=== PATIENT | female | born 1960 | race African-American/Black ===

== ENCOUNTER 2018-05-24 15:05 | Outpatient (CLI) | payer MEDICAID | END 2018-05-24 15:06 | disposition critical access hospital (66) | LOC: EMS 15:05 | PROVIDERS: ATTEND Surgery | DX: R10.30 Lower abdominal pain, unspecified (principal); R11.2 Nausea with vomiting, unspecified; R53.1 Weakness; R53.83 Other fatigue | CPT/HCPCS: A0425; A0427 ==

== ENCOUNTER 2018-05-24 15:28 | Inpatient (IN) | payer MEDICAID ==
[2018-05-24] MEDS ORDERED: SODIUM CHLORIDE 0.9% 1,000 ML IV ONE ×2 (15:48→18:21)
[2018-05-24] MEDS ORDERED: ACETAMINOPHEN 1,000 MG/100 ML 100 ML IV STA (15:49)
[2018-05-24 16:07] LABS: BASOPHILS % (AUTO) 0.5 %; EOSINOPHILS # (AUTO) 0.1 10^3/uL (0.0-0.7); HGB - HEMOGLOBIN 15.3 g/dL (12.0-16.0); LYMPHOCYTES % (AUTO) 32.4 %; MEAN CORPUSCULAR HEMOGLOBIN 26.2 pg (27.0-31.0); MEAN CORPUSCULAR HGB CONC 32.7 g/dL (32.0-36.0); MEAN CORPUSCULAR VOLUME 80.1 fL (81.0-99.0); MEAN PLATELET VOLUME 8.8 fL (7.9-10.8); MONOCYTES # (AUTO) 0.4 10^3/uL (0.0-1.0); MONOCYTES % (AUTO) 6.2 %; NEUTROPHILS # (AUTO) 3.7 10^3/uL (1.5-6.6); NEUTROPHILS % (AUTO) 58.9 %; PLT - PLATELET COUNT 230 10^3/uL (130-450); RED BLOOD COUNT 5.85 10^6/uL (4.20-5.40); RED CELL DISTRIBUTION WIDTH 14.5 % (12.0-15.0); WHITE BLOOD COUNT 6.2 x10^3/uL (4.8-10.8)
[2018-05-24 16:12] LABS: INR 1.1 (0.8-1.2); PT - PROTHROMBIN TIME 12.1 secs (9.9-12.6)
[2018-05-24] MEDS ORDERED: IOPAMIDOL-300 100 ML VIAL ONE (16:12)
[2018-05-24 16:20] LABS: ALBUMIN 4.2 g/dL (3.2-5.5); ALBUMIN/GLOBULIN RATIO 0.8 (1.0-2.2); ALKALINE PHOSPHATASE 123 IU/L (42-121); ALT ALANINE AMINOTRANSFERASE 19 IU/L (10-60); AST ASPARTATE AMINOTRANSFERASE 24 IU/L (10-42); BILIRUBIN,TOTAL 0.7 mg/dL (0.2-1.0); BUN - BLOOD UREA NITROGEN 14 mg/dL (6-20); CALCIUM 10.1 mg/dL (8.5-10.3); CARBON DIOXIDE - CO2 30 mmol/L (21-32); CHLORIDE 100 mmol/L (101-111); CREATININE 0.8 mg/dL (0.4-1.0); GFR - MDRD 90 (>89); GLUCOSE 106 mg/dL (70-100); LIPASE 20 U/L (22-51); MAGNESIUM 2.2 mg/dL (1.7-2.8); SODIUM 138 mmol/L (135-145); TOTAL PROTEIN 9.2 g/dL (6.7-8.2)
[2018-05-24] MEDS ORDERED: POTASSIUM BICARB 25 MEQ TABLET PO STA (16:31)
[2018-05-24] MEDS ORDERED: IOPAMIDOL-300 100 ML VIAL IVP ONE (17:32)
[2018-05-24] MEDS ORDERED: MORPHINE 10 MG/ML VIAL IVP STA (17:32)
[2018-05-24] MEDS ORDERED: POTASSIUM CHLOR 10 MEQ/100 ML 10 MEQ/100 ML BAG IV ONE (17:32)
[2018-05-24 17:43] LABS: MUDS CUTOFF CONCENTRATIONS CUTOFF CONC BELOW:
[2018-05-24 17:47] LABS: BILIRUBIN,URINE NEGATIVE (NEGATIVE); GLUCOSE, URINE (UA) NEGATIVE (NEGATIVE); KETONES,URINE (UA) NEGATIVE (NEGATIVE); LEUKOCYTE ESTERASE, URINE NEGATIVE (NEGATIVE); NITRITE,URINE NEGATIVE (NEGATIVE); OCCULT BLOOD,URINE NEGATIVE (NEGATIVE); PH,URINE 6.5 PH (5.0-7.5); PROTEIN,URINE TRACE mg/dL (NEGATIVE); UROBILINOGEN,URINE 0.2 (NORMAL) E.U./dL (NORMAL)
[2018-05-24 18:01] LABS: AMPHETAMINE SCREEN,URINE POSITIVE (NEGATIVE); BENZODIAZEPINES SCREEN, URINE NEGATIVE (NEGATIVE); CLARITY,URINE CLOUDY (CLEAR); COCAINE SCREEN URINE NEGATIVE (NEGATIVE); METHADONE SCREEN, URINE NEGATIVE (NEGATIVE); METHAMPHETAMINES SCREEN, URINE POSITIVE (NEGATIVE); OPIATE SCREEN, URINE NEGATIVE (NEGATIVE); OXYCODONE SCREEN, URINE NEGATIVE (NEGATIVE); PROPOXYPHENE SCREEN, URINE NEGATIVE (NEGATIVE); TRICYCLIC ANTIDEPRESSANT,URINE NEGATIVE (NEGATIVE)
--- NOTE | 2018-05-24 18:05 | ED Physician Documentation ---
PD HPI ABD PAIN - Stated complaint Stated Complaint: ABD PX - Chief complaint Chief Complaint: Abd Pain - History obtained from History obtained from: Patient - History of Present Illness Timing - onset: Today Timing - details: Abrupt onset (She had onset of general abdominal pain bloating and nausea with vomiting this afternoon over the past couple of hours. She has had mild lesser symptoms intermittently related to an umbilical hernia. She states she will lay down and massage the area and will feel the hernia reduce. She has not had the pain to this degree or vomiting associated with it. She did have an umbilical hernia repair a couple of years ago and states that her near we concurred within a couple of months. It has been intermittently out over the last several months but not the symptoms of this degree. She has felt general abdominal cramping and bloating to some degree over the last 4-6 months. She denies any constipation or diarrhea.) Quality: Cramping, Aching, Fullness/distended (this afternoon) Location: All over / everywhere, Periumbilical Radiation: No: Chest, Lower back Improved by: Position (worse lying flat). No: Vomiting Worsened by: Eating, Palpation Associated symptoms: Nausea, Vomiting. No: Fever, Hematemesis, Diarrhea, Constipation Similar symptoms before: Has not had sx before (has had hernia pain at times if gets feeling stuck, but not had the degree of pain and vomiting as she did today.) Recently seen: Not recently seen Review of Systems Unable to obtain: Other (she is somewhat sleepy on exam, before pain meds. So some limited history.) Constitutional: denies: Fever, Chills, Myalgias Nose: denies: Rhinorrhea / runny nose, Congestion Throat: denies: Sore throat Cardiac: denies: Chest pain / pressure Respiratory: denies: Cough GI: reports: Abdominal Pain, Abdominal Swelling, Nausea, Vomiting. denies: Constipation, Diarrhea : denies: Dysuria, Frequency Skin: denies: Rash, Lesions Musculoskeletal: denies: Neck pain, Back pain Neurologic: reports: Generalized weakness. 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 - Present Medications Home Medications: Ambulatory Orders Medication Instructions Recorded Confirmed Ciprofloxacin [Cipro] 500 mg PO BID #20 tablet 01/26/14 HYDROcod/ACETAM 5/325 [Vicodin 1 - 2 ea PO Q6H PRN #15 tablet 01/26/14 5/325] - Allergies Allergies/Adverse Reactions: Allergies Allergy/AdvReac Type Severity Reaction Status Date / Time No Known Drug Allergies Allergy Verified 01/26/14 14:02 - Social History Does the pt smoke?: No Smoking Status: Never smoker Does the pt drink ETOH?: Yes Does the pt have substance abuse?: No - Family History Family history: reports: Non contributory - Immunizations Immunizations are current?: Yes - POLST Patient has POLST: No POLST Status: Full Code PD ED PE NORMAL - Vitals Vital signs reviewed: Yes - General General: No acute distress, Well developed/nourished. No: Alert and oriented X 3 (she is sleepy/rouses to verbal and light tactile. ) - HEENT HEENT: Atraumatic, PERRL (nonicteric), Moist mucous membranes, Pharynx benign - Neck Neck: Supple, no meningeal sign, No adenopathy, No JVD - Cardiac Cardiac: RRR, No murmur - Respiratory Respiratory: Clear bilaterally - Abdomen Abdomen: Other (abd markedly distended and generally tender. Umbilical hernia very tender and firm, felt in supraumbilical soft tissue. She is moderately obese truncally, so hard to feel margins of it or the hernia defect. Firm pressure does not reduce the hernia and is painful. ). No: Normal bowel sounds (hyperactive diffusely) Results - Vitals Vitals: Vital Signs - 24 hr 05/24/18 05/24/18 05/24/18 15:33 16:21 17:30 Temperature 35.8 C L Heart Rate 96 84 83 Respiratory 15 17 Rate Blood Pressure 152/112 H 163/120 H O2 Saturation 95 96 99 Oxygen O2 Source Room air - Labs Labs: Laboratory Tests 05/24/18 05/24/18 05/24/18 16:00 16:00 16:00 WBC 6.2 RBC 5.85 H Hgb 15.3 Hct 46.9 MCV 80.1 L MCH 26.2 L MCHC 32.7 RDW 14.5 Plt Count 230 MPV 8.8 Neut # (Auto) 3.7 Lymph # (Auto) 2.0 [place] # (Auto) 0.4 Eos # (Auto) 0.1 Baso # (Auto) 0.0 Absolute Nucleated RBC 0.00 Nucleated RBC % 0.1 PT 12.1 INR 1.1 APTT 31.0 Sodium 138 Potassium 2.9 L Chloride 100 L Carbon Dioxide 30 Anion Gap 8.0 BUN 14 Creatinine 0.8 Estimated GFR (MDRD) 90 Glucose 106 H Lactic Acid Calcium 10.1 Magnesium 2.2 Total Bilirubin 0.7 AST 24 ALT 19 Alkaline Phosphatase 123 H Ammonia Total Protein 9.2 H Albumin 4.2 Globulin 5.0 H Albumin/Globulin Ratio 0.8 L Lipase 20 L CA 125 Antigen Urine Color Urine Clarity Urine pH Ur Specific [place] Urine Protein Urine Glucose (UA) Urine Ketones Urine Occult Blood Urine Nitrite Urine Bilirubin Urine Urobilinogen Ur Leukocyte Esterase Urine RBC Urine WBC Ur Squamous Epith Cells Urine Bacteria Ur Microscopic Review Urine Culture Comments Urine Opiates Screen Ur Oxycodone Screen Urine Methadone Screen Ur Propoxyphene Screen Ur Barbiturates Screen Ur Tricyclics Screen Ur Phencyclidine Scrn Ur Amphetamine Screen U Methamphetamines Scrn U Benzodiazepines Scrn Urine Cocaine Screen U Cannabinoids Screen Ethyl Alcohol < 5.0 05/24/18 05/24/18 05/24/18 16:00 16:00 16:00 WBC RBC Hgb Hct MCV MCH MCHC RDW Plt Count MPV Neut # (Auto) Lymph # (Auto) [place] # (Auto) Eos # (Auto) Baso # (Auto) Absolute Nucleated RBC Nucleated RBC % PT INR APTT Sodium Potassium Chloride Carbon Dioxide Anion Gap BUN Creatinine Estimated GFR (MDRD) Glucose Lactic Acid 1.2 Calcium Magnesium Total Bilirubin AST ALT Alkaline Phosphatase Ammonia 9.0 Total Protein Albumin Globulin Albumin/Globulin Ratio Lipase CA 125 Antigen 7.0 Urine Color Urine Clarity Urine pH Ur Specific [place] Urine Protein Urine Glucose (UA) Urine Ketones Urine Occult Blood Urine Nitrite Urine Bilirubin Urine Urobilinogen Ur Leukocyte Esterase Urine RBC Urine WBC Ur Squamous Epith Cells Urine Bacteria Ur Microscopic Review Urine Culture Comments Urine Opiates Screen Ur Oxycodone Screen Urine Methadone Screen Ur Propoxyphene Screen Ur Barbiturates Screen Ur Tricyclics Screen Ur Phencyclidine Scrn Ur Amphetamine Screen U Methamphetamines Scrn U Benzodiazepines Scrn Urine Cocaine Screen U Cannabinoids Screen Ethyl Alcohol 05/24/18 17:35 WBC RBC Hgb Hct MCV MCH MCHC RDW Plt Count MPV Neut # (Auto) Lymph # (Auto) [place] # (Auto) Eos # (Auto) Baso # (Auto) Absolute Nucleated RBC Nucleated RBC % PT INR APTT Sodium Potassium Chloride Carbon Dioxide Anion Gap BUN Creatinine Estimated GFR (MDRD) Glucose Lactic Acid Calcium Magnesium Total Bilirubin AST ALT Alkaline Phosphatase Ammonia Total Protein Albumin Globulin Albumin/Globulin Ratio Lipase CA 125 Antigen Urine Color YELLOW Urine Clarity CLOUDY Urine pH 6.5 Ur Specific [place] 1.020 Urine Protein TRACE Urine Glucose (UA) NEGATIVE Urine Ketones NEGATIVE Urine Occult Blood NEGATIVE Urine Nitrite NEGATIVE Urine Bilirubin NEGATIVE Urine Urobilinogen 0.2 (NORMAL) Ur Leukocyte Esterase NEGATIVE Urine RBC None Seen Urine WBC 0-3 Ur Squamous Epith Cells MANY Squamous H Urine Bacteria Many H Ur Microscopic Review INDICATED Urine Culture Comments NOT INDICATED Urine Opiates Screen NEGATIVE Ur Oxycodone Screen NEGATIVE Urine Methadone Screen NEGATIVE Ur Propoxyphene Screen NEGATIVE Ur Barbiturates Screen NEGATIVE Ur Tricyclics Screen NEGATIVE Ur Phencyclidine Scrn NEGATIVE Ur Amphetamine Screen POSITIVE H U Methamphetamines Scrn POSITIVE H U Benzodiazepines Scrn NEGATIVE Urine Cocaine Screen NEGATIVE U Cannabinoids Screen NEGATIVE Ethyl Alcohol PD MEDICAL DECISION MAKING - ED course Complexity details: reviewed results (CT showing incarcerated hernia umbilical with edema, and marked bowel obstruction. 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 ), re-evaluated patient (I still feel the umbilical hernia and it is tender and I don't feel it reduce with steady firm pressure. Her abd generally is somewhat less tense that on arrival, but still distended and hyeractive bowel sounds. ), considered differential (seems concerning for bowel obstruction and likely caused by incarcerated hernia. CT and labs, IV fluids and meds. ), d/w patient, d/w urban design consultant (Dr. Criss Mathews - discussed that I could not reduce the hernia and still seems obstruction. There is the pelvic mass which will be subsequent issue, but the acute is the hernia with obstruction. He will see her in the ER. ) - Sepsis Event Vital Signs: Vital Signs - 24 hr 05/24/18 05/24/18 05/24/18 15:33 16:21 17:30 Temperature 35.8 C L Heart Rate 96 84 83 Respiratory 15 17 Rate Blood Pressure 152/112 H 163/120 H O2 Saturation 95 96 99 Oxygen O2 Source Room air Departure - Departure Disposition: ED Transfer to [facility] Clinical Impression: Incarcerated umbilical hernia, Pelvic mass in female Abdominal pain Qualifiers: Abdominal location: generalized Qualified Code(s): R10.84 - Generalized abdominal pain Bowel obstruction Qualifiers: Intestinal obstruction type: other intestinal obstruction Intestinal obstruction extent: complete Qualified Code(s): K56.691 - Other complete intestinal obstruction Condition: Stable Record reviewed to determine appropriate education?: Yes
[2018-05-24 18:06] LABS: BACTERIA,URINE Many /HPF (None Seen); RBC,URINE None Seen /HPF (0-5); SQUAMOUS EPITHELIAL CELL,UR MANY Squamous (<= Few)
--- NOTE | 2018-05-24 18:10 | CT Report ---
Procedure Date: 05/24/2018 Accession Number: [id number] / [id number] Procedure: CT - Abdomen/Pelvis W/ CPT Code: FULL RESULT: EXAM: CT ABDOMEN AND PELVIS EXAM DATE: 05/24/2018 05:29 PM. CLINICAL HISTORY: Mid abdominal pain and distension. COMPARISONS: None. TECHNIQUE: Routine helical CT imaging was performed through the abdomen and pelvis. IV contrast: 100 ML Isovue 300. Enteric contrast: No. Reconstructions: Coronal and sagittal. In accordance with CT protocol optimization, one or more of the following dose reduction techniques were utilized for this exam: automated exposure control, adjustment of mA and/or KV based on patient size, or use of iterative reconstructive technique. FINDINGS: Lung Bases: Unremarkable. Liver: Normal. No masses. Gallbladder/Bile Ducts: Unremarkable. Spleen: Normal. Pancreas: Normal. Adrenal Glands: Normal. Kidneys: Normal. No masses or hydronephrosis. Peritoneal Cavity/Bowel: There is a short segment of incarcerated loop junction of the mid and distal ileum in a 4 x 5 cm hernia sac, 3 cm neck, axial image 52, coronal image 13. There is marked wall thickening and exuberant enhancement of the wall of the small bowel at and proximal to the hernia neck raising the possibility of serosal implants. Marked enhancement is also seen in the adjacent abdominal rectus muscle. Small bowel proximal to this hernia measures 5 cm in diameter. The distal small bowel is decompressed. The colon is very small in caliber. Appendix not visualized. No free air. Pelvic Organs: 18 x 23 x 10 cm complex inhomogeneous aggressive appearing lesion occupying the left side of the pelvis and the inferior half of the abdomen. 13.5 x 9 x 10 cm aggressive, complex mass right side of the lower abdomen occupying the rest of the pelvis. These 2 lesions abut each other over a short segment mid way. Urinary bladder is compressed to the right. No uterus evident as a discrete structure. Vasculature: No aneurysms or other significant abnormality. Bones: No significant abnormality. Other: None. IMPRESSION: 1. Incarcerated loop of small bowel in a right periumbilical hernia causing marked obstruction. 2. Marked irregular enhancement of the bowel proximal to the hernia neck and also involving the adjacent abdominal wall raising the possibility of a serosal implant. 3. Two massive complex aggressive lesions probably arising out of the pelvis causing marked mechanical compromise of the rest of the abdominal and pelvic contents. Differential includes ovarian neoplasms, other gynecologic neoplasms, sarcoma, atypical for uterine leiomyomas. RADIA The above findings were discussed with Jordan Pablo by Dr. Rosalind Ward at 18:08 hrs on 05/24/18.
--- NOTE | 2018-05-24 19:36 | XRAY Report ---
Procedure Date: 05/24/2018 Accession Number: [id number] / [id number] Procedure: XR - Chest 1 View X-Ray CPT Code: 28529 FULL RESULT: EXAM: CHEST RADIOGRAPHY EXAM DATE: 05/24/2018 06:26 PM. CLINICAL HISTORY: Abd pain; possible pre-op. COMPARISON: None. TECHNIQUE: 1 view. FINDINGS: Lungs/Pleura: Lung volumes are extremely low. Lower lung predominant linear opacities could reflect atelectasis. No other focal consolidation. No evidence for pneumothorax. Mediastinum: Heart size is normal. Tortuous thoracic aorta with atheromatous calcification of the arch. Other: None. IMPRESSION: 1. No radiographic evidence for acute cardio coming process. 2. Lung volumes are low. RADIA
--- NOTE | 2018-05-24 19:39 | CONSULTATION NOTE ---
Referring Provider Name of Referring Provider:: Dr. Jordan Pablo Consult Date: 05/24/18 Chief Complaint - Chief Complaint Chief Complaint: abdominal pain History of Present Illness - Admitted From Admitted From:: ER - History Obtained From Records Reviewed: yes History obtained from: pt Exam Limitations: pt is somnolent during the evaluation, somewhat difficult to arouse - History of Present Illness HPI Comment/Other: 57 yo female with sudden onset of periumbilical abdominal pain this morning, associated with N/V x 1. She has a hx of repair of an umbilical hernia in [place] in 11/2015. She reports that within a month of the surgery her hernia recurred, and she has repeated episodes of pain that previously had been relieved with recumbency and massaging the area. However those techniques were not successful today, prompting an ER evaluation today. She reports no change in bowel habits, melena, BRBPR, hematemesis, no chronic UGI sx such as heartburn , dysphagia, no recent wt changes. She denies respiratory or urinary sx, no abnormal vaginal discharge or bleeding. She reports her LMP was 05/2017, she is para 3, and no recent blood bank laboratory professional evaluations. Neg FH GI tumors. Attempts by the ER MD to reduce the hernia have been also unsuccessful. 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 - Substance History Use: Uses substance without health or social issues: Alcohol (1 drink/day) - POLST Patient has POLST: No POLST Status: Full Code Meds/Allgy - Allergies Allergies/Adverse Reactions: Allergies Allergy/AdvReac Type Severity Reaction Status Date / Time No Known Drug Allergies Allergy Verified 01/26/14 14:02 Review of Systems - Constitutional Constitutional: denies: Fever, Chills, Weight gain, Weight loss - Cardiovascular Cariovascular: denies: Chest pain, Exertional dyspnea - Respiratory Respiratory: denies: Cough - Gastrointestinal Gastrointestinal: reports: Abdominal pain, Abdominal distention, Nausea, Vomiting, Bloating. denies: Constipation, Diarrhea, Change in bowel habits, Rectal bleeding, Black stools, Bloody stools, Gautam blood emesis, Coffee grounds emesis, Reflux/heartburn - Genitourinary Genitourinary: denies: Dysuria, Frequency, Flank pain - Musculoskeletal Musculoskeletal: denies: Muscle pain, Back pain - Hematologic/Lymphatic Hematologic/Lymphatic: denies: Bruising, Blood clots, Bleeding tendencies - All Other Systems All Other Systems: reports: Reviewed and negative Exam - Vital Signs Reviewed Vital Signs: Yes Vital Signs: Vital Signs x48h Temp Pulse Resp BP Pulse Ox 05/24/18 17:30 83 99 05/24/18 16:21 84 17 163/120 H 96 05/24/18 15:33 35.8 C L 96 15 152/112 H 95 - Physical Exam General Appearance: positive: No acute distress, Lethargic Eyes Bilateral: positive: Normal inspection, Conjunctivae nml, No scleral icterus ENT: positive: ENT inspection nml, Dry mucous membranes Neck: positive: Nml inspection, No JVD, Trachea midline. negative: Lymphadenopathy (R), Lymphadenopathy (L) Respiratory: positive: Chest non-tender, No respiratory distress, Breath sounds nml. negative: Wheezes, Rales, Rhonchi Cardiovascular: positive: Regular rate & rhythm, No murmur, No gallop Abdomen: positive: Tenderness (periumbilical; no definite hernia palpable but obesity limits examination), Guarding, Mass (large mass arising from pelvis, fixed, nontender, palpable midway between umbilicus and pubis.), Abnml bowel sounds (hypoactive). negative: Rebound, Hepatomegaly, Splenomegaly Skin: positive: Color nml, Warm, Dry Extremities: positive: Non-tender, Pedal edema (1-2+ bilat pretibial edema). negative: Calf tenderness Neurologic/Psychiatric: positive: Oriented x3, Other (lethargic, denies recreational drug use, but urine tox screen + amphetamines) Conclusion/Plan - Diagnosis Diagnosis: 1. Incarcerated recurrent ventral/umbilical hernia with SBO. 2. Volume depletion secondary to same. 3. Hypokalemia, possibly secondary to above. 4. Large pelvic mass, very concerning for blood bank laboratory professional malignancy. 5. Hypertension, uncontrolled. 6. Somnolence, concerning for drug toxicity, withdrawal from amphetamines, metabolic, etc. - Plan Plan: Resuscitation with IVF, replace potassium, to OR for repair of hernia and relief of SBO, hospitalist and blood bank laboratory professional consultations. PAR conference with pt, and consent obtained. - Lab Results Fish Bones: 05/24/18 16:00 05/24/18 16:00 Other Lab Results: urine tox screen + amphetamines, neg for everything else tested. UA negative; SG 1.020 CA-125: 7 (nl) - Diagnostic Imaging Results Diagnostic Imaging Results: positive: Final report reviewed, Critical result, Read independently Diagnostic Imaging Results Comments: CXR: NAD CT abd/pelvis: 1. incarcerated umbilical/incisional hernia with loop of mid small bowel incarcerated and proximal dilation c/w SBO; distal small and large bowel are decompressed. 2. large pelvic mass involving uterus, tubes, and ovaries, displacing the urinary bladder; no ascites, lymphadenopathy or liver mets noted. - EKG Results EKG Interpreted Independently: No EKG Findings: pending
[2018-05-24] MEDS ORDERED: BUPIVACAINE 0.5%-EPI 1:200000 PF 30 ML VIAL ONE (19:56)
[2018-05-24] MEDS ORDERED: ceFAZolin 2 GM/50 ML 2 GM/50 ML BAG IV SCH (20:30)
[2018-05-24] MEDS ORDERED: ceFAZolin 1 GM VIAL ONE (20:57)
[2018-05-24] MEDS ORDERED: BUPIVACAINE 0.25% PF 30 ML VIAL ONE (21:05)
[2018-05-24] MEDS ORDERED: LIDOCAINE MPF 1%-EPI 1:200000 30 ML VIAL ONE (21:05)
[2018-05-24] MEDS ORDERED: LACTATED RINGERS 1,000 ML IV ONE ×2 (21:16→22:03)
[2018-05-24] MEDS ORDERED: ONDANSETRON 4 MG/2 ML VIAL IVP ONE (22:00)
[2018-05-24] MEDS ORDERED: SUCCINYLCHOLINE 200 MG/10 ML VIAL IVP ONE (22:00)
[2018-05-24] MEDS ORDERED: ROCURONIUM 50 MG/5 ML VIAL IVP ONE (22:00)
[2018-05-24] MEDS ORDERED: KETOROLAC 30 MG/ML VIAL IVP ONE (22:00)
[2018-05-24] MEDS ORDERED: fentaNYL 250 MCG/5 ML VIAL IVP ONE (22:00)
[2018-05-24] MEDS ORDERED: MIDAZOLAM 2 MG/2 ML VIAL IVP ONE (22:00)
[2018-05-24] MEDS ORDERED: PROPOFOL 200 MG/20 ML VIAL IVP ONE (22:00)
[2018-05-24] MEDS ORDERED: BUPIVACAINE 0.5%-EPI 1:200000 PF 30 ML VIAL SUBQ ONE ×2 (22:01→22:50)
[2018-05-24] MEDS ORDERED: MORPHINE 2 MG/ML SYRINGE IVP PRN (23:17)
--- NOTE | 2018-05-24 23:21 | OPERATIVE REPORT ---
Operative Report - General Admit Date: 05/24/18 Procedure Date: 05/24/18 Planned Procedure: open repair of incarcerated recurrent ventral hernia Pre-Op Diagnosis: incarcerated recurrent ventral hernia with SBO Procedure Performed: open repair of incarcerated recurrent ventral hernia with Ventralex soft tissue patch, peritoneal biopsy, peritoneal fluid for cytology. Post Op Diagnosis: same - Procedure Note Primary Surgeon: Brock Mathews MD Anesthesia Provider: Any DODSON Anesthesia Technique: General ET tube Pathology: hernia sac, peritoneal fluid for cytology, peritoneal biopsy IV Fluids (mL): 1,800 Estimated Blood Loss (mL): 10 Urine Output (mL): 200
[2018-05-24] MEDS ORDERED: FAMOTIDINE 20 MG/2 ML VIAL IVP SCH (23:45)
[2018-05-25] MEDS ORDERED: LACTATED RINGERS 1,000 ML IV ONE (00:06)
[2018-05-25] MEDS: LACTATED RINGERS 1,000 ML IV SCH ×3 (00:54→17:18)
[2018-05-25] MEDS: SODIUM CHLORIDE FLUSH 0.9% 10 ML SYRINGE IVP SCH ×4 (00:56→23:44)
[2018-05-25] MEDS: ACETAMINOPHEN 1,000 MG/100 ML 100 ML IV SCH ×4 (01:02→17:54)
--- NOTE | 2018-05-25 03:41 | OPERATIVE REPORT ---
DATE OF SERVICE: 05/24/2018 Physician: Brock Mathews MD PREOPERATIVE DIAGNOSES: 1. Incarcerated, recurrent ventral hernia with small bowel obstruction. 2. Pelvic mass. POSTOPERATIVE DIAGNOSES: 1. Incarcerated, recurrent ventral hernia with small bowel obstruction. 2. Pelvic mass. PROCEDURE PERFORMED: 1. Open repair of incarcerated, recurrent ventral hernia with Ventralex soft tissue hernia patch. 2. Peritoneal biopsy. 3. Peritoneal fluid aspiration for cytology. ANESTHESIA: General endotracheal. SURGEON: Brock Mathews MD ESTIMATED BLOOD LOSS: 10 mL, replaced 1800 mL of crystalloid solution. COMPLICATIONS: None. FINDINGS: Hernia contents had reduced into the peritoneal cavity. After induction of general anesthesia, the hernia sac was markedly thickened, but had a smooth peritoneal surface. The sac was sent for pathologic evaluation. There appeared to be mesh incorporated along the left lateral edge of the fascial defect with marked thickening of the peritoneum at this location. The visualized small bowel appeared normal. Palpation through the fascial defect revealed an irregular mass arising from the pelvis. Approximately 30 mL of serosanguineous peritoneal fluid was aspirated and sent for cytologic evaluation. A 4-cm diameter Ventralex soft tissue hernia patch was used for the reconstruction. INDICATIONS: Tiffanie Wilson is a 57-year-old woman who presented with signs and symptoms of a small-bowel obstruction due to an incarcerated ventral hernia. She has a history of prior repair of this hernia and clinically appeared to have a recurrence with incarcerated small bowel. Evaluation with CT also revealed a large pelvic mass. After consultation with Dr. Ignacio at the site, it was elected to repair the hernia, relieve the obstruction and obtain fluid for cytology and otherwise leave the pelvic mass for future evaluation and treatment by [facility] oncology service. TECHNIQUE: After informed consent and preoperative preparation which included fluid resuscitation and administration of 2 grams cefazolin intravenously within an hour of the incision as well as application of sequential calf compression boots, the patient was taken to the operating room and placed under general endotracheal anesthesia. Her abdomen was prepared with ChloraPrep solution and draped in the usual sterile fashion. The patient's previous supraumbilical scar was reopened vertically and extended below the umbilicus for several centimeters. Hemostasis achieved with electrocautery. The incision was carried down through the subcutaneous tissues until the hernia sac was identified. It was dissected free from surrounding soft tissues until the anterior fascia was exposed circumferentially around the neck of the hernia sac. The hernia sac was seen to have collapsed. It was opened. Adhesions between the hernia sac and a knuckle of small bowel were lysed, allowing the small bowel to completely reduce into the peritoneal cavity. The hernia sac was excised flush with the anterior fascia and sent for pathologic evaluation. The thickened area of peritoneum lateral to the fascial defect was excised and sent separately as a peritoneal biopsy. Hemostasis was achieved with electrocautery. The fascial edges were mobilized circumferentially and the peritoneal surface surrounding the fascial defect was mobilized for a distance of 2-3 cm circumferentially. The fascial defect was approximately 2 cm in diameter. A Ventralex 4-cm diameter patch, which had been soaked in the antibiotic solution containing 1 gram of Ancef per liter, was then brought onto the field and placed in a preperitoneal location and held anteriorly by the attached strap while the fascial edges were reapproximated transversely over the patch with interrupted 0 Ethibond sutures. Sutures included the strap to further anchor the patch in place. Excess strap was excised. After hemostasis was assured, the wound was irrigated with antibiotic solution, following which wound closure was accomplished in layers using continuous 2-0 Vicryl to reapproximate the deep subcutaneous tissues, followed by 3-0 Vicryl for the superficial subcutaneous tissues, followed by 4-0 Monocryl subcuticular skin closure, followed by Dermabond. Anesthesia was terminated and the patient was transferred to the recovery room in satisfactory condition. Sponge and needle counts were correct x2 and no drains were used. TD: 05/24/2018 23:41
--- NOTE | 2018-05-25 05:14 | CONSULTATION NOTE ---
Referring Provider Name of Referring Provider:: Brock Mathews MD - General Surgery Consult Date: 05/25/18 Chief Complaint - Chief Complaint Chief Complaint: Abdominal Pain History of Present Illness - Admitted From Admitted From:: Emergency Department - History Obtained From Records Reviewed: Yes History obtained from: Patient Exam Limitations: None - History of Present Illness HPI Comment/Other: Patient is a 57-year-old -Cym[place] female with a past medical history of repair of an umbilical hernia at [facility] in 2016 and no other significant past medical history per the patient who presented to the emergency department with a chief complaint of abdominal pain. The patient states that 2 years ago after her hernia repair surgery her mesh failed and she had recurrence of the hernia. She states that she has been dealing with the hernia ever since. She states that the hernia has been causing her pain off and on for the last 2 years. She states usually she is able to massage the area and the pain is usually relieved. She states that this morning she began having sudden onset of periumbilical abdominal pain. She states that she had associated nausea and vomiting 1. She states that the pain was extreme and unbearable therefore she came into the emergency department. The patient denies any fevers or chills. She denies any black or bloody stools. She denies any coffee-ground emesis. She denies any constipation or diarrhea. Patient denies any headaches, blurred vision, runny nose, sore throat, nasal congestion, difficulty swallowing, chest pain, shortness of air, orthopnea, PND , increased lower extremity swelling, urinary urgency, urinary frequency, dysuria, joint pain, joint swelling, muscle aches, back pain, neck stiffness, hair loss, rash, recent unintentional weight loss, changes in her appetite, night sweats or any focal neurologic deficits. On presentation to the emergency department the patient was afebrile, tachycardic, hypertensive but not in any respiratory distress. The patient was in excruciating pain and appeared to be in significant distress. The patient was given IV fluids and IV morphine in the emergency department. The patient underwent a CT of her abdomen and pelvis which revealed an incarcerated loop of small bowel in the right periumbilical hernia causing marked obstruction. Patient also had marked irregular enhancement of the bowel proximal to the hernia neck and also involving the adjacent abdominal wall raising possibility of a serosal implant. She also was found to have 2 massive complex aggressive lesions probably arising out of the pelvis causing marked mechanical compromise of the rest of the abdominal and pelvic contents. Differential includes ovarian neoplasm, other gynecologic neoplasms, sarcoma, atypical for uterine leiomyomas. The emergency room physician contacted the surgeon contracts law professor Dr. Mathews and he prepared to take the patient to the OR. Dr. Mathews also spoke with the conductor symphonic orchestra physician contracts law professor who stated that the hernia needed to be repaired before any intervention could be performed for the massive complex lesions in the pelvis. The patient was taken to the OR urgently and underwent open repair of incarcerated, recurrent ventral hernia with ventralex soft tissue hernia patch and peritoneal biopsy was also performed along with peritoneal fluid aspiration for cytology. Given the patient's hypertension on presentation and suspicion for possible methamphetamine use given her positive U tox screen the hospitalist team was consulted by Dr. Mathews for management of possible chronic medical conditions. He may also need our help to organize follow-up for this patient who will need urgent conductor symphonic orchestra and likely oncology follow-up. She also needs to establish a primary care physician. History - Past Medical History Cardiovascular: reports: Hypertension Respiratory: reports: None Neuro: reports: None Endocrine/Autoimmune: reports: None GI: reports: None CLUB STEWARD: reports: None : reports: None, Other Psych: reports: None Musculoskeletal: reports: None MRSA Hx?: No - Past Surgical History General: reports: Other /CLUB STEWARD: reports: section - Family & Social History Family History Comment/Other: neg for GI tumors, The patient denies any family history of cancer, coronary artery disease, hypertension or diabetes. 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 The patient has 3 children including one son who is a police liaison officer. The patient is originally from [place], [place] and moved to [facility] in 1996. She states that she does drink a beer a day but denies any tobacco use or any illicit drug use. The patient's urine tox screen was positive for methamphetamine and she was questioned specifically about methamphetamine use but denied. - Substance History Use: Uses substance without health or social issues: Alcohol (1 drink/day) - POLST Patient has POLST: No POLST Status: Full Code Meds/Allgy - Allergies Allergies/Adverse Reactions: Allergies Allergy/AdvReac Type Severity Reaction Status Date / Time No Known Drug Allergies Allergy Verified 01/26/14 14:02 Review of Systems - Other Findings Other Findings: A comprehensive review of systems was performed the pertinent positives and negatives are stated above in the HPI and the remainder of the review of systems is negative. Exam - Vital Signs Reviewed Vital Signs: Yes Vital Signs: Vital Signs x48h Temp Pulse Pulse Resp BP Pulse Ox 05/25/18 03:12 70 18 140/79 H 99 05/25/18 02:05 71 18 134/84 H 99 05/25/18 01:00 75 18 124/78 100 05/25/18 00:30 36.3 C L 62 18 137/83 H 100 05/25/18 00:20 98 05/25/18 00:15 98 05/25/18 00:09 99 05/25/18 00:04 96 05/25/18 00:00 93 05/24/18 23:55 93 05/24/18 23:50 95 05/24/18 23:45 100 05/24/18 23:40 94 05/24/18 23:35 96 05/24/18 23:30 100 05/24/18 23:25 100 05/24/18 23:21 100 05/24/18 23:15 100 - Physical Exam General Appearance: positive: Alert, Lethargic (Postop), Other (Was upset and did not want to answer questions, seemed irritated) Eyes Bilateral: positive: Normal inspection, PERRL, EOMI, No lid inflammation, Conjunctivae nml, No scleral icterus ENT: positive: ENT inspection nml, Pharynx nml, Dry mucous membranes. negative : Purulent nasal drainage, Pharyngeal erythema, Oral lesions Neck: positive: Nml inspection, Thyroid nml, No JVD, Trachea midline. negative : Lymphadenopathy (R), Lymphadenopathy (L), Stiff neck, Carotid bruit, Tracheal deviation Respiratory: positive: Chest non-tender, No respiratory distress, Breath sounds nml. negative: Wheezes, Rales, Rhonchi Cardiovascular: positive: Regular rate & rhythm, No murmur, No gallop Peripheral Pulses: positive: 2+ Abdomen: positive: No distention, Tenderness (Near the area of surgery), Other ( Surgical site appears clean and does not appear infected). negative: Guarding, Rebound Back: positive: Nml inspection. negative: CVA tenderness (R), CVA tenderness (L ) Skin: positive: Color nml, No rash, Warm. negative: Diaphoresis, Pallor, Skin rash Extremities: positive: Non-tender, Full ROM, Nml appearance, No pedal edema Neurologic/Psychiatric: positive: Oriented x3, CN's nml (2-12), Motor nml, Sensation nml, Mood/affect nml Conclusion/Plan - Diagnosis Diagnosis: 1. Hypertension. 2. Methamphetamine Abuse. 3. Incarcerated Ventral Hernia. 4. Small Bowel Obstruction. 5. Pelvic Mass. 6. Hypokalemia - Plan Plan: 1. Patient will be placed on clonidine 0.1 mg p.o. twice daily as needed for systolic blood pressure greater than 150. Patient appear to be hypertensive when she first arrived in the emergency department likely secondary to her pain. Patient will be continued on pain control per surgery orders. Patient denies any history of hypertension. We will monitor the patient's blood pressure while she is hospitalized and can start a scheduled medication if her blood pressure does remain elevated despite adequate pain control. 2. Although patient denies methamphetamine use her U tox was positive for methamphetamines. There is some concern for possible withdrawal from methamphetamines therefore patient will be placed on Ativan as needed if she does begin to have anxiety or withdrawal symptoms. 3. Patient will be managed by surgery for her incarcerated hernia she is status post open repair of incarcerated recurrent ventral hernia. Patient will continue to get pain control and antiemetics. Patient will be kept n.p.o. and diet will be advanced per surgery recommendations. 4. Patient likely had small bowel obstruction on presentation due to the incarcerated ventral hernia. Since she has had surgery that should improve. Again this will be managed by surgery. Currently patient is n.p.o. and diet will be advanced per surgery recommendations. Patient will be continued on pain control and antiemetics. Patient will be continued on IV fluids. 5. Patient was found to have 2 massive complex aggressive lesions probably arising out of the pelvis causing marked mechanical compromise of the rest of the abdomen and pelvic contents. The differential for these lesions is ovarian neoplasms, other gynecologic neoplasms, sarcoma, atypical for uterine leiomyomas. For this pelvic mass patient will need further follow-up with obstetrics and gynecology and possibly oncology. Biopsies of the peritoneum were taken by general surgery during the procedure. Also cytology was taken from the fluid in the abdomen. Those results will need to be followed up. Patient also needs to be established with a primary care physician. We will consult social work and case management to help patient find a primary care physician. 6. Patient's potassium will be replaced and we will continue to monitor potassium. Likely it was decreased due to nausea and vomiting. Patient will be given antiemetics. - Lab Results Lab results reviewed: Yes Fish Bones: 05/24/18 16:00 05/24/18 16:00 Other Lab Results: Laboratory Results WBC 6.2 x10^3/uL (4.8-10.8) 05/24/18 16:00 RBC 5.85 10^6/uL (4.20-5.40) H 05/24/18 16:00 Hgb 15.3 g/dL (12.0-16.0) 05/24/18 16:00 Hct 46.9 % (37.0-47.0) 05/24/18 16:00 MCV 80.1 fL (81.0-99.0) L 05/24/18 16:00 MCH 26.2 pg (27.0-31.0) L 05/24/18 16:00 MCHC 32.7 g/dL (32.0-36.0) 05/24/18 16:00 RDW 14.5 % (12.0-15.0) 05/24/18 16:00 Plt Count 230 10^3/uL (130-450) 05/24/18 16:00 MPV 8.8 fL (7.9-10.8) 05/24/18 16:00 Neut # (Auto) 3.7 10^3/uL (1.5-6.6) 05/24/18 16:00 Lymph # (Auto) 2.0 10^3/uL (1.5-3.5) 05/24/18 16:00 [place] # (Auto) 0.4 10^3/uL (0.0-1.0) 05/24/18 16:00 Eos # (Auto) 0.1 10^3/uL (0.0-0.7) 05/24/18 16:00 Baso # (Auto) 0.0 10^3/uL (0.0-0.1) 05/24/18 16:00 Absolute Nucleated RBC 0.00 x10^3/uL 05/24/18 16:00 Nucleated RBC % 0.1 /100WBC 05/24/18 16:00 PT 12.1 secs (9.9-12.6) 05/24/18 16:00 INR 1.1 (0.8-1.2) 05/24/18 16:00 APTT 31.0 secs (24.9-33.3) 05/24/18 16:00 Sodium 138 mmol/L (135-145) 05/24/18 16:00 Potassium 2.9 mmol/L (3.5-5.0) L 05/24/18 16:00 Chloride 100 mmol/L (101-111) L 05/24/18 16:00 Carbon Dioxide 30 mmol/L (21-32) 05/24/18 16:00 Anion Gap 8.0 (6-13) 05/24/18 16:00 BUN 14 mg/dL (6-20) 05/24/18 16:00 Creatinine 0.8 mg/dL (0.4-1.0) 05/24/18 16:00 Estimated GFR (MDRD) 90 (>89) 05/24/18 16:00 Glucose 106 mg/dL (70-100) H 05/24/18 16:00 Lactic Acid 1.2 mmol/L (0.5-2.2) 05/24/18 16:00 Calcium 10.1 mg/dL (8.5-10.3) 05/24/18 16:00 Magnesium 2.2 mg/dL (1.7-2.8) 05/24/18 16:00 Total Bilirubin 0.7 mg/dL (0.2-1.0) 05/24/18 16:00 AST 24 IU/L (10-42) 05/24/18 16:00 ALT 19 IU/L (10-60) 05/24/18 16:00 Alkaline Phosphatase 123 IU/L (42-121) H 05/24/18 16:00 Ammonia 9.0 umol/L (7-35) 05/24/18 16:00 Total Protein 9.2 g/dL (6.7-8.2) H 05/24/18 16:00 Albumin 4.2 g/dL (3.2-5.5) 05/24/18 16:00 Globulin 5.0 g/dL (2.1-4.2) H 05/24/18 16:00 Albumin/Globulin Ratio 0.8 (1.0-2.2) L 05/24/18 16:00 Lipase 20 U/L (22-51) L 05/24/18 16:00 CA 125 Antigen 7.0 U/mL (0.0-35.0) 05/24/18 16:00 Urine Color YELLOW 05/24/18 17:35 Urine Clarity CLOUDY (CLEAR) 05/24/18 17:35 Urine pH 6.5 PH (5.0-7.5) 05/24/18 17:35 Ur Specific [place] 1.020 (1.002-1.030) 05/24/18 17:35 Urine Protein TRACE mg/dL (NEGATIVE) 05/24/18 17:35 Urine Glucose (UA) NEGATIVE mg/dL (NEGATIVE) 05/24/18 17:35 Urine Ketones NEGATIVE mg/dL (NEGATIVE) 05/24/18 17:35 Urine Occult Blood NEGATIVE (NEGATIVE) 05/24/18 17:35 Urine Nitrite NEGATIVE (NEGATIVE) 05/24/18 17:35 Urine Bilirubin NEGATIVE (NEGATIVE) 05/24/18 17:35 Urine Urobilinogen 0.2 (NORMAL) E.U./dL (NORMAL) 05/24/18 17:35 Ur Leukocyte Esterase NEGATIVE (NEGATIVE) 05/24/18 17:35 Urine RBC None Seen /HPF (0-5) 05/24/18 17:35 Urine WBC 0-3 /HPF (0-5) 05/24/18 17:35 Ur Squamous Epith Cells MANY Squamous (<= Few) H 05/24/18 17:35 Urine Bacteria Many /HPF (None Seen) H 05/24/18 17:35 Ur Microscopic Review INDICATED 05/24/18 17:35 Urine Culture Comments NOT INDICATED 05/24/18 17:35 Urine Opiates Screen NEGATIVE (NEGATIVE) 05/24/18 17:35 Ur Oxycodone Screen NEGATIVE (NEGATIVE) 05/24/18 17:35 Urine Methadone Screen NEGATIVE (NEGATIVE) 05/24/18 17:35 Ur Propoxyphene Screen NEGATIVE (NEGATIVE) 05/24/18 17:35 Ur Barbiturates Screen NEGATIVE (NEGATIVE) 05/24/18 17:35 Ur Tricyclics Screen NEGATIVE (NEGATIVE) 05/24/18 17:35 Ur Phencyclidine Scrn NEGATIVE (NEGATIVE) 05/24/18 17:35 Ur Amphetamine Screen POSITIVE (NEGATIVE) H 05/24/18 17:35 U Methamphetamines Scrn POSITIVE (NEGATIVE) H 05/24/18 17:35 U Benzodiazepines Scrn NEGATIVE (NEGATIVE) 05/24/18 17:35 Urine Cocaine Screen NEGATIVE (NEGATIVE) 05/24/18 17:35 U Cannabinoids Screen NEGATIVE (NEGATIVE) 05/24/18 17:35 Ethyl Alcohol < 5.0 mg/dL 05/24/18 16:00 - Diagnostic Imaging Results Diagnostic Imaging Results: positive: Final report reviewed Diagnostic Imaging Results Comments: EXAM: [id number] CT/ABPEW ([id number]) Procedure Date: 05/24/2018 Accession Number: [id number] / [id number] Procedure: CT - Abdomen/Pelvis W/ CPT Code: FULL RESULT: EXAM: CT ABDOMEN AND PELVIS EXAM DATE: 05/24/2018 05:29 PM. CLINICAL HISTORY: Mid abdominal pain and distension. COMPARISONS: None. TECHNIQUE: Routine helical CT imaging was performed through the abdomen and pelvis. IV contrast: 100 ML Isovue 300. Enteric contrast: No. Reconstructions: Coronal and sagittal. In accordance with CT protocol optimization, one or more of the following dose reduction techniques were utilized for this exam: automated exposure control, adjustment of mA and/or KV based on patient size, or use of iterative reconstructive technique. FINDINGS: Lung Bases: Unremarkable. Liver: Normal. No masses. Gallbladder/Bile Ducts: Unremarkable. Spleen: Normal. Pancreas: Normal. Adrenal Glands: Normal. Kidneys: Normal. No masses or hydronephrosis. Peritoneal Cavity/Bowel: There is a short segment of incarcerated loop junction of the mid and distal ileum in a 4 x 5 cm hernia sac, 3 cm neck, axial image 52, coronal image 13. There is marked wall thickening and exuberant enhancement of the wall of the small bowel at and proximal to the hernia neck raising the possibility of serosal implants. Marked enhancement is also seen in the adjacent abdominal rectus muscle. Small bowel proximal to this hernia measures 5 cm in diameter. The distal small bowel is decompressed. The colon is very small in caliber. Appendix not visualized. No free air. Pelvic Organs: 18 x 23 x 10 cm complex inhomogeneous aggressive appearing lesion occupying the left side of the pelvis and the inferior half of the abdomen. 13.5 x 9 x 10 cm aggressive, complex mass right side of the lower abdomen occupying the rest of the pelvis. These 2 lesions abut each other over a short segment mid way. Urinary bladder is compressed to the right. No uterus evident as a discrete structure. Vasculature: No aneurysms or other significant abnormality. Bones: No significant abnormality. Other: None. IMPRESSION: 1. Incarcerated loop of small bowel in a right periumbilical hernia causing marked obstruction. 2. Marked irregular enhancement of the bowel proximal to the hernia neck and also involving the adjacent abdominal wall raising the possibility of a serosal implant. 3. Two massive complex aggressive lesions probably arising out of the pelvis causing marked mechanical compromise of the rest of the abdominal and pelvic contents. Differential includes ovarian neoplasms, other gynecologic neoplasms, sarcoma, atypical for uterine leiomyomas. EXAM: CHEST RADIOGRAPHY EXAM DATE: 05/24/2018 06:26 PM. CLINICAL HISTORY: Abd pain; possible pre-op. COMPARISON: None. TECHNIQUE: 1 view. FINDINGS: Lungs/Pleura: Lung volumes are extremely low. Lower lung predominant linear opacities could reflect atelectasis. No other focal consolidation. No evidence for pneumothorax. Mediastinum: Heart size is normal. Tortuous thoracic aorta with atheromatous calcification of the arch. Other: None. IMPRESSION: 1. No radiographic evidence for acute cardio coming process. 2. Lung volumes are low. - EKG Results EKG Interpreted Independently: Yes EKG Findings: No ST elevations. Patient has nonspecific changes in the anterior leads.
[2018-05-25] MEDS ORDERED: LORazepam 0.5 MG TABLET PO PRN (05:19)
[2018-05-25] MEDS ORDERED: cloNIDine 0.1 MG TABLET PO PRN (05:19)
[2018-05-25] MEDS ORDERED: POTASSIUM CHLORIDE 20 MEQ TABLET PO SCH (06:00)
[2018-05-25 06:22] LABS: ALBUMIN 2.8 g/dL (3.2-5.5); ALBUMIN/GLOBULIN RATIO 0.9 (1.0-2.2); BILIRUBIN,TOTAL 0.8 mg/dL (0.2-1.0); CALCIUM 8.4 mg/dL (8.5-10.3); CREATININE 0.7 mg/dL (0.4-1.0)
[2018-05-25 06:28] LABS: BASOPHILS % (AUTO) 0.5 %; EOSINOPHILS # (AUTO) 0.1 10^3/uL (0.0-0.7); EOSINOPHILS % (AUTO) 2.3 %; HGB - HEMOGLOBIN 13.1 g/dL (12.0-16.0); LYMPHOCYTES # (AUTO) 1.5 10^3/uL (1.5-3.5); LYMPHOCYTES % (AUTO) 42.1 %; MEAN CORPUSCULAR HEMOGLOBIN 26.8 pg (27.0-31.0); MEAN CORPUSCULAR VOLUME 81.2 fL (81.0-99.0); MEAN PLATELET VOLUME 9.2 fL (7.9-10.8); MONOCYTES # (AUTO) 0.2 10^3/uL (0.0-1.0); MONOCYTES % (AUTO) 6.6 %; NEUTROPHILS # (AUTO) 1.8 10^3/uL (1.5-6.6); NEUTROPHILS % (AUTO) 48.5 %; PLT - PLATELET COUNT 174 10^3/uL (130-450); RED CELL DISTRIBUTION WIDTH 14.2 % (12.0-15.0); WHITE BLOOD COUNT 3.6 x10^3/uL (4.8-10.8)
[2018-05-25] MEDS ORDERED: POTASSIUM CHLOR 10 MEQ/100 ML 10 MEQ/100 ML BAG IV SCH (07:00)
[2018-05-25] MEDS: FAMOTIDINE IV 20 MG/50 ML IV SCH ×2 (10:02→20:30)
[2018-05-25] MEDS: ENOXAPARIN 40 MG/0.4 ML SYRINGE SUBQ SCH (10:03)
[2018-05-25] MEDS ORDERED: LACTATED RINGERS 500 ML IV ONE (10:06)
--- NOTE | 2018-05-25 10:42 | PROVIDER PROGRESS NOTE ---
Subjective - General Admit Date: 05/24/18 Procedure Date: 05/24/18 Post Op Days: 1 Procedure Performed: open repair of incarcerated recurrent ventral hernia with mesh - Review of Systems Wound/Incisions: positive: Healing well, No drainage General: positive: No symptoms HEENT: positive: No symptoms Pulmonary: positive: No symptoms Cardiovascular: positive: No symptoms Gastrointestinal: positive: No symptoms Psychiatric: positive: Other (continues very lethargic, but arousable) - Other Other Information/Narrative: Slept through the night; very sleepy but when aroused, is alert and cooperative , denies abd pain; is hungry; no N/V with NG tube in place; no flatus or stool yet; requiring no prn analgesics Objective - Patient Data Reviewed Vital Signs: Yes Vital Signs: Vital Signs x48h Temp Pulse Resp BP Pulse Ox 05/25/18 10:12 36.5 C 68 18 130/85 H 99 05/25/18 03:12 70 18 140/79 H 99 Weight: Weight 05/23/18 05/24/18 05/25/18 23:59 23:59 23:59 Weight (kg) 79.379 kg 89 kg Intake & Output: Intake and Output Totals x24h 05/23/18 05/24/18 05/25/18 23:59 23:59 23:59 Intake Total 1100 1166.666 Output Total 125 Balance 1100 1041.666 urine output 300/10 hrs, 150/4 hrs. NG output minimal since MN - Lab Results Lab Results: 05/25/18 05:30 05/25/18 05:30 Other Lab Results: Lab Results x24hrs 05/25/18 05/25/18 Range/Units 05:30 05:30 WBC 3.6 L (4.8-10.8) x10^3/uL RBC 4.90 (4.20-5.40) 10^6/uL Hgb 13.1 (12.0-16.0) g/dL Hct 39.8 (37.0-47.0) % MCV 81.2 (81.0-99.0) fL MCH 26.8 L (27.0-31.0) pg MCHC 33.0 (32.0-36.0) g/dL RDW 14.2 (12.0-15.0) % Plt Count 174 (130-450) 10^3/uL MPV 9.2 (7.9-10.8) fL Neut # (Auto) 1.8 (1.5-6.6) 10^3/uL Lymph # (Auto) 1.5 (1.5-3.5) 10^3/uL [place] # (Auto) 0.2 (0.0-1.0) 10^3/uL Eos # (Auto) 0.1 (0.0-0.7) 10^3/uL Baso # (Auto) 0.0 (0.0-0.1) 10^3/uL Absolute Nucleated RBC 0.00 x10^3/uL Nucleated RBC % 0.0 /100WBC Sodium 137 (135-145) mmol/L Potassium 3.6 (3.5-5.0) mmol/L Chloride 105 (101-111) mmol/L Carbon Dioxide 26 (21-32) mmol/L Anion Gap 6.0 (6-13) BUN 12 (6-20) mg/dL Creatinine 0.7 (0.4-1.0) mg/dL Estimated GFR (MDRD) 105 (>89) Glucose 91 (70-100) mg/dL Calcium 8.4 L (8.5-10.3) mg/dL Total Bilirubin 0.8 (0.2-1.0) mg/dL AST 179 H (10-42) IU/L ALT 98 H (10-60) IU/L Alkaline Phosphatase 108 (42-121) IU/L Total Protein 6.0 L (6.7-8.2) g/dL Albumin 2.8 L (3.2-5.5) g/dL Globulin 3.2 (2.1-4.2) g/dL Albumin/Globulin Ratio 0.9 L (1.0-2.2) - Current Medications Current Medications: Current Medications Generic Name Dose Route Start Last Admin Trade Name Freq PRN Reason Stop Dose Admin Enoxaparin Sodium 40 mg 05/25/18 09:00 05/25/18 10:03 Lovenox SUBQ 40 mg DAILY TOI Administration Lactated Ringer's 1,000 mls @ 125 mls/hr 05/24/18 20:30 05/25/18 08:53 Lr IV 125 mls/hr .Q8H TOI Administration Acetaminophen 100 mls @ 400 mls/hr 05/25/18 00:00 05/25/18 06:37 Ofirmev IV Infused Q6H TOI Infusion Famotidine 50 mls @ 100 mls/hr 05/25/18 09:00 05/25/18 10:02 Pepcid 20 Mg/50 Ml IV 100 mls/hr BID TOI Administration Sodium Chloride 10 ml 05/25/18 01:00 05/25/18 00:56 Normal Saline Flush 0.9% IVP Not Given 0100,0900,1700 TOI - Physical Exam Wound/Incisions: positive: Healing well, No drainage General Appearance: positive: No acute distress, Lethargic Eyes Bilateral: positive: Conjunctivae nml, No scleral icterus ENT: positive: ENT inspection nml, Dry mucous membranes Neck: positive: No JVD Respiratory: positive: Chest non-tender, No respiratory distress, Breath sounds nml. negative: Wheezes, Rales, Rhonchi Cardiovascular: positive: Regular rate & rhythm, No murmur, No gallop Abdomen: positive: Non-tender, No distention, Abnml bowel sounds (tympanitic, hyperactive) Skin: positive: Color nml, Warm, Dry Extremities: positive: Nml appearance, No pedal edema. negative: Calf tenderness Neurologic/Psychiatric: positive: Other (lethargic but arousable and appropriate when awake.) ABX Reporting Has patient been on IV antibiotics over the past 48 hours?: No Impression/Plan - Problem List Problem List: 1. Doing well POD #1; SBO appears to be resolving. Will D/C Ng tube but keep NPO today. 2. Mild volume depletion; will give fluid bolus. 3. hypokalemia, resolved. 4. Pelvic mass; path pending on fluid cytology and peritoneal biopsy. will need outpt f/u with php lamp developer oncology. 5. Hypertension, better today with good pain control; further management as per hospitalists.
--- NOTE | 2018-05-25 17:15 | CONSULTATION NOTE ---
Referring Provider Name of Referring Provider:: Brock Mathews MD Consult Date: 05/24/18 History of Present Illness - Admitted From Admitted From:: ER - History Obtained From Records Reviewed: Yes History obtained from: Mainly from medical records, some from patient interview - History of Present Illness HPI Comment/Other: Ms. Wilson is currently in room 2206. S/p exploratory laparotomy with repair of recurrent ventral hernia with Ventralex hernia patch, peritoneal biopsy and pelvic washings 05/24/2018. Ms. Wilson's nurse reports she has been somnulent throughout the shift, has not required pain meds and has not received any narcotics recently. Only events were Ms. Wilson's BP's which were running in 150' s. The nurse has had to wake up Ms. Wilson several times throughout the day. On interviewing Ms. Wilson she states she is a 57 yo and had her last menses 05/2017. Denies any vaginal bleeding since. She also denies any urinary issues, pelvic pain, or pelvic pressure. Ms. Wilson has had 3 prior deliveries. She denies any abnormal pap smears but states that she cannot recall her last pap smear. Most of this history has been gleaned prior records. History - Past Medical History Cardiovascular: reports: Hypertension Respiratory: reports: None Neuro: reports: None Endocrine/Autoimmune: reports: None GI: reports: None CORPORATE PARALEGAL: reports: None : reports: Other (Right pyelonephritis 01/26/2014) Psych: reports: None Musculoskeletal: reports: None MRSA Hx?: No - Past Surgical History General: reports: Other /CORPORATE PARALEGAL: reports: section (x 3) - Family & Social History Family History Comment/Other: neg for GI tumors, The patient denies any family history of cancer, coronary artery disease, hypertension or diabetes. 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 The patient has 3 children including one son who is a mounted police officer. The patient is originally from [place], [place] and moved to [facility] in 1996. She states that she does drink a beer a day but denies any tobacco use or any illicit drug use. The patient's urine tox screen was positive for methamphetamine and she was questioned specifically about methamphetamine use but denied. - Substance History Use: Uses substance without health or social issues: Alcohol (1 drink/day) - POLST Patient has POLST: No POLST Status: Full Code Meds/Allgy - Home Medications Home Medications: Ambulatory Orders Medication Instructions Recorded Confirmed No Known Home Medications [No 05/25/18 05/25/18 Known Home Medications] - Allergies Allergies/Adverse Reactions: Allergies Allergy/AdvReac Type Severity Reaction Status Date / Time No Known Drug Allergies Allergy Verified 01/26/14 14:02 Exam - Vital Signs Reviewed Vital Signs: Yes Vital Signs: Vital Signs x48h Temp Pulse Resp BP Pulse Ox 05/25/18 16:15 98.2 F 62 16 152/80 H 100 05/25/18 13:00 97.7 F 66 18 135/84 H 100 05/25/18 10:12 97.7 F 68 18 130/85 H 99 - Physical Exam General Appearance: positive: No acute distress (Eyes closed, will not engage in eye-to-eye contact. Will respond to questions. Has very abbreviated answers in three to four word phrases.) Abdomen: positive: Other (Appropriate tenderness. Distended abdomen with a midline vertical skin incision, about 4 cm superior to the umbilicus and 2.5 cm inferior to the umbilicus. A subcuticular stitch is seen with Dermabond on top. No erythema or exudate seen. Clean, dry and intact.) Skin: positive: Color nml Conclusion/Plan - Diagnosis Diagnosis: Pelvic mass - Plan Plan: 1. Await results of pelvic washings and peritoneal biopsies 2. CA-125 done and noted to be WNL at 7.0 U/mL 3. Will see Ms. Wilson in the [facility] clinic for follow up. 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 The patient denies any vaginal bleeding so will consider performing in the office a pap smear with HR HPV screening as well as an endometrial biopsy. This further screening will be in anticipation of referral to CORPORATE PARALEGAL Oncology for definitive diagnosis and treatment. Reassuring that Ms. Wilson denies urinary complaints at this time. 4. Will defer current treatment to the general surgery and internal medicine teams. 5. Thank you for this consultation. - Lab Results Lab results reviewed: Yes Fish Bones: 05/25/18 05:30 05/25/18 05:30
[2018-05-25] MEDS: KETOROLAC 30 MG/ML VIAL IVP PRN (17:18)
[2018-05-26] MEDS: ACETAMINOPHEN 1,000 MG/100 ML 100 ML IV SCH ×4 (01:47→22:45)
[2018-05-26] MEDS: LACTATED RINGERS 1,000 ML IV SCH ×2 (01:54→10:07)
[2018-05-26] MEDS: FAMOTIDINE IV 20 MG/50 ML IV SCH ×2 (10:11→21:10)
[2018-05-26] MEDS: SODIUM CHLORIDE FLUSH 0.9% 10 ML SYRINGE IVP SCH ×3 (10:13→23:58)
[2018-05-26] MEDS: ENOXAPARIN 40 MG/0.4 ML SYRINGE SUBQ SCH (10:16)
[2018-05-26] MEDS ORDERED: LACTATED RINGERS 1,000 ML IV SCH (11:40)
--- NOTE | 2018-05-26 11:44 | PROVIDER PROGRESS NOTE ---
Subjective - General Admit Date: 05/24/18 Procedure Date: 05/24/18 Post Op Days: 2 Procedure Performed: open repair of incarcerated recurrent ventral hernia with mesh - Review of Systems Wound/Incisions: positive: Healing well, No drainage General: positive: No symptoms HEENT: positive: No symptoms Pulmonary: positive: No symptoms Cardiovascular: positive: No symptoms Gastrointestinal: positive: No symptoms Psychiatric: positive: Other (less lethargic today, up in chair and more alert and responsive.) All Other Systems: positive: Reviewed and negative Objective - Patient Data Reviewed Vital Signs: Yes Vital Signs: Vital Signs x48h Temp Pulse Resp BP Pulse Ox 05/26/18 10:30 36.5 C 79 16 125/79 97 05/26/18 05:05 36.5 C 71 16 129/76 94 Weight: Weight 05/24/18 05/25/18 05/26/18 23:59 23:59 23:59 Weight (kg) 79.379 kg 89 kg 91.5 kg Intake & Output: Intake and Output Totals x24h 05/24/18 05/25/18 05/26/18 23:59 23:59 23:59 Intake Total 1100 3610.416 1606.25 Output Total 1100 1300 Balance 1100 2510.416 306.25 - Lab Results Lab Results: 05/25/18 05:30 05/25/18 05:30 - Current Medications Current Medications: Current Medications Generic Name Dose Route Start Last Admin Trade Name Freq PRN Reason Stop Dose Admin Clonidine HCl 0.1 mg 05/25/18 05:19 05/25/18 17:24 Catapres PO 0.1 mg BID PRN Administration Hypertension SBP > 150 Enoxaparin Sodium 40 mg 05/25/18 09:00 05/26/18 10:16 Lovenox SUBQ 40 mg DAILY TOI Administration Acetaminophen 100 mls @ 400 mls/hr 05/25/18 00:00 05/26/18 11:16 Ofirmev IV Infused Q6H TOI Infusion Famotidine 50 mls @ 100 mls/hr 05/25/18 09:00 05/26/18 10:56 Pepcid 20 Mg/50 Ml IV Infused BID TOI Infusion Ketorolac Tromethamine 30 mg 05/24/18 19:19 05/25/18 17:18 Toradol Inj (30mg) IVP 05/29/18 19:18 30 mg Q6HR PRN Administration PAIN Sodium Chloride 10 ml 05/25/18 01:00 05/26/18 10:13 Normal Saline Flush 0.9% IVP 10 ml 0100,0900,1700 TOI Administration - Physical Exam Wound/Incisions: positive: Healing well, No drainage General Appearance: positive: No acute distress, Lethargic (less than yesterday) Eyes Bilateral: positive: Conjunctivae nml, No scleral icterus ENT: positive: ENT inspection nml, No signs of dehydration Neck: positive: Nml inspection, No JVD Respiratory: positive: Chest non-tender, No respiratory distress, Breath sounds nml Cardiovascular: positive: Regular rate & rhythm, No murmur, No gallop Abdomen: positive: Non-tender, Nml bowel sounds, Other (incision healing well, obese, unable to ascertain distention) Skin: positive: Color nml, Warm, Dry Extremities: positive: Non-tender, No pedal edema. negative: Calf tenderness Neurologic/Psychiatric: positive: Oriented x3 ABX Reporting Has patient been on IV antibiotics over the past 48 hours?: No Impression/Plan - Problem List Problem List: POD #2 s/p repair of incarcerated recurrent ventral hernia with SBO. SBO clinically resolving, urine output markedly improved. Plan: start clear liquid diet, decrease IVF, d/c montes, OOB, pulmonary toilet. Pelvic Mass: consult by Dr. Valerio appreciated; pt will f/u with her as outpt.
[2018-05-26 12:16] LABS: BASOPHILS % (AUTO) 0.5 %; EOSINOPHILS # (AUTO) 0.1 10^3/uL (0.0-0.7); EOSINOPHILS % (AUTO) 1.6 %; HGB - HEMOGLOBIN 13.8 g/dL (12.0-16.0); LYMPHOCYTES % (AUTO) 18.5 %; MEAN CORPUSCULAR HEMOGLOBIN 26.2 pg (27.0-31.0); MEAN CORPUSCULAR HGB CONC 32.8 g/dL (32.0-36.0); MEAN PLATELET VOLUME 9.1 fL (7.9-10.8); MONOCYTES # (AUTO) 0.3 10^3/uL (0.0-1.0); MONOCYTES % (AUTO) 5.1 %; NEUTROPHILS # (AUTO) 4.2 10^3/uL (1.5-6.6); NEUTROPHILS % (AUTO) 74.3 %; PLT - PLATELET COUNT 171 10^3/uL (130-450); RED BLOOD COUNT 5.27 10^6/uL (4.20-5.40); RED CELL DISTRIBUTION WIDTH 14.1 % (12.0-15.0); WHITE BLOOD COUNT 5.7 x10^3/uL (4.8-10.8)
[2018-05-26 12:31] LABS: ALBUMIN 2.9 g/dL (3.2-5.5); ALBUMIN/GLOBULIN RATIO 0.7 (1.0-2.2); BILIRUBIN,TOTAL 1.7 mg/dL (0.2-1.0); CALCIUM 8.5 mg/dL (8.5-10.3); CREATININE 0.5 mg/dL (0.4-1.0); TOTAL PROTEIN 6.8 g/dL (6.7-8.2)
--- NOTE | 2018-05-26 12:43 | PROVIDER PROGRESS NOTE ---
Subjective - Prog Note Date Prog Note Date: 05/26/18 Prog Note Time: 12:39 - Subjective Subjective: Ms. Wilson is still sleeping. TV on, soccer game playing. Objective - Vital Signs/Intake & Output Vital Signs: Vital Signs x48h Temp Pulse Resp BP Pulse Ox 05/26/18 10:30 97.7 F 79 16 125/79 97 05/26/18 05:05 97.7 F 71 16 129/76 94 Intake & Output: Intake & Output 05/23/18 05/24/18 05/25/18 05/26/18 23:59 23:59 23:59 23:59 Intake Total 1100 3610.416 1606.25 Output Total 1100 1300 Balance 1100 2510.416 306.25 - Lab Results Fish Bones: 05/26/18 12:08 05/26/18 12:08 Other Labs: Lab Results x24hrs 05/26/18 05/26/18 Range/Units 12:08 12:08 WBC 5.7 (4.8-10.8) x10^3/uL RBC 5.27 (4.20-5.40) 10^6/uL Hgb 13.8 (12.0-16.0) g/dL Hct 42.2 (37.0-47.0) % MCV 80.0 L (81.0-99.0) fL MCH 26.2 L (27.0-31.0) pg MCHC 32.8 (32.0-36.0) g/dL RDW 14.1 (12.0-15.0) % Plt Count 171 (130-450) 10^3/uL MPV 9.1 (7.9-10.8) fL Neut # (Auto) 4.2 (1.5-6.6) 10^3/uL Lymph # (Auto) 1.0 L (1.5-3.5) 10^3/uL [place] # (Auto) 0.3 (0.0-1.0) 10^3/uL Eos # (Auto) 0.1 (0.0-0.7) 10^3/uL Baso # (Auto) 0.0 (0.0-0.1) 10^3/uL Absolute Nucleated RBC 0.00 x10^3/uL Nucleated RBC % 0.0 /100WBC Sodium 135 (135-145) mmol/L Potassium 3.5 (3.5-5.0) mmol/L Chloride 100 L (101-111) mmol/L Carbon Dioxide 23 (21-32) mmol/L Anion Gap 12.0 (6-13) BUN 10 (6-20) mg/dL Creatinine 0.5 (0.4-1.0) mg/dL Estimated GFR (MDRD) 155 (>89) Glucose 52 L* (70-100) mg/dL Calcium 8.5 (8.5-10.3) mg/dL Total Bilirubin 1.7 H (0.2-1.0) mg/dL AST 47 H (10-42) IU/L ALT 60 (10-60) IU/L Alkaline Phosphatase 126 H (42-121) IU/L Total Protein 6.8 (6.7-8.2) g/dL Albumin 2.9 L (3.2-5.5) g/dL Globulin 3.9 (2.1-4.2) g/dL Albumin/Globulin Ratio 0.7 L (1.0-2.2) Assessment/Plan - Problem List (1) Pelvic mass in female Impression: 57 yo S/p 05/24/2018 exploratory laparotomy, repair of recurrent ventral hernia with patch placement, POD #2. Still awaiting results of peritoneal biopsy and pelvic washings. Nothing to add at this time. Again anticipate seeing Ms. Wilson at [facility] 2-3 weeks after surgery. Will coordinate consultation to [facility] for large pelvic masses. Will need to do pap smear with HR HPV, and hopefully EMB. Will try to see Ms. Wilson again when she is more alert. Thank you for the opportunity to participate in Ms. Wilson's care.
--- NOTE | 2018-05-26 14:48 | PROVIDER PROGRESS NOTE ---
Subjective - Prog Note Date Prog Note Date: 05/26/18 Prog Note Time: 11:45 - Subjective Pt reports feeling: Improved (The patient's pain is improved, she denies any shortness of breath, fever, chills, or chest pain. She is hungry and wants to eat.) Current Medications - Current Medications Current Medications: Active Medications Generic Name Dose Route Start Last Admin Trade Name Freq PRN Reason Stop Dose Admin Clonidine HCl 0.1 mg 05/25/18 05:19 05/25/18 17:24 Catapres PO 0.1 mg BID PRN Administration Hypertension SBP > 150 Enoxaparin Sodium 40 mg 05/25/18 09:00 05/26/18 10:16 Lovenox SUBQ 40 mg DAILY TOI Administration Famotidine 50 mls @ 100 mls/hr 05/25/18 09:00 05/26/18 10:56 Pepcid 20 Mg/50 Ml IV Infused BID TOI Infusion Lactated Ringer's 1,000 mls @ 83 mls/hr 05/26/18 11:40 05/26/18 11:55 Lr IV Not Given .Q12H3M TOI Acetaminophen 100 mls @ 400 mls/hr 05/26/18 17:00 Ofirmev IV Q6H TOI Ketorolac Tromethamine 30 mg 05/24/18 19:19 05/25/18 17:18 Toradol Inj (30mg) IVP 05/29/18 19:18 30 mg Q6HR PRN Administration PAIN Lorazepam 1 mg 05/25/18 05:19 Ativan PO Q6H PRN Anxiety Morphine Sulfate 2 mg 05/24/18 23:17 Morphine IVP Q2H PRN PAIN Sodium Chloride 10 ml 05/25/18 01:00 05/26/18 10:13 Normal Saline Flush 0.9% IVP 10 ml 0100,0900,1700 TOI Administration Sodium Chloride 10 ml 05/24/18 19:19 Normal Saline Flush 0.9% IVP PRN PRN NEEDED PER PROVIDER ORDERS No Known Home Medications [No Known Home Medications] 05/25/18 Objective - Vital Signs/Intake & Output Reviewed Vital Signs: Yes Vital Signs: Vital Signs x48h Temp Pulse Resp BP Pulse Ox 05/26/18 13:46 36.7 C 73 16 143/84 H 93 05/26/18 10:30 36.5 C 79 16 125/79 97 Intake & Output: Intake & Output 05/23/18 05/24/18 05/25/18 05/26/18 23:59 23:59 23:59 23:59 Intake Total 1100 3610.416 1606.25 Output Total 1100 2150 Balance 1100 2510.416 -543.75 - Objective General Appearance: positive: No acute distress, Lethargic Eyes Bilateral: positive: Normal inspection, PERRL, EOMI, No lid inflammation, Conjunctivae nml, No scleral icterus ENT: positive: ENT inspection nml, Pharynx nml, No signs of dehydration Neck: positive: Nml inspection, Thyroid nml, No JVD, Trachea midline. negative : Thyromegaly Respiratory: positive: Chest non-tender, No respiratory distress, Breath sounds nml. negative: Wheezes, Rales, Rhonchi Cardiovascular: positive: Regular rate & rhythm, No murmur, No gallop Abdomen: positive: No organomegaly, Nml bowel sounds, No distention. negative: Guarding, Rebound, Hepatomegaly, Splenomegaly, Mass Back: positive: Nml inspection. negative: CVA tenderness (R), CVA tenderness (L ) Skin: positive: Color nml, No rash, Warm, Dry. negative: Cyanosis Extremities: positive: Non-tender, Full ROM, Nml appearance, No pedal edema Neurologic/Psychiatric: positive: Oriented x3, CN's nml (2-12), Motor nml, Sensation nml, Depressed mood/affect, Other (Hypersomnolent) - Lab Results Fish Bones: 05/26/18 12:08 05/26/18 12:08 Other Labs: Lab Results x24hrs 05/26/18 05/26/18 Range/Units 12:08 12:08 WBC 5.7 (4.8-10.8) x10^3/uL RBC 5.27 (4.20-5.40) 10^6/uL Hgb 13.8 (12.0-16.0) g/dL Hct 42.2 (37.0-47.0) % MCV 80.0 L (81.0-99.0) fL MCH 26.2 L (27.0-31.0) pg MCHC 32.8 (32.0-36.0) g/dL RDW 14.1 (12.0-15.0) % Plt Count 171 (130-450) 10^3/uL MPV 9.1 (7.9-10.8) fL Neut # (Auto) 4.2 (1.5-6.6) 10^3/uL Lymph # (Auto) 1.0 L (1.5-3.5) 10^3/uL [place] # (Auto) 0.3 (0.0-1.0) 10^3/uL Eos # (Auto) 0.1 (0.0-0.7) 10^3/uL Baso # (Auto) 0.0 (0.0-0.1) 10^3/uL Absolute Nucleated RBC 0.00 x10^3/uL Nucleated RBC % 0.0 /100WBC Sodium 135 (135-145) mmol/L Potassium 3.5 (3.5-5.0) mmol/L Chloride 100 L (101-111) mmol/L Carbon Dioxide 23 (21-32) mmol/L Anion Gap 12.0 (6-13) BUN 10 (6-20) mg/dL Creatinine 0.5 (0.4-1.0) mg/dL Estimated GFR (MDRD) 155 (>89) Glucose 52 L* (70-100) mg/dL Calcium 8.5 (8.5-10.3) mg/dL Total Bilirubin 1.7 H (0.2-1.0) mg/dL AST 47 H (10-42) IU/L ALT 60 (10-60) IU/L Alkaline Phosphatase 126 H (42-121) IU/L Total Protein 6.8 (6.7-8.2) g/dL Albumin 2.9 L (3.2-5.5) g/dL Globulin 3.9 (2.1-4.2) g/dL Albumin/Globulin Ratio 0.7 L (1.0-2.2) - Diagnostic Imaging Diagnostic Imaging Comments: EXAM: CT ABDOMEN AND PELVIS EXAM DATE: 05/24/2018 05:29 PM. CLINICAL HISTORY: Mid abdominal pain and distension. COMPARISONS: None. TECHNIQUE: Routine helical CT imaging was performed through the abdomen and pelvis. IV contrast: 100 ML Isovue 300. Enteric contrast: No. Reconstructions: Coronal and sagittal. In accordance with CT protocol optimization, one or more of the following dose reduction techniques were utilized for this exam: automated exposure control, adjustment of mA and/or KV based on patient size, or use of iterative reconstructive technique. FINDINGS: Lung Bases: Unremarkable. Liver: Normal. No masses. Gallbladder/Bile Ducts: Unremarkable. Spleen: Normal. Pancreas: Normal. Adrenal Glands: Normal. Kidneys: Normal. No masses or hydronephrosis. Peritoneal Cavity/Bowel: There is a short segment of incarcerated loop junction of the mid and distal ileum in a 4 x 5 cm hernia sac, 3 cm neck, axial image 52, coronal image 13. There is marked wall thickening and exuberant enhancement of the wall of the small bowel at and proximal to the hernia neck raising the possibility of serosal implants. Marked enhancement is also seen in the adjacent abdominal rectus muscle. Small bowel proximal to this hernia measures 5 cm in diameter. The distal small bowel is decompressed. The colon is very small in caliber. Appendix not visualized. No free air. Pelvic Organs: 18 x 23 x 10 cm complex inhomogeneous aggressive appearing lesion occupying the left side of the pelvis and the inferior half of the abdomen. 13.5 x 9 x 10 cm aggressive, complex mass right side of the lower abdomen occupying the rest of the pelvis. These 2 lesions abut each other over a short segment mid way. Urinary bladder is compressed to the right. No uterus evident as a discrete structure. Vasculature: No aneurysms or other significant abnormality. Bones: No significant abnormality. Other: None. IMPRESSION: 1. Incarcerated loop of small bowel in a right periumbilical hernia causing marked obstruction. 2. Marked irregular enhancement of the bowel proximal to the hernia neck and also involving the adjacent abdominal wall raising the possibility of a serosal implant. 3. Two massive complex aggressive lesions probably arising out of the pelvis causing marked mechanical compromise of the rest of the abdominal and pelvic contents. Differential includes ovarian neoplasms, other gynecologic neoplasms, sarcoma, atypical for uterine leiomyomas. EXAM: CHEST RADIOGRAPHY EXAM DATE: 05/24/2018 06:26 PM. CLINICAL HISTORY: Abd pain; possible pre-op. COMPARISON: None. TECHNIQUE: 1 view. FINDINGS: Lungs/Pleura: Lung volumes are extremely low. Lower lung predominant linear opacities could reflect atelectasis. No other focal consolidation. No evidence for pneumothorax. Mediastinum: Heart size is normal. Tortuous thoracic aorta with atheromatous calcification of the arch. Other: None. IMPRESSION: 1. No radiographic evidence for acute cardio coming process. 2. Lung volumes are low. ABX Reporting Has patient been on IV antibiotics over the past 48 hours?: No Assessment/Plan - Problem List (1) Hypertension Impression: The patient has a history of hypertension on admission, with clonidine ordered on an as needed basis. I will start the patient on lisinopril 20 mg daily. (2) Hypokalemia Impression: Patient's potassium level on admission was 2.9. It has been corrected and is 3.5 at this time. Continue present care. (3) Methamphetamine abuse Impression: A drug toxicology screen on admission was positive for amphetamines and methamphetamines. The patient has been sleeping greater than 90% of the time since her admission and this is consistent with someone who is coming off of methamphetamine. There is no need for any further intervention at this time. (4) Incarcerated ventral hernia Impression: The patient underwent open repair of recurrent incarcerated ventral hernia with Dr. Brock Mathews on 05/24/2018. It was during the surgery that 2 large pelvic masses were found. We have restarted her on a clear liquid diet this morning and she is passing gas. (5) Pelvic mass in female Impression: Patient is being seen by [facility] and samples have been sent out for pathologic testing. Await test results and TRANSPORT PILOT plan.
[2018-05-26] MEDS: LISINOPRIL 20 MG TABLET PO SCH (16:52)
[2018-05-26] MEDS: KETOROLAC 30 MG/ML VIAL IVP PRN (22:14)
[2018-05-26] MEDS ORDERED: DEXTROSE 5%-0.45% NACL 1,000 ML IV SCH (23:45)
[2018-05-27] MEDS: ACETAMINOPHEN 1,000 MG/100 ML 100 ML IV SCH ×4 (05:18→22:50)
[2018-05-27] MEDS: LISINOPRIL 20 MG TABLET PO SCH (09:24)
[2018-05-27] MEDS: ENOXAPARIN 40 MG/0.4 ML SYRINGE SUBQ SCH (09:24)
[2018-05-27] MEDS: FAMOTIDINE IV 20 MG/50 ML IV SCH (09:27)
[2018-05-27] MEDS: SODIUM CHLORIDE FLUSH 0.9% 10 ML SYRINGE IVP SCH ×2 (09:41→16:55)
[2018-05-27 10:44] LABS: ALBUMIN 2.8 g/dL (3.2-5.5); ALBUMIN/GLOBULIN RATIO 0.7 (1.0-2.2); BILIRUBIN,TOTAL 0.6 mg/dL (0.2-1.0); CALCIUM 8.5 mg/dL (8.5-10.3); CREATININE 0.6 mg/dL (0.4-1.0); TOTAL PROTEIN 6.9 g/dL (6.7-8.2)
--- NOTE | 2018-05-27 11:01 | PROVIDER PROGRESS NOTE ---
Subjective - General Admit Date: 05/24/18 Procedure Date: 05/24/18 Post Op Days: 3 Procedure Performed: open repair of incarcerated recurrent ventral hernia with mesh - Review of Systems Wound/Incisions: positive: Healing well, No drainage General: positive: No symptoms HEENT: positive: No symptoms Pulmonary: positive: No symptoms Cardiovascular: positive: No symptoms Gastrointestinal: positive: No symptoms Psychiatric: positive: Other (less lethargic today, up in chair and more alert and responsive.) All Other Systems: positive: Reviewed and negative - Other Other Information/Narrative: No pain, tolerating clear liq diet well, voiding well. Objective - Patient Data Reviewed Vital Signs: Yes Vital Signs: Vital Signs x48h Temp Pulse Resp BP Pulse Ox 05/27/18 07:54 36.9 C 70 16 150/93 H 94 05/27/18 04:40 36.6 C 71 16 143/81 H 94 Weight: Weight 05/25/18 05/26/18 05/27/18 23:59 23:59 23:59 Weight (kg) 89 kg 91.5 kg 91.5 kg Intake & Output: Intake and Output Totals x24h 05/25/18 05/26/18 05/27/18 23:59 23:59 23:59 Intake Total 3610.416 3856.25 540 Output Total 1100 2150 Balance 2510.416 1706.25 540 - Lab Results Lab Results: 05/26/18 12:08 05/27/18 10:12 Other Lab Results: Lab Results x24hrs 05/27/18 05/26/18 05/26/18 Range/Units 10:12 12:08 12:08 WBC 5.7 (4.8-10.8) x10^3/uL RBC 5.27 (4.20-5.40) 10^6/uL Hgb 13.8 (12.0-16.0) g/dL Hct 42.2 (37.0-47.0) % MCV 80.0 L (81.0-99.0) fL MCH 26.2 L (27.0-31.0) pg MCHC 32.8 (32.0-36.0) g/dL RDW 14.1 (12.0-15.0) % Plt Count 171 (130-450) 10^3/uL MPV 9.1 (7.9-10.8) fL Neut # (Auto) 4.2 (1.5-6.6) 10^3/uL Lymph # (Auto) 1.0 L (1.5-3.5) 10^3/uL [place] # (Auto) 0.3 (0.0-1.0) 10^3/uL Eos # (Auto) 0.1 (0.0-0.7) 10^3/uL Baso # (Auto) 0.0 (0.0-0.1) 10^3/uL Absolute Nucleated RBC 0.00 x10^3/uL Nucleated RBC % 0.0 /100WBC Sodium 133 L 135 (135-145) mmol/L Potassium 3.2 L 3.5 (3.5-5.0) mmol/L Chloride 99 L 100 L (101-111) mmol/L Carbon Dioxide 26 23 (21-32) mmol/L Anion Gap 8.0 12.0 (6-13) BUN 5 L 10 (6-20) mg/dL Creatinine 0.6 0.5 (0.4-1.0) mg/dL Estimated GFR (MDRD) 126 155 (>89) Glucose 103 H 52 L* (70-100) mg/dL Calcium 8.5 8.5 (8.5-10.3) mg/dL Total Bilirubin 0.6 1.7 H (0.2-1.0) mg/dL AST 35 47 H (10-42) IU/L ALT 45 60 (10-60) IU/L Alkaline Phosphatase 116 126 H (42-121) IU/L Total Protein 6.9 6.8 (6.7-8.2) g/dL Albumin 2.8 L 2.9 L (3.2-5.5) g/dL Globulin 4.1 3.9 (2.1-4.2) g/dL Albumin/Globulin Ratio 0.7 L 0.7 L (1.0-2.2) - Current Medications Current Medications: Current Medications Generic Name Dose Route Start Last Admin Trade Name Freq PRN Reason Stop Dose Admin Clonidine HCl 0.1 mg 05/25/18 05:19 05/25/18 17:24 Catapres PO 0.1 mg BID PRN Administration Hypertension SBP > 150 Enoxaparin Sodium 40 mg 05/25/18 09:00 05/27/18 09:24 Lovenox SUBQ 40 mg DAILY TOI Administration Acetaminophen 100 mls @ 400 mls/hr 05/26/18 17:00 05/27/18 06:22 Ofirmev IV Infused Q6H TOI Infusion Ketorolac Tromethamine 30 mg 05/24/18 19:19 05/26/18 22:14 Toradol Inj (30mg) IVP 05/29/18 19:18 30 mg Q6HR PRN Administration PAIN Lisinopril 20 mg 05/26/18 16:00 05/27/18 09:24 Zestril PO 20 mg DAILY TOI Administration Sodium Chloride 10 ml 05/25/18 01:00 05/26/18 23:58 Normal Saline Flush 0.9% IVP 10 ml 0100,0900,1700 TOI Administration - Physical Exam Wound/Incisions: positive: Healing well, No drainage General Appearance: positive: No acute distress, Alert Eyes Bilateral: positive: Conjunctivae nml, No scleral icterus ENT: positive: ENT inspection nml, Pharynx nml, No signs of dehydration Neck: positive: No JVD Respiratory: positive: Chest non-tender, No respiratory distress, Breath sounds nml Cardiovascular: positive: Regular rate & rhythm, No murmur, No gallop Abdomen: positive: Non-tender, Nml bowel sounds Skin: positive: Color nml, No rash, Warm, Dry Extremities: positive: Nml appearance, No pedal edema. negative: Calf tenderness Neurologic/Psychiatric: positive: Oriented x3 ABX Reporting Has patient been on IV antibiotics over the past 48 hours?: No Impression/Plan - Problem List Problem List: Doing well. Plan: advance to full liq diet, d/c ivf, oob more, and home tomorrow if continues to improve.
--- NOTE | 2018-05-27 15:57 | PROVIDER PROGRESS NOTE ---
Subjective - Prog Note Date Prog Note Date: 05/27/18 Prog Note Time: 15:54 Objective - Vital Signs/Intake & Output Vital Signs: Vital Signs x48h Temp Pulse Resp BP Pulse Ox 05/27/18 15:43 97.7 F 78 20 133/77 H 98 05/27/18 12:51 98.2 F 87 18 154/89 H 98 Intake & Output: Intake & Output 05/24/18 05/25/18 05/26/18 05/27/18 23:59 23:59 23:59 23:59 Intake Total 1100 3610.416 3856.25 1880 Output Total 1100 2150 Balance 1100 2510.416 1706.25 1880 - Lab Results Fish Bones: 05/26/18 12:08 05/27/18 10:12 Other Labs: Lab Results x24hrs 05/27/18 Range/Units 10:12 Sodium 133 L (135-145) mmol/L Potassium 3.2 L (3.5-5.0) mmol/L Chloride 99 L (101-111) mmol/L Carbon Dioxide 26 (21-32) mmol/L Anion Gap 8.0 (6-13) BUN 5 L (6-20) mg/dL Creatinine 0.6 (0.4-1.0) mg/dL Estimated GFR (MDRD) 126 (>89) Glucose 103 H (70-100) mg/dL Calcium 8.5 (8.5-10.3) mg/dL Total Bilirubin 0.6 (0.2-1.0) mg/dL AST 35 (10-42) IU/L ALT 45 (10-60) IU/L Alkaline Phosphatase 116 (42-121) IU/L Total Protein 6.9 (6.7-8.2) g/dL Albumin 2.8 L (3.2-5.5) g/dL Globulin 4.1 (2.1-4.2) g/dL Albumin/Globulin Ratio 0.7 L (1.0-2.2) Assessment/Plan - Problem List (1) Pelvic mass in female Impression: 57 yo with unknown pelvic masses, very suspicious for malignancy. S/p Ex lap with repair of recurrent hernia. Patient finally lucid and was walking the hallway. Discussed with the patient the concern for carcinoma given the large masses and CT findings. Plan to see Ms. Steve and ultimately refer her to [facility] for definitive diagnosis and treatment. Reassuring that CA-125 is WNL so ovarian carcinoma less likely. Patient verbalizes her understanding. Ms. Wilson willing to have a hysterectomy. Ms. Wilson to be discharged home tomorrow per Dr. Mathews if her recovery continues to improve.
[2018-05-27] MEDS: SODIUM CHLORIDE FLUSH 0.9% 10 ML SYRINGE IVP PRN (23:57)
[2018-05-28] MEDS: SODIUM CHLORIDE FLUSH 0.9% 10 ML SYRINGE IVP SCH (00:12)
[2018-05-28] MEDS: ACETAMINOPHEN 1,000 MG/100 ML 100 ML IV SCH (05:36)
[2018-05-28] MEDS: SODIUM CHLORIDE FLUSH 0.9% 10 ML SYRINGE IVP PRN (05:37)
[2018-05-28 07:38] VITALS: BP 136/80
--- NOTE | 2018-05-28 07:39 | PROVIDER PROGRESS NOTE ---
Subjective - General Admit Date: 05/24/18 Procedure Date: 05/24/18 Post Op Days: 4 Procedure Performed: open repair of incarcerated recurrent ventral hernia with mesh - Review of Systems Wound/Incisions: positive: Healing well, No drainage General: positive: No symptoms HEENT: positive: No symptoms Pulmonary: positive: No symptoms Cardiovascular: positive: No symptoms Gastrointestinal: positive: Abdominal pain (minimal incisional) Psychiatric: positive: Other (less lethargic today, up in chair and more alert and responsive.) - Other Other Information/Narrative: feels well today, wants to go home. pain controlled with acetaminophen, tolerating regular diet, moving bowels, ambulating well, voiding well. Objective - Patient Data Reviewed Vital Signs: Yes Vital Signs: Vital Signs x48h Temp Pulse Resp BP Pulse Ox 05/28/18 05:00 36.8 C 70 16 161/89 H 97 05/27/18 23:58 37.0 C 77 16 149/80 H 96 Weight: Weight 05/26/18 05/27/18 05/28/18 23:59 23:59 23:59 Weight (kg) 91.5 kg 91.5 kg 91 kg Intake & Output: Intake and Output Totals x24h 05/26/18 05/27/18 05/28/18 23:59 23:59 23:59 Intake Total 3856.25 2880 Output Total 2150 Balance 1706.25 2880 - Lab Results Lab Results: 05/26/18 12:08 05/27/18 10:12 Other Lab Results: Lab Results x24hrs 05/27/18 Range/Units 10:12 Sodium 133 L (135-145) mmol/L Potassium 3.2 L (3.5-5.0) mmol/L Chloride 99 L (101-111) mmol/L Carbon Dioxide 26 (21-32) mmol/L Anion Gap 8.0 (6-13) BUN 5 L (6-20) mg/dL Creatinine 0.6 (0.4-1.0) mg/dL Estimated GFR (MDRD) 126 (>89) Glucose 103 H (70-100) mg/dL Calcium 8.5 (8.5-10.3) mg/dL Total Bilirubin 0.6 (0.2-1.0) mg/dL AST 35 (10-42) IU/L ALT 45 (10-60) IU/L Alkaline Phosphatase 116 (42-121) IU/L Total Protein 6.9 (6.7-8.2) g/dL Albumin 2.8 L (3.2-5.5) g/dL Globulin 4.1 (2.1-4.2) g/dL Albumin/Globulin Ratio 0.7 L (1.0-2.2) - Current Medications Current Medications: Current Medications Generic Name Dose Route Start Last Admin Trade Name Freq PRN Reason Stop Dose Admin Clonidine HCl 0.1 mg 05/25/18 05:19 05/25/18 17:24 Catapres PO 0.1 mg BID PRN Administration Hypertension SBP > 150 Enoxaparin Sodium 40 mg 05/25/18 09:00 05/27/18 09:24 Lovenox SUBQ 40 mg DAILY TOI Administration Acetaminophen 100 mls @ 400 mls/hr 05/26/18 17:00 05/28/18 05:36 Ofirmev IV 400 mls/hr Q6H TOI Administration Ketorolac Tromethamine 30 mg 05/24/18 19:19 05/26/18 22:14 Toradol Inj (30mg) IVP 05/29/18 19:18 30 mg Q6HR PRN Administration PAIN Lisinopril 20 mg 05/26/18 16:00 05/27/18 09:24 Zestril PO 20 mg DAILY TOI Administration Sodium Chloride 10 ml 05/25/18 01:00 05/28/18 00:12 Normal Saline Flush 0.9% IVP 10 ml 0100,0900,1700 TOI Administration Sodium Chloride 10 ml 05/24/18 19:19 05/28/18 05:37 Normal Saline Flush 0.9% IVP 10 ml PRN PRN Administration NEEDED PER PROVIDER ORDERS - Physical Exam Wound/Incisions: positive: Healing well, No drainage General Appearance: positive: No acute distress, Alert Eyes Bilateral: positive: Normal inspection, Conjunctivae nml, No scleral icterus ENT: positive: ENT inspection nml Respiratory: positive: Chest non-tender, No respiratory distress, Breath sounds nml Cardiovascular: positive: Regular rate & rhythm, No murmur, No gallop Abdomen: positive: Non-tender, Nml bowel sounds, No distention Skin: positive: Color nml, No rash, Warm, Dry Extremities: positive: Non-tender, No pedal edema. negative: Calf tenderness Neurologic/Psychiatric: positive: Oriented x3, Mood/affect nml ABX Reporting Has patient been on IV antibiotics over the past 48 hours?: No Impression/Plan - Problem List Problem List: 1. Incarcerated VIH with SBO, resolved; home today. 2. hypertension, improved with medical management; home with meds as per Dr. Santacruz. 3. Altered mental status/somnolence, resolved; ? amphetamine withdrawal. 4. pelvic mass, suspicious for malig neoplasm, w/u pending; f/u with Dr. Valerio.
--- NOTE | 2018-05-28 07:45 | Discharge Plan ---
Discharge Plan Disposition: 01 Home, Self Care Condition: Stable Diet: Regular (no raw vegetables or nuts) Activity Restrictions: no lifting more than 10 lbs for 2 weeks Shower Restrictions: No Driving Restrictions: No Weight Bearing: Full Weight Instruction Topics: Hernia Repair Open Dc Additional Instructions or Follow Up instructions: follow up with Dr. Brock Mathews in 1 week, and Dr. Marilu Valerio in 1 week. No Smoking: If you smoke, Please STOP! Call for help. Follow-up with: Marilu Valerio DO [Provider Admit Priv/Credential] - Brock Mathews MD [Provider Admit Priv/Credential] -
[2018-05-28] MEDS ORDERED: POTASSIUM CHLOR 10 MEQ/100 ML 10 MEQ/100 ML BAG IV SCH (10:00)
[2018-05-29 11:11] LABS: HEPATITIS A IGM NON-REACTIVE (NON-REACTIVE); HEPATITIS B CORE ANTIBODY IGM NON-REACTIVE (NON-REACTIVE); HEPATITIS B SURFACE ANTIGEN NON-REACTIVE (NON-REACTIVE); HEPATITIS C ANTIBODY NON-REACTIVE (NON-REACTIVE)
--- NOTE | 2018-05-30 12:58 | DISCHARGE SUMMARY ---
"Discharge Summary Admit Date: 05/24/18 Discharge Date: 05/28/18 Discharging Provider: Dr. Brock Mathews Primary Care Provider: none Code Status: Attempt Resuscitation Condition at Discharge: Stable Discharge Disposition: 01 Home, Self Care Discharge Facility Name: [facility] - DIAGNOSES Admission Diagnoses: 1. Incarcerated recurrent umbilical hernia with SBO 2. Pelvic masses x 2. 3. Hypertension 4. Somnolance Discharge Diagnoses with Status of Each Condition: 1. Incarcerated recurrent umbilical/ventral incisional hernia with SBO resolved with open repair of same. 2. Pelvic masses, stable, likely malignant and gynecologic in etiology, seen in consultation by Dr. Valerio and outpt f/u planned. 3. Hypertension, treated medically by hospitalist service. 4. Somnolence, resolved, thought due to methamphetamine withdrawal. - HPI History of Present Illness: See H & P by Dr. Mathews - CONSULTS | PROCEDURES Consultations: Dr. Valerio, Dr. Mejia Procedures: Open repair of incarcerated recurrent umbilical hernia with mesh. - HOSPITAL COURSE Hospital Course: Pt had an uneventful postop course, with gradual resumption of nl gi tract function and diet was able to be resumed. 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 Valerio who will follow patient as an outpt. Pt's hypertension was managed by the hospitalist service and pt was discharged home with b/p medication. Her somnolence resolved over several days and was thought due to methamphetamine withdrawal. At discharge pt was afebrile, tolerating a regular diet well, ambulating and voiding and moving her bowels, and requiring no analgesics. Her incision was healing well and her mental status had returned to nl. - ALLERGIES Allergies/Adverse Reactions: Allergies Allergy/AdvReac Type Severity Reaction Status Date / Time No Known Drug Allergies Allergy Verified 01/26/14 14:02 - MEDICATIONS Home Medications: Ambulatory Orders Medication Instructions Recorded Confirmed Lisinopril [Zestril] 20 mg PO DAILY #30 tablet 05/28/18 - PHYSICAL EXAM AT DISCHARGE General Appearance: positive: No acute distress, Alert Eyes Bilateral: positive: Conjunctivae nml, No scleral icterus ENT: positive: Pharynx nml, No signs of dehydration Neck: positive: Nml inspection, No JVD Respiratory: positive: Chest non-tender, No respiratory distress, Breath sounds nml Cardiovascular: positive: Regular rate & rhythm, No murmur, No gallop Peripheral Pulses: positive: 2+ Abdomen: positive: Non-tender (her incision was healing well.), Nml bowel sounds , No distention Skin: positive: Color nml, No rash, Warm, Dry Extremities: positive: Non-tender, Nml appearance, No pedal edema. negative: Calf tenderness Neurologic/Psychiatric: positive: Oriented x3 - LABS Result Diagrams: 05/26/18 12:08 05/27/18 10:12 - FOLLOW UP Follow Up: With Dr. Mathews and Dr. Valerio in 1 week. - TIME SPENT Time Spent in Discharge (Minutes): 30"
== END 2018-05-28 10:42 | disposition home or self-care (01) | DRG 355 ==
LOC: EDBD → EDUNIT# → ED 15:28 → MS2 19:19
PROVIDERS: ADMIT Internal Medicine Gastroenterology; ATTEND Internal Medicine Gastroenterology
PROC: 0DBW0ZX Excision of Peritoneum, Open Approach, Diagnostic (ICD-10-PCS; 2018-05-24)
PROC: 0WUF0JZ Supplement Abdominal Wall with Synthetic Substitute, Open Approach (ICD-10-PCS; principal; 2018-05-24 20:00)
DX: K43.0 Incisional hernia with obstruction, without gangrene (principal); F15.10 Other stimulant abuse, uncomplicated; I10 Essential (primary) hypertension; E66.9 Obesity, unspecified; E86.9 Volume depletion, unspecified; E87.6 Hypokalemia; C76.3 Malignant neoplasm of pelvis; K66.0 Peritoneal adhesions (postprocedural) (postinfection); Z98.891 History of uterine scar from previous surgery; Z68.35 Body mass index [BMI] 35.0-35.9, adult
CPT/HCPCS: 36415; 71045; 74177; 80053; 80074; 80306; 80320; 81001; 81003; 82140; 83605; 83690; 83735; 85025; 85610; 85730; 86304; 87086; 88108; 88302; 88305; 93005; 96365; 96367; 96375; 99283; 99284

== ENCOUNTER 2022-06-13 03:37 | Outpatient (CLI) | payer SELFPAY | END 2022-06-13 03:38 | disposition critical access hospital (66) | LOC: EMS 03:37 | DX: R10.9 Unspecified abdominal pain (principal); R35.0 Frequency of micturition; R53.1 Weakness | CPT/HCPCS: A0425; A0429 ==

== ENCOUNTER 2022-06-13 04:03 | Emergency (ER) | payer SELFPAY ==
[2022-06-13] MEDS ORDERED: SODIUM CHLORIDE 0.9% 1,000 ML IV STA (04:22)
[2022-06-13] MEDS ORDERED: ONDANSETRON 4 MG/2 ML VIAL IVP STA (04:22)
[2022-06-13 04:35] LABS: BASOPHILS % (AUTO) 0.3 %; HCT - HEMATOCRIT 49.1 % (37.0-47.0); HGB - HEMOGLOBIN 16.4 g/dL (12.0-16.0); LYMPHOCYTES # (AUTO) 1.6 10^3/uL (1.5-3.5); LYMPHOCYTES % (AUTO) 21.7 %; MEAN CORPUSCULAR HEMOGLOBIN 27.2 pg (27.0-31.0); MEAN CORPUSCULAR HGB CONC 33.4 g/dL (32.0-36.0); MEAN CORPUSCULAR VOLUME 81.4 fL (81.0-99.0); MEAN PLATELET VOLUME 11.8 fL (7.9-10.8); MONOCYTES # (AUTO) 0.5 10^3/uL (0.0-1.0); MONOCYTES % (AUTO) 6.7 %; NEUTROPHILS # (AUTO) 5.1 10^3/uL (1.5-6.6); PLT - PLATELET COUNT 154 10^3/uL (130-450); RED BLOOD COUNT 6.03 10^6/uL (4.20-5.40); RED CELL DISTRIBUTION WIDTH 13.6 % (12.0-15.0); WHITE BLOOD COUNT 7.2 x10^3/uL (4.8-10.8)
[2022-06-13 04:49] LABS: ALBUMIN 3.6 g/dL (3.2-5.5); ALBUMIN/GLOBULIN RATIO 0.9 (1.0-2.2); BILIRUBIN,TOTAL 0.6 mg/dL (0.2-1.0); CALCIUM 9.3 mg/dL (8.5-10.3); POTASSIUM 3.7 mmol/L (3.5-5.0); TOTAL PROTEIN 7.5 g/dL (6.7-8.2)
--- NOTE | 2022-06-13 04:57 | ED Physician Documentation ---
PD HPI ABD PAIN - Stated complaint Stated Complaint: ABD PX - Chief complaint Chief Complaint: Abd Pain - History obtained from History obtained from: Patient, EMS - Additional information Additional information: Patient comes to the emergency department chief complaint of apparently abdominal pain. Initially when asked why the patient came to the emergency department, she just states "I needed a drink of water". She then states that actually, her employer told her to come in, but then complains of some lower abdominal pain. The patient denies nausea, vomiting, or diarrhea. She states that she knows she had a fever but never measured, so she is not really sure What her temperature was. The patient denies any rhinorrhea, cough, or shortness of breath. She states that she was exposed to COVID a week ago, and "she knows" that is what she has. The patient denies any chronic medical problems. No diabetes, hypertension, or cardiac issues. Medics state that there was a report that the patient has been doing meth. Review of Systems Ten Systems: 10 systems reviewed and negative Constitutional: reports: Fever (Subjective) Eyes: reports: Reviewed and negative Ears: reports: Reviewed and negative Nose: reports: Reviewed and negative. denies: Rhinorrhea / runny nose Throat: reports: Reviewed and negative Cardiac: reports: Reviewed and negative. denies: Chest pain / pressure Respiratory: reports: Reviewed and negative. 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 : Other HEENT: None Psych: None Musculoskeletal: None Derm: None - Past Surgical History Past Surgical History: Yes General: Other /ELECTRIC WELL LOGGING OPERATOR: section - Present Medications Home Medications: Ambulatory Orders Medication Instructions Recorded Confirmed Lisinopril [Zestril] 20 mg PO DAILY #30 tablet 05/28/18 - Allergies Allergies/Adverse Reactions: Allergies Allergy/AdvReac Type Severity Reaction Status Date / Time No Known Drug Allergies Allergy Verified 01/26/14 14:02 - Social History Does the pt smoke?: No Smoking Status: Never smoker Does the pt drink ETOH?: Yes Does the pt have substance abuse?: Yes Substance Use and Type: Meth - Immunizations Immunizations are current?: No Immunizations: Other immun not current - POLST Patient has POLST: No POLST Status: Full Code PD ED PE NORMAL - Vitals Vital signs reviewed: Yes - General General: No acute distress, Well developed/nourished, Other (The patient is alert and answers questions, though is somewhat disjointed and difficult to follow at times.) - HEENT HEENT: Atraumatic, PERRL, EOMI, Moist mucous membranes - Neck Neck: Supple, no meningeal sign - Cardiac Cardiac: RRR, No murmur, Strong equal pulses - Respiratory Respiratory: No respiratory distress, Clear bilaterally - Abdomen Abdomen: Soft, Non distended, Other (Diffuse mild tenderness, no rebound or guarding.) - Derm Derm: Normal color, Warm and dry, No rash - Extremities Extremities: No deformity, No edema, No calf tenderness / cord - Neuro Neuro: Other (Alert, answers questions appropriately.) - Psych Psych: Normal mood, Normal affect Results - Vitals Vitals: Vital Signs - 24 hr 06/13/22 06/13/22 06/13/22 04:23 05:43 06:04 Temperature 36.4 C L 36.6 C Heart Rate 89 108 H 97 Respiratory 18 18 18 Rate Blood Pressure 126/93 H 154/86 H 137/89 H O2 Saturation 95 99 97 Oxygen O2 Source Room air - EKG (time done) 0455 Rate: Rate (enter#) (99) Rhythm: NSR [place]: Normal Intervals: Normal UT (Borderline short) QRS: LVH Ischemia: Normal ST segments Other comments: Other comments (PACs) Compare to prior EKG: Old EKG unavailable Computer interpretation: Agree with computer - Labs Labs: Laboratory Tests 06/13/22 06/13/22 06/13/22 04:10 04:30 04:30 WBC 7.2 RBC 6.03 H Hgb 16.4 H Hct 49.1 H MCV 81.4 MCH 27.2 MCHC 33.4 RDW 13.6 Plt Count 154 MPV 11.8 H Neut # (Auto) 5.1 Lymph # (Auto) 1.6 Bennett # (Auto) 0.5 Eos # (Auto) 0.0 Baso # (Auto) 0.0 Absolute Nucleated RBC 0.00 Nucleated RBC % 0.0 Sodium 135 Potassium 3.7 Chloride 95 L Carbon Dioxide 27 Anion Gap 13.0 BUN 16 Creatinine 1.0 Estimated GFR (MDRD) 69 L Glucose 99 Calcium 9.3 Total Bilirubin 0.6 AST 44 H ALT 28 Alkaline Phosphatase 95 Total Protein 7.5 Albumin 3.6 Globulin 3.9 Albumin/Globulin Ratio 0.9 L Lipase 31 Urine Color Cancelled Urine Clarity Cancelled Urine pH Cancelled Ur Specific [place] Cancelled Urine Protein Cancelled Urine Glucose (UA) Cancelled Urine Ketones Cancelled Urine Occult Blood Cancelled Urine Nitrite Cancelled Urine Bilirubin Cancelled Urine Urobilinogen Cancelled Ur Leukocyte Esterase Cancelled Ur Microscopic Review Cancelled Urine Culture Comments Cancelled Urine Opiates Screen Cancelled Ur Oxycodone Screen Cancelled Urine Methadone Screen Cancelled Ur Propoxyphene Screen Cancelled Ur Barbiturates Screen Cancelled Ur Tricyclics Screen Cancelled Ur Phencyclidine Scrn Cancelled Ur Amphetamine Screen Cancelled U Methamphetamines Scrn Cancelled U Benzodiazepines Scrn Cancelled Urine Cocaine Screen Cancelled U Cannabinoids Screen Cancelled SARS-CoV-2 (PCR) 06/13/22 04:35 WBC RBC Hgb Hct MCV MCH MCHC RDW Plt Count MPV Neut # (Auto) Lymph # (Auto) Bennett # (Auto) Eos # (Auto) Baso # (Auto) Absolute Nucleated RBC Nucleated RBC % Sodium Potassium Chloride Carbon Dioxide Anion Gap BUN Creatinine Estimated GFR (MDRD) Glucose Calcium Total Bilirubin AST ALT Alkaline Phosphatase Total Protein Albumin Globulin Albumin/Globulin Ratio Lipase Urine Color Urine Clarity Urine pH Ur Specific [place] Urine Protein Urine Glucose (UA) Urine Ketones Urine Occult Blood Urine Nitrite Urine Bilirubin Urine Urobilinogen Ur Leukocyte Esterase Ur Microscopic Review Urine Culture Comments Urine Opiates Screen Ur Oxycodone Screen Urine Methadone Screen Ur Propoxyphene Screen Ur Barbiturates Screen Ur Tricyclics Screen Ur Phencyclidine Scrn Ur Amphetamine Screen U Methamphetamines Scrn U Benzodiazepines Scrn Urine Cocaine Screen U Cannabinoids Screen SARS-CoV-2 (PCR) DETECTED A - Rads (name of study) Chest x-ray Radiology: Final report received, EMP read indepedently, See rad report (Unremarkable) PD MEDICAL DECISION MAKING - ED course Complexity details: reviewed results, re-evaluated patient, considered differential, d/w patient ED course: The patient was given a liter of 0.9 normal saline and worked up with laboratory studies. The patient was treated symptomatically in the emergency department. She was noted to have occasional runs of a narrow complex rhythm with rates anywhere from the 150's-180's. These would be very short-lived, and EKG noted PACs. The patient was asymptomatic during these episodes. She was given a dose of metoprolol orally in the ED. Her laboratory studies were unremarkable. She was found to be positive for COVID. Her chest x-ray was clear. The patient reported feeling better after some IV fluids. We have discussed symptomatic management at home and the need for follow-up with her doctor for event monitoring as she continues to have these episodes of fast heart rate. Departure - Departure Disposition: 01 Home, Self Care Clinical Impression: COVID-19 Condition: Stable Instructions: ED Viral Syndrome Comments: Your COVID test was positive. Please get plenty of rest and drink plenty of fluids. A virus is not treatable with antibiotics and your body will have to fight this off on its own. You may take ibuprofen and Tylenol if needed for any fevers you may run. Your symptoms can last for up to a couple of weeks typically, though it is much shorter for some people and longer for others. Please follow-up with your primary care physician if needed. Discharge Date/Time: 06/13/22 06:05
[2022-06-13] MEDS ORDERED: METOPROLOL SUCCINATE 50 MG TABLET PO STA (05:05)
[2022-06-13 06:05] VITALS: BP 137/89
--- NOTE | 2022-06-13 07:55 | XRAY Report ---
PROCEDURE: Chest 1 View X-Ray INDICATIONS: cough TECHNIQUE: One view of the chest was acquired. COMPARISON: Chest radiographs 05/24/2018 FINDINGS: Surgical changes and devices: None. Lungs and pleura: Mildly low-lying bones are seen bilaterally. There is mild prominence of the centra l pulmonary vasculature. No acute consolidation is seen. No pleural effusion or pneumothorax. Mediastinum: Mediastinal contours appear normal. Heart size is mildly enlarged and stable. Bones and chest wall: No suspicious bony lesions. Overlying soft tissues appear unremarkable. IMPRESSION: Mildly low lung volumes bilaterally. Mild prominence of the central pulmonary vasculature with stable mild cardiomegaly. There is no significant discrepancy when compared with the preliminary overnight report. Reviewed by: Sukhjinder De La Vega MD on 06/13/2022 7:54 AM PDT Approved by: Sukhjinder De La Vega MD on 06/13/2022 7:54 AM PDT Station ID: [id number]
[2022-06-13] MEDS ORDERED: METOPROLOL SUCCINATE 25 MG TABLET PO SCH (09:00)
== END 2022-06-13 06:05 | disposition home or self-care (01) ==
LOC: EDUNIT# → ED 04:03
DX: U07.1 COVID-19 (principal); I10 Essential (primary) hypertension
CPT/HCPCS: 36415; 71045; 80053; 83690; 85025; 87635; 93005; 96361; 96374; 99283; 99284; A9270; 80306; 81001; 81003; 87086

== ENCOUNTER 2024-01-28 10:29 | Inpatient (IN) | payer MEDICAID ==
--- NOTE | 2024-01-28 11:21 | ED Physician Documentation ---
PD HPI URI - Stated complaint Stated Complaint: SOB, COVID + - Chief complaint Chief Complaint: Resp - History obtained from History obtained from: Patient - History of Present Illness Timing - onset: How many weeks ago (1) Timing duration: Weeks (1) Timing details: Gradual onset, Still present Associated symptoms: Nasal congestion, Rhinorrhea, Dry cough, Dyspnea Contributing factors: Sick contact Improves by: Rest, Medication Worsened by: Activity Similar symptoms before: Diagnosis (COVID) Recently seen: Not recently seen - Additional information Additional information: Tiffanie Wilson is a 63-year-old female who is averse to coming to the physician she is coming to the emergency department now after testing positive for COVID earlier in the week and being increasingly short of breath. She increased she indicates that she has been taking her 's medications for almost 2 years and she has run out 2 months ago. She has developed increasing exertional dyspnea. She has not developed lower extremity swelling. She has a non-productive cough and her other symptoms of COVID are mild. She has had COVID previously in 2021 and she has not been vaccinated. She did well with COVID previously but required a dose of metoprolol for a rapid heart rate during evaluation. Review of Systems Constitutional: reports: Myalgias, Sweats. denies: Fever Eyes: denies: Decreased vision Ears: denies: Ear pain Nose: reports: Rhinorrhea / runny nose, Congestion Throat: denies: Sore throat Cardiac: denies: Chest pain / pressure, Palpitations Respiratory: reports: Dyspnea, Cough GI: denies: Abdominal Pain, Nausea, Vomiting, Constipation, Diarrhea : denies: Dysuria, Frequency PD PAST MEDICAL HISTORY - Past Medical History Past Medical History: Yes Cardiovascular: Hypertension Respiratory: None Neuro: None Endocrine/Autoimmune: None GI: None CERAMIC DESIGNER: None : Other HEENT: None Psych: None Musculoskeletal: None Derm: None - Past Surgical History Past Surgical History: Yes General: Other /CERAMIC DESIGNER: section - Present Medications Home Medications: Ambulatory Orders Medication Instructions Recorded Confirmed Lisinopril [Zestril] 20 mg PO DAILY #30 tablet 05/28/18 - Allergies Allergies/Adverse Reactions: Allergies Allergy/AdvReac Type Severity Reaction Status Date / Time No Known Drug Allergies Allergy Verified 01/28/24 10:39 - Social History Does the pt smoke?: No Smoking Status: Never smoker Does the pt drink ETOH?: Yes Does the pt have substance abuse?: Yes - Immunizations Immunizations are current?: No Immunizations: Other immun not current - POLST Patient has POLST: No POLST Status: Full Code PD ED PE NORMAL - Vitals Vital signs reviewed: Yes (hypertensive ) - General General: Alert and oriented X 3, Well developed/nourished, Other (tachypneic at rest without audible wheeze. ) - HEENT HEENT: Atraumatic, PERRL, EOMI - Neck Neck: Supple, no meningeal sign, No bony TTP - Cardiac Cardiac: No murmur, Other (tachycardia to 160 irregularly irregular) - Respiratory Respiratory: Other (tachypneic at rest clear. ) - Abdomen Abdomen: Soft, Non tender - Back Back: No CVA TTP, No spinal TTP - Derm Derm: Normal color, Warm and dry, No rash - Extremities Extremities: No deformity, No edema, Other (evidence of prior LE swelling bilat.) - Neuro Neuro: Alert and oriented X 3, veterans' counselor 2-12 intact, No motor deficit, No sensory deficit, Normal speech Eye Opening: Spontaneous Motor: Obeys Commands Verbal: Oriented GCS Score: 15 - Psych Psych: Normal mood, Normal affect Results - Vitals Vitals: Vital Signs - 24 hr 01/28/24 01/28/24 01/28/24 10:33 11:00 11:23 Temperature 36 C L 37.3 C Heart Rate 88 167 H 167 H Respiratory 22 29 H 29 H Rate Blood Pressure 138/113 H 151/133 H 151/133 H O2 Saturation 98 96 96 If not protocol : Oxygen Flow, liters/minute 01/28/24 01/28/24 01/28/24 11:30 11:53 12:00 Temperature Heart Rate 158 H 158 H 150 H Respiratory 30 H 30 H 29 H Rate Blood Pressure 138/106 H 138/106 H 158/136 H O2 Saturation 89 L 91 L 99 If not protocol : Oxygen Flow, liters/minute 01/28/24 01/28/24 01/28/24 12:23 12:30 12:53 Temperature Heart Rate 150 H 93 91 Respiratory 29 H 24 22 Rate Blood Pressure 158/136 H 183/145 H 153/138 H O2 Saturation 99 96 98 If not protocol 2 : Oxygen Flow, liters/minute 03/02/1701/28/24 01/28/24 13:00 13:30 13:35 Temperature Heart Rate 92 86 Respiratory 23 27 H 30 H Rate Blood Pressure 162/123 H 165/141 H O2 Saturation 95 85 L 84 L If not protocol : Oxygen Flow, liters/minute 01/28/24 01/28/24 01/28/24 13:40 14:30 15:00 Temperature Heart Rate 80 149 H 149 H Respiratory 20 22 26 H Rate Blood Pressure 135/107 H 151/122 H O2 Saturation 98 100 If not protocol 2 2 : Oxygen Flow, liters/minute 01/28/24 01/28/24 01/28/24 15:35 15:45 16:00 Temperature Heart Rate 148 H 138 H 113 H Respiratory 18 Rate Blood Pressure 120/99 H 106/84 H 99/80 O2 Saturation 95 If not protocol : Oxygen Flow, liters/minute 01/28/24 01/28/24 01/28/24 16:30 16:51 16:54 Temperature Heart Rate 99 107 H 79 Respiratory 19 20 16 Rate Blood Pressure 147/109 H 127/108 H O2 Saturation 100 98 If not protocol 3 : Oxygen Flow, liters/minute 01/28/24 17:00 Temperature Heart Rate 122 H Respiratory 23 Rate Blood Pressure 125/101 H O2 Saturation 98 If not protocol 3 : Oxygen Flow, liters/minute Oxygen O2 Source Nasal cannula - EKG (time done) 1059 EKG releavant findings:: EKG personally interpreted by author of this note. Relevant findings are: Rate: Rate (enter#) (177) Rhythm: Atrial fibrillation Ischemia: Normal ST segments, Non specific changes Other comments: Other comments (RVH) Compare to prior EKG: Changed from prior EKG ([facility] 06/13/22 rate has increased rhythm has changed to afib and voltage has decreased) Computer interpretation: Agree with computer - Labs Labs: Laboratory Tests 01/28/24 01/28/24 01/28/24 11:00 11:00 11:00 WBC 7.3 RBC 6.04 H Hgb 16.0 Hct 49.3 H MCV 81.6 MCH 26.5 L MCHC 32.5 RDW 15.1 H Plt Count 232 MPV 11.1 H Neut # (Auto) 3.5 Lymph # (Auto) 3.2 [place] # (Auto) 0.5 Eos # (Auto) 0.1 Baso # (Auto) 0.1 Absolute Nucleated RBC 0.02 Nucleated RBC % 0.3 Sodium 137 Potassium 3.7 Chloride 102 Carbon Dioxide 25 Anion Gap 10.0 BUN 18 Creatinine 0.9 Estimated GFR (MDRD) 77 L Glucose 136 H Lactic Acid Calcium 9.5 Total Bilirubin 1.3 H AST 64 H ALT 55 Alkaline Phosphatase 129 H Troponin I High Sens 307.3 H* B-Natriuretic Peptide Total Protein 7.0 Albumin 3.2 Globulin 3.8 Albumin/Globulin Ratio 0.8 L Lipase 20 01/28/24 01/28/24 01/28/24 11:00 11:48 14:33 WBC RBC Hgb Hct MCV MCH MCHC RDW Plt Count MPV Neut # (Auto) Lymph # (Auto) [place] # (Auto) Eos # (Auto) Baso # (Auto) Absolute Nucleated RBC Nucleated RBC % Sodium Potassium Chloride Carbon Dioxide Anion Gap BUN Creatinine Estimated GFR (MDRD) Glucose Lactic Acid 2.5 H Calcium Total Bilirubin AST ALT Alkaline Phosphatase Troponin I High Sens 279.5 H* B-Natriuretic Peptide 887 H Total Protein Albumin Globulin Albumin/Globulin Ratio Lipase - Rads (name of study) chest Relevant Findings:: Prelim report reviewed (Impression: Cardiomegaly and moderate vascular congestion.), EMP independent interpretation of test Procedures - IVC sono (time) 1115 Bedside IVC sono: IVC measures (cm) (2.52), IVC collapsed c insp (cm) (2.2), Collapsibility index (.12), High CVP PD Medical Decision Making - ED course Complexity details: reviewed old records, reviewed results, re-evaluated patient, considered differential, d/w patient Reviewed Lab Results: We reviewed a complete blood count showing a normal white blood cell count and elevated hematocrit and a normal hemoglobin as well is a normal platelet count. Electrolytes and kidney function are normal total bilirubin mildly elevated 1.3 AST mildly elevated at 64 and alkaline phosphatase mildly elevated at 129. High-sensitivity troponin elevated at 307.3 BNP elevated at 887 lactate elevated at 2.5. I interpreted these laboratory results to indicate that there was not an overwhelming infection and there is evidence of congestive heart failure. This is consistent with the patient's untreated hypertension over the past 2 months. She does have what appears to be passive congestion of the liver associated with this. She has an elevated troponin which drops down to 279.5 with treatment of her heart rate and the anticipation is that this is rate related. Her BNP elevated at 887 as well as her chest x-ray showing pulmonary edema and her engorged inferior vena cava on POCUS with the administration of 40 mg of Lasix intravenously despite a lactate of 2.5. ED course: 63-year-old female presenting to the emergency department is COVID-positive and she has hypertension which has been untreated. Her clinical picture is consistent with untreated hypertension resulting in passive congestion of liver and congestive heart failure. She presents with a heart rate up to 180 and her rate is controlled with 2 doses of metoprolol. Her chest x-ray does not demonstrate evidence of pneumonia but evidence of pulmonary edema. She does not have hypoxia associated with this. During her stay in the emergency department her heart rate vacillates and she develops symptoms of acute wheezing requiring a bronchodilator which resolved wheezing. With wheezing the patient did develop hypoxia with a good pleth. Her heart rate spiked back up to 150 and we elected at that time to administer diltiazem.The patient does not know of a history of atrial fibrillation and her initial electrocardiogram appeared to show atrial fibrillation. She remains in afib with a rate in the 80's. Hypertension appears controlled after the first dose of diltiazem. Her second trop has come down and I interpret this to support rate related elevation in the trop. I believe hospitalization is indicated for stabilization of blood pressure and pulse. Timmyid does not appear to be the main player. She tells me she is without drugs of abuse for 2 years (hx of methamphetamine abuse) and she has not had alcohol for one week. Usually one 4loco daily. I contacted our hospitalist for admission to the hospital and he will graciously accepted and agreed to care for the patient in the hospital Departure - Departure Disposition: 66 [facility] DC/Xfer Clinical Impression: COVID, Atrial fibrillation with RVR Hypertension Qualifiers: Hypertension type: unspecified Qualified Code(s): I10 - Essential (primary) hypertension CHF (congestive heart failure) Qualifiers: Heart failure type: unspecified Heart failure chronicity: acute on chronic Qualified Code(s): I50.9 - Heart failure, unspecified Condition: Fair
[2024-01-28] MEDS: METOPROLOL 5 MG/5 ML VIAL IVP STA ×2 (11:31→11:57)
[2024-01-28 11:43] LABS: BASOPHILS # (AUTO) 0.1 10^3/uL (0.0-0.1); BASOPHILS % (AUTO) 0.7 %; EOSINOPHILS # (AUTO) 0.1 10^3/uL (0.0-0.7); EOSINOPHILS % (AUTO) 1.1 %; HCT - HEMATOCRIT 49.3 % (37.0-47.0); LYMPHOCYTES # (AUTO) 3.2 10^3/uL (1.5-3.5); LYMPHOCYTES % (AUTO) 43.3 %; MEAN CORPUSCULAR HEMOGLOBIN 26.5 pg (27.0-31.0); MEAN CORPUSCULAR HGB CONC 32.5 g/dL (32.0-36.0); MEAN CORPUSCULAR VOLUME 81.6 fL (81.0-99.0); MEAN PLATELET VOLUME 11.1 fL (7.9-10.8); MONOCYTES # (AUTO) 0.5 10^3/uL (0.0-1.0); MONOCYTES % (AUTO) 6.5 %; NEUTROPHILS # (AUTO) 3.5 10^3/uL (1.5-6.6); NEUTROPHILS % (AUTO) 48.1 %; NRBC ABSOLUTE COUNT (AUTO) 0.02 x10^3/uL; NUCLEATED RED BLOOD CELLS AUTO 0.3 /100WBC; PLT - PLATELET COUNT 232 10^3/uL (130-450); RED BLOOD COUNT 6.04 10^6/uL (4.20-5.40); RED CELL DISTRIBUTION WIDTH 15.1 % (12.0-15.0); WHITE BLOOD COUNT 7.3 x10^3/uL (4.8-10.8)
[2024-01-28 11:54] LABS: ALBUMIN 3.2 g/dL (3.2-5.5); ALBUMIN/GLOBULIN RATIO 0.8 (1.0-2.2); BILIRUBIN,TOTAL 1.3 mg/dL (0.2-1.0); CALCIUM 9.5 mg/dL (8.5-10.3); CREATININE 0.9 mg/dL (0.6-1.3); POTASSIUM 3.7 mmol/L (3.5-4.5)
[2024-01-28] MEDS: FUROSEMIDE 40 MG/4 ML VIAL IVP STA (12:32)
--- NOTE | 2024-01-28 12:58 | XRAY Report ---
PROCEDURE: Chest 1V INDICATIONS: chest pain TECHNIQUE: One view of the chest was acquired. COMPARISON: 06/13/2022 FINDINGS: Surgical changes and devices: None. Lungs and pleura: No pleural effusions or pneumothorax. Lungs are clear. Mediastinum: Heart size enlarged. Moderate vascular congestion noted Bones and chest wall: No suspicious bony lesions. Overlying soft tissues appear unremarkable. IMPRESSION: Cardiomegaly and moderate vascular congestion Reviewed by: Marcial Ahn MD on 01/28/2024 11:57 AM [facility] Approved by: Marcial Ahn MD on 01/28/2024 11:57 AM [facility] Station ID: [id number]
[2024-01-28] MEDS ORDERED: IPRATROPIUM/ALBUTEROL 3 ML NEB INH ONE (13:36)
[2024-01-28] MEDS: IPRATROPIUM/ALBUTEROL 3 ML NEB INH STA (13:38)
[2024-01-28] MEDS: diltiaZEM INJ 5 MG/ML VIAL IVP STA ×2 (15:25→16:27)
[2024-01-28] MEDS: METOPROLOL 5 MG/5 ML VIAL IVP SCH ×4 (18:44→20:16)
[2024-01-28] MEDS ORDERED: METOPROLOL 5 MG/5 ML VIAL IVP SCH ×4 (19:00→19:40)
[2024-01-28 19:39] LABS: MAGNESIUM 1.4 mg/dL (1.7-2.3); PHOSPHORUS 4.8 mg/dL (2.5-5.0)
[2024-01-28] MEDS ORDERED: diltiaZEM INJ 5 MG/ML VIAL ONE (20:08)
[2024-01-28] MEDS: diltiaZEM INJ 125 MG in DEXTROSE 5% 100 ML IV SCH (20:23)
[2024-01-28] MEDS: APIXABAN 5 MG TABLET PO SCH (20:55)
--- NOTE | 2024-01-28 21:45 | HISTORY & PHYSICAL EXAMINATION ---
History of Present Illness - Admitted From Admitted From:: Emergency Room - History Obtained From Records Reviewed: Yes History obtained from: Patient and Emergency room physician, Jordan Mak - History of Present Illness HPI Comment/Other: Tiffanie Wilson is a 63-year-old woman who presented to the emergency room complaining of shortness of breath. She reports these because she is positive for COVID. She states she has complained of increasing dyspnea over the last 7 days. She reports she has not been to a physician in years. Her several years ago and she has been using his medications. In the emergency room patient was in atrial fibrillation with rapid ventricular rate. Laboratory studies are significant for a high sensitive troponin of 307 and repeat of 279.Initial lactate is 2.5. History - Past Medical History Cardiovascular: reports: Hypertension Respiratory: reports: None Neuro: reports: None Endocrine/Autoimmune: reports: None GI: reports: None SHOE STAMPER: reports: None : reports: Other HEENT: reports: None Psych: reports: None Musculoskeletal: reports: None Derm: reports: None MRSA Hx?: No - Past Surgical History General: reports: Other /SHOE STAMPER: reports: section - Family & Social History Family History Comment/Other: neg for GI tumors, The patient denies any family history of cancer, coronary artery disease, hypertension or diabetes. 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 The patient has 3 children including one son who is a police dispatcher. The patient is originally from [place], [place] and moved to [facility] in 1996. She states that she does drink a beer a day but denies any tobacco use or any illicit drug use. The patient's urine tox screen was positive for methamphetamine and she was questioned specifically about methamphetamine use but denied. - Substance History Use: Uses substance without health or social issues: Alcohol (1 drink/day) - POLST Patient has POLST: No POLST Status: Full Code Meds/Allgy - Home Medications Home Medications: Ambulatory Orders Medication Instructions Recorded Confirmed Lisinopril [Zestril] 20 mg PO DAILY #30 tablet 05/28/18 - Allergies Allergies/Adverse Reactions: Allergies Allergy/AdvReac Type Severity Reaction Status Date / Time No Known Drug Allergies Allergy Verified 01/28/24 10:39 Exam - Vital Signs Vital Signs: Vital Signs x48h Temp Pulse Pulse Resp BP BP Pulse Ox 03/03/24 21:20 143 H 113/100 H 01/28/24 21:11 143 H 24 133/106 H 93 01/28/24 20:57 01/28/24 20:55 144 H 132/97 H 01/28/24 20:45 144 H 110/86 H 01/28/24 20:30 36.7 C 145 H 143/125 H 01/28/24 20:23 151/116 H 01/28/24 19:54 143 H 23 127/85 H 97 01/28/24 19:46 126/99 H 01/28/24 18:44 161/121 H 01/28/24 17:00 122 H 23 125/101 H 98 01/28/24 16:54 79 16 127/108 H 98 01/28/24 16:51 107 H 20 01/28/24 16:30 99 19 147/109 H 100 01/28/24 16:00 113 H 18 99/80 95 01/28/24 15:45 138 H 106/84 H 01/28/24 15:35 148 H 120/99 H 01/28/24 15:00 149 H 26 H 151/122 H 100 01/28/24 14:30 149 H 22 135/107 H 98 O2 Flow Rate 01/28/24 21:20 01/28/24 21:11 2 01/28/24 20:57 2 01/28/24 20:55 01/28/24 20:45 01/28/24 20:30 01/28/24 20:23 01/28/24 19:54 2 01/28/24 19:46 01/28/24 18:44 01/28/24 17:00 3 01/28/24 16:54 3 01/28/24 16:51 01/28/24 16:30 01/28/24 16:00 01/28/24 15:45 01/28/24 15:35 01/28/24 15:00 2 01/28/24 14:30 2 - Physical Exam General Appearance: positive: No acute distress Eyes Bilateral: positive: PERRL, EOMI ENT: positive: ENT inspection nml, Pharynx nml Neck: positive: Nml inspection, Trachea midline Respiratory: positive: Other (Good air exchange in all lung peguero no wheezing no crackles.) Abdomen: positive: Non-tender, Nml bowel sounds, No distention Skin: positive: No rash Extremities: positive: Pedal edema Conclusion/Plan - Problem List (1) Atrial fibrillation with RVR Conclusion/Plan: Patient initially admitted to the medical [facility] but since her time in the emergency room, her heart rate has significantly increased and she was transferred to the intensive care unit. Treatment was initiated with a diltiazem drip and unfortunately patient did not respond to the diltiazem drip. She was transitioned to a amiodarone drip. Treatment initiated with apixaban. 2. Non-ST elevation myocardial infarction. Most likely related to stress secondary to tachycardia and hypertension.Continue to monitor troponin.Goal is to maintain a heart rate between 6090. 3. Hypophosphatemia Replace phosphorus. - Lab Results Fish Bones: 01/28/24 11:00 01/28/24 11:00
[2024-01-28] MEDS: AMIODARONE 150 MG/100 ML 100 ML IV ONE (22:00)
[2024-01-28] MEDS: AMIODARONE 360 MG/200 ML 200 ML IV ONE (22:10)
[2024-01-28 22:22] LABS: BILIRUBIN,URINE NEGATIVE (NEGATIVE); GLUCOSE, URINE (UA) NEGATIVE (NEGATIVE); KETONES,URINE (UA) NEGATIVE (NEGATIVE); LEUKOCYTE ESTERASE, URINE NEGATIVE (NEGATIVE); NITRITE,URINE POSITIVE (NEGATIVE); OCCULT BLOOD,URINE TRACE-LYSE (NEGATIVE); PROTEIN,URINE 100 mg/dL (NEGATIVE); UROBILINOGEN,URINE 1 (NORMAL) E.U./dL (NORMAL)
[2024-01-28 22:24] LABS: CLARITY,URINE HAZY (CLEAR)
[2024-01-28 22:34] LABS: BACTERIA,URINE Many /HPF (None Seen); CASTS, URINE 3-5 Hyaline Casts /LPF; RBC,URINE 0-5 /HPF (0-5); SQUAMOUS EPITHELIAL CELL,UR FEW Squamous (<= Few)
[2024-01-28 22:38] LABS: AMPHETAMINE SCREEN,URINE POSITIVE (NEGATIVE); COCAINE SCREEN URINE NEGATIVE (NEGATIVE); METHAMPHETAMINES SCREEN, URINE NEGATIVE (NEGATIVE); OPIATE SCREEN, URINE NEGATIVE (NEGATIVE); THC CANNABINOID SCREEN, URINE NEGATIVE (NEGATIVE)
[2024-01-28 22:39] LABS: BARBITURATE SCREEN,UR NEGATIVE (NEGATIVE); BENZODIAZEPINES SCREEN, URINE NEGATIVE (NEGATIVE); BUPRENORPHINE SCREEN, URINE NEGATIVE (NEGATIVE); METHADONE SCREEN, URINE NEGATIVE (NEGATIVE); OXYCODONE SCREEN, URINE NEGATIVE (NEGATIVE); TRICYCLIC ANTIDEPRESSANT,URINE NEGATIVE (NEGATIVE)
[2024-01-28] MEDS: BENZOCAINE/MENTHOL LOZENGE MM PRN (23:42)
[2024-01-29] MEDS: POTASSIUM CHLORIDE 20 MEQ/15 ML UDC PO SCH (00:39)
[2024-01-29] MEDS: SODIUM CHLORIDE FLUSH 0.9% 10 ML SYRINGE IVP SCH (00:42)
[2024-01-29] MEDS ORDERED: LORazepam 1 MG TABLET PO PRN (02:30)
[2024-01-29] MEDS ORDERED: LORazepam 0.5 MG TABLET PO PRN (02:33)
[2024-01-29] MEDS ORDERED: METOPROLOL 5 MG/5 ML VIAL IVP PRN (02:33)
[2024-01-29] MEDS: LORazepam 2 MG/ML VIAL IVP PRN (02:45)
[2024-01-29] MEDS: ALBUTEROL 1 PUFF INH PRN (03:25)
[2024-01-29] MEDS: AMIODARONE 360 MG/200 ML 200 ML IV SCH (04:19)
[2024-01-29 05:46] LABS: HCT - HEMATOCRIT 48.7 % (37.0-47.0); HGB - HEMOGLOBIN 15.7 g/dL (12.0-16.0); MEAN CORPUSCULAR HEMOGLOBIN 27.1 pg (27.0-31.0); MEAN CORPUSCULAR HGB CONC 32.2 g/dL (32.0-36.0); MEAN PLATELET VOLUME 11.1 fL (7.9-10.8); RED BLOOD COUNT 5.8 10^6/uL (4.20-5.40); RED CELL DISTRIBUTION WIDTH 15.5 % (12.0-15.0); WHITE BLOOD COUNT 7.8 x10^3/uL (4.8-10.8)
[2024-01-29 06:01] LABS: CALCIUM, IONIZED 1.04 mmol/L (1.15-1.33); VBG PH 7.287 (7.31-7.41)
[2024-01-29 06:11] LABS: MAGNESIUM 1.5 mg/dL (1.7-2.3); PHOSPHORUS 5.8 mg/dL (2.5-5.0)
[2024-01-29 06:15] LABS: ALBUMIN 3.2 g/dL (3.2-5.5); ALBUMIN/GLOBULIN RATIO 0.8 (1.0-2.2); BILIRUBIN,TOTAL 1.2 mg/dL (0.2-1.0); CALCIUM 9.1 mg/dL (8.5-10.3); CREATININE 1.7 mg/dL (0.6-1.3); TROPONIN I HIGH SENSITIVITY 253.6 ng/L (2.3-14.8)
[2024-01-29] MEDS: MAGNESIUM SULFATE 2 GRAM 2 GM/50 ML BAG IV SCH (07:32)
[2024-01-29] MEDS: SODIUM CHLORIDE 0.9% 1,000 ML IV SCH (08:31)
[2024-01-29] MEDS ORDERED: DEXAMETHASONE 10 MG/ML VIAL IVP SCH (09:00)
--- NOTE | 2024-01-29 11:45 | PHARMACY PROGRESS NOTE ---
- Best Possible Medication History Admit Date and Time: 01/28/24 6352 Processed by: Pharmacy Medications reviewed in ED?: Yes Medication History completed: Yes Secondary Source(s): Physician records As the person ultimately responsible for medication therapy, providers are able to order a medication from an existing home medication list in [facility] via the "Reconcile Routine" prior to Confirmation of that medication by customer support agent. Such practice is discouraged except when the physician, in their clinical judgment, deems that a medical need exists for a medication without regard to previous use.
[2024-01-29] MEDS: AMIODARONE 200 MG TABLET PO SCH (12:26)
[2024-01-29] MEDS: THIAMINE 100 MG TABLET PO SCH (12:30)
[2024-01-29] MEDS: PRENATAL VITAMIN TABLET PO SCH (12:33)
[2024-01-29] MEDS: carvediloL 3.125 MG TABLET PO SCH (12:48)
[2024-01-29] MEDS: MAGNESIUM OXIDE 400 MG TABLET PO ONE (16:10)
[2024-01-29] MEDS: guaiFENesin 600 MG TABLET PO PRN (20:09)
[2024-01-29] MEDS: IPRATROPIUM/ALBUTEROL 3 ML NEB INH PRN (21:57)
[2024-01-29] MEDS: FUROSEMIDE 40 MG/4 ML VIAL IVP STA (22:01)
[2024-01-29] MEDS: SODIUM CHLORIDE FLUSH 0.9% 10 ML SYRINGE IVP PRN (22:01)
[2024-01-29] MEDS: BENZONATATE 100 MG CAPSULE PO PRN (22:35)
--- NOTE | 2024-01-29 23:30 | PROVIDER PROGRESS NOTE ---
Assessment/Plan - Problem List (1) Atrial fibrillation with RVR Assessment/Plan: Attempted rate control with metoprolol and diltiazem with no success. Patient has been loaded with amiodarone and then transition to p.o. amiodarone. She is currently receiving a small dose of carvedilol and this can be titrated up as tolerated. She is anticoagulated with apixaban 5 mg twice daily. Echocardiogram has been ordered. (2) Methamphetamine abuse Urine drug screen is positive for methamphetamine.Patient has been challenging throughout the day from a behavioral standpoint. (3) Acute Kidney Injury Patient given 1 L of normal saline. Avoid nephrotoxins. - Current Meds Current Meds: Current Medications Generic Name Dose Route Start Last Admin Trade Name Freq PRN Reason Stop Dose Admin Albuterol 2 puffs 01/29/24 02:26 01/29/24 18:45 Albuterol 1 Puff INH 2 puffs Q4H PRN Administration Shortness of Air/Wheezing Albuterol/Ipratropium 3 ml 01/29/24 21:44 01/29/24 21:57 Ipratropium/Albuterol 3 Ml Neb INH 3 ml Q4HR PRN Administration Wheezing Amiodarone HCl 400 mg 01/29/24 10:30 01/29/24 21:15 Amiodarone 200 Mg Tablet PO 400 mg TID TOI Administration Apixaban 5 mg 01/28/24 21:00 01/29/24 20:09 Apixaban 5 Mg Tablet PO 5 mg BID TOI Administration Benzonatate 100 mg 01/29/24 21:46 01/29/24 22:35 Benzonatate 100 Mg Capsule PO 100 mg TID PRN Administration Cough Carvedilol 3.125 mg 01/29/24 13:00 01/29/24 20:09 Carvedilol 3.125 Mg Tablet PO 3.125 mg BID TOI Administration Guaifenesin 600 mg 01/29/24 19:29 01/29/24 20:09 Guaifenesin 600 Mg Tablet PO 600 mg BID PRN Administration Cough Amiodarone HCl/Dextrose 200 mls @ 16.667 mls/hr 01/29/24 03:45 01/29/24 14:30 Nexterone 360 Mg/200 Ml IV Infused .Q12H TOI Infusion 0.5 MG/MIN Multivit/Folic Acid/Iron 1 tab 01/29/24 09:00 01/29/24 12:33 Vitamin Tablet PO 1 tab DAILY TOI Administration Sodium Chloride 10 ml 01/28/24 17:23 01/29/24 22:01 Sodium Chloride Flush 0.9% 10 Ml Syringe IVP 10 ml PRN PRN Administration NEEDED PER PROVIDER ORDERS Sodium Chloride 10 ml 01/29/24 01:00 01/29/24 21:15 Sodium Chloride Flush 0.9% 10 Ml Syringe IVP 10 ml 0100,0900,1700 TOI Administration Thiamine HCl 100 mg 01/29/24 09:00 01/29/24 12:30 Thiamine 100 Mg Tablet PO 100 mg DAILY TOI Administration Throat Lozenges 1 lozenge 01/28/24 22:45 01/28/24 23:42 Benzocaine/Menthol Lozenge MM 1 lozenge Q2HR PRN Administration Throat pain - Lab Result Fish Bone Diagrams: 01/29/24 05:24 01/29/24 05:24 - Additional Planning My Orders: My Active Orders 01/28/24 22:45 Benzocaine/Menthol [Cepacol] 1 lozenge MM Q2HR PRN 01/29/24 01:00 Sodium Chloride Flush 0.9% [Normal Saline Flush 0.9%] 10 ml IVP 0100,0900,1700 01/29/24 03:45 Amiodarone 360 mg/200 ml [Nexterone 360 mg/200 ml] 200 ml IV 0.5 mg/min 01/29/24 Breakfast Cardiac Diet [DIET] 01/29/24 10:30 Amiodarone [Pacerone] 400 mg PO TID 01/29/24 10:40 Daily Weight [RC] 0600 01/29/24 11:15 NonViolent Restraint(s) Q24H 01/29/24 13:00 carvediloL [Coreg] 3.125 mg PO BID 01/29/24 19:29 guaiFENesin [Mucinex] 600 mg PO BID PRN 01/30/24 05:00 CALCIUM, IONIZED ([facility]) [BG] DAILYLAB Subjective - Subjective Patient Reports: Other (Alert. Intermittently agitated. Patient has been more cooperative throughout the day) Objective Vital Signs: Vital Signs - 24 hr 01/29/24 01/29/24 01/29/24 00:00 01:00 02:00 Temperature Heart Rate Heart Rate [ 133 H 127 H 126 H Monitoring electrodes] Respiratory 24 28 H 24 Rate Blood Pressure 124/96 H 124/105 H 132/100 H [Right Brachial artery] O2 Saturation 96 99 96 If not protocol 3 3 3 : Oxygen Flow, liters/minute 01/29/24 01/29/24 01/29/24 03:00 03:26 04:00 Temperature Heart Rate 125 H Heart Rate [ 126 H 126 H Monitoring electrodes] Respiratory 30 H 33 H 35 H Rate Blood Pressure 148/109 H 116/87 H [Right Brachial artery] O2 Saturation 94 95 If not protocol 4 6 6 : Oxygen Flow, liters/minute 01/29/24 01/29/24 01/29/24 04:54 05:30 06:00 Temperature Heart Rate Heart Rate [ 125 H 77 77 Monitoring electrodes] Respiratory 33 H 26 H 26 H Rate Blood Pressure 115/95 H 128/94 H 119/80 [Right Brachial artery] O2 Saturation 94 97 96 If not protocol 6 4 2 : Oxygen Flow, liters/minute 01/29/24 01/29/24 01/29/24 07:00 08:00 08:08 Temperature 97.6 C H Heart Rate Heart Rate [ 73 76 Monitoring electrodes] Respiratory 28 H 26 H Rate Blood Pressure 120/94 H 118/79 [Right Brachial artery] O2 Saturation 98 100 If not protocol 2 2 3 : Oxygen Flow, liters/minute 01/29/24 01/29/24 01/29/24 09:00 10:00 10:52 Temperature Heart Rate 79 Heart Rate [ 70 76 Monitoring electrodes] Respiratory 25 H 23 17 Rate Blood Pressure 121/79 137/99 H [Right Brachial artery] O2 Saturation 96 If not protocol 2 3 : Oxygen Flow, liters/minute 01/29/24 01/29/24 01/29/24 11:00 12:00 13:00 Temperature Heart Rate Heart Rate [ 105 H 77 Monitoring electrodes] Respiratory 20 22 27 H Rate Blood Pressure 147/96 H 150/110 H 144/101 H [Right Brachial artery] O2 Saturation 96 98 100 If not protocol 3 3 2 : Oxygen Flow, liters/minute 01/29/24 01/29/24 01/29/24 14:00 15:00 15:23 Temperature 37.0 C Heart Rate Heart Rate [ 80 75 72 Monitoring electrodes] Respiratory 25 H 23 22 Rate Blood Pressure 129/92 H 124/86 H 124/86 H [Right Brachial artery] O2 Saturation 94 98 If not protocol 2 2 2 : Oxygen Flow, liters/minute 01/29/24 01/29/24 01/29/24 17:00 18:00 18:36 Temperature Heart Rate Heart Rate [ 84 82 83 Monitoring electrodes] Respiratory 20 23 30 H Rate Blood Pressure 118/91 H 144/110 H 137/102 H [Right Brachial artery] O2 Saturation 98 96 97 If not protocol 1 1 1 : Oxygen Flow, liters/minute 01/29/24 01/29/24 01/29/24 18:48 19:00 20:00 Temperature 36.4 C L Heart Rate 82 Heart Rate [ 80 80 Monitoring electrodes] Respiratory 22 20 34 H Rate Blood Pressure 130/111 H 136/117 H [Right Brachial artery] O2 Saturation 97 96 If not protocol 2 1 1 : Oxygen Flow, liters/minute 01/29/24 01/29/24 01/29/24 21:00 21:59 22:00 Temperature Heart Rate 90 Heart Rate [ 72 80 Monitoring electrodes] Respiratory 36 H 26 H 32 H Rate Blood Pressure 146/110 H 126/89 H [Right Brachial artery] O2 Saturation 98 99 If not protocol 2 2 2 : Oxygen Flow, liters/minute 01/29/24 23:00 Temperature Heart Rate Heart Rate [ 88 Monitoring electrodes] Respiratory 34 H Rate Blood Pressure 126/89 H [Right Brachial artery] O2 Saturation 93 If not protocol 2 : Oxygen Flow, liters/minute Oxygen O2 Source Nasal cannula I&O (Last 24 Hrs): Intake and Output Totals x24h 01/27/24 01/28/24 01/29/24 23:59 23:59 23:59 Intake Total 648.540 3252 Output Total 150 0 Balance -29.083 1581 General: Alert, No acute distress HEENT: Atraumatic Neck: Supple, No JVD, No thyromegaly Lymphatic: no adenopathy Neuro: Alert, Non Focal Cardiovascular: Other (Positive S1-S2 no extra heart sounds.) Abdomen: Normal bowel sounds, Soft, No tenderness Extremities: No cyanosis Skin: No rashes - Results Results: Laboratory Results WBC 7.8 x10^3/uL (4.8-10.8) 01/29/24 05:24 RBC 5.80 10^6/uL (4.20-5.40) H 01/29/24 05:24 Hgb 15.7 g/dL (12.0-16.0) 01/29/24 05:24 Hct 48.7 % (37.0-47.0) H 01/29/24 05:24 MCV 84.0 fL (81.0-99.0) 01/29/24 05:24 MCH 27.1 pg (27.0-31.0) 01/29/24 05:24 MCHC 32.2 g/dL (32.0-36.0) 01/29/24 05:24 RDW 15.5 % (12.0-15.0) H 01/29/24 05:24 Plt Count 214 10^3/uL (130-450) 01/29/24 05:24 MPV 11.1 fL (7.9-10.8) H 01/29/24 05:24 Neut # (Auto) 3.5 10^3/uL (1.5-6.6) 01/28/24 11:00 Lymph # (Auto) 3.2 10^3/uL (1.5-3.5) 01/28/24 11:00 [place] # (Auto) 0.5 10^3/uL (0.0-1.0) 01/28/24 11:00 Eos # (Auto) 0.1 10^3/uL (0.0-0.7) 01/28/24 11:00 Baso # (Auto) 0.1 10^3/uL (0.0-0.1) 01/28/24 11:00 Absolute Nucleated RBC 0.02 x10^3/uL 01/28/24 11:00 Nucleated RBC % 0.3 /100WBC 01/28/24 11:00 VBG pH 7.287 (7.31-7.41) L 01/29/24 05:24 Ionized Calcium 1.04 mmol/L (1.15-1.33) L 01/29/24 05:24 Sodium 138 mmol/L (135-145) 01/29/24 05:24 Potassium 4.0 mmol/L (3.5-4.5) 01/29/24 05:24 Chloride 100 mmol/L (101-111) L 01/29/24 05:24 Carbon Dioxide 22 mmol/L (21-32) 01/29/24 05:24 Anion Gap 16.0 (6-13) H 01/29/24 05:24 BUN 26 mg/dL (6-20) H 01/29/24 05:24 Creatinine 1.7 mg/dL (0.6-1.3) H 01/29/24 05:24 Estimated GFR (MDRD) 37 (>89) L 01/29/24 05:24 Glucose 121 mg/dL (74-104) H 01/29/24 05:24 Lactic Acid 2.5 mmol/L (0.5-2.2) H 01/28/24 11:48 Calcium 9.1 mg/dL (8.5-10.3) 01/29/24 05:24 Phosphorus 5.8 mg/dL (2.5-5.0) H 01/29/24 05:24 Magnesium 1.5 mg/dL (1.7-2.3) L 01/29/24 05:24 Total Bilirubin 1.2 mg/dL (0.2-1.0) H 01/29/24 05:24 AST 67 IU/L (10-42) H 01/29/24 05:24 ALT 57 IU/L (10-60) 01/29/24 05:24 Alkaline Phosphatase 128 IU/L (42-121) H 01/29/24 05:24 Troponin I High Sens 253.6 ng/L (2.3-14.8) H* 01/29/24 05:24 B-Natriuretic Peptide 887 pg/mL (5-100) H 01/28/24 11:00 Total Protein 7.0 g/dL (6.4-8.9) 01/29/24 05:24 Albumin 3.2 g/dL (3.2-5.5) 01/29/24 05:24 Globulin 3.8 g/dL (2.1-4.2) 01/29/24 05:24 Albumin/Globulin Ratio 0.8 (1.0-2.2) L 01/29/24 05:24 Lipase 20 U/L (11-82) 01/28/24 11:00 Urine Color YELLOW 01/28/24 22:00 Urine Clarity HAZY (CLEAR) 01/28/24 22:00 Urine pH 6.0 PH (5.0-7.5) 01/28/24 22:00 Ur Specific [place] 1.015 (1.002-1.030) 01/28/24 22:00 Urine Protein 100 mg/dL (NEGATIVE) H 01/28/24 22:00 Urine Glucose (UA) NEGATIVE mg/dL (NEGATIVE) 01/28/24 22:00 Urine Ketones NEGATIVE mg/dL (NEGATIVE) 01/28/24 22:00 Urine Occult Blood TRACE-LYSE (NEGATIVE) 01/28/24 22:00 Urine Nitrite POSITIVE (NEGATIVE) H 01/28/24 22:00 Urine Bilirubin NEGATIVE (NEGATIVE) 01/28/24 22:00 Urine Urobilinogen 1 (NORMAL) E.U./dL (NORMAL) 01/28/24 22:00 Ur Leukocyte Esterase NEGATIVE (NEGATIVE) 01/28/24 22:00 Urine RBC 0-5 /HPF (0-5) 01/28/24 22:00 Urine WBC 4-5 /HPF (0-5) 01/28/24 22:00 Ur Squamous Epith Cells FEW Squamous (<= Few) 01/28/24 22:00 Urine Bacteria Many /HPF (None Seen) H 01/28/24 22:00 Urine Casts 3-5 Hyaline Casts /LPF 01/28/24 22:00 Ur Microscopic Review INDICATED 01/28/24 22:00 Urine Culture Comments INDICATED 01/28/24 22:00 Nasal Screen MRSA (PCR) NEGATIVE (NEGATIVE) 01/28/24 21:00 Urine Opiates Screen NEGATIVE (NEGATIVE) 01/28/24 22:00 Ur Buprenorphine Scrn NEGATIVE (NEGATIVE) 01/28/24 22:00 Ur Oxycodone Screen NEGATIVE (NEGATIVE) 01/28/24 22:00 Urine Methadone Screen NEGATIVE (NEGATIVE) 01/28/24 22:00 Ur Barbiturates Screen NEGATIVE (NEGATIVE) 01/28/24 22:00 Ur Tricyclics Screen NEGATIVE (NEGATIVE) 01/28/24 22:00 Ur Phencyclidine Scrn NEGATIVE (NEGATIVE) 01/28/24 22:00 Ur Amphetamine Screen POSITIVE (NEGATIVE) H 01/28/24 22:00 U Methamphetamines Scrn NEGATIVE (NEGATIVE) 01/28/24 22:00 U Benzodiazepines Scrn NEGATIVE (NEGATIVE) 01/28/24 22:00 Urine Cocaine Screen NEGATIVE (NEGATIVE) 01/28/24 22:00 U Cannabinoids Screen NEGATIVE (NEGATIVE) 01/28/24 22:00 Ur Drug Screen Comment CUTOFF CONC BELOW: 01/28/24 22:00 SARS-CoV-2 (PCR) NOT DETECTED 01/29/24 09:30 - Procedures Procedures: Procedures EXCISION OF PERITONEUM, OPEN APPROACH, DIAGNOSTIC (05/24/18) SUPPLEMENT ABDOMINAL WALL WITH SYNTH SUB, OPEN APPROACH (05/24/18)
[2024-01-30 06:29] LABS: BASOPHILS % (AUTO) 0.1 %; HCT - HEMATOCRIT 47.9 % (37.0-47.0); HGB - HEMOGLOBIN 15.8 g/dL (12.0-16.0); LYMPHOCYTES # (AUTO) 1.3 10^3/uL (1.5-3.5); LYMPHOCYTES % (AUTO) 10.9 %; MEAN CORPUSCULAR HEMOGLOBIN 27.1 pg (27.0-31.0); MEAN CORPUSCULAR VOLUME 82.2 fL (81.0-99.0); MEAN PLATELET VOLUME 11.4 fL (7.9-10.8); MONOCYTES # (AUTO) 0.4 10^3/uL (0.0-1.0); MONOCYTES % (AUTO) 3.5 %; NEUTROPHILS # (AUTO) 10.4 10^3/uL (1.5-6.6); NEUTROPHILS % (AUTO) 85.1 %; NRBC ABSOLUTE COUNT (AUTO) 0.02 x10^3/uL; NUCLEATED RED BLOOD CELLS AUTO 0.2 /100WBC; PLT - PLATELET COUNT 216 10^3/uL (130-450); RED BLOOD COUNT 5.83 10^6/uL (4.20-5.40); RED CELL DISTRIBUTION WIDTH 15.2 % (12.0-15.0); WHITE BLOOD COUNT 12.3 x10^3/uL (4.8-10.8)
[2024-01-30 06:35] LABS: CALCIUM, IONIZED 1.1 mmol/L (1.15-1.33); VBG PH 7.341 (7.31-7.41)
[2024-01-30 06:42] LABS: CALCIUM 9.2 mg/dL (8.5-10.3); CREATININE 1.5 mg/dL (0.6-1.3); MAGNESIUM 1.5 mg/dL (1.7-2.3); PHOSPHORUS 4.3 mg/dL (2.5-5.0); POTASSIUM 3.8 mmol/L (3.5-4.5)
--- NOTE | 2024-01-30 09:08 | PROVIDER PROGRESS NOTE ---
Subjective - Prog Note Date Prog Note Date: 01/30/24 Prog Note Time: 19:00 - Subjective Pt reports feeling: Improved Subjective: patient barely talks, not carry on conversation, follow commands, still has occasional dry cough Current Medications - Current Medications Current Medications: Active Medications Generic Name Dose Route Start Last Admin Trade Name Freq PRN Reason Stop Dose Admin Albuterol 2 puffs 01/29/24 02:26 01/30/24 07:01 Albuterol 1 Puff INH 2 puffs Q4H PRN Administration Shortness of Air/Wheezing Albuterol/Ipratropium 3 ml 01/29/24 21:44 01/30/24 14:36 Ipratropium/Albuterol 3 Ml Neb INH 3 ml Q4HR PRN Administration Wheezing Amiodarone HCl 400 mg 01/29/24 10:30 01/30/24 13:46 Amiodarone 200 Mg Tablet PO 400 mg TID TOI Administration Apixaban 5 mg 01/28/24 21:00 01/30/24 20:18 Apixaban 5 Mg Tablet PO 5 mg BID TOI Administration Benzonatate 100 mg 01/29/24 21:46 01/30/24 05:42 Benzonatate 100 Mg Capsule PO 100 mg TID PRN Administration Cough Carvedilol 3.125 mg 01/29/24 13:00 01/30/24 20:18 Carvedilol 3.125 Mg Tablet PO 3.125 mg BID TOI Administration Guaifenesin 600 mg 01/29/24 19:29 01/30/24 20:18 Guaifenesin 600 Mg Tablet PO 600 mg BID PRN Administration Cough Insulin Human Lispro 1 - 5 unit 01/30/24 12:00 01/30/24 20:17 Insulin Lispro 300 Unit/3 Ml Pen SUBQ 1 unit 0800,1200,1700,2100 TOI Administration Protocol Multivit/Folic Acid/Iron 1 tab 01/29/24 09:00 01/30/24 08:32 Vitamin Tablet PO 1 tab DAILY TOI Administration Sodium Chloride 10 ml 01/28/24 17:23 01/29/24 22:01 Sodium Chloride Flush 0.9% 10 Ml Syringe IVP 10 ml PRN PRN Administration NEEDED PER PROVIDER ORDERS Sodium Chloride 10 ml 01/29/24 01:00 01/30/24 17:22 Sodium Chloride Flush 0.9% 10 Ml Syringe IVP 10 ml 0100,0900,1700 TOI Administration Thiamine HCl 100 mg 01/29/24 09:00 01/30/24 08:32 Thiamine 100 Mg Tablet PO 100 mg DAILY TOI Administration Throat Lozenges 1 lozenge 01/28/24 22:45 01/28/24 23:42 Benzocaine/Menthol Lozenge MM 1 lozenge Q2HR PRN Administration Throat pain No Known Home Medications 01/29/24 Objective - Vital Signs/Intake & Output Reviewed Vital Signs: Yes Vital Signs: Vital Signs Temp Pulse Pulse Resp BP Pulse Ox O2 Flow Rate 01/30/24 08:00 34.2 C L 84 21 145/110 H 93 2 01/30/24 07:04 68 69 H 2 01/30/24 07:00 74 19 126/97 H 96 2 01/30/24 06:00 85 30 H 103/71 93 2 01/30/24 05:50 80 22 2 Intake & Output: Intake & Output 01/27/24 01/28/24 01/29/24 01/30/24 23:59 23:59 23:59 23:59 Intake Total 022.264 6550 400 Output Total 150 0 500 Balance -29.083 1581 -100 - Objective General Appearance: positive: Anxious Eyes Bilateral: positive: PERRL, EOMI ENT: positive: ENT inspection nml, Dry mucous membranes Neck: positive: No JVD Respiratory: positive: Rales, Rhonchi. negative: No respiratory distress, Wheezes Cardiovascular: positive: Regular rate & rhythm. negative: No gallop, JVD present Abdomen: positive: Non-tender. negative: Tenderness, Guarding, Rebound Back: positive: Nml inspection Skin: positive: Warm, Dry Neurologic/Psychiatric: positive: Other (difficult to evaluate, does not carry on conversation) - Lab Results Fish Bones: 01/30/24 05:46 01/30/24 05:46 Other Labs: Lab Results x24hrs 01/30/24 01/30/24 01/30/24 Range/Units 05:46 05:46 05:46 WBC 12.3 H (4.8-10.8) x10^3/uL RBC 5.83 H (4.20-5.40) 10^6/uL Hgb 15.8 (12.0-16.0) g/dL Hct 47.9 H (37.0-47.0) % MCV 82.2 (81.0-99.0) fL MCH 27.1 (27.0-31.0) pg MCHC 33.0 (32.0-36.0) g/dL RDW 15.2 H (12.0-15.0) % Plt Count 216 (130-450) 10^3/uL MPV 11.4 H (7.9-10.8) fL Neut # (Auto) 10.4 H (1.5-6.6) 10^3/uL Lymph # (Auto) 1.3 L (1.5-3.5) 10^3/uL [place] # (Auto) 0.4 (0.0-1.0) 10^3/uL Eos # (Auto) 0.0 (0.0-0.7) 10^3/uL Baso # (Auto) 0.0 (0.0-0.1) 10^3/uL Absolute Nucleated RBC 0.02 x10^3/uL Nucleated RBC % 0.2 /100WBC VBG pH 7.341 (7.31-7.41) Ionized Calcium 1.10 L (1.15-1.33) mmol/L Sodium 136 (135-145) mmol/L Potassium 3.8 (3.5-4.5) mmol/L Chloride 100 L (101-111) mmol/L Carbon Dioxide 25 (21-32) mmol/L Anion Gap 11.0 (6-13) BUN 34 H (6-20) mg/dL Creatinine 1.5 H (0.6-1.3) mg/dL Estimated GFR (MDRD) 43 L (>89) Glucose 150 H (74-104) mg/dL Calcium 9.2 (8.5-10.3) mg/dL Phosphorus 4.3 (2.5-5.0) mg/dL Magnesium 1.5 L (1.7-2.3) mg/dL SARS-CoV-2 (PCR) 01/29/24 Range/Units 09:30 WBC (4.8-10.8) x10^3/uL RBC (4.20-5.40) 10^6/uL Hgb (12.0-16.0) g/dL Hct (37.0-47.0) % MCV (81.0-99.0) fL MCH (27.0-31.0) pg MCHC (32.0-36.0) g/dL RDW (12.0-15.0) % Plt Count (130-450) 10^3/uL MPV (7.9-10.8) fL Neut # (Auto) (1.5-6.6) 10^3/uL Lymph # (Auto) (1.5-3.5) 10^3/uL [place] # (Auto) (0.0-1.0) 10^3/uL Eos # (Auto) (0.0-0.7) 10^3/uL Baso # (Auto) (0.0-0.1) 10^3/uL Absolute Nucleated RBC x10^3/uL Nucleated RBC % /100WBC VBG pH (7.31-7.41) Ionized Calcium (1.15-1.33) mmol/L Sodium (135-145) mmol/L Potassium (3.5-4.5) mmol/L Chloride (101-111) mmol/L Carbon Dioxide (21-32) mmol/L Anion Gap (6-13) BUN (6-20) mg/dL Creatinine (0.6-1.3) mg/dL Estimated GFR (MDRD) (>89) Glucose (74-104) mg/dL Calcium (8.5-10.3) mg/dL Phosphorus (2.5-5.0) mg/dL Magnesium (1.7-2.3) mg/dL SARS-CoV-2 (PCR) NOT DETECTED - Diagnostic Imaging Diagnostic Imaging Results: positive: Final report reviewed, Critical result Sepsis Event Note (H) - Evaluation Current Stage of Sepsis: Ruled out Assessment/Plan - Problem List (1) Atrial fibrillation with RVR Impression: Improved RVR resolved HR controlled -continue amiodarone, carvidilol -continue Eliquis -Tele for 24hours (2) Methamphetamine abuse Impression: Echo pending, to evaluation if EF has been damaged (3) COVID Impression: still has occasional cough, patient is on room air, no indication for anti-viral treatment monitoring supportive treatment: give cough med (4) Hypertension Impression: at target range -continue b-juan Qualifiers: Hypertension type: unspecified Qualified Code(s): I10 - Essential (primary) hypertension
[2024-01-30] MEDS: MAGNESIUM SULFATE 2 GRAM 2 GM/50 ML BAG IV ONE (10:17)
[2024-01-30] MEDS: INSULIN LISPRO 300 UNIT/3 ML PEN SUBQ SCH (11:43)
[2024-01-30] MEDS: MAGNESIUM OXIDE 400 MG TABLET PO SCH (12:19)
[2024-01-30] MEDS: POTASSIUM CHLORIDE 20 MEQ TABLET PO ONE (13:47)
[2024-01-30] MEDS: FUROSEMIDE 40 MG/4 ML VIAL IVP ONE (13:51)
[2024-01-31 06:44] LABS: CRP - C-REACTIVE PROTEIN 2.5 mg/dL (<0.5)
[2024-01-31 06:47] LABS: POTASSIUM 4.8 mmol/L (3.5-4.5)
[2024-01-31 06:48] LABS: CALCIUM 9.7 mg/dL (8.5-10.3); CREATININE 1.6 mg/dL (0.6-1.3)
[2024-01-31 09:12] LABS: BASOPHILS % (AUTO) 0.1 %; EOSINOPHILS % (AUTO) 0.1 %; HGB - HEMOGLOBIN 16.5 g/dL (12.0-16.0); LYMPHOCYTES # (AUTO) 1.9 10^3/uL (1.5-3.5); LYMPHOCYTES % (AUTO) 10.9 %; MEAN CORPUSCULAR HEMOGLOBIN 26.4 pg (27.0-31.0); MEAN CORPUSCULAR HGB CONC 32.4 g/dL (32.0-36.0); MEAN CORPUSCULAR VOLUME 81.7 fL (81.0-99.0); MEAN PLATELET VOLUME 11.1 fL (7.9-10.8); MONOCYTES # (AUTO) 0.8 10^3/uL (0.0-1.0); MONOCYTES % (AUTO) 4.4 %; NEUTROPHILS # (AUTO) 14.7 10^3/uL (1.5-6.6); NEUTROPHILS % (AUTO) 83.8 %; NRBC ABSOLUTE COUNT (AUTO) 0.06 x10^3/uL; NUCLEATED RED BLOOD CELLS AUTO 0.3 /100WBC; PLT - PLATELET COUNT 256 10^3/uL (130-450); RED BLOOD COUNT 6.24 10^6/uL (4.20-5.40); RED CELL DISTRIBUTION WIDTH 15.6 % (12.0-15.0); WHITE BLOOD COUNT 17.5 x10^3/uL (4.8-10.8)
[2024-01-31 12:14] LABS: ESTIMATED AVERAGE GLUCOSE 140 mg/dL (70-100); HEMOGLOBIN A1c% 6.5 % (4.27-6.07)
--- NOTE | 2024-01-31 12:41 | PROVIDER PROGRESS NOTE ---
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 (3) COVID Assessment/Plan: Patient still has lingered cough, likely due to hypersensitive airway No Supplement oxygen needs (4) Hypertension Qualifiers: Hypertension type: unspecified Qualified Code(s): I10 - Essential (primary) hypertension Assessment/Plan: Continue on carvedilol (5) CHF (congestive heart failure) Qualifiers: Heart failure type: unspecified Heart failure chronicity: acute on chronic Qualified Code(s): I50.9 - Heart failure, unspecified Assessment/Plan: Appeared worsened than before, with BNP 1006 higher than baseline, with ejection fraction of 25 to 30%, optimized cardiac treatment is indicated, Patient is on beta-juan, However cannot start patient with Entresto or spironolactone due to the IVCKI Patient might be benefit with SGLT2 T inhibitor, unavailable at this point (6) Slurred speech Assessment/Plan: Unknown etiology, likely part of the influence from the long-term substance use no other focal neurodeficits noted However patient cannot speak clearly, appears able to understand very well, follow commands CT head to workup any intracranial abnormality (7) Leukocytosis Assessment/Plan: Worsening leukocytosis with WBC 17 bacteriuria with E. coli growth in the urine Start Augmentin for 5 days Monitoring WBC (8) VICKI (acute kidney injury) Assessment/Plan: Without improvement Creatinine 0.9 on admission, after diuretic, creatinine worsened to 1.4, then 1.7 Monitoring of diuretic Avoid any renal toxic agent Follow-up on BMP (9) Withdrawal complaint Assessment/Plan: Patient appears restless and anxious from time to time, with history of drug abuse, with concerns about withdrawal symptoms Monitoring closely - Current Meds Current Meds: Current Medications Generic Name Dose Route Start Last Admin Trade Name Freq PRN Reason Stop Dose Admin Albuterol 2 puffs 01/29/24 02:26 01/30/24 07:01 Albuterol 1 Puff INH 2 puffs Q4H PRN Administration Shortness of Air/Wheezing Albuterol/Ipratropium 3 ml 01/29/24 21:44 01/30/24 22:50 Ipratropium/Albuterol 3 Ml Neb INH 3 ml Q4HR PRN Administration Wheezing Amiodarone HCl 400 mg 01/29/24 10:30 01/31/24 05:21 Amiodarone 200 Mg Tablet PO 400 mg TID TOI Administration Apixaban 5 mg 01/28/24 21:00 01/31/24 09:00 Apixaban 5 Mg Tablet PO 5 mg BID TOI Administration Benzonatate 100 mg 01/29/24 21:46 01/30/24 21:42 Benzonatate 100 Mg Capsule PO 100 mg TID PRN Administration Cough Carvedilol 3.125 mg 01/29/24 13:00 01/31/24 09:00 Carvedilol 3.125 Mg Tablet PO 3.125 mg BID TOI Administration Guaifenesin 600 mg 01/29/24 19:29 01/30/24 20:18 Guaifenesin 600 Mg Tablet PO 600 mg BID PRN Administration Cough Insulin Human Lispro 1 - 5 unit 01/30/24 12:00 01/31/24 08:59 Insulin Lispro 300 Unit/3 Ml Pen SUBQ Not Given 0800,1200,1700,2100 [facility] Protocol Multivit/Folic Acid/Iron 1 tab 01/29/24 09:00 01/31/24 09:00 Vitamin Tablet PO 1 tab DAILY TOI Administration Sodium Chloride 10 ml 01/28/24 17:23 01/29/24 22:01 Sodium Chloride Flush 0.9% 10 Ml Syringe IVP 10 ml PRN PRN Administration NEEDED PER PROVIDER ORDERS Sodium Chloride 10 ml 01/29/24 01:00 01/31/24 09:00 Sodium Chloride Flush 0.9% 10 Ml Syringe IVP 10 ml 0100,0900,1700 TOI Administration Thiamine HCl 100 mg 01/29/24 09:00 01/31/24 09:00 Thiamine 100 Mg Tablet PO 100 mg DAILY TOI Administration Throat Lozenges 1 lozenge 01/28/24 22:45 01/28/24 23:42 Benzocaine/Menthol Lozenge MM 1 lozenge Q2HR PRN Administration Throat pain - Lab Result Fish Bone Diagrams: 01/31/24 08:55 01/31/24 05:20 - Diagnostic Imaging Results Diagnostic Imaging Results: Final report reviewed - Additional Planning Condition/Complexity: Unstable My Orders: My Active Orders 01/30/24 12:00 Insulin Lispro [Humalog Kwikpen U-100] 1 - 5 unit SUBQ 0800,1200,1700,2100 01/31/24 08:55 HEMOGLOBIN A1c% [CHEM] Routine 02/01/24 05:00 BMP - BASIC METABOLIC PANEL [CHEM] DAILYLAB CBC [CBC - COMP BLD CT W/AUTO DIFF] [HEME] DAILYLAB CRP - C-REACTIVE PROTEIN [CHEM] DAILYLAB 02/01/24 09:00 BNP - B-NATRIURETIC PEPTIDE [CHEM] DAILY 02/02/24 05:00 BMP - BASIC METABOLIC PANEL [CHEM] DAILYLAB CBC [CBC - COMP BLD CT W/AUTO DIFF] [HEME] DAILYLAB 02/03/24 05:00 BMP - BASIC METABOLIC PANEL [CHEM] DAILYLAB CBC [CBC - COMP BLD CT W/AUTO DIFF] [HEME] DAILYLAB 02/04/24 05:00 BMP - BASIC METABOLIC PANEL [CHEM] DAILYLAB CBC [CBC - COMP BLD CT W/AUTO DIFF] [HEME] DAILYLAB Plan Discussed with:: Patient Time Spent: 31-60 minutes Subjective - Subjective Patient Reports: Feeling Better, Other Nursing Reports: Other (Concerns about patient restlessness anxious and frequent cough) Objective Vital Signs: Vital Signs - 24 hr 01/30/24 01/30/24 01/30/24 13:00 14:00 14:36 Temperature 36.6 C Heart Rate 71 Heart Rate [ 75 75 Monitoring electrodes] Respiratory 22 22 28 H Rate Blood Pressure 131/113 H 114/84 H [Right Brachial artery] O2 Saturation 93 98 If not protocol 1 : Oxygen Flow, liters/minute 01/30/24 01/30/24 01/30/24 17:00 20:13 22:40 Temperature 36.5 C 36.3 C L Heart Rate 75 Heart Rate [ 67 65 Monitoring electrodes] Respiratory 20 24 28 H Rate Blood Pressure 139/84 H 132/97 H [Right Brachial artery] O2 Saturation 97 96 If not protocol : Oxygen Flow, liters/minute 01/30/24 01/30/24 01/31/24 23:36 23:54 04:39 Temperature 36.7 C 36.4 C L Heart Rate Heart Rate [ 77 76 Monitoring electrodes] Respiratory 24 22 Rate Blood Pressure 122/100 H 133/100 H [Right Brachial artery] O2 Saturation 96 98 If not protocol 4 4 : Oxygen Flow, liters/minute 01/31/24 01/31/24 01/31/24 07:48 11:01 11:22 Temperature 36.9 C 36.4 C L Heart Rate Heart Rate [ 75 70 Monitoring electrodes] Respiratory 24 24 Rate Blood Pressure 149/105 H 137/101 H [Right Brachial artery] O2 Saturation 94 97 If not protocol 4 4 4 : Oxygen Flow, liters/minute Oxygen O2 Source Nasal cannula I&O (Last 24 Hrs): Intake and Output Totals x24h 01/29/24 01/30/24 01/31/24 23:59 23:59 23:59 Intake Total 2581 1170 1000 Output Total 0 1325 200 Balance 2581 -155 800 - Results Results: Laboratory Results WBC 17.5 x10^3/uL (4.8-10.8) H 01/31/24 08:55 RBC 6.24 10^6/uL (4.20-5.40) H 01/31/24 08:55 Hgb 16.5 g/dL (12.0-16.0) H 01/31/24 08:55 Hct 51.0 % (37.0-47.0) H 01/31/24 08:55 MCV 81.7 fL (81.0-99.0) 01/31/24 08:55 MCH 26.4 pg (27.0-31.0) L 01/31/24 08:55 MCHC 32.4 g/dL (32.0-36.0) 01/31/24 08:55 RDW 15.6 % (12.0-15.0) H 01/31/24 08:55 Plt Count 256 10^3/uL (130-450) 01/31/24 08:55 MPV 11.1 fL (7.9-10.8) H 01/31/24 08:55 Neut # (Auto) 14.7 10^3/uL (1.5-6.6) H 01/31/24 08:55 Lymph # (Auto) 1.9 10^3/uL (1.5-3.5) 01/31/24 08:55 [place] # (Auto) 0.8 10^3/uL (0.0-1.0) 01/31/24 08:55 Eos # (Auto) 0.0 10^3/uL (0.0-0.7) 01/31/24 08:55 Baso # (Auto) 0.0 10^3/uL (0.0-0.1) 01/31/24 08:55 Absolute Nucleated RBC 0.06 x10^3/uL 01/31/24 08:55 Nucleated RBC % 0.3 /100WBC 01/31/24 08:55 VBG pH 7.341 (7.31-7.41) 01/30/24 05:46 Ionized Calcium 1.10 mmol/L (1.15-1.33) L 01/30/24 05:46 Sodium 135 mmol/L (135-145) 01/31/24 05:20 Potassium 4.8 mmol/L (3.5-4.5) H 01/31/24 05:20 Chloride 101 mmol/L (101-111) 01/31/24 05:20 Carbon Dioxide 20 mmol/L (21-32) L 01/31/24 05:20 Anion Gap 14.0 (6-13) H 01/31/24 05:20 BUN 43 mg/dL (6-20) H 01/31/24 05:20 Creatinine 1.6 mg/dL (0.6-1.3) H 01/31/24 05:20 Estimated GFR (MDRD) 40 (>89) L 01/31/24 05:20 Glucose 130 mg/dL (74-104) H 01/31/24 05:20 POC Whole Bld Glucose 105 mg/dL (70 - 100) H 01/31/24 11:18 Lactic Acid 2.5 mmol/L (0.5-2.2) H 01/28/24 11:48 Calcium 9.7 mg/dL (8.5-10.3) 01/31/24 05:20 Phosphorus 4.3 mg/dL (2.5-5.0) 01/30/24 05:46 Magnesium 2.0 mg/dL (1.7-2.3) 01/31/24 05:20 Total Bilirubin 1.2 mg/dL (0.2-1.0) H 01/29/24 05:24 AST 67 IU/L (10-42) H 01/29/24 05:24 ALT 57 IU/L (10-60) 01/29/24 05:24 Alkaline Phosphatase 128 IU/L (42-121) H 01/29/24 05:24 Troponin I High Sens 253.6 ng/L (2.3-14.8) H* 01/29/24 05:24 C-Reactive Protein 2.5 mg/dL (<0.5) H 01/31/24 05:20 B-Natriuretic Peptide 1157 pg/mL (5-100) H 01/31/24 08:55 Total Protein 7.0 g/dL (6.4-8.9) 01/29/24 05:24 Albumin 3.2 g/dL (3.2-5.5) 01/29/24 05:24 Globulin 3.8 g/dL (2.1-4.2) 01/29/24 05:24 Albumin/Globulin Ratio 0.8 (1.0-2.2) L 01/29/24 05:24 Lipase 20 U/L (11-82) 01/28/24 11:00 Urine Color YELLOW 01/28/24 22:00 Urine Clarity HAZY (CLEAR) 01/28/24 22:00 Urine pH 6.0 PH (5.0-7.5) 01/28/24 22:00 Ur Specific [place] 1.015 (1.002-1.030) 01/28/24 22:00 Urine Protein 100 mg/dL (NEGATIVE) H 01/28/24 22:00 Urine Glucose (UA) NEGATIVE mg/dL (NEGATIVE) 01/28/24 22:00 Urine Ketones NEGATIVE mg/dL (NEGATIVE) 01/28/24 22:00 Urine Occult Blood TRACE-LYSE (NEGATIVE) 01/28/24 22:00 Urine Nitrite POSITIVE (NEGATIVE) H 01/28/24 22:00 Urine Bilirubin NEGATIVE (NEGATIVE) 01/28/24 22:00 Urine Urobilinogen 1 (NORMAL) E.U./dL (NORMAL) 01/28/24 22:00 Ur Leukocyte Esterase NEGATIVE (NEGATIVE) 01/28/24 22:00 Urine RBC 0-5 /HPF (0-5) 01/28/24 22:00 Urine WBC 4-5 /HPF (0-5) 01/28/24 22:00 Ur Squamous Epith Cells FEW Squamous (<= Few) 01/28/24 22:00 Urine Bacteria Many /HPF (None Seen) H 01/28/24 22:00 Urine Casts 3-5 Hyaline Casts /LPF 01/28/24 22:00 Ur Microscopic Review INDICATED 01/28/24 22:00 Urine Culture Comments INDICATED 01/28/24 22:00 Nasal Screen MRSA (PCR) NEGATIVE (NEGATIVE) 01/28/24 21:00 Urine Opiates Screen NEGATIVE (NEGATIVE) 01/28/24 22:00 Ur Buprenorphine Scrn NEGATIVE (NEGATIVE) 01/28/24 22:00 Ur Oxycodone Screen NEGATIVE (NEGATIVE) 01/28/24 22:00 Urine Methadone Screen NEGATIVE (NEGATIVE) 01/28/24 22:00 Ur Barbiturates Screen NEGATIVE (NEGATIVE) 01/28/24 22:00 Ur Tricyclics Screen NEGATIVE (NEGATIVE) 01/28/24 22:00 Ur Phencyclidine Scrn NEGATIVE (NEGATIVE) 01/28/24 22:00 Ur Amphetamine Screen POSITIVE (NEGATIVE) H 01/28/24 22:00 U Methamphetamines Scrn NEGATIVE (NEGATIVE) 01/28/24 22:00 U Benzodiazepines Scrn NEGATIVE (NEGATIVE) 01/28/24 22:00 Urine Cocaine Screen NEGATIVE (NEGATIVE) 01/28/24 22:00 U Cannabinoids Screen NEGATIVE (NEGATIVE) 01/28/24 22:00 Ur Drug Screen Comment CUTOFF CONC BELOW: 01/28/24 22:00 SARS-CoV-2 (PCR) NOT DETECTED 01/29/24 09:30 - Procedures Procedures: Procedures EXCISION OF PERITONEUM, OPEN APPROACH, DIAGNOSTIC (05/24/18) SUPPLEMENT ABDOMINAL WALL WITH SYNTH SUB, OPEN APPROACH (05/24/18) Sepsis Event Note (H) - Evaluation Current Stage of Sepsis: Ruled out ABX Reporting Has patient been on IV antibiotics over the past 48 hours?: Yes
[2024-01-31] MEDS: AMOX/CLAV 500 MG/125 MG TABLET PO SCH (14:28)
[2024-01-31] MEDS: LORazepam 2 MG/ML VIAL IVP ONE (16:43)
--- NOTE | 2024-01-31 19:53 | CT Report ---
PROCEDURE: Head WO INDICATIONS: slurred speech, may be baseline? No limb weakness TECHNIQUE: Noncontrast 4.5 mm thick angled axial sections acquired from the foramen magnum to the vertex. For r adiation dose reduction, the following was used: automated exposure control, adjustment of mA and/or kV according to patient size. COMPARISON: None. FINDINGS: Image quality: Excellent. CSF spaces: Basal cisterns are patent. No extra-axial fluid collections. Ventricles are normal in size and shape. Brain: No midline shift. No intracranial masses or hemorrhage. Mantilla-white matter interface is norm al. Skull and face: Calvarium and visualized facial bones are intact, without suspicious lesions. Sinuses: Visualized sinuses and mastoids are clear. IMPRESSION: No acute intracranial pathology. Reviewed by: Marti Aguirre MD on 01/31/2024 7:52 PM PST Approved by: Marti Aguirre MD on 01/31/2024 7:52 PM [facility] Station ID: [id number]
[2024-02-01] MEDS ORDERED: DEXTROSE 50% ABBOJECT 25 GM/50 ML SYRINGE IVP ONE (07:22)
--- NOTE | 2024-02-01 07:22 | PROVIDER PROGRESS NOTE ---
Assessment/Plan - Problem List (1) Slurred speech Assessment/Plan: unknown etiology No other focal neurodeficit CT head negative for acute intracranial pathology -Speech therapy Eval and treatment (2) Atrial fibrillation with RVR Assessment/Plan: Stable Rate controlled Amiodarone loading dose completed, switch to maintenance dose 200 mg once a day Continue with carvedilol Continue with Eliquis (3) Methamphetamine abuse Assessment/Plan: intake worker consultation (4) COVID Assessment/Plan: No hypoxia However patient has lingering cough and occasional wheezing Likely is hypersensitive airway -Albuterol nebulizer as needed (5) Hypertension Qualifiers: Hypertension type: unspecified Qualified Code(s): I10 - Essential (primary) hypertension Assessment/Plan: Blood pressure elevated 327366/[id number] - amlodipine -Carvedilol (6) CHF (congestive heart failure) Qualifiers: Heart failure type: unspecified Heart failure chronicity: acute on chronic Qualified Code(s): I50.9 - Heart failure, unspecified Assessment/Plan: Secondary to meth abuse EF reduced at 25 to 30% Fluid restriction at this point, cannot use diuretic due to VICKI (7) Leukocytosis Assessment/Plan: Patient refused blood draw Will try to convince patient to be cooperative Continue give Augmentin for bacteriuria (8) VICKI (acute kidney injury) Assessment/Plan: Patient refused lab draw today, unable to follow renal function (9) Withdrawal complaint Assessment/Plan: Patient received 1 mg Ativan yesterday, Today appears to be able to rest, however she can be combative at times and swinging her arms on staff (10) Hypoglycemia Assessment/Plan: Likely due to poor oral intake Blood sugar 23, rechecked at 50 Hypoglycemia protocol was initiated, blood sugar improved to 110, continue D5 at 50 cc/h for 10 hours - Current Meds Current Meds: Current Medications Generic Name Dose Route Start Last Admin Trade Name Freq PRN Reason Stop Dose Admin Albuterol 2 puffs 01/29/24 02:26 01/30/24 07:01 Albuterol 1 Puff INH 2 puffs Q4H PRN Administration Shortness of Air/Wheezing Albuterol/Ipratropium 3 ml 01/29/24 21:44 01/30/24 22:50 Ipratropium/Albuterol 3 Ml Neb INH 3 ml Q4HR PRN Administration Wheezing Amiodarone HCl 400 mg 01/29/24 10:30 02/01/24 05:17 Amiodarone 200 Mg Tablet PO Not Given TID [facility] Amoxicillin/Clavulanate Potassium 1 tab 01/31/24 13:00 01/31/24 21:46 Amox/Clav 500 Mg/125 Mg Tablet PO 02/05/24 12:59 Not Given BID TOI Apixaban 5 mg 01/28/24 21:00 01/31/24 21:46 Apixaban 5 Mg Tablet PO Not Given BID TOI Benzonatate 100 mg 01/29/24 21:46 01/30/24 21:42 Benzonatate 100 Mg Capsule PO 100 mg TID PRN Administration Cough Carvedilol 3.125 mg 01/29/24 13:00 01/31/24 21:46 Carvedilol 3.125 Mg Tablet PO Not Given BID [facility] Guaifenesin 600 mg 01/29/24 19:29 01/30/24 20:18 Guaifenesin 600 Mg Tablet PO 600 mg BID PRN Administration Cough Insulin Human Lispro 1 - 5 unit 01/30/24 12:00 01/31/24 21:46 Insulin Lispro 300 Unit/3 Ml Pen SUBQ Not Given 0800,1200,1700,2100 [facility] Protocol Multivit/Folic Acid/Iron 1 tab 01/29/24 09:00 01/31/24 09:00 Vitamin Tablet PO 1 tab DAILY TOI Administration Sodium Chloride 10 ml 01/28/24 17:23 01/29/24 22:01 Sodium Chloride Flush 0.9% 10 Ml Syringe IVP 10 ml PRN PRN Administration NEEDED PER PROVIDER ORDERS Sodium Chloride 10 ml 01/29/24 01:00 01/31/24 21:51 Sodium Chloride Flush 0.9% 10 Ml Syringe IVP 10 ml 0100,0900,1700 TOI Administration Thiamine HCl 100 mg 01/29/24 09:00 01/31/24 09:00 Thiamine 100 Mg Tablet PO 100 mg DAILY TOI Administration Throat Lozenges 1 lozenge 01/28/24 22:45 01/28/24 23:42 Benzocaine/Menthol Lozenge MM 1 lozenge Q2HR PRN Administration Throat pain - Lab Result Fish Bone Diagrams: 01/31/24 08:55 01/31/24 05:20 - Additional Planning Condition/Complexity: Unstable My Orders: My Active Orders 01/31/24 13:00 Amox/Clav 500/125 [Augmentin 500/125] 1 tab PO BID 02/01/[address] [ST] Routine 02/01/24 05:00 BMP - BASIC METABOLIC PANEL [CHEM] DAILYLAB CBC [CBC - COMP BLD CT W/AUTO DIFF] [HEME] DAILYLAB CRP - C-REACTIVE PROTEIN [CHEM] DAILYLAB 02/01/24 09:00 BNP - B-NATRIURETIC PEPTIDE [CHEM] DAILY 02/02/24 05:00 BMP - BASIC METABOLIC PANEL [CHEM] DAILYLAB CBC [CBC - COMP BLD CT W/AUTO DIFF] [HEME] DAILYLAB 02/03/24 05:00 BMP - BASIC METABOLIC PANEL [CHEM] DAILYLAB CBC [CBC - COMP BLD CT W/AUTO DIFF] [HEME] DAILYLAB 02/04/24 05:00 BMP - BASIC METABOLIC PANEL [CHEM] DAILYLAB CBC [CBC - COMP BLD CT W/AUTO DIFF] [HEME] DAILYLAB Plan Discussed with:: Patient, Other (Patient does not have family or social support. Patient may not be able to understand her medical condition) Time Spent: 31-60 minutes Additional Planning Notes: Patient is not medically stable, has new onset hypoglycemia and slurred speech Need further workup on the etiology and further treatment Also with poor social support, patient has substance abuse, a lot of discharge barriers Subjective - Subjective Patient Reports: Cough, Other (Patient is unwilling to provide history, she would swing her arms on provider) Nursing Reports: Other (Concerns patient not communicating, not cooperating) Objective Vital Signs: Vital Signs - 24 hr 01/31/24 01/31/24 01/31/24 07:48 11:01 11:22 Temperature 36.9 C 36.4 C L Heart Rate [ 75 70 Monitoring electrodes] Heart Rate [ Radial] Respiratory 24 24 Rate Blood Pressure 149/105 H 137/101 H [Right Brachial artery] O2 Saturation 94 97 If not protocol 4 4 4 : Oxygen Flow, liters/minute 01/31/24 01/31/24 01/31/24 15:59 20:28 22:30 Temperature 36.4 C L 36.4 C L Heart Rate [ 64 68 Monitoring electrodes] Heart Rate [ Radial] Respiratory 18 18 Rate Blood Pressure 142/97 H 145/99 H [Right Brachial artery] O2 Saturation 94 100 If not protocol 4 4 2 : Oxygen Flow, liters/minute 02/01/24 02/01/24 00:13 05:00 Temperature 36.4 C L 36.4 C L Heart Rate [ 76 Monitoring electrodes] Heart Rate [ 61 Radial] Respiratory 22 20 Rate Blood Pressure 147/99 H 150/92 H [Right Brachial artery] O2 Saturation 99 99 If not protocol 2 2 : Oxygen Flow, liters/minute Oxygen O2 Source Nasal cannula I&O (Last 24 Hrs): Intake and Output Totals x24h 01/30/24 01/31/24 02/01/24 23:59 23:59 23:59 Intake Total 1170 1000 0 Output Total 1325 200 Balance -155 800 0 General: Other (Lethargic, arousable however does not carry on any conversation, also is not cooperative) - Results Results: Laboratory Results WBC 17.5 x10^3/uL (4.8-10.8) H 01/31/24 08:55 RBC 6.24 10^6/uL (4.20-5.40) H 01/31/24 08:55 Hgb 16.5 g/dL (12.0-16.0) H 01/31/24 08:55 Hct 51.0 % (37.0-47.0) H 01/31/24 08:55 MCV 81.7 fL (81.0-99.0) 01/31/24 08:55 MCH 26.4 pg (27.0-31.0) L 01/31/24 08:55 MCHC 32.4 g/dL (32.0-36.0) 01/31/24 08:55 RDW 15.6 % (12.0-15.0) H 01/31/24 08:55 Plt Count 256 10^3/uL (130-450) 01/31/24 08:55 MPV 11.1 fL (7.9-10.8) H 01/31/24 08:55 Neut # (Auto) 14.7 10^3/uL (1.5-6.6) H 01/31/24 08:55 Lymph # (Auto) 1.9 10^3/uL (1.5-3.5) 01/31/24 08:55 [place] # (Auto) 0.8 10^3/uL (0.0-1.0) 01/31/24 08:55 Eos # (Auto) 0.0 10^3/uL (0.0-0.7) 01/31/24 08:55 Baso # (Auto) 0.0 10^3/uL (0.0-0.1) 01/31/24 08:55 Absolute Nucleated RBC 0.06 x10^3/uL 01/31/24 08:55 Nucleated RBC % 0.3 /100WBC 01/31/24 08:55 VBG pH 7.341 (7.31-7.41) 01/30/24 05:46 Ionized Calcium 1.10 mmol/L (1.15-1.33) L 01/30/24 05:46 Sodium 135 mmol/L (135-145) 01/31/24 05:20 Potassium 4.8 mmol/L (3.5-4.5) H 01/31/24 05:20 Chloride 101 mmol/L (101-111) 01/31/24 05:20 Carbon Dioxide 20 mmol/L (21-32) L 01/31/24 05:20 Anion Gap 14.0 (6-13) H 01/31/24 05:20 BUN 43 mg/dL (6-20) H 01/31/24 05:20 Creatinine 1.6 mg/dL (0.6-1.3) H 01/31/24 05:20 Estimated GFR (MDRD) 40 (>89) L 01/31/24 05:20 Glucose 130 mg/dL (74-104) H 01/31/24 05:20 POC Whole Bld Glucose 92 mg/dL (70 - 100) 01/31/24 20:19 Estimat Average Glucose 140 mg/dL (70-100) H 01/31/24 08:55 Hemoglobin A1c % 6.5 % (4.27-6.07) H 01/31/24 08:55 Lactic Acid 2.5 mmol/L (0.5-2.2) H 01/28/24 11:48 Calcium 9.7 mg/dL (8.5-10.3) 01/31/24 05:20 Phosphorus 4.3 mg/dL (2.5-5.0) 01/30/24 05:46 Magnesium 2.0 mg/dL (1.7-2.3) 01/31/24 05:20 Total Bilirubin 1.2 mg/dL (0.2-1.0) H 01/29/24 05:24 AST 67 IU/L (10-42) H 01/29/24 05:24 ALT 57 IU/L (10-60) 01/29/24 05:24 Alkaline Phosphatase 128 IU/L (42-121) H 01/29/24 05:24 Troponin I High Sens 253.6 ng/L (2.3-14.8) H* 01/29/24 05:24 C-Reactive Protein 2.5 mg/dL (<0.5) H 01/31/24 05:20 B-Natriuretic Peptide 1157 pg/mL (5-100) H 01/31/24 08:55 Total Protein 7.0 g/dL (6.4-8.9) 01/29/24 05:24 Albumin 3.2 g/dL (3.2-5.5) 01/29/24 05:24 Globulin 3.8 g/dL (2.1-4.2) 01/29/24 05:24 Albumin/Globulin Ratio 0.8 (1.0-2.2) L 01/29/24 05:24 Lipase 20 U/L (11-82) 01/28/24 11:00 Urine Color YELLOW 01/28/24 22:00 Urine Clarity HAZY (CLEAR) 01/28/24 22:00 Urine pH 6.0 PH (5.0-7.5) 01/28/24 22:00 Ur Specific [place] 1.015 (1.002-1.030) 01/28/24 22:00 Urine Protein 100 mg/dL (NEGATIVE) H 01/28/24 22:00 Urine Glucose (UA) NEGATIVE mg/dL (NEGATIVE) 01/28/24 22:00 Urine Ketones NEGATIVE mg/dL (NEGATIVE) 01/28/24 22:00 Urine Occult Blood TRACE-LYSE (NEGATIVE) 01/28/24 22:00 Urine Nitrite POSITIVE (NEGATIVE) H 01/28/24 22:00 Urine Bilirubin NEGATIVE (NEGATIVE) 01/28/24 22:00 Urine Urobilinogen 1 (NORMAL) E.U./dL (NORMAL) 01/28/24 22:00 Ur Leukocyte Esterase NEGATIVE (NEGATIVE) 01/28/24 22:00 Urine RBC 0-5 /HPF (0-5) 01/28/24 22:00 Urine WBC 4-5 /HPF (0-5) 01/28/24 22:00 Ur Squamous Epith Cells FEW Squamous (<= Few) 01/28/24 22:00 Urine Bacteria Many /HPF (None Seen) H 01/28/24 22:00 Urine Casts 3-5 Hyaline Casts /LPF 01/28/24 22:00 Ur Microscopic Review INDICATED 01/28/24 22:00 Urine Culture Comments INDICATED 01/28/24 22:00 Nasal Screen MRSA (PCR) NEGATIVE (NEGATIVE) 01/28/24 21:00 Urine Opiates Screen NEGATIVE (NEGATIVE) 01/28/24 22:00 Ur Buprenorphine Scrn NEGATIVE (NEGATIVE) 01/28/24 22:00 Ur Oxycodone Screen NEGATIVE (NEGATIVE) 01/28/24 22:00 Urine Methadone Screen NEGATIVE (NEGATIVE) 01/28/24 22:00 Ur Barbiturates Screen NEGATIVE (NEGATIVE) 01/28/24 22:00 Ur Tricyclics Screen NEGATIVE (NEGATIVE) 01/28/24 22:00 Ur Phencyclidine Scrn NEGATIVE (NEGATIVE) 01/28/24 22:00 Ur Amphetamine Screen POSITIVE (NEGATIVE) H 01/28/24 22:00 U Methamphetamines Scrn NEGATIVE (NEGATIVE) 01/28/24 22:00 U Benzodiazepines Scrn NEGATIVE (NEGATIVE) 01/28/24 22:00 Urine Cocaine Screen NEGATIVE (NEGATIVE) 01/28/24 22:00 U Cannabinoids Screen NEGATIVE (NEGATIVE) 01/28/24 22:00 Ur Drug Screen Comment CUTOFF CONC BELOW: 01/28/24 22:00 SARS-CoV-2 (PCR) NOT DETECTED 01/29/24 09:30 - Procedures Procedures: Procedures EXCISION OF PERITONEUM, OPEN APPROACH, DIAGNOSTIC (05/24/18) SUPPLEMENT ABDOMINAL WALL WITH SYNTH SUB, OPEN APPROACH (05/24/18) Sepsis Event Note (H) - Evaluation Current Stage of Sepsis: Ruled out ABX Reporting Has patient been on IV antibiotics over the past 48 hours?: No
[2024-02-01] MEDS: DEXTROSE 50% ABBOJECT 25 GM/50 ML SYRINGE IVP ONE (07:51)
[2024-02-01] MEDS: DEXTROSE 5% 1,000 ML IV SCH ×2 (07:53→11:21)
[2024-02-01] MEDS ORDERED: DEXTROSE 5% 1,000 ML IV SCH (08:00)
[2024-02-01] MEDS ORDERED: ALBUTEROL NEB 2.5 MG/3 ML INH PRN (11:14)
[2024-02-02] MEDS: hydrALAZINE INJ 20 MG/ML VIAL IVP ONE (02:15)
--- NOTE | 2024-02-02 07:44 | PROVIDER PROGRESS NOTE ---
Assessment/Plan - Problem List (1) Slurred speech Assessment/Plan: Worsened Likely a CVA presentation Right arm and right leg started showing weakness CT head negative MRI pending Speech therapy PT OT (2) Atrial fibrillation with RVR Assessment/Plan: Rate controlled On amiodarone and carvedilol Continue telemetry (3) Methamphetamine abuse Assessment/Plan: support worker consulted (4) COVID Assessment/Plan: Cough appears improved Symptom management by using guaifenesin and nebulizer treatment as needed (5) Hypertension Qualifiers: Hypertension type: unspecified Qualified Code(s): I10 - Essential (primary) hypertension Assessment/Plan: Uncontrolled Added amlodipine yesterday, however patient refused oral meds Encourage patient oral meds Hydralazine as needed if systolic blood pressure over 180 (6) CHF (congestive heart failure) Qualifiers: Heart failure type: unspecified Heart failure chronicity: acute on chronic Qualified Code(s): I50.9 - Heart failure, unspecified Assessment/Plan: Has sign of fluid overload With renal function Improvement Will be cautiously giving low-dose Lasix once today (7) Leukocytosis Assessment/Plan: Improving Likely the source of infection is UTI with evidence of urinary incontinent and E. coli bacteriuria Patient refused blood draw in the morning Stat lab check Did not take p.o. meds yesterday Switch Augmentin to IV ceftriaxone (8) VICKI (acute kidney injury) Assessment/Plan: Stat lab to check renal function VICKI resolved, creatinine back to baseline 0.9 (9) Withdrawal complaint Assessment/Plan: Patient was yawning, drooling Episode of restless anxious Continue monitoring withdrawal symptoms Give clonidine patch (10) Hypoglycemia Assessment/Plan: Poor oral intake Close monitoring blood sugar Provide juice, candy crackers and encourage patient to eat Hypoglycemia protocol in place - Current Meds Current Meds: Current Medications Generic Name Dose Route Start Last Admin Trade Name Freq PRN Reason Stop Dose Admin Albuterol 2 puffs 01/29/24 02:26 01/30/24 07:01 Albuterol 1 Puff INH 2 puffs Q4H PRN Administration Shortness of Air/Wheezing Albuterol/Ipratropium 3 ml 01/29/24 21:44 01/30/24 22:50 Ipratropium/Albuterol 3 Ml Neb INH 3 ml Q4HR PRN Administration Wheezing Amoxicillin/Clavulanate Potassium 1 tab 01/31/24 13:00 02/01/24 22:20 Amox/Clav 500 Mg/125 Mg Tablet PO 02/05/24 12:59 1 tab BID TOI Administration Apixaban 5 mg 01/28/24 21:00 02/01/24 22:21 Apixaban 5 Mg Tablet PO 5 mg BID TOI Administration Benzonatate 100 mg 01/29/24 21:46 01/30/24 21:42 Benzonatate 100 Mg Capsule PO 100 mg TID PRN Administration Cough Carvedilol 3.125 mg 01/29/24 13:00 02/01/24 22:20 Carvedilol 3.125 Mg Tablet PO 3.125 mg BID TOI Administration Guaifenesin 600 mg 01/29/24 19:29 01/30/24 20:18 Guaifenesin 600 Mg Tablet PO 600 mg BID PRN Administration Cough Insulin Human Lispro 1 - 5 unit 01/30/24 12:00 02/01/24 22:21 Insulin Lispro 300 Unit/3 Ml Pen SUBQ Not Given 0800,1200,1700,2100 [facility] Protocol Multivit/Folic Acid/Iron 1 tab 01/29/24 09:00 02/01/24 08:41 Vitamin Tablet PO Not Given DAILY [facility] Sodium Chloride 10 ml 01/28/24 17:23 01/29/24 22:01 Sodium Chloride Flush 0.9% 10 Ml Syringe IVP 10 ml PRN PRN Administration NEEDED PER PROVIDER ORDERS Sodium Chloride 10 ml 01/29/24 01:00 02/02/24 02:16 Sodium Chloride Flush 0.9% 10 Ml Syringe IVP 10 ml 0100,0900,1700 TOI Administration Thiamine HCl 100 mg 01/29/24 09:00 02/01/24 08:41 Thiamine 100 Mg Tablet PO Not Given DAILY [facility] Throat Lozenges 1 lozenge 01/28/24 22:45 01/28/24 23:42 Benzocaine/Menthol Lozenge MM 1 lozenge Q2HR PRN Administration Throat pain - Lab Result Fish Bone Diagrams: 02/02/24 10:58 02/02/24 10:58 - Additional Planning Condition/Complexity: Unstable My Orders: My Active Orders 02/01/24 11:14 Nebulizer/MDI Tx. [RC] QID Resp Teach Nebulizer/MDI [RC] .ONCE Albuterol 2.5 mg INH RTQ4H PRN 02/01/24 18:50 RN MRI Screening [RC] .ONCE 02/01/24 18:52 LORazepam INJ [Ativan Inj (Vial)] 0.5 mg IVP ONCE PRN 02/02/24 05:00 BMP - BASIC METABOLIC PANEL [CHEM] DAILYLAB CBC [CBC - COMP BLD CT W/AUTO DIFF] [HEME] DAILYLAB 02/02/24 09:00 Amiodarone [Pacerone] 200 mg PO DAILY amLODIPine [Norvasc] 5 mg PO DAILY 02/02/24 11:30 Brain WO [MRI] Routine 02/03/24 05:00 BMP - BASIC METABOLIC PANEL [CHEM] DAILYLAB CBC [CBC - COMP BLD CT W/AUTO DIFF] [HEME] DAILYLAB 02/04/24 05:00 BMP - BASIC METABOLIC PANEL [CHEM] DAILYLAB CBC [CBC - COMP BLD CT W/AUTO DIFF] [HEME] DAILYLAB Consult/Specialty: OT, PT Plan Discussed with:: Patient Time Spent: 31-60 minutes Additional Planning Notes: Pending stroke workup Not medically stable for discharge Subjective - Subjective Patient Reports: Other (Patient still cannot communicate verbally, appears understanding, follows commands, however has eat or take oral pills) Objective Vital Signs: Vital Signs - 24 hr 02/01/24 02/01/24 02/01/24 11:31 16:14 20:03 Temperature 36.4 C L 36.3 C L 36.7 C Heart Rate [ 66 61 76 Brachial] Heart Rate [ Radial] Respiratory 20 20 20 Rate Blood Pressure [Left Radial artery] Blood Pressure 159/69 H 166/98 H 151/98 H [Right Brachial artery] Blood Pressure [Right Radial artery] O2 Saturation 95 99 97 02/02/24 02/02/24 02/02/24 00:18 00:24 02:16 Temperature 36.9 C Heart Rate [ 85 Brachial] Heart Rate [ 68 Radial] Respiratory 22 Rate Blood Pressure 179/114 H 175/111 H [Left Radial artery] Blood Pressure [Right Brachial artery] Blood Pressure 200/110 H [Right Radial artery] O2 Saturation 95 02/02/24 02/02/24 02/02/24 02:20 02:25 02:40 Temperature Heart Rate [ Brachial] Heart Rate [ 62 68 66 Radial] Respiratory Rate Blood Pressure 158/105 H 177/103 H 170/108 H [Left Radial artery] Blood Pressure [Right Brachial artery] Blood Pressure [Right Radial artery] O2 Saturation 02/02/24 02/02/24 02/02/24 02:54 03:04 05:00 Temperature 36.7 C Heart Rate [ 93 Brachial] Heart Rate [ 68 66 Radial] Respiratory 20 Rate Blood Pressure 167/87 H [Left Radial artery] Blood Pressure 174/122 H [Right Brachial artery] Blood Pressure 159/99 H [Right Radial artery] O2 Saturation 97 Oxygen O2 Source Room air I&O (Last 24 Hrs): Intake and Output Totals x24h 01/31/24 02/01/24 02/02/24 23:59 23:59 23:59 Intake Total 1000 470 Output Total 200 400 Balance 800 70 General: Alert, Other (Unable to communicate verbally) HEENT: PERRLA, EOMI Neck: Supple, No JVD Neuro: Alert, Other (Right arm and right leg weakness noted) Cardiovascular: Other (Irregular rate rhythm, heart rate controlled) Respiratory: No respiratory distress Abdomen: Soft Extremities: Normal pulses - Results Results: Laboratory Results WBC 17.5 x10^3/uL (4.8-10.8) H 01/31/24 08:55 RBC 6.24 10^6/uL (4.20-5.40) H 01/31/24 08:55 Hgb 16.5 g/dL (12.0-16.0) H 01/31/24 08:55 Hct 51.0 % (37.0-47.0) H 01/31/24 08:55 MCV 81.7 fL (81.0-99.0) 01/31/24 08:55 MCH 26.4 pg (27.0-31.0) L 01/31/24 08:55 MCHC 32.4 g/dL (32.0-36.0) 01/31/24 08:55 RDW 15.6 % (12.0-15.0) H 01/31/24 08:55 Plt Count 256 10^3/uL (130-450) 01/31/24 08:55 MPV 11.1 fL (7.9-10.8) H 01/31/24 08:55 Neut # (Auto) 14.7 10^3/uL (1.5-6.6) H 01/31/24 08:55 Lymph # (Auto) 1.9 10^3/uL (1.5-3.5) 01/31/24 08:55 [place] # (Auto) 0.8 10^3/uL (0.0-1.0) 01/31/24 08:55 Eos # (Auto) 0.0 10^3/uL (0.0-0.7) 01/31/24 08:55 Baso # (Auto) 0.0 10^3/uL (0.0-0.1) 01/31/24 08:55 Absolute Nucleated RBC 0.06 x10^3/uL 01/31/24 08:55 Nucleated RBC % 0.3 /100WBC 01/31/24 08:55 VBG pH 7.341 (7.31-7.41) 01/30/24 05:46 Ionized Calcium 1.10 mmol/L (1.15-1.33) L 01/30/24 05:46 Sodium 135 mmol/L (135-145) 01/31/24 05:20 Potassium 4.8 mmol/L (3.5-4.5) H 01/31/24 05:20 Chloride 101 mmol/L (101-111) 01/31/24 05:20 Carbon Dioxide 20 mmol/L (21-32) L 01/31/24 05:20 Anion Gap 14.0 (6-13) H 01/31/24 05:20 BUN 43 mg/dL (6-20) H 01/31/24 05:20 Creatinine 1.6 mg/dL (0.6-1.3) H 01/31/24 05:20 Estimated GFR (MDRD) 40 (>89) L 01/31/24 05:20 Glucose 130 mg/dL (74-104) H 01/31/24 05:20 POC Whole Bld Glucose 82 mg/dL (70 - 100) 02/01/24 20:43 Estimat Average Glucose 140 mg/dL (70-100) H 01/31/24 08:55 Hemoglobin A1c % 6.5 % (4.27-6.07) H 01/31/24 08:55 Lactic Acid 2.5 mmol/L (0.5-2.2) H 01/28/24 11:48 Calcium 9.7 mg/dL (8.5-10.3) 01/31/24 05:20 Phosphorus 4.3 mg/dL (2.5-5.0) 01/30/24 05:46 Magnesium 2.0 mg/dL (1.7-2.3) 01/31/24 05:20 Total Bilirubin 1.2 mg/dL (0.2-1.0) H 01/29/24 05:24 AST 67 IU/L (10-42) H 01/29/24 05:24 ALT 57 IU/L (10-60) 01/29/24 05:24 Alkaline Phosphatase 128 IU/L (42-121) H 01/29/24 05:24 Troponin I High Sens 253.6 ng/L (2.3-14.8) H* 01/29/24 05:24 C-Reactive Protein 2.5 mg/dL (<0.5) H 01/31/24 05:20 B-Natriuretic Peptide 1157 pg/mL (5-100) H 01/31/24 08:55 Total Protein 7.0 g/dL (6.4-8.9) 01/29/24 05:24 Albumin 3.2 g/dL (3.2-5.5) 01/29/24 05:24 Globulin 3.8 g/dL (2.1-4.2) 01/29/24 05:24 Albumin/Globulin Ratio 0.8 (1.0-2.2) L 01/29/24 05:24 Lipase 20 U/L (11-82) 01/28/24 11:00 Urine Color YELLOW 01/28/24 22:00 Urine Clarity HAZY (CLEAR) 01/28/24 22:00 Urine pH 6.0 PH (5.0-7.5) 01/28/24 22:00 Ur Specific [place] 1.015 (1.002-1.030) 01/28/24 22:00 Urine Protein 100 mg/dL (NEGATIVE) H 01/28/24 22:00 Urine Glucose (UA) NEGATIVE mg/dL (NEGATIVE) 01/28/24 22:00 Urine Ketones NEGATIVE mg/dL (NEGATIVE) 01/28/24 22:00 Urine Occult Blood TRACE-LYSE (NEGATIVE) 01/28/24 22:00 Urine Nitrite POSITIVE (NEGATIVE) H 01/28/24 22:00 Urine Bilirubin NEGATIVE (NEGATIVE) 01/28/24 22:00 Urine Urobilinogen 1 (NORMAL) E.U./dL (NORMAL) 01/28/24 22:00 Ur Leukocyte Esterase NEGATIVE (NEGATIVE) 01/28/24 22:00 Urine RBC 0-5 /HPF (0-5) 01/28/24 22:00 Urine WBC 4-5 /HPF (0-5) 01/28/24 22:00 Ur Squamous Epith Cells FEW Squamous (<= Few) 01/28/24 22:00 Urine Bacteria Many /HPF (None Seen) H 01/28/24 22:00 Urine Casts 3-5 Hyaline Casts /LPF 01/28/24 22:00 Ur Microscopic Review INDICATED 01/28/24 22:00 Urine Culture Comments INDICATED 01/28/24 22:00 Nasal Screen MRSA (PCR) NEGATIVE (NEGATIVE) 01/28/24 21:00 Urine Opiates Screen NEGATIVE (NEGATIVE) 01/28/24 22:00 Ur Buprenorphine Scrn NEGATIVE (NEGATIVE) 01/28/24 22:00 Ur Oxycodone Screen NEGATIVE (NEGATIVE) 01/28/24 22:00 Urine Methadone Screen NEGATIVE (NEGATIVE) 01/28/24 22:00 Ur Barbiturates Screen NEGATIVE (NEGATIVE) 01/28/24 22:00 Ur Tricyclics Screen NEGATIVE (NEGATIVE) 01/28/24 22:00 Ur Phencyclidine Scrn NEGATIVE (NEGATIVE) 01/28/24 22:00 Ur Amphetamine Screen POSITIVE (NEGATIVE) H 01/28/24 22:00 U Methamphetamines Scrn NEGATIVE (NEGATIVE) 01/28/24 22:00 U Benzodiazepines Scrn NEGATIVE (NEGATIVE) 01/28/24 22:00 Urine Cocaine Screen NEGATIVE (NEGATIVE) 01/28/24 22:00 U Cannabinoids Screen NEGATIVE (NEGATIVE) 01/28/24 22:00 Ur Drug Screen Comment CUTOFF CONC BELOW: 01/28/24 22:00 SARS-CoV-2 (PCR) NOT DETECTED 01/29/24 09:30 - Procedures Procedures: Procedures EXCISION OF PERITONEUM, OPEN APPROACH, DIAGNOSTIC (05/24/18) SUPPLEMENT ABDOMINAL WALL WITH SYNTH SUB, OPEN APPROACH (05/24/18) Sepsis Event Note (H) - Evaluation Current Stage of Sepsis: Ruled out ABX Reporting Has patient been on IV antibiotics over the past 48 hours?: Yes
[2024-02-02] MEDS: cloNIDine 0.1 MG PATCH TOP SCH (09:16)
[2024-02-02] MEDS: hydrALAZINE INJ 20 MG/ML VIAL IVP STA (09:18)
[2024-02-02] MEDS: cefTRIAXone 1 GM in SODIUM CHLORIDE 0.9% MINIBAG 100 ML IV SCH (09:45)
[2024-02-02 11:08] LABS: BASOPHILS % (AUTO) 0.1 %; EOSINOPHILS # (AUTO) 0.1 10^3/uL (0.0-0.7); EOSINOPHILS % (AUTO) 1.2 %; HCT - HEMATOCRIT 50.9 % (37.0-47.0); HGB - HEMOGLOBIN 16.7 g/dL (12.0-16.0); LYMPHOCYTES # (AUTO) 1.4 10^3/uL (1.5-3.5); LYMPHOCYTES % (AUTO) 15.9 %; MEAN CORPUSCULAR HGB CONC 32.8 g/dL (32.0-36.0); MEAN CORPUSCULAR VOLUME 82.2 fL (81.0-99.0); MEAN PLATELET VOLUME 10.4 fL (7.9-10.8); MONOCYTES # (AUTO) 0.6 10^3/uL (0.0-1.0); MONOCYTES % (AUTO) 6.6 %; NEUTROPHILS # (AUTO) 6.7 10^3/uL (1.5-6.6); NEUTROPHILS % (AUTO) 75.8 %; PLT - PLATELET COUNT 238 10^3/uL (130-450); RED BLOOD COUNT 6.19 10^6/uL (4.20-5.40); WHITE BLOOD COUNT 8.9 x10^3/uL (4.8-10.8)
[2024-02-02 11:21] LABS: ALBUMIN 3.1 g/dL (3.2-5.5); ALBUMIN/GLOBULIN RATIO 0.9 (1.0-2.2); BILIRUBIN,TOTAL 1.4 mg/dL (0.2-1.0); CALCIUM 9.8 mg/dL (8.5-10.3); CREATININE 0.9 mg/dL (0.6-1.3); CRP - C-REACTIVE PROTEIN 1.9 mg/dL (<0.5); POTASSIUM 3.9 mmol/L (3.5-4.5); TOTAL PROTEIN 6.6 g/dL (6.4-8.9)
--- NOTE | 2024-02-02 13:22 | XRAY Report ---
PROCEDURE: Abdomen 1 V INDICATIONS: pre MRI screen TECHNIQUE: One view of the abdomen acquired. COMPARISON: None. FINDINGS: Surgical changes and devices: None. Bowel: Bowel gas pattern is normal. Soft tissues: Calcification is noted involving overlying the right lower quadrant measuring 7.2 cm. V isualized solid organ contours appear normal in size. No visualized metallic densities. Bones: No suspicious bony lesions. IMPRESSION: No acute abdominal pathology. Reviewed by: Marti Aguirre MD on 02/02/2024 1:21 PM PST Approved by: Marti Aguirre MD on 02/02/2024 1:21 PM [facility] Station ID: [id number]
[2024-02-02] MEDS: AMIODARONE 200 MG TABLET PO SCH (15:52)
[2024-02-02] MEDS: amLODIPine 5 MG TABLET PO SCH (15:52)
[2024-02-02] MEDS: POTASSIUM CHLORIDE 20 MEQ TABLET PO SCH (15:53)
[2024-02-02] MEDS: LORazepam 2 MG/ML VIAL IVP PRN (16:08)
[2024-02-02] MEDS ORDERED: iohexoL-300 100 ML VIAL ONE (17:22)
[2024-02-02] MEDS: iohexoL-300 100 ML VIAL IVP ONE (20:56)
--- NOTE | 2024-02-02 21:09 | CT Report ---
PROCEDURE: Angio Head/Neck INDICATIONS: expressive aphasia TECHNIQUE: After the administration of intravenous contrast, 1 mm thick sections acquired from the aortic arch t hrough the [place]. 3-dimensional izvxqgj-znwoxrcpz-othojsircb (MIP) and/or volume renderin g reformats were acquired of the central intracranial vasculature and neck separately. For radiation dose reduction, the following was used: automated exposure control, adjustment of mA and/or kV acco rding to patient size. CONTRAST: 100 ML OMNI 300 COMPARISON: Head CT dated 01/31/2024. FINDINGS: Image quality: Diagnostic. HEAD CT: CSF Spaces: Basal cisterns are patent. No extra-axial fluid collections. Ventricles are normal in size and shape. Brain: No significant abnormality is seen for scanning technique. No area of abnormal intracranial enhancement is seen. Skull and face: Calvarium and visualized facial bones appear intact, without suspicious lesions. Sinuses: Visualized sinuses and mastoids are clear. HEAD CT ANGIOGRAPHY: Anterior circulation: Intracranial internal carotid arteries are normal in size and flow. The flow within the paired anterior cerebral arteries is normal and symmetric. The flow within the middle cer ebral arteries is normal and symmetric. The anterior communicating artery is seen. No aneurysms are seen. Posterior circulation: Visualized portions of the vertebral arteries demonstrate normal caliber, and join to form a normal appearing basilar artery. Flow within the posterior cerebral arteries is norm al and symmetric. No aneurysms are seen. NECK CT ANGIOGRAPHY: Carotid system: The great vessels demonstrate a conventional anatomy as they arise from the aortic a rch. The origins of the common carotid arteries appear patent. The common carotid arteries demonstr ate normal caliber and courses. The bifurcation regions are both widely patent. The internal caroti d arteries demonstrate normal calibers and courses. Posterior circulation: The origins of the vertebral arteries both appear widely patent. The more tucker perior extracranial portions of both vertebral arteries also demonstrate normal courses and calibers. They join to form a normal appearing basilar artery. Soft tissues: Visualized neck soft tissues demonstrate no suspicious abnormalities. Bones: No suspicious bony lesions. Visualized cervical spine appears normally aligned. IMPRESSION: No significant intracranial arterial abnormality is seen. No significant abnormality is seen within the arteries of the neck. No area of abnormal intracranial enhancement. The estimate of stenosis included in the report of the imaging study was calculated using the NASCET method Reviewed by: Catalino Lewis MD on 02/02/2024 9:08 PM PST Approved by: Catalino Lewis MD on 02/02/2024 9:08 PM PST Station ID: [id number]
[2024-02-03 06:02] LABS: BASOPHILS % (AUTO) 0.2 %; EOSINOPHILS # (AUTO) 0.1 10^3/uL (0.0-0.7); EOSINOPHILS % (AUTO) 1.2 %; HCT - HEMATOCRIT 51.1 % (37.0-47.0); HGB - HEMOGLOBIN 16.1 g/dL (12.0-16.0); LYMPHOCYTES % (AUTO) 22.9 %; MEAN CORPUSCULAR HGB CONC 31.5 g/dL (32.0-36.0); MEAN CORPUSCULAR VOLUME 82.6 fL (81.0-99.0); MEAN PLATELET VOLUME 10.4 fL (7.9-10.8); MONOCYTES # (AUTO) 0.7 10^3/uL (0.0-1.0); MONOCYTES % (AUTO) 8.3 %; NEUTROPHILS # (AUTO) 5.7 10^3/uL (1.5-6.6); PLT - PLATELET COUNT 268 10^3/uL (130-450); RED BLOOD COUNT 6.19 10^6/uL (4.20-5.40); RED CELL DISTRIBUTION WIDTH 15.9 % (12.0-15.0); WHITE BLOOD COUNT 8.5 x10^3/uL (4.8-10.8)
[2024-02-03 06:26] LABS: CALCIUM 9.4 mg/dL (8.5-10.3); CREATININE 0.9 mg/dL (0.6-1.3); POTASSIUM 3.8 mmol/L (3.5-4.5)
[2024-02-03] MEDS: cloNIDine 0.1 MG PATCH TOP SCH (08:17)
[2024-02-03] MEDS: FUROSEMIDE 20 MG/2 ML VIAL IVP SCH (08:23)
--- NOTE | 2024-02-03 09:07 | PROVIDER PROGRESS NOTE ---
Assessment/Plan - Problem List (1) CVA (cerebral vascular accident) Qualifiers: CVA mechanism: occlusion Laterality of affected vessel: left Assessment/Plan: CVA confirmed by repeated CT head on 02/03/2024 Per consultation with neurologist Dr. Rodney Oneil, it appears to have left parietal infarct, fit the clinical pic of expressive aphasia Recommend to hold Eliquis for 48hr based on EMMY trial (in fact, patient has been refusing all oral meds, including Eliquis in the past 48hr after her symptom started) intensive speech therapy is highly recommended, can use picture, sign language to communicate (2) Slurred speech Assessment/Plan: Highly suspicious CVA CT angio head and neck on 02/02/2024 negative Consulted with [facility] stroke specialist Dr. Callum Oneil Recommend repeat CT head: which confirmed CVA Recommend continue supportive care (3) Atrial fibrillation with RVR Assessment/Plan: Patient has been refusing oral Meds, starts on labetolol iv (4) Methamphetamine abuse Assessment/Plan: Patient's fiance's parents visited, states that patient and their son both are street drug users. Their son 4 years ago. Patient's children had visited patient in the past. May need to access patient's phone to retrieve their contact number. Patient's fiance's parents will not accept patient to go back to their property any more (5) COVID Assessment/Plan: may have linger hypersenstive airway continue antitussive med (6) Hypertension Qualifiers: Hypertension type: unspecified Qualified Code(s): I10 - Essential (primary) hypertension Assessment/Plan: permissive hypertension (7) CHF (congestive heart failure) Qualifiers: Heart failure type: unspecified Heart failure chronicity: acute on chronic Qualified Code(s): I50.9 - Heart failure, unspecified Assessment/Plan: Severely reduced EF Continue close monitoring volume status (8) Leukocytosis Assessment/Plan: Resolved To complete 5 doses ceftriaxone (9) VICKI (acute kidney injury) Assessment/Plan: Resolved (10) Withdrawal complaint Assessment/Plan: Supportive care (11) Hypoglycemia Assessment/Plan: No recurrent hypoglycemia event. close monitoring - Current Meds Current Meds: Current Medications Generic Name Dose Route Start Last Admin Trade Name Freq PRN Reason Stop Dose Admin Albuterol 2 puffs 01/29/24 02:26 01/30/24 07:01 Albuterol 1 Puff INH 2 puffs Q4H PRN Administration Shortness of Air/Wheezing Albuterol/Ipratropium 3 ml 01/29/24 21:44 01/30/24 22:50 Ipratropium/Albuterol 3 Ml Neb INH 3 ml Q4HR PRN Administration Wheezing Amiodarone HCl 200 mg 02/02/24 09:00 02/02/24 15:52 Amiodarone 200 Mg Tablet PO Not Given DAILY TOI Amlodipine Besylate 5 mg 02/02/24 09:00 02/02/24 15:52 Amlodipine 5 Mg Tablet PO Not Given DAILY TOI Apixaban 5 mg 01/28/24 21:00 02/02/24 21:40 Apixaban 5 Mg Tablet PO Not Given BID TOI Benzonatate 100 mg 01/29/24 21:46 01/30/24 21:42 Benzonatate 100 Mg Capsule PO 100 mg TID PRN Administration Cough Carvedilol 3.125 mg 01/29/24 13:00 02/02/24 21:40 Carvedilol 3.125 Mg Tablet PO Not Given BID [facility] Clonidine HCl 1 patch 02/03/24 08:00 02/03/24 08:17 Clonidine 0.1 Mg Patch TOP 1 patch Q7D TOI Administration Furosemide 20 mg 02/03/24 09:00 02/03/24 08:23 Furosemide 20 Mg/2 Ml Vial IVP 20 mg DAILY TOI Administration Guaifenesin 600 mg 01/29/24 19:29 01/30/24 20:18 Guaifenesin 600 Mg Tablet PO 600 mg BID PRN Administration Cough Ceftriaxone Sodium 1 gm/ 100 mls @ 200 mls/hr 02/02/24 09:00 02/02/24 16:07 Sodium Chloride IV 02/06/24 09:29 Infused DAILY [facility] Infusion Insulin Human Lispro 1 - 5 unit 01/30/24 12:00 02/03/24 08:17 Insulin Lispro 300 Unit/3 Ml Pen SUBQ Not Given 0800,1200,1700,2100 [facility] Protocol Potassium Chloride 20 meq 02/02/24 14:00 02/02/24 15:53 Potassium Chloride 20 Meq Tablet PO Not Given DAILYWM [facility] Multivit/Folic Acid/Iron 1 tab 01/29/24 09:00 02/02/24 15:52 Vitamin Tablet PO Not Given DAILY TOI Sodium Chloride 10 ml 01/28/24 17:23 01/29/24 22:01 Sodium Chloride Flush 0.9% 10 Ml Syringe IVP 10 ml PRN PRN Administration NEEDED PER PROVIDER ORDERS Sodium Chloride 10 ml 01/29/24 01:00 02/03/24 00:45 Sodium Chloride Flush 0.9% 10 Ml Syringe IVP 10 ml 0100,0900,1700 TOI Administration Thiamine HCl 100 mg 01/29/24 09:00 02/02/24 15:53 Thiamine 100 Mg Tablet PO Not Given DAILY TOI Throat Lozenges 1 lozenge 01/28/24 22:45 01/28/24 23:42 Benzocaine/Menthol Lozenge MM 1 lozenge Q2HR PRN Administration Throat pain - Lab Result Fish Bone Diagrams: 02/03/24 05:51 02/03/24 05:51 - Additional Planning Condition/Complexity: Unstable My Orders: My Active Orders 02/02/24 09:00 Amiodarone [Pacerone] 200 mg PO DAILY amLODIPine [Norvasc] 5 mg PO DAILY cefTRIAXone [Rocephin] 1 gm Sodium Chloride 0.9% Minibag [Normal Saline 0.9% Minibag] 100 ml IV DAILY 02/02/24 14:00 Potassium Chloride [K-Dur] 20 meq PO DAILYWM 02/02/24 16:45 NonViolent Restraint(s) ONCE 02/03/24 08:00 cloNIDine 0.1 MG PATCH [Rontzwff-Fch-4] 1 patch TOP Q7D 02/03/24 09:00 FUROSEMIDE INJ 20mg VIAL [LASIX INJ 20mg VIAL] 20 mg IVP DAILY 02/04/24 05:00 BMP - BASIC METABOLIC PANEL [CHEM] DAILYLAB CBC [CBC - COMP BLD CT W/AUTO DIFF] [HEME] DAILYLAB Consult/Specialty: Neurology Plan Discussed with:: Patient, Other (patient's fiance's parents) Time Spent: Greater than 60 minutes (including consultation with neurologist Dr. Oneil) Additional Planning Notes: Patient has a stroke, on going treatment Not medically stable for discharge Subjective - Subjective Patient Reports: Other (still can not speak, but able to get up with assit for using bedside commod) Objective Vital Signs: Vital Signs - 24 hr 02/02/24 02/02/24 02/02/24 09:18 11:50 13:25 Temperature Heart Rate [ Brachial] Heart Rate [ 57 L 65 Radial] Respiratory 18 18 Rate Blood Pressure 174/113 H Blood Pressure 157/107 H [Left Brachial artery] Blood Pressure 170/114 H [Right Ankle] Blood Pressure [Right Brachial artery] Blood Pressure [Right Radial artery] O2 Saturation 84 L 100 02/02/24 02/02/24 02/03/24 17:00 20:54 00:38 Temperature 36.7 C 36.5 C 36.5 C Heart Rate [ 144 H 95 66 Brachial] Heart Rate [ Radial] Respiratory 22 19 22 Rate Blood Pressure Blood Pressure 160/108 H [Left Brachial artery] Blood Pressure [Right Ankle] Blood Pressure 163/103 H [Right Brachial artery] Blood Pressure 108/78 [Right Radial artery] O2 Saturation 94 95 97 02/03/24 02/03/24 05:37 08:22 Temperature 36.4 C L 36.7 C Heart Rate [ 87 Brachial] Heart Rate [ 69 Radial] Respiratory 24 20 Rate Blood Pressure Blood Pressure 149/101 H [Left Brachial artery] Blood Pressure [Right Ankle] Blood Pressure [Right Brachial artery] Blood Pressure 110/79 [Right Radial artery] O2 Saturation 100 100 Oxygen O2 Source Room air I&O (Last 24 Hrs): Intake and Output Totals x24h 02/01/24 02/02/24 02/03/24 23:59 23:59 23:59 Intake Total 470 1100 Output Total 400 200 Balance 70 900 General: Other (lethargic) HEENT: PERRLA, EOMI, Other (not cooperative, unable to perform full exam) Neck: Supple - Results Results: Laboratory Results WBC 8.5 x10^3/uL (4.8-10.8) 02/03/24 05:51 RBC 6.19 10^6/uL (4.20-5.40) H 02/03/24 05:51 Hgb 16.1 g/dL (12.0-16.0) H 02/03/24 05:51 Hct 51.1 % (37.0-47.0) H 02/03/24 05:51 MCV 82.6 fL (81.0-99.0) 02/03/24 05:51 MCH 26.0 pg (27.0-31.0) L 02/03/24 05:51 MCHC 31.5 g/dL (32.0-36.0) L 02/03/24 05:51 RDW 15.9 % (12.0-15.0) H 02/03/24 05:51 Plt Count 268 10^3/uL (130-450) 02/03/24 05:51 MPV 10.4 fL (7.9-10.8) 02/03/24 05:51 Neut # (Auto) 5.7 10^3/uL (1.5-6.6) 02/03/24 05:51 Lymph # (Auto) 2.0 10^3/uL (1.5-3.5) 02/03/24 05:51 [place] # (Auto) 0.7 10^3/uL (0.0-1.0) 02/03/24 05:51 Eos # (Auto) 0.1 10^3/uL (0.0-0.7) 02/03/24 05:51 Baso # (Auto) 0.0 10^3/uL (0.0-0.1) 02/03/24 05:51 Absolute Nucleated RBC 0.00 x10^3/uL 02/03/24 05:51 Nucleated RBC % 0.0 /100WBC 02/03/24 05:51 VBG pH 7.341 (7.31-7.41) 01/30/24 05:46 Ionized Calcium 1.10 mmol/L (1.15-1.33) L 01/30/24 05:46 Sodium 141 mmol/L (135-145) 02/03/24 05:51 Potassium 3.8 mmol/L (3.5-4.5) 02/03/24 05:51 Chloride 106 mmol/L (101-111) 02/03/24 05:51 Carbon Dioxide 26 mmol/L (21-32) 02/03/24 05:51 Anion Gap 9.0 (6-13) 02/03/24 05:51 BUN 15 mg/dL (6-20) 02/03/24 05:51 Creatinine 0.9 mg/dL (0.6-1.3) 02/03/24 05:51 Estimated GFR (MDRD) 77 (>89) L 02/03/24 05:51 Glucose 83 mg/dL (74-104) 02/03/24 05:51 POC Whole Bld Glucose 78 mg/dL (70 - 100) 02/03/24 07:39 Estimat Average Glucose 140 mg/dL (70-100) H 01/31/24 08:55 Hemoglobin A1c % 6.5 % (4.27-6.07) H 01/31/24 08:55 Lactic Acid 2.5 mmol/L (0.5-2.2) H 01/28/24 11:48 Calcium 9.4 mg/dL (8.5-10.3) 02/03/24 05:51 Phosphorus 4.3 mg/dL (2.5-5.0) 01/30/24 05:46 Magnesium 2.0 mg/dL (1.7-2.3) 01/31/24 05:20 Total Bilirubin 1.4 mg/dL (0.2-1.0) H 02/02/24 10:58 AST 41 IU/L (10-42) 02/02/24 10:58 ALT 40 IU/L (10-60) 02/02/24 10:58 Alkaline Phosphatase 124 IU/L (42-121) H 02/02/24 10:58 Troponin I High Sens 253.6 ng/L (2.3-14.8) H* 01/29/24 05:24 C-Reactive Protein 1.9 mg/dL (<0.5) H 02/02/24 10:58 B-Natriuretic Peptide 1036 pg/mL (5-100) H 02/02/24 10:58 Total Protein 6.6 g/dL (6.4-8.9) 02/02/24 10:58 Albumin 3.1 g/dL (3.2-5.5) L 02/02/24 10:58 Globulin 3.5 g/dL (2.1-4.2) 02/02/24 10:58 Albumin/Globulin Ratio 0.9 (1.0-2.2) L 02/02/24 10:58 Lipase 20 U/L (11-82) 01/28/24 11:00 Urine Color YELLOW 01/28/24 22:00 Urine Clarity HAZY (CLEAR) 01/28/24 22:00 Urine pH 6.0 PH (5.0-7.5) 01/28/24 22:00 Ur Specific [place] 1.015 (1.002-1.030) 01/28/24 22:00 Urine Protein 100 mg/dL (NEGATIVE) H 01/28/24 22:00 Urine Glucose (UA) NEGATIVE mg/dL (NEGATIVE) 01/28/24 22:00 Urine Ketones NEGATIVE mg/dL (NEGATIVE) 01/28/24 22:00 Urine Occult Blood TRACE-LYSE (NEGATIVE) 01/28/24 22:00 Urine Nitrite POSITIVE (NEGATIVE) H 01/28/24 22:00 Urine Bilirubin NEGATIVE (NEGATIVE) 01/28/24 22:00 Urine Urobilinogen 1 (NORMAL) E.U./dL (NORMAL) 01/28/24 22:00 Ur Leukocyte Esterase NEGATIVE (NEGATIVE) 01/28/24 22:00 Urine RBC 0-5 /HPF (0-5) 01/28/24 22:00 Urine WBC 4-5 /HPF (0-5) 01/28/24 22:00 Ur Squamous Epith Cells FEW Squamous (<= Few) 01/28/24 22:00 Urine Bacteria Many /HPF (None Seen) H 01/28/24 22:00 Urine Casts 3-5 Hyaline Casts /LPF 01/28/24 22:00 Ur Microscopic Review INDICATED 01/28/24 22:00 Urine Culture Comments INDICATED 01/28/24 22:00 Nasal Screen MRSA (PCR) NEGATIVE (NEGATIVE) 01/28/24 21:00 Urine Opiates Screen NEGATIVE (NEGATIVE) 01/28/24 22:00 Ur Buprenorphine Scrn NEGATIVE (NEGATIVE) 01/28/24 22:00 Ur Oxycodone Screen NEGATIVE (NEGATIVE) 01/28/24 22:00 Urine Methadone Screen NEGATIVE (NEGATIVE) 01/28/24 22:00 Ur Barbiturates Screen NEGATIVE (NEGATIVE) 01/28/24 22:00 Ur Tricyclics Screen NEGATIVE (NEGATIVE) 01/28/24 22:00 Ur Phencyclidine Scrn NEGATIVE (NEGATIVE) 01/28/24 22:00 Ur Amphetamine Screen POSITIVE (NEGATIVE) H 01/28/24 22:00 U Methamphetamines Scrn NEGATIVE (NEGATIVE) 01/28/24 22:00 U Benzodiazepines Scrn NEGATIVE (NEGATIVE) 01/28/24 22:00 Urine Cocaine Screen NEGATIVE (NEGATIVE) 01/28/24 22:00 U Cannabinoids Screen NEGATIVE (NEGATIVE) 01/28/24 22:00 Ur Drug Screen Comment CUTOFF CONC BELOW: 01/28/24 22:00 SARS-CoV-2 (PCR) NOT DETECTED 01/29/24 09:30 - Procedures Procedures: Procedures EXCISION OF PERITONEUM, OPEN APPROACH, DIAGNOSTIC (05/24/18) SUPPLEMENT ABDOMINAL WALL WITH SYNTH SUB, OPEN APPROACH (05/24/18) Sepsis Event Note (H) - Evaluation Current Stage of Sepsis: Ruled out ABX Reporting Has patient been on IV antibiotics over the past 48 hours?: Yes
[2024-02-03] MEDS: LABETALOL 20 MG/4 ML SYRINGE IVP SCH (12:53)
--- NOTE | 2024-02-03 13:07 | CT Report ---
PROCEDURE: Head WO INDICATIONS: highly suspected CVA TECHNIQUE: Noncontrast 4.5 mm thick angled axial sections acquired from the foramen magnum to the vertex. For r adiation dose reduction, the following was used: automated exposure control, adjustment of mA and/or kV according to patient size. COMPARISON: 01/31/2024. FINDINGS: Image quality: Excellent. CSF spaces: Basal cisterns are patent. No extra-axial fluid collections. Ventricles are normal in size and shape. Brain: Possible subtle hypoattenuation within the left parietal region with blurring of mantilla-white. No midline shift. No intracranial masses or hemorrhage. Mantilla-white matter interface is normal. Skull and face: Calvarium and visualized facial bones are intact, without suspicious lesions. Sinuses: Visualized sinuses and mastoids are clear. IMPRESSION: Possible subtle hypoattenuation in the left parietal region with blurring of the mantilla-white, acute in farct is not excluded and MRI is recommended for further evaluation. Reviewed by: Wong Mercado MD on 02/03/2024 1:06 PM [facility] Approved by: Wong Mercado MD on 02/03/2024 1:06 PM PST Station ID: [id number]
[2024-02-04] MEDS: METOPROLOL 5 MG/5 ML VIAL IVP ONE (04:04)
[2024-02-04 05:46] LABS: BASOPHILS % (AUTO) 0.3 %; EOSINOPHILS # (AUTO) 0.1 10^3/uL (0.0-0.7); EOSINOPHILS % (AUTO) 1.5 %; HCT - HEMATOCRIT 51.1 % (37.0-47.0); LYMPHOCYTES # (AUTO) 2.2 10^3/uL (1.5-3.5); LYMPHOCYTES % (AUTO) 32.3 %; MEAN CORPUSCULAR HEMOGLOBIN 25.9 pg (27.0-31.0); MEAN CORPUSCULAR HGB CONC 31.3 g/dL (32.0-36.0); MEAN CORPUSCULAR VOLUME 82.7 fL (81.0-99.0); MEAN PLATELET VOLUME 10.1 fL (7.9-10.8); MONOCYTES # (AUTO) 0.5 10^3/uL (0.0-1.0); MONOCYTES % (AUTO) 7.7 %; NEUTROPHILS # (AUTO) 3.9 10^3/uL (1.5-6.6); NEUTROPHILS % (AUTO) 57.9 %; PLT - PLATELET COUNT 257 10^3/uL (130-450); RED BLOOD COUNT 6.18 10^6/uL (4.20-5.40); RED CELL DISTRIBUTION WIDTH 15.8 % (12.0-15.0); WHITE BLOOD COUNT 6.8 x10^3/uL (4.8-10.8)
[2024-02-04 06:07] LABS: CALCIUM 9.2 mg/dL (8.5-10.3); POTASSIUM 3.7 mmol/L (3.5-4.5)
--- NOTE | 2024-02-04 09:23 | PROVIDER PROGRESS NOTE ---
Assessment/Plan - Problem List (1) CVA (cerebral vascular accident) Qualifiers: CVA mechanism: occlusion Laterality of affected vessel: left Assessment/Plan: Improved slightly, patient is able to speak some words Moves all extremities Patient need intensive speech therapy (2) Slurred speech Assessment/Plan: Slightly improved (3) Atrial fibrillation with RVR Assessment/Plan: Recurrent, patient has not been taking oral meds Heart rate went up to 140s, give labetalol 20 mg every 6 hours Today she only took amiodarone oral Continue encouraging patient compliance with treatment Patient appears understoo (4) Methamphetamine abuse Assessment/Plan: workers compensation claims examiner consultation (5) COVID Assessment/Plan: Cough appears improved Continue symptom treatment (6) Hypertension Qualifiers: Hypertension type: unspecified Qualified Code(s): I10 - Essential (primary) hypertension Assessment/Plan: Give clonidine patch, to help with BP control and withdrawal symptoms (7) CHF (congestive heart failure) Qualifiers: Heart failure type: unspecified Heart failure chronicity: acute on chronic Qualified Code(s): I50.9 - Heart failure, unspecified Assessment/Plan: Systolic heart failure with low ejection fraction 25% Give diuretic to achieve euvolemic (8) Leukocytosis Assessment/Plan: Resolved, to complete 5 days of ceftriaxone treatment course (9) VICKI (acute kidney injury) Assessment/Plan: Resolved Continue monitoring renal function (10) Withdrawal complaint Assessment/Plan: Appears more stable Continue close monitoring On clonidine patch (11) Hypoglycemia Assessment/Plan: No further recurrent hypoglycemia episode Due to better oral intake, patient was able to eat most of her services of her meal when she had a visitor sitting with her (her employer at the [employer] came to visit) - Current Meds Current Meds: Current Medications Generic Name Dose Route Start Last Admin Trade Name Freq PRN Reason Stop Dose Admin Albuterol 2 puffs 01/29/24 02:26 01/30/24 07:01 Albuterol 1 Puff INH 2 puffs Q4H PRN Administration Shortness of Air/Wheezing Albuterol/Ipratropium 3 ml 01/29/24 21:44 01/30/24 22:50 Ipratropium/Albuterol 3 Ml Neb INH 3 ml Q4HR PRN Administration Wheezing Amiodarone HCl 200 mg 02/02/24 09:00 02/03/24 12:10 Amiodarone 200 Mg Tablet PO Not Given DAILY [facility] Amlodipine Besylate 5 mg 02/02/24 09:00 02/03/24 12:10 Amlodipine 5 Mg Tablet PO Not Given DAILY [facility] Benzonatate 100 mg 01/29/24 21:46 01/30/24 21:42 Benzonatate 100 Mg Capsule PO 100 mg TID PRN Administration Cough Carvedilol 3.125 mg 01/29/24 13:00 02/03/24 12:10 Carvedilol 3.125 Mg Tablet PO Not Given BID [facility] Clonidine HCl 1 patch 02/03/24 08:00 02/03/24 08:17 Clonidine 0.1 Mg Patch TOP 1 patch Q7D TOI Administration Furosemide 20 mg 02/03/24 09:00 02/03/24 08:23 Furosemide 20 Mg/2 Ml Vial IVP 20 mg DAILY [facility] Administration Guaifenesin 600 mg 01/29/24 19:29 01/30/24 20:18 Guaifenesin 600 Mg Tablet PO 600 mg BID PRN Administration Cough Ceftriaxone Sodium 1 gm/ 100 mls @ 200 mls/hr 02/02/24 09:00 02/03/24 09:10 Sodium Chloride IV 02/06/24 09:29 Infused DAILY [facility] Infusion Insulin Human Lispro 1 - 5 unit 01/30/24 12:00 02/04/24 08:35 Insulin Lispro 300 Unit/3 Ml Pen SUBQ Not Given 0800,1200,1700,2100 [facility] Protocol Labetalol HCl 20 mg 02/03/24 12:00 02/03/24 20:47 Labetalol 20 Mg/4 Ml Syringe IVP 20 mg BID [facility] Administration Multivit/Folic Acid/Iron 1 tab 01/29/24 09:00 02/03/24 12:11 Vitamin Tablet PO Not Given DAILY [facility] Sodium Chloride 10 ml 01/28/24 17:23 02/03/24 20:47 Sodium Chloride Flush 0.9% 10 Ml Syringe IVP 10 ml PRN PRN Administration NEEDED PER PROVIDER ORDERS Sodium Chloride 10 ml 01/29/24 01:00 02/03/24 23:51 Sodium Chloride Flush 0.9% 10 Ml Syringe IVP 10 ml 0100,0900,1700 TOI Administration Thiamine HCl 100 mg 01/29/24 09:00 02/03/24 12:11 Thiamine 100 Mg Tablet PO Not Given DAILY [facility] Throat Lozenges 1 lozenge 01/28/24 22:45 01/28/24 23:42 Benzocaine/Menthol Lozenge MM 1 lozenge Q2HR PRN Administration Throat pain - Lab Result Lab results reviewed: Yes Fish Bone Diagrams: 02/04/24 05:33 02/04/24 05:33 - Additional Planning Condition/Complexity: Improved My Orders: My Active Orders 02/03/24 08:00 cloNIDine 0.1 MG PATCH [[id number]] 1 patch TOP Q7D 02/03/24 09:00 FUROSEMIDE INJ 20mg VIAL [LASIX INJ 20mg VIAL] 20 mg IVP DAILY 02/03/24 12:00 Labetalol Syringe [Trandate Syringe] 20 mg IVP BID 02/04/24 08:37 Potassium Chloride [K-Dur] 20 meq PO DAILY Plan Discussed with:: Patient, Other (friend) Time Spent: 31-60 minutes Additional Planning Notes: Patient is not medically stable for discharge. For recurrent A-fib RVR, for acute stroke Subjective - Subjective Patient Reports: Other (Patient appears better, especially when her employer came to visit) Objective Vital Signs: Vital Signs - 24 hr 02/03/24 02/03/24 02/03/24 11:10 11:13 11:19 Temperature Heart Rate [ Brachial] Heart Rate [ 149 H 149 H 147 H Monitoring electrodes] Respiratory Rate Blood Pressure Blood Pressure 169/110 H 174/119 H 169/121 H [Left Brachial artery] Blood Pressure [Right Ankle] Blood Pressure [Right Brachial artery] Blood Pressure [Right Radial artery] O2 Saturation 02/03/24 02/03/24 02/03/24 11:23 11:34 11:39 Temperature Heart Rate [ Brachial] Heart Rate [ 155 H 150 H Monitoring electrodes] Respiratory 20 Rate Blood Pressure Blood Pressure [Left Brachial artery] Blood Pressure [Right Ankle] Blood Pressure 152/111 H [Right Brachial artery] Blood Pressure 168/128 H 153/120 H [Right Radial artery] O2 Saturation 02/03/24 02/03/24 02/03/24 11:42 13:00 15:53 Temperature 37.1 C 36.7 C Heart Rate [ 116 H Brachial] Heart Rate [ 151 H 101 H Monitoring electrodes] Respiratory 20 20 24 Rate Blood Pressure Blood Pressure [Left Brachial artery] Blood Pressure [Right Ankle] Blood Pressure 134/109 H 121/82 H [Right Brachial artery] Blood Pressure 131/103 H [Right Radial artery] O2 Saturation 97 96 02/03/24 02/03/24 02/03/24 20:50 20:59 21:50 Temperature 36.6 C Heart Rate [ 145 H 139 H 96 Brachial] Heart Rate [ Monitoring electrodes] Respiratory 24 Rate Blood Pressure Blood Pressure 143/100 H [Left Brachial artery] Blood Pressure 165/97 H [Right Ankle] Blood Pressure [Right Brachial artery] Blood Pressure [Right Radial artery] O2 Saturation 92 02/03/24 02/04/24 02/04/24 23:59 04:04 04:05 Temperature 36.6 C Heart Rate [ 132 H 129 H Brachial] Heart Rate [ Monitoring electrodes] Respiratory 24 Rate Blood Pressure 153/105 H Blood Pressure 163/109 H 153/105 H [Left Brachial artery] Blood Pressure 157/109 H [Right Ankle] Blood Pressure [Right Brachial artery] Blood Pressure [Right Radial artery] O2 Saturation 100 02/04/24 02/04/24 02/04/24 04:10 04:15 04:20 Temperature Heart Rate [ 117 H 77 80 Brachial] Heart Rate [ Monitoring electrodes] Respiratory Rate Blood Pressure Blood Pressure 141/101 H 162/86 H 145/103 H [Left Brachial artery] Blood Pressure [Right Ankle] Blood Pressure [Right Brachial artery] Blood Pressure [Right Radial artery] O2 Saturation 02/04/24 08:18 Temperature 36.6 C Heart Rate [ 128 H Brachial] Heart Rate [ Monitoring electrodes] Respiratory 20 Rate Blood Pressure Blood Pressure 155/106 H [Left Brachial artery] Blood Pressure [Right Ankle] Blood Pressure [Right Brachial artery] Blood Pressure [Right Radial artery] O2 Saturation 95 Oxygen O2 Source Room air I&O (Last 24 Hrs): Intake and Output Totals x24h 02/02/24 02/03/24 02/05/24 23:59 23:59 00:59 Intake Total 1100 100 Output Total 200 Balance 900 100 General: Alert, Other (appears able to comprehenise) HEENT: PERRLA, EOMI Neck: No JVD Neuro: Alert, Speech Slurred Cardiovascular: Other (Tachycardia, irregular rate rhythm) Respiratory: No respiratory distress, Other (Lungs clear) Extremities: No edema - Results Results: Laboratory Results WBC 6.8 x10^3/uL (4.8-10.8) 02/04/24 05:33 RBC 6.18 10^6/uL (4.20-5.40) H 02/04/24 05:33 Hgb 16.0 g/dL (12.0-16.0) 02/04/24 05:33 Hct 51.1 % (37.0-47.0) H 02/04/24 05:33 MCV 82.7 fL (81.0-99.0) 02/04/24 05:33 MCH 25.9 pg (27.0-31.0) L 02/04/24 05:33 MCHC 31.3 g/dL (32.0-36.0) L 02/04/24 05:33 RDW 15.8 % (12.0-15.0) H 02/04/24 05:33 Plt Count 257 10^3/uL (130-450) 02/04/24 05:33 MPV 10.1 fL (7.9-10.8) 02/04/24 05:33 Neut # (Auto) 3.9 10^3/uL (1.5-6.6) 02/04/24 05:33 Lymph # (Auto) 2.2 10^3/uL (1.5-3.5) 02/04/24 05:33 [place] # (Auto) 0.5 10^3/uL (0.0-1.0) 02/04/24 05:33 Eos # (Auto) 0.1 10^3/uL (0.0-0.7) 02/04/24 05:33 Baso # (Auto) 0.0 10^3/uL (0.0-0.1) 02/04/24 05:33 Absolute Nucleated RBC 0.00 x10^3/uL 02/04/24 05:33 Nucleated RBC % 0.0 /100WBC 02/04/24 05:33 VBG pH 7.341 (7.31-7.41) 01/30/24 05:46 Ionized Calcium 1.10 mmol/L (1.15-1.33) L 01/30/24 05:46 Sodium 142 mmol/L (135-145) 02/04/24 05:33 Potassium 3.7 mmol/L (3.5-4.5) 02/04/24 05:33 Chloride 106 mmol/L (101-111) 02/04/24 05:33 Carbon Dioxide 28 mmol/L (21-32) 02/04/24 05:33 Anion Gap 8.0 (6-13) 02/04/24 05:33 BUN 18 mg/dL (6-20) 02/04/24 05:33 Creatinine 1.0 mg/dL (0.6-1.3) 02/04/24 05:33 Estimated GFR (MDRD) 68 (>89) L 02/04/24 05:33 Glucose 107 mg/dL (74-104) H 02/04/24 05:33 POC Whole Bld Glucose 109 mg/dL (70 - 100) H 02/04/24 07:32 Estimat Average Glucose 140 mg/dL (70-100) H 01/31/24 08:55 Hemoglobin A1c % 6.5 % (4.27-6.07) H 01/31/24 08:55 Lactic Acid 2.5 mmol/L (0.5-2.2) H 01/28/24 11:48 Calcium 9.2 mg/dL (8.5-10.3) 02/04/24 05:33 Phosphorus 4.3 mg/dL (2.5-5.0) 01/30/24 05:46 Magnesium 2.0 mg/dL (1.7-2.3) 01/31/24 05:20 Total Bilirubin 1.4 mg/dL (0.2-1.0) H 02/02/24 10:58 AST 41 IU/L (10-42) 02/02/24 10:58 ALT 40 IU/L (10-60) 02/02/24 10:58 Alkaline Phosphatase 124 IU/L (42-121) H 02/02/24 10:58 Troponin I High Sens 253.6 ng/L (2.3-14.8) H* 01/29/24 05:24 C-Reactive Protein 1.9 mg/dL (<0.5) H 02/02/24 10:58 B-Natriuretic Peptide 1036 pg/mL (5-100) H 02/02/24 10:58 Total Protein 6.6 g/dL (6.4-8.9) 02/02/24 10:58 Albumin 3.1 g/dL (3.2-5.5) L 02/02/24 10:58 Globulin 3.5 g/dL (2.1-4.2) 02/02/24 10:58 Albumin/Globulin Ratio 0.9 (1.0-2.2) L 02/02/24 10:58 Lipase 20 U/L (11-82) 01/28/24 11:00 Urine Color YELLOW 01/28/24 22:00 Urine Clarity HAZY (CLEAR) 01/28/24 22:00 Urine pH 6.0 PH (5.0-7.5) 01/28/24 22:00 Ur Specific [place] 1.015 (1.002-1.030) 01/28/24 22:00 Urine Protein 100 mg/dL (NEGATIVE) H 01/28/24 22:00 Urine Glucose (UA) NEGATIVE mg/dL (NEGATIVE) 01/28/24 22:00 Urine Ketones NEGATIVE mg/dL (NEGATIVE) 01/28/24 22:00 Urine Occult Blood TRACE-LYSE (NEGATIVE) 01/28/24 22:00 Urine Nitrite POSITIVE (NEGATIVE) H 01/28/24 22:00 Urine Bilirubin NEGATIVE (NEGATIVE) 01/28/24 22:00 Urine Urobilinogen 1 (NORMAL) E.U./dL (NORMAL) 01/28/24 22:00 Ur Leukocyte Esterase NEGATIVE (NEGATIVE) 01/28/24 22:00 Urine RBC 0-5 /HPF (0-5) 01/28/24 22:00 Urine WBC 4-5 /HPF (0-5) 01/28/24 22:00 Ur Squamous Epith Cells FEW Squamous (<= Few) 01/28/24 22:00 Urine Bacteria Many /HPF (None Seen) H 01/28/24 22:00 Urine Casts 3-5 Hyaline Casts /LPF 01/28/24 22:00 Ur Microscopic Review INDICATED 01/28/24 22:00 Urine Culture Comments INDICATED 01/28/24 22:00 Nasal Screen MRSA (PCR) NEGATIVE (NEGATIVE) 01/28/24 21:00 Urine Opiates Screen NEGATIVE (NEGATIVE) 01/28/24 22:00 Ur Buprenorphine Scrn NEGATIVE (NEGATIVE) 01/28/24 22:00 Ur Oxycodone Screen NEGATIVE (NEGATIVE) 01/28/24 22:00 Urine Methadone Screen NEGATIVE (NEGATIVE) 01/28/24 22:00 Ur Barbiturates Screen NEGATIVE (NEGATIVE) 01/28/24 22:00 Ur Tricyclics Screen NEGATIVE (NEGATIVE) 01/28/24 22:00 Ur Phencyclidine Scrn NEGATIVE (NEGATIVE) 01/28/24 22:00 Ur Amphetamine Screen POSITIVE (NEGATIVE) H 01/28/24 22:00 U Methamphetamines Scrn NEGATIVE (NEGATIVE) 01/28/24 22:00 U Benzodiazepines Scrn NEGATIVE (NEGATIVE) 01/28/24 22:00 Urine Cocaine Screen NEGATIVE (NEGATIVE) 01/28/24 22:00 U Cannabinoids Screen NEGATIVE (NEGATIVE) 01/28/24 22:00 Ur Drug Screen Comment CUTOFF CONC BELOW: 01/28/24 22:00 SARS-CoV-2 (PCR) NOT DETECTED 01/29/24 09:30 - Procedures Procedures: Procedures EXCISION OF PERITONEUM, OPEN APPROACH, DIAGNOSTIC (05/24/18) SUPPLEMENT ABDOMINAL WALL WITH SYNTH SUB, OPEN APPROACH (05/24/18) Sepsis Event Note (H) - Evaluation Current Stage of Sepsis: Ruled out ABX Reporting Has patient been on IV antibiotics over the past 48 hours?: Yes Current Medications - Current Medications Current Medications: Active Medications Albuterol (Albuterol 1 Puff) 2 puffs INH Q4H PRN PRN Reason: Shortness of Air/Wheezing Last Admin: 01/30/24 07:01 Dose: 2 puffs Albuterol (Albuterol Neb 2.5 Mg/3 Ml) 2.5 mg INH RTQ4H PRN PRN Reason: Wheezing Albuterol/Ipratropium (Ipratropium/Albuterol 3 Ml Neb) 3 ml INH Q4HR PRN PRN Reason: Wheezing Last Admin: 01/30/24 22:50 Dose: 3 ml Amiodarone HCl (Amiodarone 200 Mg Tablet) 200 mg PO DAILY [facility] Last Admin: 02/04/24 12:13 Dose: 200 mg Amlodipine Besylate (Amlodipine 5 Mg Tablet) 5 mg PO DAILY [facility] Last Admin: 02/04/24 14:54 Dose: Not Given Benzonatate (Benzonatate 100 Mg Capsule) 100 mg PO TID PRN PRN Reason: Cough Last Admin: 01/30/24 21:42 Dose: 100 mg Carvedilol (Carvedilol 3.125 Mg Tablet) 3.125 mg PO BID [facility] Last Admin: 02/03/24 12:10 Dose: Not Given Clonidine HCl (Clonidine 0.1 Mg Patch) 1 patch TOP Q7D [facility] Last Admin: 02/03/24 08:17 Dose: 1 patch Enoxaparin Sodium (Enoxaparin 40 Mg/0.4 Ml Syringe) 40 mg SUBQ DAILY [facility] Last Admin: 02/04/24 09:55 Dose: 40 mg Furosemide (Furosemide 20 Mg/2 Ml Vial) 20 mg IVP DAILY [facility] Last Admin: 02/04/24 09:55 Dose: 20 mg Guaifenesin (Guaifenesin 600 Mg Tablet) 600 mg PO BID PRN PRN Reason: Cough Last Admin: 01/30/24 20:18 Dose: 600 mg Hydralazine HCl (Hydralazine Inj 20 Mg/Ml Vial) 10 mg IVP Q4H PRN PRN Reason: if SBP>180 Ceftriaxone Sodium 1 gm/ (Sodium Chloride) 100 mls @ 200 mls/hr IV DAILY [facility] Stop: 02/06/24 09:29 Last Infusion: 02/04/24 11:39 Dose: Infused Insulin Human Lispro (Insulin Lispro 300 Unit/3 Ml Pen) 1 - 5 unit SUBQ 0800,1200,1700,2100 [facility]; Protocol Last Admin: 02/04/24 17:30 Dose: 1 unit Labetalol HCl (Labetalol 20 Mg/4 Ml Syringe) 20 mg IVP Q6H [facility] Last Admin: 02/04/24 16:21 Dose: 20 mg Potassium Chloride (Potassium Chloride 20 Meq Tablet) 20 meq PO DAILY [facility] Last Admin: 02/04/24 14:55 Dose: Not Given Multivit/Folic Acid/Iron ( Vitamin Tablet) 1 tab PO DAILY [facility] Last Admin: 02/04/24 14:55 Dose: Not Given Sodium Chloride (Sodium Chloride Flush 0.9% 10 Ml Syringe) 10 ml IVP PRN PRN PRN Reason: NEEDED PER PROVIDER ORDERS Last Admin: 02/03/24 20:47 Dose: 10 ml Sodium Chloride (Sodium Chloride Flush 0.9% 10 Ml Syringe) 10 ml IVP 0100,0900,1700 [facility] Last Admin: 02/04/24 16:21 Dose: 10 ml Thiamine HCl (Thiamine 100 Mg Tablet) 100 mg PO DAILY [facility] Last Admin: 02/04/24 14:55 Dose: Not Given Throat Lozenges (Benzocaine/Menthol Lozenge) 1 lozenge MM Q2HR PRN PRN Reason: Throat pain Last Admin: 01/28/24 23:42 Dose: 1 lozenge No Known Home Medications 01/29/24
[2024-02-04] MEDS: ENOXAPARIN 40 MG/0.4 ML SYRINGE SUBQ SCH (09:55)
[2024-02-04] MEDS: LABETALOL 20 MG/4 ML SYRINGE IVP SCH (10:42)
[2024-02-04] MEDS: POTASSIUM CHLORIDE 20 MEQ TABLET PO SCH (14:55)
[2024-02-05] MEDS ORDERED: LABETALOL 20 MG/4 ML SYRINGE IVP PRN (05:03)
--- NOTE | 2024-02-05 07:43 | PROVIDER PROGRESS NOTE ---
Assessment/Plan - Problem List (1) CVA (cerebral vascular accident) Qualifiers: CVA mechanism: occlusion Laterality of affected vessel: left Assessment/Plan: Improved slightly Expressive aphasia appears improving, able to speak a few clear words Intensive speech therapy PT OT (2) Atrial fibrillation with RVR Assessment/Plan: Fluctuated ventricular rate due to medication noncompliance Patient was only took 1 dose of amiodarone will her visitors was in the room She refused further oral meds later on Give labetalol IV as needed for heart rate control Hold Eliquis for the past 72 hours during acute stroke phase Resume Eliquis today (3) Methamphetamine abuse Assessment/Plan: health outreach worker is on the case (4) COVID Assessment/Plan: Not hypoxia, off the isolation. (5) Hypertension Qualifiers: Hypertension type: unspecified Qualified Code(s): I10 - Essential (primary) hypertension Assessment/Plan: as on permissive hypertension for 72 hours, Resume antihypertension medication (6) CHF (congestive heart failure) Qualifiers: Heart failure type: unspecified Heart failure chronicity: acute on chronic Qualified Code(s): I50.9 - Heart failure, unspecified Assessment/Plan: Systolic heart failure, EF 25%, secondary to meth abuse Currently appears euvolemic (7) Leukocytosis Assessment/Plan: Resolved, complete 5 days ceftriaxone treatment course (8) VICKI (acute kidney injury) Assessment/Plan: Improved, creatinine back to baseline, (9) Withdrawal complaint Assessment/Plan: Close monitoring (10) Hypoglycemia Assessment/Plan: No further hypoglycemia events Encourage oral intake Hypoglycemia protocol - Current Meds Current Meds: Current Medications Generic Name Dose Route Start Last Admin Trade Name Nhi PRN Reason Stop Dose Admin Albuterol 2 puffs 01/29/24 02:26 01/30/24 07:01 Albuterol 1 Puff INH 2 puffs Q4H PRN Administration Shortness of Air/Wheezing Albuterol/Ipratropium 3 ml 01/29/24 21:44 01/30/24 22:50 Ipratropium/Albuterol 3 Ml Neb INH 3 ml Q4HR PRN Administration Wheezing Amiodarone HCl 200 mg 02/02/24 09:00 02/04/24 12:13 Amiodarone 200 Mg Tablet PO 200 mg DAILY TOI Administration Amlodipine Besylate 5 mg 02/02/24 09:00 02/04/24 14:54 Amlodipine 5 Mg Tablet PO Not Given DAILY [facility] Benzonatate 100 mg 01/29/24 21:46 01/30/24 21:42 Benzonatate 100 Mg Capsule PO 100 mg TID PRN Administration Cough Carvedilol 3.125 mg 01/29/24 13:00 02/03/24 12:10 Carvedilol 3.125 Mg Tablet PO Not Given BID [facility] Clonidine HCl 1 patch 02/03/24 08:00 02/03/24 08:17 Clonidine 0.1 Mg Patch TOP 1 patch Q7D [facility] Administration Enoxaparin Sodium 40 mg 02/04/24 10:00 02/04/24 09:55 Enoxaparin 40 Mg/0.4 Ml Syringe SUBQ 40 mg DAILY [facility] Administration Furosemide 20 mg 02/03/24 09:00 02/04/24 09:55 Furosemide 20 Mg/2 Ml Vial IVP 20 mg DAILY [facility] Administration Guaifenesin 600 mg 01/29/24 19:29 01/30/24 20:18 Guaifenesin 600 Mg Tablet PO 600 mg BID PRN Administration Cough Ceftriaxone Sodium 1 gm/ 100 mls @ 200 mls/hr 02/02/24 09:00 02/04/24 11:39 Sodium Chloride IV 02/06/24 09:29 Infused DAILY [facility] Infusion Insulin Human Lispro 1 - 5 unit 01/30/24 12:00 02/04/24 21:16 Insulin Lispro 300 Unit/3 Ml Pen SUBQ Not Given 0800,1200,1700,2100 [facility] Protocol Potassium Chloride 20 meq 02/04/24 08:37 02/04/24 14:55 Potassium Chloride 20 Meq Tablet PO Not Given DAILY [facility] Multivit/Folic Acid/Iron 1 tab 01/29/24 09:00 02/04/24 14:55 Vitamin Tablet PO Not Given DAILY [facility] Sodium Chloride 10 ml 01/28/24 17:23 02/03/24 20:47 Sodium Chloride Flush 0.9% 10 Ml Syringe IVP 10 ml PRN PRN Administration NEEDED PER PROVIDER ORDERS Sodium Chloride 10 ml 01/29/24 01:00 02/05/24 00:20 Sodium Chloride Flush 0.9% 10 Ml Syringe IVP 10 ml 0100,0900,1700 TOI Administration Thiamine HCl 100 mg 01/29/24 09:00 02/04/24 14:55 Thiamine 100 Mg Tablet PO Not Given DAILY [facility] Throat Lozenges 1 lozenge 01/28/24 22:45 01/28/24 23:42 Benzocaine/Menthol Lozenge MM 1 lozenge Q2HR PRN Administration Throat pain - Lab Result Fish Bone Diagrams: 02/04/24 05:33 02/04/24 05:33 - EKG Results EKG Interpreted Independently: Yes - Additional Planning Condition/Complexity: Improved My Orders: My Active Orders 02/04/24 08:37 Potassium Chloride [K-Dur] 20 meq PO DAILY 02/04/24 09:24 Telemetry- [RC] Q4HR 02/04/24 09:25 Message to Nursing [RC] QSHIFT 02/04/24 10:00 Enoxaparin [Lovenox] 40 mg SUBQ DAILY Time Spent: 31-60 minutes Additional Planning Notes: patient is not medically stable for discharge. To complete antibiotic treatment course, to have RVR revolved, pending further PT OT speech therapy Subjective - Subjective Patient Reports: Other (Patient is not able to communicate, due to expressive aphasia) Objective Vital Signs: Vital Signs - 24 hr 02/04/24 02/04/24 02/04/24 08:18 12:52 16:39 Temperature 36.6 C 36.7 C 36.5 C Heart Rate [ 128 H 142 H 143 H Brachial] Respiratory 20 20 22 Rate Blood Pressure 155/106 H 155/110 H 137/107 H [Left Brachial artery] Blood Pressure [Right Brachial artery] O2 Saturation 95 98 100 02/04/24 02/05/24 02/05/24 21:00 00:14 04:17 Temperature 36.4 C L 36.5 C 36.4 C L Heart Rate [ 64 68 73 Brachial] Respiratory 21 16 18 Rate Blood Pressure 159/96 H 143/95 H [Left Brachial artery] Blood Pressure 139/96 H [Right Brachial artery] O2 Saturation 96 100 96 Oxygen O2 Source Room air I&O (Last 24 Hrs): Intake and Output Totals x24h 02/03/24 02/04/24 02/05/24 22:59 23:59 23:59 Intake Total Balance General: Alert, No acute distress Neck: Supple Neuro: Alert, Other (Slurred speech, expressive aphasia, moves all limbs) Cardiovascular: Other (Irregular irregularly) Respiratory: Chest non-tender Abdomen: Soft - Results Results: Laboratory Results WBC 6.8 x10^3/uL (4.8-10.8) 02/04/24 05:33 RBC 6.18 10^6/uL (4.20-5.40) H 02/04/24 05:33 Hgb 16.0 g/dL (12.0-16.0) 02/04/24 05:33 Hct 51.1 % (37.0-47.0) H 02/04/24 05:33 MCV 82.7 fL (81.0-99.0) 02/04/24 05:33 MCH 25.9 pg (27.0-31.0) L 02/04/24 05:33 MCHC 31.3 g/dL (32.0-36.0) L 02/04/24 05:33 RDW 15.8 % (12.0-15.0) H 02/04/24 05:33 Plt Count 257 10^3/uL (130-450) 02/04/24 05:33 MPV 10.1 fL (7.9-10.8) 02/04/24 05:33 Neut # (Auto) 3.9 10^3/uL (1.5-6.6) 02/04/24 05:33 Lymph # (Auto) 2.2 10^3/uL (1.5-3.5) 02/04/24 05:33 [place] # (Auto) 0.5 10^3/uL (0.0-1.0) 02/04/24 05:33 Eos # (Auto) 0.1 10^3/uL (0.0-0.7) 02/04/24 05:33 Baso # (Auto) 0.0 10^3/uL (0.0-0.1) 02/04/24 05:33 Absolute Nucleated RBC 0.00 x10^3/uL 02/04/24 05:33 Nucleated RBC % 0.0 /100WBC 02/04/24 05:33 VBG pH 7.341 (7.31-7.41) 01/30/24 05:46 Ionized Calcium 1.10 mmol/L (1.15-1.33) L 01/30/24 05:46 Sodium 142 mmol/L (135-145) 02/04/24 05:33 Potassium 3.7 mmol/L (3.5-4.5) 02/04/24 05:33 Chloride 106 mmol/L (101-111) 02/04/24 05:33 Carbon Dioxide 28 mmol/L (21-32) 02/04/24 05:33 Anion Gap 8.0 (6-13) 02/04/24 05:33 BUN 18 mg/dL (6-20) 02/04/24 05:33 Creatinine 1.0 mg/dL (0.6-1.3) 02/04/24 05:33 Estimated GFR (MDRD) 68 (>89) L 02/04/24 05:33 Glucose 107 mg/dL (74-104) H 02/04/24 05:33 POC Whole Bld Glucose 105 mg/dL (70 - 100) H 02/04/24 20:36 Estimat Average Glucose 140 mg/dL (70-100) H 01/31/24 08:55 Hemoglobin A1c % 6.5 % (4.27-6.07) H 01/31/24 08:55 Lactic Acid 2.5 mmol/L (0.5-2.2) H 01/28/24 11:48 Calcium 9.2 mg/dL (8.5-10.3) 02/04/24 05:33 Phosphorus 4.3 mg/dL (2.5-5.0) 01/30/24 05:46 Magnesium 2.0 mg/dL (1.7-2.3) 01/31/24 05:20 Total Bilirubin 1.4 mg/dL (0.2-1.0) H 02/02/24 10:58 AST 41 IU/L (10-42) 02/02/24 10:58 ALT 40 IU/L (10-60) 02/02/24 10:58 Alkaline Phosphatase 124 IU/L (42-121) H 02/02/24 10:58 Troponin I High Sens 253.6 ng/L (2.3-14.8) H* 01/29/24 05:24 C-Reactive Protein 1.9 mg/dL (<0.5) H 02/02/24 10:58 B-Natriuretic Peptide 1036 pg/mL (5-100) H 02/02/24 10:58 Total Protein 6.6 g/dL (6.4-8.9) 02/02/24 10:58 Albumin 3.1 g/dL (3.2-5.5) L 02/02/24 10:58 Globulin 3.5 g/dL (2.1-4.2) 02/02/24 10:58 Albumin/Globulin Ratio 0.9 (1.0-2.2) L 02/02/24 10:58 Lipase 20 U/L (11-82) 01/28/24 11:00 Urine Color YELLOW 01/28/24 22:00 Urine Clarity HAZY (CLEAR) 01/28/24 22:00 Urine pH 6.0 PH (5.0-7.5) 01/28/24 22:00 Ur Specific [place] 1.015 (1.002-1.030) 01/28/24 22:00 Urine Protein 100 mg/dL (NEGATIVE) H 01/28/24 22:00 Urine Glucose (UA) NEGATIVE mg/dL (NEGATIVE) 01/28/24 22:00 Urine Ketones NEGATIVE mg/dL (NEGATIVE) 01/28/24 22:00 Urine Occult Blood TRACE-LYSE (NEGATIVE) 01/28/24 22:00 Urine Nitrite POSITIVE (NEGATIVE) H 01/28/24 22:00 Urine Bilirubin NEGATIVE (NEGATIVE) 01/28/24 22:00 Urine Urobilinogen 1 (NORMAL) E.U./dL (NORMAL) 01/28/24 22:00 Ur Leukocyte Esterase NEGATIVE (NEGATIVE) 01/28/24 22:00 Urine RBC 0-5 /HPF (0-5) 01/28/24 22:00 Urine WBC 4-5 /HPF (0-5) 01/28/24 22:00 Ur Squamous Epith Cells FEW Squamous (<= Few) 01/28/24 22:00 Urine Bacteria Many /HPF (None Seen) H 01/28/24 22:00 Urine Casts 3-5 Hyaline Casts /LPF 01/28/24 22:00 Ur Microscopic Review INDICATED 01/28/24 22:00 Urine Culture Comments INDICATED 01/28/24 22:00 Nasal Screen MRSA (PCR) NEGATIVE (NEGATIVE) 01/28/24 21:00 Urine Opiates Screen NEGATIVE (NEGATIVE) 01/28/24 22:00 Ur Buprenorphine Scrn NEGATIVE (NEGATIVE) 01/28/24 22:00 Ur Oxycodone Screen NEGATIVE (NEGATIVE) 01/28/24 22:00 Urine Methadone Screen NEGATIVE (NEGATIVE) 01/28/24 22:00 Ur Barbiturates Screen NEGATIVE (NEGATIVE) 01/28/24 22:00 Ur Tricyclics Screen NEGATIVE (NEGATIVE) 01/28/24 22:00 Ur Phencyclidine Scrn NEGATIVE (NEGATIVE) 01/28/24 22:00 Ur Amphetamine Screen POSITIVE (NEGATIVE) H 01/28/24 22:00 U Methamphetamines Scrn NEGATIVE (NEGATIVE) 01/28/24 22:00 U Benzodiazepines Scrn NEGATIVE (NEGATIVE) 01/28/24 22:00 Urine Cocaine Screen NEGATIVE (NEGATIVE) 01/28/24 22:00 U Cannabinoids Screen NEGATIVE (NEGATIVE) 01/28/24 22:00 Ur Drug Screen Comment CUTOFF CONC BELOW: 01/28/24 22:00 SARS-CoV-2 (PCR) NOT DETECTED 01/29/24 09:30 - Procedures Procedures: Procedures EXCISION OF PERITONEUM, OPEN APPROACH, DIAGNOSTIC (05/24/18) SUPPLEMENT ABDOMINAL WALL WITH SYNTH SUB, OPEN APPROACH (05/24/18) Sepsis Event Note (H) - Evaluation Current Stage of Sepsis: Ruled out ABX Reporting Has patient been on IV antibiotics over the past 48 hours?: Yes Current Medications - Current Medications Current Medications: Active Medications Albuterol (Albuterol 1 Puff) 2 puffs INH Q4H PRN PRN Reason: Shortness of Air/Wheezing Last Admin: 01/30/24 07:01 Dose: 2 puffs Albuterol (Albuterol Neb 2.5 Mg/3 Ml) 2.5 mg INH RTQ4H PRN PRN Reason: Wheezing Albuterol/Ipratropium (Ipratropium/Albuterol 3 Ml Neb) 3 ml INH Q4HR PRN PRN Reason: Wheezing Last Admin: 01/30/24 22:50 Dose: 3 ml Amiodarone HCl (Amiodarone 200 Mg Tablet) 200 mg PO DAILY [facility] Last Admin: 02/05/24 16:12 Dose: Not Given Amlodipine Besylate (Amlodipine 5 Mg Tablet) 5 mg PO DAILY [facility] Last Admin: 02/05/24 16:12 Dose: Not Given Apixaban (Apixaban 5 Mg Tablet) 5 mg PO BID [facility] Last Admin: 02/05/24 21:49 Dose: 5 mg Benzonatate (Benzonatate 100 Mg Capsule) 100 mg PO TID PRN PRN Reason: Cough Last Admin: 01/30/24 21:42 Dose: 100 mg Carvedilol (Carvedilol 3.125 Mg Tablet) 3.125 mg PO BID [facility] Last Admin: 02/03/24 12:10 Dose: Not Given Clonidine HCl (Clonidine 0.1 Mg Patch) 1 patch TOP Q7D [facility] Last Admin: 02/03/24 08:17 Dose: 1 patch Enoxaparin Sodium (Enoxaparin 40 Mg/0.4 Ml Syringe) 40 mg SUBQ DAILY [facility] Last Admin: 02/05/24 09:55 Dose: 40 mg Furosemide (Furosemide 20 Mg/2 Ml Vial) 20 mg IVP DAILY [facility] Last Admin: 02/05/24 09:56 Dose: 20 mg Guaifenesin (Guaifenesin 600 Mg Tablet) 600 mg PO BID PRN PRN Reason: Cough Last Admin: 01/30/24 20:18 Dose: 600 mg Hydralazine HCl (Hydralazine Inj 20 Mg/Ml Vial) 10 mg IVP Q4H PRN PRN Reason: if SBP>180 Ceftriaxone Sodium 1 gm/ (Sodium Chloride) 100 mls @ 200 mls/hr IV DAILY [facility] Stop: 02/06/24 09:29 Last Infusion: 02/05/24 12:25 Dose: Infused Insulin Human Lispro (Insulin Lispro 300 Unit/3 Ml Pen) 1 - 5 unit SUBQ 0800,1200,1700,2100 [facility]; Protocol Last Admin: 02/05/24 21:14 Dose: Not Given Labetalol HCl (Labetalol 20 Mg/4 Ml Syringe) 20 mg IVP Q6H PRN PRN Reason: Tachycardia Potassium Chloride (Potassium Chloride 20 Meq Tablet) 20 meq PO DAILY [facility] Last Admin: 02/05/24 16:12 Dose: Not Given Multivit/Folic Acid/Iron ( Vitamin Tablet) 1 tab PO DAILY [facility] Last Admin: 02/05/24 16:12 Dose: Not Given Sodium Chloride (Sodium Chloride Flush 0.9% 10 Ml Syringe) 10 ml IVP PRN PRN PRN Reason: NEEDED PER PROVIDER ORDERS Last Admin: 02/03/24 20:47 Dose: 10 ml Sodium Chloride (Sodium Chloride Flush 0.9% 10 Ml Syringe) 10 ml IVP 0100,0900,1700 [facility] Last Admin: 02/05/24 17:18 Dose: 10 ml Thiamine HCl (Thiamine 100 Mg Tablet) 100 mg PO DAILY [facility] Last Admin: 02/05/24 16:12 Dose: Not Given Throat Lozenges (Benzocaine/Menthol Lozenge) 1 lozenge MM Q2HR PRN PRN Reason: Throat pain Last Admin: 01/28/24 23:42 Dose: 1 lozenge No Known Home Medications 01/29/24
[2024-02-05] MEDS: APIXABAN 5 MG TABLET PO SCH (21:49)
[2024-02-06] MEDS: hydrALAZINE INJ 20 MG/ML VIAL IVP PRN (05:00)
[2024-02-06 06:04] LABS: BASOPHILS % (AUTO) 0.7 %; EOSINOPHILS # (AUTO) 0.1 10^3/uL (0.0-0.7); EOSINOPHILS % (AUTO) 2.1 %; HCT - HEMATOCRIT 50.8 % (37.0-47.0); HGB - HEMOGLOBIN 16.5 g/dL (12.0-16.0); LYMPHOCYTES # (AUTO) 1.8 10^3/uL (1.5-3.5); LYMPHOCYTES % (AUTO) 31.3 %; MEAN CORPUSCULAR HEMOGLOBIN 26.9 pg (27.0-31.0); MEAN CORPUSCULAR HGB CONC 32.5 g/dL (32.0-36.0); MEAN CORPUSCULAR VOLUME 82.7 fL (81.0-99.0); MEAN PLATELET VOLUME 10.3 fL (7.9-10.8); MONOCYTES # (AUTO) 0.5 10^3/uL (0.0-1.0); MONOCYTES % (AUTO) 7.7 %; NEUTROPHILS # (AUTO) 3.4 10^3/uL (1.5-6.6); NEUTROPHILS % (AUTO) 57.9 %; PLT - PLATELET COUNT 226 10^3/uL (130-450); RED BLOOD COUNT 6.14 10^6/uL (4.20-5.40); RED CELL DISTRIBUTION WIDTH 15.9 % (12.0-15.0); WHITE BLOOD COUNT 5.8 x10^3/uL (4.8-10.8)
[2024-02-06 06:33] LABS: CALCIUM 9.2 mg/dL (8.5-10.3); POTASSIUM 3.3 mmol/L (3.5-4.5)
[2024-02-06] MEDS: CHOLECALCIFEROL 25 MCG TABLET PO SCH (17:28)
--- NOTE | 2024-02-06 19:08 | PROVIDER PROGRESS NOTE ---
Subjective - Prog Note Date Prog Note Date: 02/06/24 Prog Note Time: 19:06 - Subjective Subjective: She is still mainly nonverbal. But there has been a definite improvement according to nursing and physical therapy. She was able to get out of bed, go to the bathroom. From the toilet walk to the sink and wash her hands. She was able to stand for 10 minutes. She has significant right-sided neglect. She is now able to find some words. They are monosyllabic and they are in the form of "you", "me", "care", or yes or no. She was not even able to do that yesterday. The patient has a history of methamphetamine abuse. She lives in a trailer, fifth wheel. The trailer belongs to her in-laws. However there is no running water so she goes into her in-laws house to take a shower. She has been pulling out her IVs. She is able to swallow so I am stopping IVs and switching her over to p.o. Hopefully speech will be able to see her today. So far PT was not able to work for her prior to this because she could not follow cues. Today was a very good day. Current Medications - Current Medications Current Medications: Active Medications Albuterol (Albuterol 1 Puff) 2 puffs INH Q4H PRN PRN Reason: Shortness of Air/Wheezing Last Admin: 01/30/24 07:01 Dose: 2 puffs Albuterol (Albuterol Neb 2.5 Mg/3 Ml) 2.5 mg INH RTQ4H PRN PRN Reason: Wheezing Albuterol/Ipratropium (Ipratropium/Albuterol 3 Ml Neb) 3 ml INH Q4HR PRN PRN Reason: Wheezing Last Admin: 01/30/24 22:50 Dose: 3 ml Amiodarone HCl (Amiodarone 200 Mg Tablet) 200 mg PO DAILY [facility] Last Admin: 02/06/24 09:45 Dose: 200 mg Amlodipine Besylate (Amlodipine 5 Mg Tablet) 5 mg PO DAILY [facility] Last Admin: 02/06/24 09:45 Dose: 5 mg Apixaban (Apixaban 5 Mg Tablet) 5 mg PO BID [facility] Last Admin: 02/06/24 09:45 Dose: 5 mg Benzonatate (Benzonatate 100 Mg Capsule) 100 mg PO TID PRN PRN Reason: Cough Last Admin: 01/30/24 21:42 Dose: 100 mg Carvedilol (Carvedilol 3.125 Mg Tablet) 3.125 mg PO BID [facility] Last Admin: 02/03/24 12:10 Dose: Not Given Cholecalciferol (Cholecalciferol 25 Mcg Tablet) 50 mcg PO DAILY [facility] Last Admin: 02/06/24 17:28 Dose: 50 mcg Clonidine HCl (Clonidine 0.1 Mg Patch) 1 patch TOP Q7D [facility] Last Admin: 02/03/24 08:17 Dose: 1 patch Enoxaparin Sodium (Enoxaparin 40 Mg/0.4 Ml Syringe) 40 mg SUBQ DAILY [facility] Last Admin: 02/06/24 09:45 Dose: 40 mg Furosemide (Furosemide 20 Mg/2 Ml Vial) 20 mg IVP DAILY [facility] Last Admin: 02/06/24 09:06 Dose: Not Given Guaifenesin (Guaifenesin 600 Mg Tablet) 600 mg PO BID PRN PRN Reason: Cough Last Admin: 02/06/24 14:08 Dose: 600 mg Hydralazine HCl (Hydralazine Inj 20 Mg/Ml Vial) 10 mg IVP Q4H PRN PRN Reason: if SBP>180 Last Admin: 02/06/24 05:00 Dose: 10 mg Insulin Human Lispro (Insulin Lispro 300 Unit/3 Ml Pen) 1 - 5 unit SUBQ 0800,1200,1700,2100 [facility]; Protocol Last Admin: 02/06/24 17:00 Dose: Not Given Labetalol HCl (Labetalol 20 Mg/4 Ml Syringe) 20 mg IVP Q6H PRN PRN Reason: Tachycardia Potassium Chloride (Potassium Chloride 20 Meq Tablet) 20 meq PO DAILY [facility] Last Admin: 02/06/24 09:45 Dose: 20 meq Multivit/Folic Acid/Iron ( Vitamin Tablet) 1 tab PO DAILY [facility] Last Admin: 02/06/24 09:45 Dose: 1 tab Sodium Chloride (Sodium Chloride Flush 0.9% 10 Ml Syringe) 10 ml IVP PRN PRN PRN Reason: NEEDED PER PROVIDER ORDERS Last Admin: 02/06/24 05:01 Dose: 10 ml Sodium Chloride (Sodium Chloride Flush 0.9% 10 Ml Syringe) 10 ml IVP 0100,0 900,1700 [facility] Last Admin: 02/06/24 17:28 Dose: Not Given Thiamine HCl (Thiamine 100 Mg Tablet) 100 mg PO DAILY [facility] Last Admin: 02/06/24 09:45 Dose: 100 mg Throat Lozenges (Benzocaine/Menthol Lozenge) 1 lozenge MM Q2HR PRN PRN Reason: Throat pain Last Admin: 01/28/24 23:42 Dose: 1 lozenge No Known Home Medications 01/29/24 Objective - Vital Signs/Intake & Output Reviewed Vital Signs: Yes Vital Signs: Vital Signs x48h Temp Pulse Resp BP Pulse Ox 02/06/24 16:28 36.6 C 80 16 156/92 H 96 02/06/24 13:00 36.8 C 85 18 157/81 H 97 Intake & Output: Intake & Output 02/03/24 02/04/24 02/05/24 02/06/24 22:59 23:59 23:59 23:59 Intake Total 810 320 Output Total 650 Balance 810 -330 - Objective General Appearance: positive: No acute distress, Alert, Other (Short statured black female who is 5 feet 2 inches tall, 89 kg. Grunts in response to my hello and asking how she is.) Eyes Bilateral: positive: PERRL, EOMI, Other (Tracking me well. Able to sit up in bed with a 1 person assist.) ENT: positive: No signs of dehydration Neck: positive: No JVD. negative: Stiff neck Respiratory: positive: No respiratory distress. negative: Wheezes, Rales, Rhonchi Cardiovascular: positive: Regular rate & rhythm Abdomen: positive: Non-tender, No organomegaly, Nml bowel sounds, No distention Skin: positive: Warm, Dry Extremities: positive: No pedal edema Neurologic/Psychiatric: positive: Oriented x3, CN's nml (2-12), Slurred/abnml speech (Has been mute up until today. Now saying 1 word responses). negative: Motor nml (Right-sided neglect.) - Lab Results Fish Bones: 02/06/24 05:55 02/06/24 05:55 Other Labs: Lab Results x24hrs 02/06/24 02/06/24 02/06/24 Range/Units 16:48 12:12 07:37 WBC (4.8-10.8) x10^3/uL RBC (4.20-5.40) 10^6/uL Hgb (12.0-16.0) g/dL Hct (37.0-47.0) % MCV (81.0-99.0) fL MCH (27.0-31.0) pg MCHC (32.0-36.0) g/dL RDW (12.0-15.0) % Plt Count (130-450) 10^3/uL MPV (7.9-10.8) fL Neut # (Auto) (1.5-6.6) 10^3/uL Lymph # (Auto) (1.5-3.5) 10^3/uL [place] # (Auto) (0.0-1.0) 10^3/uL Eos # (Auto) (0.0-0.7) 10^3/uL Baso # (Auto) (0.0-0.1) 10^3/uL Absolute Nucleated RBC x10^3/uL Nucleated RBC % /100WBC Sodium (135-145) mmol/L Potassium (3.5-4.5) mmol/L Chloride (101-111) mmol/L Carbon Dioxide (21-32) mmol/L Anion Gap (6-13) BUN (6-20) mg/dL Creatinine (0.6-1.3) mg/dL Estimated GFR (MDRD) (>89) Glucose (74-104) mg/dL POC Whole Bld Glucose 103 H 131 H 105 H (70 - 100) mg/dL Calcium (8.5-10.3) mg/dL 02/06/24 02/06/24 02/05/24 Range/Units 05:55 05:55 20:38 WBC 5.8 (4.8-10.8) x10^3/uL RBC 6.14 H (4.20-5.40) 10^6/uL Hgb 16.5 H (12.0-16.0) g/dL Hct 50.8 H (37.0-47.0) % MCV 82.7 (81.0-99.0) fL MCH 26.9 L (27.0-31.0) pg MCHC 32.5 (32.0-36.0) g/dL RDW 15.9 H (12.0-15.0) % Plt Count 226 (130-450) 10^3/uL MPV 10.3 (7.9-10.8) fL Neut # (Auto) 3.4 (1.5-6.6) 10^3/uL Lymph # (Auto) 1.8 (1.5-3.5) 10^3/uL [place] # (Auto) 0.5 (0.0-1.0) 10^3/uL Eos # (Auto) 0.1 (0.0-0.7) 10^3/uL Baso # (Auto) 0.0 (0.0-0.1) 10^3/uL Absolute Nucleated RBC 0.00 x10^3/uL Nucleated RBC % 0.0 /100WBC Sodium 139 (135-145) mmol/L Potassium 3.3 L (3.5-4.5) mmol/L Chloride 102 (101-111) mmol/L Carbon Dioxide 30 (21-32) mmol/L Anion Gap 7.0 (6-13) BUN 14 (6-20) mg/dL Creatinine 1.0 (0.6-1.3) mg/dL Estimated GFR (MDRD) 68 L (>89) Glucose 89 (74-104) mg/dL POC Whole Bld Glucose 105 H (70 - 100) mg/dL Calcium 9.2 (8.5-10.3) mg/dL Sepsis Event Note (H) - Evaluation Current Stage of Sepsis: Ruled out Assessment/Plan - Problem List (1) CVA (cerebral vascular accident) Impression: Significant neglect on the right side. Expressive aphasia better today. Plan: I look forward to seeing with speech therapy has for her today I am going to ask social work if she be candidate for inpatient rehab Continue dual platelet therapy No longer needing permissive hypertension and I am aiming for good blood pressure control Eliquis was resumed on February 04 (2) Atrial fibrillation with RVR,. new diagnosis Assessment/Plan: Fluctuated ventricular rate due to medication noncompliance Patient was only took 1 dose of amiodarone will her visitors was in the room She refused further oral meds later on Give labetalol IV as needed for heart rate control Echocardiogram with moderate left ventricular enlargement. She has an ejection fraction of 25 to 30%. Severe right ventricular enlargement. Right ventricular systolic function is moderately impaired. Mild to moderate mitral regurg. RVSP is 49 mmHg. Today she is willing to do p.o. I have discontinued her IV. Add metoprolol. There was coreg on hold and I will stop that. (3) Methamphetamine abuse Assessment/Plan: composite layup worker is on the case (4) COVID Assessment/Plan: Not hypoxia, off the isolation. (5) Hypertension Qualifiers: Hypertension type: unspecified Qualified Code(s): I10 - Essential (primary) hypertension Assessment/Plan: as on permissive hypertension for 72 hours, Resume antihypertension medication (6) acute systolic CHF (congestive heart failure) Qualifiers: Heart failure type: unspecified Heart failure chronicity: acute on chronic Qualified Code(s): I50.9 - Heart failure, unspecified Assessment/Plan: Systolic heart failure, EF 25%, secondary to meth abuse Currently appears euvolemic [place] IV lasix to po lasix (7) Leukocytosis on admit. resolved 02/02/24. Assessment/Plan: Resolved, has completed 4 days of ceftriaxone treatment course but she pulled out the IV today for the 5th dose. I will not give more abx unless she spikes a temp or has worse WBC. (8) VICKI (acute kidney injury) Assessment/Plan: Improved, creatinine back to baseline, (9) Withdrawal complaint Assessment/Plan: Close monitoring (10) Hypoglycemia Assessment/Plan: No further hypoglycemia events Encourage oral intake Hypoglycemia protocol
[2024-02-07 06:22] LABS: BASOPHILS % (AUTO) 0.6 %; EOSINOPHILS # (AUTO) 0.1 10^3/uL (0.0-0.7); EOSINOPHILS % (AUTO) 2.3 %; HCT - HEMATOCRIT 51.6 % (37.0-47.0); HGB - HEMOGLOBIN 16.7 g/dL (12.0-16.0); LYMPHOCYTES % (AUTO) 31.8 %; MEAN CORPUSCULAR HEMOGLOBIN 26.6 pg (27.0-31.0); MEAN CORPUSCULAR HGB CONC 32.4 g/dL (32.0-36.0); MEAN CORPUSCULAR VOLUME 82.3 fL (81.0-99.0); MEAN PLATELET VOLUME 10.5 fL (7.9-10.8); MONOCYTES # (AUTO) 0.7 10^3/uL (0.0-1.0); MONOCYTES % (AUTO) 10.5 %; NEUTROPHILS # (AUTO) 3.4 10^3/uL (1.5-6.6); NEUTROPHILS % (AUTO) 54.3 %; PLT - PLATELET COUNT 215 10^3/uL (130-450); RED BLOOD COUNT 6.27 10^6/uL (4.20-5.40); RED CELL DISTRIBUTION WIDTH 16.1 % (12.0-15.0); WHITE BLOOD COUNT 6.2 x10^3/uL (4.8-10.8)
[2024-02-07 07:01] LABS: CALCIUM 9.6 mg/dL (8.5-10.3); CREATININE 0.9 mg/dL (0.6-1.3); POTASSIUM 3.9 mmol/L (3.5-4.5)
[2024-02-07] MEDS: FUROSEMIDE 20 MG TABLET PO SCH (08:23)
[2024-02-07] MEDS ORDERED: METOPROLOL 5 MG/5 ML VIAL IVP STA (12:41)
[2024-02-07] MEDS: METOPROLOL SUCCINATE 25 MG TABLET PO SCH (13:19)
--- NOTE | 2024-02-07 19:55 | PROVIDER PROGRESS NOTE ---
Progress Note February 07, 2024 4 PM Patient has had a tremendous turnaround. She went from being mute on February 04. To then saying 1 word responses as she tried to communicate. That was on the . Today she is still with moderate receptive aphasia, and severe expressive aphasia. This makes her frustrated, which then makes it hard for her to be redirected to focus on a task. But she is tearful. Cooperative. We were able to talk to her about her stroke and that she needs continued rehab. She keeps on nodding her head and saying "yes". We asked her about nursing homes and she said that she was willing to go to 1. Social work will be tracing her and we will decide which when she is going to go to. No dysphagia. Exam: Temperature is 36.6, heart rate 84, blood pressure 127/82. Respirations 16. 96% on room air. Short statured black female who is 5 foot 2 inches tall, and is morbidly obese at 87 kg. Able to sit up in bed, but impulsive and will get up (walking naked) to the door or to the bathroom. She gets frustrated and irritated when we try and control her back and better back in a chair or to get dressed. She has pulled out oscar ral IVs. Supple neck. Episodes of tachycardia. Pulse will go to 160. But she does not let us keep the telemetry on. And then go back down again. She is asymptomatic with this. No chest pain, no shortness of breath. Abdomen is obese, soft, nontender Extremities without edema No focal deficit. Some mild ataxia. The above aphasia is noted.But she does neglect her right side. Lab: BMP is normal today. Glucose is 139. Calcium 9.6. CBC has a white cell count of 6.2, hemoglobin 16.7, hematocrit 51. Platelets 215. Assessment/Plan - Problem List (1) CVA (cerebral vascular accident) Impression: CTs of the head showed subtle hypoattenuation of the left parietal region. But acute infarct could not be excluded and MRI was recommended. This patient is too impulsive for us to try and get an MRI on. Significant neglect on the right side. Expressive aphasia Continues to slowly improve.Speech therapy has seen her today. No dysphagia.Eliquis resumed. I will add a statin. Will continue to treat her as a stroke even though MRI is not able to be done. Echo done January 27 has moderate left ventricular enlargem ent, mild concentric left ventricular hypertrophy. Severely impaired ejection fraction of 25 to 30%. Severe right ventricular enlargement. Right ventricular systolic function moderately impaired. Mild to moderate mitral regurg. Mildly abnormal right heart pressures with an RVSP at rest of 49 mmHg. She does have a new diagnosis of atrial fibrillation in the context of methamphetamine abuse. She may have had a small microembolic stroke since she was not anticoagulated before admission and before the stroke Plan: Transfer to residential facility. Request submitted and will await auth orization to allow her to be discharged (2) Atrial fibrillation with RVR,. new diagnosis Assessment/Plan: February 06 she cleared enough to be cooperative with p.o. medications. As such I stopped her IV metoprolol and added metoprolol p.o. to her amiodarone p.o. Today she had occasional bursts of tachycardia as she ambulated in the room. But by this afternoon her heart rate is 84. As such rate is controlled. Anticoagulated with Eliquis. When she is discharged to residential facility I will verify which DOAC is covered by her insurance company. (3) Methamphetamine abuse Assessment/Plan: workers' compensation claims supervisor is on the case (4) COVID Assessment/Plan: Not hypoxic, off the isolation. (5) Hypertension Qualifiers: Hypertension type: unspecified Qualified Code(s): I10 - Essential (primary) hypertension Assessment/Plan: as on permissive hypertension for 72 hours, Her home antihypertensive medications have been resumed. Blood pressure 137/86, 127/82 today. As such she is at goal, and I will not be changing medications (6) acute systolic CHF (congestive heart failure) Qualifiers: Heart failure type: unspecified Heart failure chronicity: acute on chronic Qualified Code(s): I50.9 - Heart failure, unspecified Assessment/Plan: Systolic heart failure, EF 25%, secondary to meth abuse Currently appears euvolemic I changed IV Lasix to p.o. Lasix on February 05. She is on a beta-juan in the form of Toprol. The next step would be adding an ANYA inhibitor or an ARB. And if CHF is not well-controlled spironolactone will need to be added. When she is discharged from residential facility, she should be evaluated by cardiology. (7) Leukocytosis on admit. resolved 3/8/24. Assessment/Plan: Resolved, has completed 4 days of ceftriaxone treatment course but she pulled out the IV today for the 5th dose. I will not give more abx unless she spikes a temp or has worse WBC. (8) VICKI (acute kidney injury) Assessment/Plan: Improved, creatinine back to baseline, (9) Withdrawal complaint Assessment/Plan: Close monitoring (10) Hypoglycemia Assessment/Plan: No further hypoglycemia events Encourage oral intake Hypoglycemia protocol
[2024-02-08 06:06] LABS: BASOPHILS # (AUTO) 0.1 10^3/uL (0.0-0.1); BASOPHILS % (AUTO) 0.8 %; EOSINOPHILS # (AUTO) 0.1 10^3/uL (0.0-0.7); EOSINOPHILS % (AUTO) 1.9 %; HCT - HEMATOCRIT 50.5 % (37.0-47.0); HGB - HEMOGLOBIN 16.4 g/dL (12.0-16.0); LYMPHOCYTES # (AUTO) 2.1 10^3/uL (1.5-3.5); LYMPHOCYTES % (AUTO) 35.9 %; MEAN CORPUSCULAR HEMOGLOBIN 26.7 pg (27.0-31.0); MEAN CORPUSCULAR HGB CONC 32.5 g/dL (32.0-36.0); MEAN CORPUSCULAR VOLUME 82.2 fL (81.0-99.0); MEAN PLATELET VOLUME 10.7 fL (7.9-10.8); MONOCYTES # (AUTO) 0.7 10^3/uL (0.0-1.0); MONOCYTES % (AUTO) 11.3 %; NEUTROPHILS % (AUTO) 49.8 %; PLT - PLATELET COUNT 217 10^3/uL (130-450); RED BLOOD COUNT 6.14 10^6/uL (4.20-5.40); RED CELL DISTRIBUTION WIDTH 15.6 % (12.0-15.0); WHITE BLOOD COUNT 5.9 x10^3/uL (4.8-10.8)
[2024-02-08 06:40] LABS: CALCIUM 9.4 mg/dL (8.5-10.3); POTASSIUM 3.9 mmol/L (3.5-4.5)
[2024-02-08] MEDS: polyethylene glycoL 3350 17 GM PACKET PO SCH (08:58)
--- NOTE | 2024-02-08 18:11 | PROVIDER PROGRESS NOTE ---
Progress Note February 08, 2024 5 PM Saw the patient this morning and this afternoon. This afternoon she is positively beaming. Large smile and she is in the wheelchair cruising the hallways. She gets to eat dinner in the atrium with friends around her. Really enjoying it. Continues to have receptive and expressive aphasia. Continues to be impulsive. But is easy to prompt and she does follow cues. She keeps on answering no to any question I asked. I am hoping that she understands me when I asked her about chest pain, cough, shortness of breath, abdominal pain. She just keeps on saying "no". She appears quite comfortable today. Active Medications Albuterol (Albuterol 1 Puff) 2 puffs INH Q4H PRN PRN Reason: Shortness of Air/Wheezing Last Admin: 01/30/24 07:01 Dose: 2 puffs Albuterol (Albuterol Neb 2.5 Mg/3 Ml) 2.5 mg INH RTQ4H PRN PRN Reason: Wheezing Albuterol/Ipratropium (Ipratropium/Albuterol 3 Ml Neb) 3 ml INH Q4HR PRN PRN Reason: Wheezing Last Admin: 01/30/24 22:50 Dose: 3 ml Amiodarone HCl (Amiodarone 200 Mg Tablet) 200 mg PO DAILY [facility] Last Admin: 02/08/24 08:57 Dose: 200 mg Amlodipine Besylate (Amlodipine 5 Mg Tablet) 5 mg PO DAILY [facility] Last Admin: 02/08/24 08:57 Dose: 5 mg Apixaban (Apixaban 5 Mg Tablet) 5 mg PO BID [facility] Last Admin: 02/08/24 08:58 Dose: 5 mg Benzonatate (Benzonatate 100 Mg Capsule) 100 mg PO TID PRN PRN Reason: Cough Last Admin: 01/30/24 21:42 Dose: 100 mg Cholecalciferol (Cholecalciferol 25 Mcg Tablet) 50 mcg PO DAILY [facility] Last Admin: 02/08/24 08:58 Dose: 50 mcg Clonidine HCl (Clonidine 0.1 Mg Patch) 1 patch TOP Q7D [facility] Last Admin: 02/03/24 08:17 Dose: 1 patch Enoxaparin Sodium (Enoxaparin 40 Mg/0.4 Ml Syringe) 40 mg SUBQ DAILY [facility] Last Admin: 02/08/24 08:58 Dose: 40 mg Furosemide (Furosemide 20 Mg Tablet) 20 mg PO DAILY [facility] Last Admin: 02/08/24 08:58 Dose: 20 mg Guaifenesin (Guaifenesin 600 Mg Tablet) 600 mg PO BID PRN PRN Reason: Cough Last Admin: 02/06/24 14:08 Dose: 600 mg Insulin Human Lispro (Insulin Lispro 300 Unit/3 Ml Pen) 1 - 5 unit SUBQ 0800,1200,1700,2100 [facility]; Protocol Last Admin: 02/08/24 17:07 Dose: Not Given Metoprolol Succinate (Metoprolol Succinate 25 Mg Tablet) 25 mg PO DAILY [facility] Last Admin: 02/08/24 08:57 Dose: 25 mg Polyethylene Glycol (Polyethylene Glycol 3350 17 Gm Packet) 17 gm PO DAILY [facility] Last Admin: 02/08/24 08:58 Dose: 17 gm Potassium Chloride (Potassium Chloride 20 Meq Tablet) 20 meq PO DAILY [facility] Last Admin: 02/08/24 08:57 Dose: 20 meq Multivit/Folic Acid/Iron ( Vitamin Tablet) 1 tab PO DAILY [facility] Last Admin: 02/08/24 08:57 Dose: 1 tab Thiamine HCl (Thiamine 100 Mg Tablet) 100 mg PO DAILY [facility] Last Admin: 02/08/24 08:57 Dose: 100 mg Throat Lozenges (Benzocaine/Menthol Lozenge) 1 lozenge MM Q2HR PRN PRN Reason: Throat pain Last Admin: 01/28/24 23:42 Dose: 1 lozenge No Known Home Medications 01/29/24 Exam: Temperature 36.6, heart rate 82, blood pressure 120/70, respirations 16. 95% on room air. Short statured black female a 5 feet 2 inches tall. Morbidly obese at 86.5 kg. Comfortable in no acute distress. Neck is supple Lungs are clear to auscultation and percussion. No respiratory distress. Shallow unlabored breathing. Regular rate and rhythm. Yesterday she was having bursts of tachycardia and I added metoprolol XL 25 mg a day to her amiodarone. Today her pulse has been in the 60s and 70s. Abdomen is obese, soft, nontender. Normal bowel sounds. Extremities with trace edema. Neurologically she continues to have right-sided neglect. No PT done today because of time constraints. Speech is garbled. Poor dentition. Able to move her arms. But fine motor coordination is difficult and the aide has to feed her. Assessment/Plan - Problem List (1) CVA (cerebral vascular accident) Impression: CTs of the head showed subtle hypoattenuation of the left parietal region. But acute infarct could not be excluded and MRI was recommended. This patient is too impulsive for us to try and get an MRI on. Significant neglect on the right side. Expressive aphasia Continues to slowly improve.Speech therapy has seen her today. No dysphagia.Eliquis resumed. I will add a statin. Will continue to treat her as a stroke even though MRI is not able to be done. Echo done January 27 has moderate left ventricular enlargement, mild concentric left ventricular hypertrophy. Severely impaired ejection fraction of 25 to 30%. Severe right ventricular enlargement. Right ventricular systolic function moderately impaired. Mild to moderate mitral regurg. Mildly abnormal right heart pressures with an RVSP at rest of 49 mmHg. She does have a new diagnosis of atrial fibrillation in the context of methamphetamine abuse. She may have had a small microembolic stroke since she was not anticoagulated before admission and before the stroke Plan: My plan is to transfer to a shelter facility. She really does need more rehab and is too impulsive to be by herself. From there disposition may be long-term placement or return to her previous home where she lives in a trailer on her in-laws property. We have submitted a request for authorization and we are awaiting that for the shelter facility. In the meantime she will continue to work with PT and OT when time is available for them. (2) Atrial fibrillation with RVR,. new diagnosis Assessment/Plan: February 06 she cleared enough to be cooperative with p.o. medications. As such I stopped her IV metoprolol and added metoprolol p.o. to her amiodarone p.o. February 07 she had occasional bursts of tachycardia as she ambulated in the room. But by afternoon her heart rate is 84. Today her heart rate is staying in the 80s. No burst of tachycardia. As such rate is controlled. Anticoagulated with Eliquis. When she is discharged to shelter facility I will verify which DOAC is covered by her insurance company. 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 (5) Hypertension Qualifiers: Hypertension type: unspecified Qualified Code(s): I10 - Essential (primary) hypertension Assessment/Plan: as on permissive hypertension for 72 hours, Her home antihypertensive medications have been resumed. Blood pressure is 131/90, 143/104, 136/97, and finally 120/70. As such she is at goal, and I will not be changing medications (6) acute systolic CHF (congestive heart failure) Qualifiers: Heart failure type: unspecified Heart failure chronicity: acute on chronic Qualified Code(s): I50.9 - Heart failure, unspecified Assessment/Plan: Systolic heart failure, EF 25%, secondary to meth abuse Currently appears euvolemic I changed IV Lasix to p.o. Lasix on February 05. She is on a beta-juan in the form of Toprol. The next step would be adding an ANYA inhibitor or an ARB. And if CHF is not well-controlled spironolactone will need to be added. I will add losartan 25 mg tomorrow and see if it is anything to her blood pressure before I increase it. When she is discharged from shelter facility, she should be evaluated by cardiology. (7) Leukocytosis on admit. resolved 02/02/24. Assessment/Plan: Resolved, has completed 4 days of ceftriaxone treatment course but she pulled out the IV today for the 5th dose. I will not give more abx unless she spikes a temp or has worse WBC. (8) VICKI (acute kidney injury) Assessment/Plan: Improved, creatinine back to baseline, (9) Withdrawal complaint Assessment/Plan: Close monitoring (10) Hypoglycemia Assessment/Plan: No further hypoglycemia events Encourage oral intake Hypoglycemia protocol
[2024-02-09 06:01] LABS: BASOPHILS # (AUTO) 0.1 10^3/uL (0.0-0.1); BASOPHILS % (AUTO) 0.9 %; EOSINOPHILS # (AUTO) 0.1 10^3/uL (0.0-0.7); HCT - HEMATOCRIT 53.5 % (37.0-47.0); HGB - HEMOGLOBIN 16.9 g/dL (12.0-16.0); LYMPHOCYTES % (AUTO) 34.7 %; MEAN CORPUSCULAR HEMOGLOBIN 26.2 pg (27.0-31.0); MEAN CORPUSCULAR HGB CONC 31.6 g/dL (32.0-36.0); MEAN CORPUSCULAR VOLUME 82.9 fL (81.0-99.0); MEAN PLATELET VOLUME 10.7 fL (7.9-10.8); MONOCYTES # (AUTO) 0.6 10^3/uL (0.0-1.0); MONOCYTES % (AUTO) 10.9 %; NEUTROPHILS # (AUTO) 2.9 10^3/uL (1.5-6.6); NEUTROPHILS % (AUTO) 51.1 %; PLT - PLATELET COUNT 204 10^3/uL (130-450); RED BLOOD COUNT 6.45 10^6/uL (4.20-5.40); RED CELL DISTRIBUTION WIDTH 16.7 % (12.0-15.0); WHITE BLOOD COUNT 5.6 x10^3/uL (4.8-10.8)
[2024-02-09 06:23] LABS: CALCIUM 9.4 mg/dL (8.5-10.3); CREATININE 0.9 mg/dL (0.6-1.3)
[2024-02-09] MEDS: LOSARTAN 50 MG TABLET PO SCH (08:16)
--- NOTE | 2024-02-09 17:34 | PROVIDER PROGRESS NOTE ---
Progress Note February 09, 2024 5:30 PM Out of her room again today. Having lunch in the atrium. This really seems to lift up her spirits. Today she did not need an assist with ambulation. Got out of the bed walk to the bathroom. But she still has significant receptive and expressive aphasia with impulsive behavior. Still needs help with eating and using utensils. Vitals have been stable. Temperature is 36 7, heart rate 70, blood pressure 116/75, respirations 16, she is 95% on room air. Occasionally up to 100% on room air. Short statured black female a 5 feet 2 inches tall, and obese 85.5 kg. Cheerful, smiles a big smile every time I greet her. But can get easily frustrated when she cannot find her words. They supposed to be a barrier for cu eing and prompting when she gets frustrated. But she is not inappropriate. Neck is supple Lungs are clear to auscultation and percussion Regular rate and rhythm Morbidly obese abdomen with normal bowel sounds Extremities without edema Neurologically she has the expressive and receptive aphasia. Any weakness you may have had is gradually resolved over the last couple of days as demonstrated by spontaneous ability get out of bed and walk to the bathroom today. No facial droop.She still has right-sided neglect. Lab today shows a normal BMP. Glucose 103, 120, 113 CBC remained stable with a normal white cell count, hemoglobin is consistently elevated over 16 since admission Assessment/Plan - Problem List (1) CVA (cerebral vascular accident) Impression: CTs of the head showed subtle hypoattenuation of the left parietal region. But acute infarct could not be excluded and MRI was recommended. This patient is too impulsive for us to try and get an MRI on. Significant neglect on the right side. Expressive aphasia Continues to slowly improve.Speech therapy has seen her today. No dysphagia.Eliquis resumed. I will add a statin. Will continue to treat her as a stroke even though MRI is not able to be done. Echo done January 27 has moderate left ventricular enlargement, mild concentric left ventricular hypertrophy. Severely impaired ejection fraction of 25 to 30%. Severe right ventricular enlargement. Right ventricular systolic function moderately impaired. Mild to moderate mitral regurg. Mildly abnormal right heart pressures with an RVSP at rest of 49 mmHg. She does have a new diagnosis of atrial fibrillation in the context of methamphetamine abuse. She may have had a small microembolic stroke since she was not anticoagulated before admission and before the stroke Plan: Medically stable since February 06. My plan [facility]. She really does need more rehab and is too impulsive to be by herself. From there disposition may be long-term placement or return to her previous home where she lives in a trailer on her in-laws property. We have submitted a request for authorization and we are awaiting that for the penitentiary facility. In the meantime she will continue to work with PT and OT when time is available for them. Social work has updated me and let me know that a few facilities have declined taking her. I will contine to have PT and OT work with her. (2) Atrial fibrillation with RVR,. new diagnosis Assessment/Plan: February 06 she cleared enough to be cooperative with p.o. medications. As such I stopped her IV metoprolol and added metoprolol p.o. to her amiodarone p.o. February 07 she had occasional bursts of tachycardia as she ambulated in the room. But by afternoon her heart rate is 84. She has stayed in the 70s and 80s since then. Goes in and out of afib. Does go into sinus sometimes. Sinus right now. So rate is controlled. Anticoagulated with Eliquis. When she is discharged to [facility]it[facility] facility I will verify which DOAC is covered by her insurance company. 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 (5) Hypertension Qualifiers: Hypertension type: unspecified Qualified Code(s): I10 - Essential (primary) hypertension Assessment/Plan: as on permissive hypertension for 72 hours, Her home antihypertensive medications have been resumed. Blood pressure is Getting lower with the addition of losartan. Because I need to increase her ARB and possibly add Aldactone, I will stop her Norvasc. (6) acute systolic CHF (congestive heart failure) Qualifiers: Heart failure type: unspecified Heart failure chronicity: acute on chronic Qualified Code(s): I50.9 - Heart failure, unspecified Assessment/Plan: Systolic heart failure, EF 25%, secondary to meth abuse Currently appears euvolemic I changed IV Lasix to p.o. Lasix on February 05. She is on a beta-juan in the form of Toprol. The next step would be adding an ANYA inhibitor or an ARB. And if CHF is not well-controlled spironolactone will need to be added. I started a beta-juan for her rate control. She is on Lasix for diuresis. Norvasc is 5 mg a day. And she is on losartan 25 mg a day since 02/08. The most recent was adding losartan and her blood pressure came down to 116/75 today. I will discontinue her Norvasc to increase her losartan. That we will leave her on a beta-juan, ARB drug, and a diuretic. I will stop the Norvasc first. Wait a day. See how her blood pressure does then increase the losartan. (7) Leukocytosis on admit. resolved 02/02/24. Assessment/Plan: Resolved, has completed 4 days of ceftriaxone treatment course but she pulled out the IV today for the 5th dose. I will not give more abx unless she spikes a temp or has worse WBC. (8) VICKI (acute kidney injury) Assessment/Plan: Improved, creatinine back to baseline, (9) Withdrawal complaint Assessment/Plan: Close monitoring (10) Hypoglycemia Assessment/Plan: No further hypoglycemia events Encourage oral intake Hypoglycemia protocol
[2024-02-10 05:13] LABS: BASOPHILS # (AUTO) 0.1 10^3/uL (0.0-0.1); EOSINOPHILS # (AUTO) 0.1 10^3/uL (0.0-0.7); HCT - HEMATOCRIT 53.8 % (37.0-47.0); HGB - HEMOGLOBIN 16.6 g/dL (12.0-16.0); LYMPHOCYTES % (AUTO) 39.6 %; MEAN CORPUSCULAR HEMOGLOBIN 25.8 pg (27.0-31.0); MEAN CORPUSCULAR HGB CONC 30.9 g/dL (32.0-36.0); MEAN CORPUSCULAR VOLUME 83.7 fL (81.0-99.0); MEAN PLATELET VOLUME 11.3 fL (7.9-10.8); MONOCYTES # (AUTO) 0.5 10^3/uL (0.0-1.0); MONOCYTES % (AUTO) 10.5 %; NEUTROPHILS # (AUTO) 2.4 10^3/uL (1.5-6.6); NEUTROPHILS % (AUTO) 46.7 %; PLT - PLATELET COUNT 203 10^3/uL (130-450); RED BLOOD COUNT 6.43 10^6/uL (4.20-5.40); RED CELL DISTRIBUTION WIDTH 16.4 % (12.0-15.0); WHITE BLOOD COUNT 5.1 x10^3/uL (4.8-10.8)
[2024-02-10 05:42] LABS: CALCIUM 9.7 mg/dL (8.5-10.3); CREATININE 0.9 mg/dL (0.6-1.3); POTASSIUM 4.2 mmol/L (3.5-4.5)
--- NOTE | 2024-02-10 12:19 | PROVIDER PROGRESS NOTE ---
Progress Note February 10, 2024 1215 Upset this morning. Something about breakfast. So she was crying. But she is cooperative. Up in her room independently. Currently sitting in her chair watching TV. She gives me one-word responses to my questions such as "yes, no, okay". Still with significant expressive problems. Difficult to assess receptive problems. Active Medications Albuterol (Albuterol 1 Puff) 2 puffs INH Q4H PRN PRN Reason: Shortness of Air/Wheezing Last Admin: 01/30/24 07:01 Dose: 2 puffs Albuterol (Albuterol Neb 2.5 Mg/3 Ml) 2.5 mg INH RTQ4H PRN PRN Reason: Wheezing Albuterol/Ipratropium (Ipratropium/Albuterol 3 Ml Neb) 3 ml INH Q4HR PRN PRN Reason: Wheezing Last Admin: 01/30/24 22:50 Dose: 3 ml Amiodarone HCl (Amiodarone 200 Mg Tablet) 200 mg PO DAILY [facility] Last Admin: 02/10/24 09:25 Dose: 200 mg Amlodipine Besylate (Amlodipine 5 Mg Tablet) 5 mg PO DAILY [facility] Last Admin: 02/10/24 09:25 Dose: 5 mg Apixaban (Apixaban 5 Mg Tablet) 5 mg PO BID [facility] Last Admin: 02/10/24 09:25 Dose: 5 mg Benzonatate (Benzonatate 100 Mg Capsule) 100 mg PO TID PRN PRN Reason: Cough Last Admin: 01/30/24 21:42 Dose: 100 mg Cholecalciferol (Cholecalciferol 25 Mcg Tablet) 50 mcg PO DAILY [facility] Last Admin: 02/10/24 09:24 Dose: 50 mcg Clonidine HCl (Clonidine 0.1 Mg Patch) 1 patch TOP Q7D [facility] Last Admin: 02/10/24 09:33 Dose: 1 patch Furosemide (Furosemide 20 Mg Tablet) 20 mg PO DAILY [facility] Last Admin: 02/10/24 09:25 Dose: 20 mg Guaifenesin (Guaifenesin 600 Mg Tablet) 600 mg PO BID PRN PRN Reason: Cough Last Admin: 02/06/24 14:08 Dose: 600 mg Losartan Potassium (Losartan 50 Mg Tablet) 25 mg PO DAILY [facility] Last Admin: 02/10/24 09:26 Dose: 25 mg Metoprolol Succinate (Metoprolol Succinate 25 Mg Tablet) 25 mg PO DAILY [facility] Last Admin: 02/10/24 09:25 Dose: 25 mg Polyethylene Glycol (Polyethylene Glycol 3350 17 Gm Packet) 17 gm PO DAILY [facility] Last Admin: 02/10/24 09:31 Dose: 17 gm Potassium Chloride (Potassium Chloride 20 Meq Tablet) 20 meq PO DAILY [facility] Last Admin: 02/10/24 09:25 Dose: 20 meq Multivit/Folic Acid/Iron ( Vitamin Tablet) 1 tab PO DAILY [facility] Last Admin: 02/10/24 09:24 Dose: 1 tab Thiamine HCl (Thiamine 100 Mg Tablet) 100 mg PO DAILY [facility] Last Admin: 02/10/24 09:25 Dose: 100 mg Throat Lozenges (Benzocaine/Menthol Lozenge) 1 lozenge MM Q2HR PRN PRN Reason: Throat pain Last Admin: 01/28/24 23:42 Dose: 1 lozenge No Known Home Medications 01/29/24 Blood pressure stable with all the changes in my medications. I am slowly adding medicines for congestive heart failure. This morning she was 150/94 because she was upset. This afternoon she is 123/71. Respirations are 18 and unlabored. 97% on room air. Pulse 82. Temperature 36.6 On general exam she is a well-nourished well-developed short statured black female Neck is supple no bruits Lungs are clear to auscultation and percussion Regular rate and rhythm with a systolic ejection murmur Abdomen is obese, soft, nontender Extremities really do not have any edema today. Neurologically difficult to assess orientation. Even with simple yes no answers I am not quite clear if she understands her situation. She knows she is in the hospital. She cannot really tell me the date. Emotionally labile. 1 minute beaming with a smile and almost giggling and few minutes later in tears. But easily cued, follows prompts. No focal deficits but has right-sided neglect. Laboratory Tests 02/10/24 02/10/24 05:06 05:06 WBC 5.1 Hgb 16.6 H Hct 53.8 H Plt Count 203 Sodium 137 Potassium 4.2 Chloride 105 Carbon Dioxide 26 Anion Gap 6.0 BUN 22 H Creatinine 0.9 Estimated GFR (MDRD) 77 L Glucose 95 Calcium 9.7 Assessment/Plan - Problem List (1) CVA (cerebral vascular accident) Impression: CTs of the head showed subtle hypoattenuation of the left parietal region. But acute infarct could not be excluded and MRI was recommended. This patient is too impulsive for us to try and get an MRI on. Significant neglect on the right side. Expressive aphasia Continues to slowly improve.Speech therapy has seen her today. No dysphagia.Eliquis resumed. I will add a statin. Will continue to treat her as a stroke even though MRI is not able to be done. Echo done January 27 has moderate left ventricular enlargement, mild concentric left ventricular hypertrophy. Severely impaired ejection fraction of 25 to 30%. Severe right ventricular enlargement. Right ventricular systolic function moderately impaired. Mild to moderate mitral regurg. Mildly abnormal right heart pressures with an RVSP at rest of 49 mmHg. She does have a new diagnosis of atrial fibrillation in the context of methamphetamine abuse. She may have had a small microembolic stroke since she was not anticoagulated before admission and before the stroke Plan: No change in status. Medically stable since February 06. She is not on ASA due to being on Eliquis. She had not been started on a statin. My plan is to transfer to a fdc facility. She really does need more rehab and is too impulsive to be by herself. From there, disposition may be long-term placement or return to her previous home where she lives in a trailer on her in-laws property. We have submitted a request for authorization and we are awaiting that for the fdc facility. In the meantime she will continue to work with PT and OT when time is available for them. Social work has updated me and let me know that a few facilities already have declined taking her. They will continue to reach out. I will contine to have PT and OT work with her. Add lipitor 40 mg daily. (2) Atrial fibrillation with RVR,. new diagnosis Assessment/Plan: February 06 she cleared enough to be cooperative with p.o. medications. As such I stopped her IV metoprolol and added metoprolol p.o. to her amiodarone p.o. February 07 she had occasional bursts of tachycardia as she ambulated in the room. But by afternoon her heart rate is 84. She has stayed in the 70s and 80s since then. Goes in and out of afib. Does go into sinus sometimes. Sinus right now. So rate is controlled with amiodarone po and metoprolol. Anticoagulated with Eliquis. When she is discharged to fdc facility I will verify which DOAC is covered by her insurance company. (3) acute systolic CHF (congestive heart failure) now with chronic systolic heart failure Qualifiers: Heart failure type: unspecified Heart failure chronicity: acute on chronic Qualified Code(s): I50.9 - Heart failure, unspecified Assessment/Plan: Systolic heart failure, EF 25%, secondary to meth abuse Currently appears euvolemic February 05: Changed to p.o. Lasix from IV Lasix. On beta-juan. February 08: Rate is controlled, no crackles/edema. losartan added with blood pressure coming down to 116/75 Today I will discontinue Norvasc 5 mg daily and increase losartan to 50 mg daily. Monitor her blood pressure to make sure there is no hypotension. Chronic or resolved Medical Problems addressed during her stay (4) Methamphetamine abuse Assessment/Plan: floor worker well service is on the case (5) COVID Assessment/Plan: Not hypoxic, off the isolation. (6) Hypertension Qualifiers: Hypertension type: unspecified Qualified Code(s): I10 - Essential (primary) hypertension Assessment/Plan: Initially we allowed permissive hypertension for 72 hours, then her home antihypertensive medications have been resumed. Blood pressure is getting lower with the addition of losartan. Because I need to increase her ARB and possibly add Aldactone, I will stop her Norvasc today. (7) Leukocytosis on admit. resolved 02/02/24. Assessment/Plan: Resolved, has completed 4 days of ceftriaxone treatment course but she pulled out the IV today for the 5th dose. I will not give more abx unless she spikes a temp or has worse WBC. (8) VICKI (acute kidney injury) Assessment/Plan: Improved, creatinine back to baseline, (9) Withdrawal complaint Assessment/Plan: Close monitoring (10) Hypoglycemia Assessment/Plan: No further hypoglycemia events Encourage oral intake Hypoglycemia protocol
[2024-02-10] MEDS ORDERED: BACITRACIN ZINC OINT 1 PACKET TOP PRN (19:46)
[2024-02-10] MEDS: ATORVASTATIN 40 MG TABLET PO SCH (20:09)
[2024-02-11] MEDS: LOSARTAN 50 MG TABLET PO SCH (09:07)
--- NOTE | 2024-02-11 13:43 | PROVIDER PROGRESS NOTE ---
Progress Note February 11, 2024 1:30 PM Patient is all smiles this afternoon. Breakfast was good. She is walking in the hallways with a walker and her boss from work. Sentence structure is poor. And she seems occasionally confused with what her boss is saying but there is a spontaneity, laughing, and contentment with having someone that she knows with her. They spent the afternoon in the atrium. And walking in the hallways with her walker. She denies any chest pain, palpitations to me. Active Medications Albuterol (Albuterol 1 Puff) 2 puffs INH Q4H PRN PRN Reason: Shortness of Air/Wheezing Last Admin: 01/30/24 07:01 Dose: 2 puffs Albuterol (Albuterol Neb 2.5 Mg/3 Ml) 2.5 mg INH RTQ4H PRN PRN Reason: Wheezing Albuterol/Ipratropium (Ipratropium/Albuterol 3 Ml Neb) 3 ml INH Q4HR PRN PRN Reason: Wheezing Last Admin: 01/30/24 22:50 Dose: 3 ml Amiodarone HCl (Amiodarone 200 Mg Tablet) 200 mg PO DAILY [facility] Last Admin: 02/11/24 09:07 Dose: 200 mg Apixaban (Apixaban 5 Mg Tablet) 5 mg PO BID [facility] Last Admin: 02/11/24 09:07 Dose: 5 mg Atorvastatin Calcium (Atorvastatin 40 Mg Tablet) 40 mg PO QPM TOI Last Admin: 02/10/24 20:09 Dose: 40 mg Bacitracin (Bacitracin Zinc Oint 1 Packet) 1 packet TOP PRN PRN PRN Reason: Skin Care Benzonatate (Benzonatate 100 Mg Capsule) 100 mg PO TID PRN PRN Reason: Cough Last Admin: 01/30/24 21:42 Dose: 100 mg Cholecalciferol (Cholecalciferol 25 Mcg Tablet) 50 mcg PO DAILY [facility] Last Admin: 02/11/24 09:07 Dose: 50 mcg Clonidine HCl (Clonidine 0.1 Mg Patch) 1 patch TOP Q7D [facility] Last Admin: 02/10/24 09:33 Dose: 1 patch Furosemide (Furosemide 20 Mg Tablet) 20 mg PO DAILY [facility] Last Admin: 02/11/24 09:07 Dose: 20 mg Guaifenesin (Guaifenesin 600 Mg Tablet) 600 mg PO BID PRN PRN Reason: Cough Last Admin: 02/06/24 14:08 Dose: 600 mg Losartan Potassium (Losartan 50 Mg Tablet) 50 mg PO DAILY [facility] Last Admin: 02/11/24 09:07 Dose: 50 mg Metoprolol Succinate (Metoprolol Succinate 25 Mg Tablet) 25 mg PO DAILY [facility] Last Admin: 02/11/24 09:07 Dose: 25 mg Polyethylene Glycol (Polyethylene Glycol 3350 17 Gm Packet) 17 gm PO DAILY [facility] Last Admin: 02/11/24 09:07 Dose: 17 gm Potassium Chloride (Potassium Chloride 20 Meq Tablet) 20 meq PO DAILY [facility] Last Admin: 02/11/24 09:07 Dose: 20 meq Multivit/Folic Acid/Iron ( Vitamin Tablet) 1 tab PO DAILY [facility] Last Admin: 02/11/24 09:07 Dose: 1 tab Thiamine HCl (Thiamine 100 Mg Tablet) 100 mg PO DAILY [facility] Last Admin: 02/11/24 09:07 Dose: 100 mg Throat Lozenges (Benzocaine/Menthol Lozenge) 1 lozenge MM Q2HR PRN PRN Reason: Throat pain Last Admin: 01/28/24 23:42 Dose: 1 lozenge No Known Home Medications 01/29/24 Exam: Temperature 36.6, heart rate 76, blood pressure 123/93, respirations 16 and 92% on room air Short statured morbidly obese black female in no acute distress. Her right- sided neglect is getting better. She she turns to the right side now when I addressed her. Before she would look to the left when I was on her right. Neck is supple Lungs are clear Regular rate and rhythm Obese abdomen that is, soft, nontender with normal bowel sounds Extremities without any edema Expressive aphasia is still present. That is her most severe deficit with word finding difficulty. But she is able to communicate with her boss and with me using 1 word sometimes 2 word request. She struggles to find the right word and her emotional lability and anger with that is better than it was 2 days ago. Receptive aphasia seems to have improved. But I speak to her now she is looking right at me and is nodding her head yes or no appropriately to my sentences. No focal deficits. But the right neglect is still present. Lab: B MP and CBC were done yesterday. The only note on those labs during the stay is a hemoglobin is borderline elevated at 16.5-16.9. Assessment/Plan - Problem List (1) CVA (cerebral vascular accident) Day #15 in Hospital. Medically stable since 02/07/24. Impression: She presented to the emergency room as shortness of breath and was positive for COVID. She had increasing symptoms for 7 days. Final evaluation in the ER showed her to be in A-fib with RVR. Troponins were 307 and a repeat was 279.By January 30 her ventricular rate was controlled, and her COVID cough had improved. But on the she developed slurred speech and continued to worsen over the next couple of days and developed right body weakness on the . Her first CT of head was negative. But a second CT on February 02 confirmed a stroke. CTs of the head showed subtle hypoattenuation of the left parietal region. But acute infarct could not be excluded and MRI was recommended. This patient is too impulsive for us to try and get an MRI on. neurologist Consulted over the phone. Her Eliquis was held for a couple of days and then resumed. Permissive hypertension was allowed and then BP meds resumed. On my initial exam 02/04, she had significant neglect on the right side. Expressive aphasia was severe and continues to slowly improve.Speech therapy has seen her and she doesn't have dysphagia. Eliquis resumed. I added a statin with lipitor 40 mg daily. I reviewed her Echo done January 27 which showed moderate left ventricular enlargement, mild concentric left ventricular hypertrophy. Severely impaired ejection fraction of 25 to 30%. Severe right ventricular enlargement. Right ventricular systolic function moderately impaired. Mild to moderate mitral regurg. Mildly abnormal right heart pressures with an RVSP at rest of 49 mmHg. She does have a new diagnosis of atrial fibrillation in the context of methamphetamine abuse. She may have had a small microembolic stroke since she was not anticoagulated before admission and had only been on eliquis for afib 01/27-01/31. Plan: No change in status. Medically stable since February 06. She is not on ASA due to being on Eliquis. My plan is to transfer to a snf facility. She had really needed more rehab and is too impulsive to be by herself. From there, disposition may be long-term placement or return to her previous home where she lives in a trailer on her in-laws property. We have submitted a request for authorization and we are awaiting that for the snf facility or an inpatient rehab. In the meantime she will continue to work with PT and OT when time is available for them. Social work has updated me and let me know that a few facilities already have declined taking her. Social work will continue to reach out. I will contine to have PT and OT work with her. (2) Atrial fibrillation with RVR,. new diagnosis Assessment/Plan: February 06 she cleared enough to be cooperative with p.o. medications. As such I stopped her IV metoprolol and added metoprolol p.o. to her amiodarone p.o. February 07 she had occasional bursts of tachycardia as she ambulated in the room. But by afternoon her heart rate is 84. She has stayed in the 70s and 80s since then. Goes in and out of afib. Does go into sinus sometimes. Sinus right now. So rate is controlled with amiodarone po and metoprolol po. Anticoagulated with Eliquis. When she is discharged to snf facility I will verify which DOAC is covered by her insurance company. (3) acute systolic CHF (congestive heart failure) now with chronic systolic heart failure Qualifiers: Heart failure type: unspecified Heart failure chronicity: acute on chronic Qualified Code(s): I50.9 - Heart failure, unspecified Assessment/Plan: Systolic heart failure, EF 25%, secondary to meth abuse Currently appears euvolemic February 05: Changed to p.o. Lasix from IV Lasix. On beta-juan. February 08: Rate is controlled, no crackles/edema. losartan added with blood pressure coming down to 116/75 February 09: I discontinued Norvasc 5 mg daily and increase losartan to 50 mg daily. Blood pressure today with the new losartan is 120/68, 126/72, 123/93. Currently on a beta-juan, ARB, and diuretic. Congestive heart failure is stable. No crackles, no edema, no hypoxia. Patient is ambulating in the hallways. Eating well. I will not be adding Aldactone at this time. Chronic or resolved Medical Problems addressed during her stay (4) Methamphetamine abuse Assessment/Plan: beater worker helper is on the case (5) COVID Assessment/Plan: Received supportive treatment. Hypoxia from admission resolved. She is off contact precautions. (6) Hypertension Qualifiers: Hypertension type: unspecified Qualified Code(s): I10 - Essential (primary) hypertension Assessment/Plan: Initially we allowed permissive hypertension for 72 hours, then her home antihypertensive medications have been resumed. Blood pressure was getting lower with the addition of losartan. Because I needed to increase her ARB and possibly add Aldactone, I stopped her Norvasc 02/09. (7) Leukocytosis on admit. resolved 02/02/24. Assessment/Plan: Resolved, has completed 4 days of ceftriaxone treatment course but she pulled out the IV today for the 5th dose. I will not give more abx unless she spikes a temp or has worse WBC. (8) VICIK (acute kidney injury) Assessment/Plan: Improved, creatinine back to baseline, (9) Withdrawal complaint Assessment/Plan: Close monitoring (10) Hypoglycemia Assessment/Plan: No further hypoglycemia events Encourage oral intake Hypoglycemia protocol I stopped checking her sugars on February 08.
--- NOTE | 2024-02-12 13:28 | PROVIDER PROGRESS NOTE ---
Subjective - Prog Note Date Prog Note Date: 02/12/24 Prog Note Time: 13:26 - Subjective Pt reports feeling: No change Subjective: This patient has improved steadily over the weekend been taking care of her. She went from severe truncal ataxia and not able to stand to now walking in the hallways with a walker. She is independent in her room to go to the bathroom. She has 5 cutlery that allows her to feed herself. While she is still not with fluid speech she went being completely mute to now having 2-3 word sentences. Still with significant expressive aphasia. For instance this morning she said "I want the....." could not find the word she wanted. But receptive aphasia is much improved. She still has some neglect. She was trying to find the cutlery to feed herself breakfast. But it was on the right side of her tray. So she could not see them even though they were right in front of her. We had to move them to the left side of the tray for her to see them. Current Medications - Current Medications Current Medications: Active Medications Albuterol (Albuterol 1 Puff) 2 puffs INH Q4H PRN PRN Reason: Shortness of Air/Wheezing Last Admin: 01/30/24 07:01 Dose: 2 puffs Albuterol (Albuterol Neb 2.5 Mg/3 Ml) 2.5 mg INH RTQ4H PRN PRN Reason: Wheezing Albuterol/Ipratropium (Ipratropium/Albuterol 3 Ml Neb) 3 ml INH Q4HR PRN PRN Reason: Wheezing Last Admin: 01/30/24 22:50 Dose: 3 ml Amiodarone HCl (Amiodarone 200 Mg Tablet) 200 mg PO DAILY [facility] Last Admin: 02/12/24 09:13 Dose: 200 mg Apixaban (Apixaban 5 Mg Tablet) 5 mg PO BID TOI Last Admin: 02/12/24 09:13 Dose: 5 mg Atorvastatin Calcium (Atorvastatin 40 Mg Tablet) 40 mg PO QPM [facility] Last Admin: 02/11/24 20:13 Dose: 40 mg Bacitracin (Bacitracin Zinc Oint 1 Packet) 1 packet TOP PRN PRN PRN Reason: Skin Care Benzonatate (Benzonatate 100 Mg Capsule) 100 mg PO TID PRN PRN Reason: Cough Last Admin: 01/30/24 21:42 Dose: 100 mg Cholecalciferol (Cholecalciferol 25 Mcg Tablet) 50 mcg PO DAILY [facility] Last Admin: 02/12/24 09:13 Dose: 50 mcg Clonidine HCl (Clonidine 0.1 Mg Patch) 1 patch TOP Q7D [facility] Last Admin: 02/10/24 09:33 Dose: 1 patch Furosemide (Furosemide 20 Mg Tablet) 20 mg PO DAILY [facility] Last Admin: 02/12/24 09:13 Dose: 20 mg Guaifenesin (Guaifenesin 600 Mg Tablet) 600 mg PO BID PRN PRN Reason: Cough Last Admin: 02/06/24 14:08 Dose: 600 mg Losartan Potassium (Losartan 50 Mg Tablet) 50 mg PO DAILY [facility] Last Admin: 02/12/24 09:13 Dose: 50 mg Metoprolol Succinate (Metoprolol Succinate 25 Mg Tablet) 25 mg PO DAILY [facility] Last Admin: 02/12/24 09:13 Dose: 25 mg Polyethylene Glycol (Polyethylene Glycol 3350 17 Gm Packet) 17 gm PO DAILY [facility] Last Admin: 02/12/24 09:13 Dose: 17 gm Potassium Chloride (Potassium Chloride 20 Meq Tablet) 20 meq PO DAILY [facility] Last Admin: 02/12/24 09:13 Dose: 20 meq Multivit/Folic Acid/Iron ( Vitamin Tablet) 1 tab PO DAILY [facility] Last Admin: 02/12/24 09:13 Dose: 1 tab Thiamine HCl (Thiamine 100 Mg Tablet) 100 mg PO DAILY [facility] Last Admin: 02/12/24 09:13 Dose: 100 mg Throat Lozenges (Benzocaine/Menthol Lozenge) 1 lozenge MM Q2HR PRN PRN Reason: Throat pain Last Admin: 01/28/24 23:42 Dose: 1 lozenge No Known Home Medications 01/29/24 Objective - Vital Signs/Intake & Output Reviewed Vital Signs: Yes Vital Signs: Vital Signs x48h Temp Pulse Resp BP Pulse Ox 02/12/24 09:38 36.5 C 73 16 121/76 94 Intake & Output: Intake & Output 02/09/24 02/10/24 02/11/24 02/12/24 23:59 23:59 23:59 23:59 Intake Total 520 2450 1060 240 Balance 520 2450 1060 240 - Objective General Appearance: positive: Alert, Other (Short statured moderately obese black female that looks stated age) Eyes Bilateral: positive: PERRL, EOMI Neck: positive: No JVD Respiratory: positive: No respiratory distress. negative: Wheezes, Rales, Rhonchi Cardiovascular: positive: Regular rate & rhythm Abdomen: positive: Non-tender, No organomegaly, Nml bowel sounds, No distention Skin: positive: Warm, Dry Extremities: positive: Non-tender, Full ROM Neurologic/Psychiatric: positive: Oriented x3, CN's nml (2-12), Slurred/abnml speech, Other (Right-sided neglect). negative: Motor nml - Lab Results Fish Bones: 02/10/24 05:06 02/10/24 05:06 Sepsis Event Note (H) - Evaluation Current Stage of Sepsis: Ruled out Assessment/Plan - Problem List (1) CVA (cerebral vascular accident) Impression: She presented to the emergency room as shortness of breath and was positive for COVID. She had increasing symptoms for 7 days. Final evaluation in the ER showed her to be in A-fib with RVR. Troponins were 307 and a repeat was 279. By January 30 her ventricular rate was controlled, and her COVID cough had improved. But on the she developed slurred speech and continued to worsen over the next couple of days and developed right body weakness on the . Her first CT of head was negative. But a second CT on February 02 confirmed a stroke. CTs of the head showed subtle hypoattenuation of the left parietal region. But acute infarct could not be excluded and MRI was recommended. This patient is too impulsive for us to try and get an MRI on. neurologist Consulted over the phone. Her Eliquis was held for a couple of days and then resumed. Permissive hypertension was allowed and then BP meds resumed. On my initial exam 02/04, she had significant neglect on the right side. Expressive aphasia was severe and continues to slowly improve.Speech therapy has seen her and she doesn't have dysphagia. Eliquis resumed. I added a statin with lipitor 40 mg daily. I reviewed her Echo done January 27 which showed moderate left ventricular enlargement, mild concentric left ventricular hypertrophy. Severely impaired ejection fraction of 25 to 30%. Severe right ventricular enlargement. Right ventricular systolic function moderately impaired. Mild to moderate mitral regurg. Mildly abnormal right heart pressures with an RVSP at rest of 49 mmHg. She does have a new diagnosis of atrial fibrillation in the context of methamphetamine abuse. She may have had a small microembolic stroke since she was not anticoagulated before admission and had only been on eliquis for afib 01/27-01/31. Plan: No change in status. Medically stable since February 06. She is not on ASA due to being on Eliquis. My plan is to transfer to a half-way facility. She had really needed more rehab and is too impulsive to be by herself. From there, disposition may be long-term placement or return to her previous home where she lives in a trailer on her in-laws property. We have submitted a request for authorization and we are awaiting that for the half-way facility or an inpatient rehab. In the meantime she will continue to work with PT and OT when time is available for them. Social work has updated me and let me know that a few facilities already have declined taking her. Social work will continue to reach out. I will contine to have PT and OT work with her. Today there is no new addition to the above statements (2) Atrial fibrillation with RVR,. new diagnosis Assessment/Plan: February 06 she cleared enough to be cooperative with p.o. medications. As such I stopped her IV metoprolol and added metoprolol p.o. to her amiodarone p.o. February 07 she had occasional bursts of tachycardia as she ambulated in the room. But by afternoon her heart rate is 84. She has stayed in the 70s and 80s since then. Goes in and out of afib. Does go into sinus sometimes. Sinus right now. So rate is controlled with amiodarone po and metoprolol po. Anticoagulated with Eliquis. When she is discharged to half-way facility I will verify which DOAC is covered by her insurance company. No change for today (3) acute systolic CHF (congestive heart failure) now with chronic systolic heart failure Qualifiers: Heart failure type: unspecified Heart failure chronicity: acute on chronic Qualified Code(s): I50.9 - Heart failure, unspecified Assessment/Plan: Systolic heart failure, EF 25%, secondary to meth abuse Currently appears euvolemic February 05: Changed to p.o. Lasix from IV Lasix. On beta-juan. February 08: Rate is controlled, no crackles/edema. losartan added with blood pre ssure coming down to 116/75 February 09: I discontinued Norvasc 5 mg daily and increase losartan to 50 mg daily. Blood pressure today with the new losartan is 120/68, 126/72, 123/93. February 10: No changes. Blood pressure stable. Today blood pressure 127/68, 121/76. No edema. Currently on a beta-juan, ARB, and diuretic. Congestive heart failure is stable. No crackles, no edema, no hypoxia. Patient is ambulating in the hallways. Eating well. I will not be adding Aldactone at this time. 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 Hypoxia from admission resolved. She is off contact precautions. (6) Hypertension Qualifiers: Hypertension type: unspecified Qualified Code(s): I10 - Essential (primary) hypertension Assessment/Plan: Initially we allowed permissive hypertension for 72 hours, then her home antihypertensive medications have been resumed. Blood pressure was getting lower with the addition of losartan. Because I needed to increase her ARB and possibly add Aldactone, I stopped her Norvasc 02/09. (7) Leukocytosis on admit. resolved 02/02/24. Assessment/Plan: Resolved, has completed 4 days of ceftriaxone treatment course but she pulled out the IV today for the 5th dose. I will not give more abx unless she spikes a temp or has worse WBC. (8) VICKI (acute kidney injury) Assessment/Plan: Improved, creatinine back to baseline, (9) Withdrawal complaint Assessment/Plan: Close monitoring (10) Hypoglycemia Assessment/Plan: No further hypoglycemia events Encourage oral intake Hypoglycemia protocol I stopped checking her sugars on February 08.
--- NOTE | 2024-02-13 09:30 | PROVIDER PROGRESS NOTE ---
Progress Note February 13, 2024 9:25 AM Tiffanie is usually sleeping in the morning. This morning she was up at the side of her bed. Cheerful. Eating breakfast. Having some difficulty navigating the use of her utensils to feed herself. We have given her the modified utensils. Still tendency to ignore the right side of her body. Still only responding in 2 sometimes 3 word answers. Forgetting words. But walking in the hallway. Getting to the bathroom. Active Medications Albuterol (Albuterol 1 Puff) 2 puffs INH Q4H PRN PRN Reason: Shortness of Air/Wheezing Last Admin: 01/30/24 07:01 Dose: 2 puffs Albuterol (Albuterol Neb 2.5 Mg/3 Ml) 2.5 mg INH RTQ4H PRN PRN Reason: Wheezing Albuterol/Ipratropium (Ipratropium/Albuterol 3 Ml Neb) 3 ml INH Q4HR PRN PRN Reason: Wheezing Last Admin: 01/30/24 22:50 Dose: 3 ml Amiodarone HCl (Amiodarone 200 Mg Tablet) 200 mg PO DAILY [facility] Last Admin: 02/13/24 08:44 Dose: 200 mg Apixaban (Apixaban 5 Mg Tablet) 5 mg PO BID [facility] Last Admin: 02/13/24 08:44 Dose: 5 mg Atorvastatin Calcium (Atorvastatin 40 Mg Tablet) 40 mg PO QPM [facility] Last Admin: 02/12/24 21:21 Dose: 40 mg Bacitracin (Bacitracin Zinc Oint 1 Packet) 1 packet TOP PRN PRN PRN Reason: Skin Care Benzonatate (Benzonatate 100 Mg Capsule) 100 mg PO TID PRN PRN Reason: Cough Last Admin: 01/30/24 21:42 Dose: 100 mg Cholecalciferol (Cholecalciferol 25 Mcg Tablet) 50 mcg PO DAILY [facility] Last Admin: 02/13/24 08:44 Dose: 50 mcg Clonidine HCl (Clonidine 0.1 Mg Patch) 1 patch TOP Q7D [facility] Last Admin: 02/10/24 09:33 Dose: 1 patch Furosemide (Furosemide 20 Mg Tablet) 20 mg PO DAILY [facility] Last Admin: 02/13/24 08:44 Dose: 20 mg Guaifenesin (Guaifenesin 600 Mg Tablet) 600 mg PO BID PRN PRN Reason: Cough Last Admin: 02/06/24 14:08 Dose: 600 mg Losartan Potassium (Losartan 50 Mg Tablet) 50 mg PO DAILY [facility] Last Admin: 02/13/24 08:44 Dose: 50 mg Metoprolol Succinate (Metoprolol Succinate 25 Mg Tablet) 25 mg PO DAILY [facility] Last Admin: 02/13/24 08:44 Dose: 25 mg Polyethylene Glycol (Polyethylene Glycol 3350 17 Gm Packet) 17 gm PO DAILY [facility] Last Admin: 02/13/24 08:44 Dose: 17 gm Potassium Chloride (Potassium Chloride 20 Meq Tablet) 20 meq PO DAILY [facility] Last Admin: 02/13/24 08:44 Dose: 20 meq Multivit/Folic Acid/Iron ( Vitamin Tablet) 1 tab PO DAILY [facility] Last Admin: 02/13/24 08:44 Dose: 1 tab Thiamine HCl (Thiamine 100 Mg Tablet) 100 mg PO DAILY [facility] Last Admin: 02/13/24 08:44 Dose: 100 mg Throat Lozenges (Benzocaine/Menthol Lozenge) 1 lozenge MM Q2HR PRN PRN Reason: Throat pain Last Admin: 01/28/24 23:42 Dose: 1 lozenge No Known Home Medications 01/29/24 Exam: Temperature 36.6, heart rate 76, blood pressure 124/84. Respirations 18. 97% on room air. Short statured morbidly obese pleasant black female. No acute distress. Neck is supple Lungs are clear Regular rate and rhythm with a systolic ejection murmur. Even though she has a dilated left ventricle on echo, I do not not think that her PMI is laterally displaced. Abdomen is super obese, soft, nontender Extremities without edema Last lab work was done February 09. Assessment/Plan - Problem List (1) CVA (cerebral vascular accident) Impression: She presented to the emergency room as shortness of breath and was positive for COVID. She had increasing symptoms for 7 days. Final evaluation in the ER showed her to be in A-fib with RVR. Troponins were 307 and a repeat was 279. By January 30 her ventricular rate was controlled, and her COVID cough had improved. But on the she developed slurred speech and continued to worsen over the next couple of days and developed right body weakness on the eighth. Her first CT of head was negative. But a second CT on February 02 confirmed a stroke. CTs of the head showed subtle hypoattenuation of the left parietal region. But acute infarct could not be excluded and MRI was recommended. This patient is too impulsive for us to try and get an MRI on. neurologist Consulted over the phone. Her Eliquis was held for a couple of days and then resumed. Permissive hypertension was allowed and then BP meds resumed. On my initial exam 02/04, she had significant neglect on the right side. Expressive aphasia was severe and continues to slowly improve.Speech therapy has seen her and she doesn't have dysphagia. Eliquis resumed. I added a statin with lipitor 40 mg daily. I reviewed her Echo done January 27 which showed moderate left ventricular enlargement, mild concentric left ventricular hypertrophy. Severely impaired ejection fraction of 25 to 30%. Severe right ventricular enlargement. Right ventricular systolic function moderately impaired. Mild to moderate mitral regurg. Mildly abnormal right heart pressures with an RVSP at rest of 49 mmHg. She does have a new diagnosis of atrial fibrillation in the context of methamphetamine abuse. She may have had a small microembolic stroke since she was not anticoagulated before admission and had only been on eliquis for afib 01/27-01/31. Plan: No change in status. Medically stable since February 06. She is not on ASA due to being on Eliquis. My plan is to [facility] a prison facility. She had really needed more rehab and is too impulsive to be by herself. From there, disposition may be long-term placement or return to her previous home where she lives in a trailer on her in-laws property. We have submitted a request for authorization and we are awaiting that for the prison facility or an inpatient rehab. In the meantime she will continue to work with PT and OT when time is available for them. Social work has updated me and let me know that a few facilities already have declined taking her. Social work will continue to reach out. I will contine to have PT and OT work with her. Today there is no new addition to the above statements (2) acute systolic CHF (congestive heart failure) now with chronic systolic heart failure Qualifiers: Heart failure type: unspecified Heart failure chronicity: acute on chronic Qualified Code(s): I50.9 - Heart failure, unspecified Assessment/Plan: Systolic heart failure, EF 25%, secondary to meth abuse Currently appears euvolemic February 05: Changed to p.o. Lasix from IV Lasix. On beta-juan. February 08: Rate is controlled, no crackles/edema. losartan added with blood pressure coming down to 116/75 February 09: I discontinued Norvasc 5 mg daily and increase losartan to 50 mg daily. Blood pressure today with the new losartan is 120/68, 126/72, 123/93. February 10: No changes. Blood pressure stable. February 11: 127/68, 121/76. No edema. No changes in meds. Last night blood pressure went up to 171/99. This morning she is 140/84, 124/84. Currently on a beta-juan, ARB, and diuretic. Congestive heart failure is stable. No crackles, no edema, no hypoxia. Patient is ambulating in the hallways. Eating well. I will not be adding Aldactone at this time. If she continues to have a systolic greater than 130, I will increase her losartan. Chronic or resolved Medical Problems addressed during her stay (3) Atrial fibrillation with RVR,. new diagnosis Assessment/Plan: February 06 she cleared enough to be cooperative with p.o. medications. As such I stopped her IV metoprolol and added metoprolol p.o. to her amiodarone p.o. February 07 she had occasional bursts of tachycardia as she ambulated in the room. But by afternoon her heart rate is 84. She has stayed in the 70s and 80s since then. Goes in and out of afib. Does go into sinus sometimes. Sinus right now. So rate is controlled with amiodarone po and metoprolol po. Anticoagulated with Eliquis. When she is discharged to prison facility I will verify which DOAC is covered by her insurance company. 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 Hypoxia from admission resolved. She is off contact precautions. (6) Hypertension Qualifiers: Hypertension type: unspecified Qualified Code(s): I10 - Essential (primary) hypertension Assessment/Plan: Initially we allowed permissive hypertension for 72 hours, then her home antihypertensive medications have been resumed. Blood pressure was getting lower with the addition of losartan. Because I needed to increase her ARB and possibly add Aldactone, I stopped her Norvasc 02/09. (7) Leukocytosis on admit. resolved 02/02/24. Assessment/Plan: Resolved, has completed 4 days of ceftriaxone treatment course but she pulled out the IV today for the 5th dose. I will not give more abx unless she spikes a temp or has worse WBC. (8) VICKI (acute kidney injury) Assessment/Plan: Improved, creatinine back to baseline, (9) Withdrawal complaint Assessment/Plan: Close monitoring (10) Hypoglycemia Assessment/Plan: No further hypoglycemia events Encourage oral intake Hypoglycemia protocol I stopped checking her sugars on February 08.
--- NOTE | 2024-02-14 17:46 | PROVIDER PROGRESS NOTE ---
Progress Note February 14, 2024 5:45 PM She is having an animated chat with PT. 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 Gesticulating using her arms. Laughing spontaneously. But she has definite word finding issues where she will start a sentence and then cannot complete it because she cannot remember or cannot say the words she wants to say. 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 But if she is looking straight ahead or at me she does not see the utensils on the right. Active Medications Albuterol (Albuterol 1 Puff) 2 puffs INH Q4H PRN PRN Reason: Shortness of Air/Wheezing Last Admin: 01/30/24 07:01 Dose: 2 puffs Albuterol (Albuterol Neb 2.5 Mg/3 Ml) 2.5 mg INH RTQ4H PRN PRN Reason: Wheezing Albuterol/Ipratropium (Ipratropium/Albuterol 3 Ml Neb) 3 ml INH Q4HR PRN PRN Reason: Wheezing Last Admin: 01/30/24 22:50 Dose: 3 ml Amiodarone HCl (Amiodarone 200 Mg Tablet) 200 mg PO DAILY [facility] Last Admin: 02/14/24 10:22 Dose: 200 mg Apixaban (Apixaban 5 Mg Tablet) 5 mg PO BID [facility] Last Admin: 02/14/24 10:22 Dose: 5 mg Atorvastatin Calcium (Atorvastatin 40 Mg Tablet) 40 mg PO QPM [facility] Last Admin: 02/13/24 20:47 Dose: 40 mg Bacitracin (Bacitracin Zinc Oint 1 Packet) 1 packet TOP PRN PRN PRN Reason: Skin Care Benzonatate (Benzonatate 100 Mg Capsule) 100 mg PO TID PRN PRN Reason: Cough Last Admin: 01/30/24 21:42 Dose: 100 mg Cholecalciferol (Cholecalciferol 25 Mcg Tablet) 50 mcg PO DAILY [facility] Last Admin: 02/14/24 10:21 Dose: 50 mcg Clonidine HCl (Clonidine 0.1 Mg Patch) 1 patch TOP Q7D [facility] Last Admin: 02/10/24 09:33 Dose: 1 patch Furosemide (Furosemide 20 Mg Tablet) 20 mg PO DAILY [facility] Last Admin: 02/14/24 10:22 Dose: 20 mg Guaifenesin (Guaifenesin 600 Mg Tablet) 600 mg PO BID PRN PRN Reason: Cough Last Admin: 02/06/24 14:08 Dose: 600 mg Losartan Potassium (Losartan 50 Mg Tablet) 50 mg PO DAILY [facility] Last Admin: 02/14/24 10:22 Dose: 50 mg Metoprolol Succinate (Metoprolol Succinate 25 Mg Tablet) 25 mg PO DAILY [facility] Last Admin: 02/14/24 10:22 Dose: 25 mg Polyethylene Glycol (Polyethylene Glycol 3350 17 Gm Packet) 17 gm PO DAILY [facility] Last Admin: 02/14/24 10:21 Dose: 17 gm Potassium Chloride (Potassium Chloride 20 Meq Tablet) 20 meq PO DAILY [facility] Last Admin: 02/14/24 10:22 Dose: 20 meq Multivit/Folic Acid/Iron ( Vitamin Tablet) 1 tab PO DAILY [facility] Last Admin: 02/14/24 10:21 Dose: 1 tab Thiamine HCl (Thiamine 100 Mg Tablet) 100 mg PO DAILY [facility] Last Admin: 02/14/24 10:22 Dose: 100 mg Throat Lozenges (Benzocaine/Menthol Lozenge) 1 lozenge MM Q2HR PRN PRN Reason: Throat pain Last Admin: 01/28/24 23:42 Dose: 1 lozenge No Known Home Medications 01/29/24 Exam: Temperature is 36.7. Heart rate 63. Blood pressure 124/81. Respirations 18. 99% on room air Short statured pleasant black female, morbidly obese at 5 foot 2 inches tall 84 kg. Neck is supple no bruits Lungs are clear without any increased respiratory effort as she speaks or walks the hallways with a walker Irregular rate and rhythm was present initially on her stay. She has been in sinus. I have stopped telemetry since the . Abdomen is obese, soft, nontender. Normal bowel sounds. Extremities without edema. Assessment/Plan - Problem List (1) CVA (cerebral vascular accident) Impression: She presented to the emergency room as shortness of breath and was positive for COVID. She had increasing symptoms for 7 days. Final evaluation in the ER showed her to be in A-fib with RVR. Troponins were 307 and a repeat was 279. By January 30 her ventricular rate was controlled, and her COVID cough had improved. But on the she developed slurred speech and continued to worsen over the next couple of days and developed right body weakness on the eighth. Her first CT of head was negative. But a second CT on February 02 confirmed a stroke. CTs of the head showed subtle hypoattenuation of the left parietal region. But acute infarct could not be excluded and MRI was recommended. This patient is too impulsive for us to try and get an MRI on. neurologist Consulted over the phone. Her Eliquis was held for a couple of days and then resumed. Permissive hypertension was allowed and then BP meds resumed. On my initial exam 02/04, she had significant neglect on the right side. Expressive aphasia was severe and continues to slowly improve.Speech therapy has seen her and she doesn't have dysphagia. Eliquis resumed. I added a statin with lipitor 40 mg daily. I reviewed her Echo done January 27 which showed moderate left ventricular enlargement, mild concentric left ventricular hypertrophy. Severely impaired ejection fraction of 25 to 30%. Severe right ventricular enlargement. Right ventricular systolic function moderately impaired. Mild to moderate mitral regurg. Mildly abnormal right heart pressures with an RVSP at rest of 49 mmHg. She does have a new diagnosis of atrial fibrillation in the context of methamphetamine abuse. She may have had a small microembolic stroke since she was not anticoagulated before admission and had only been on eliquis for afib 01/27-01/31. Over the course of this week that have been on, 9 days, she has steadily improved on a daily basis. She went from sleeping all the time and not getting out of bed and needing significant help from PT and OT and the nurses. To now walking in the hallways with a walker. No assist for mobility. Expressive aphasia has improved. Receptive aphasia still evident but less so than her expressive aphasia. She cannot actually speak. When I first met her she was mute. She has ataxia with 20 feet or so. Still has some right body neglect. Plan: No change in status. Medically stable since February 06. She is not on ASA due to being on Eliquis. My plan is to transfer to a assisted facility. She had really needed more rehab and is too impulsive to be by herself. From there, disposition may be long-term placement or return to her previous home where she lives in a trailer on her in-laws property. We have submitted a request for authorization and we are awaiting that for the assisted facility or an inpatient rehab. In the meantime she will continue to work with PT and OT when time is available for them. Social work has updated me and let me know that a few facilities already have declined taking her. Social work will continue to reach out. I will contine to have PT and OT work with her. She is improved to the point that some of these facilities are stating she does not need them anymore. Family of her ex kirill may be willing to take her back if she is independent. But for that to happen she needs to be able to take care of herself in a trailer. While they are willing to give her housing, they are not willing to take care of her on a day-to-day basis. (2) acute systolic CHF (congestive heart failure) now with chronic systolic heart failure Qualifiers: Heart failure type: unspecified Heart failure chronicity: acute on chronic Qualified Code(s): I50.9 - Heart failure, unspecified Assessment/Plan: Systolic heart failure, EF 25%, secondary to meth abuse Currently appears euvolemic February 05: Changed to p.o. Lasix from IV Lasix. On beta-juan. February 08: Rate is controlled, no crackles/edema. losartan added with blood pressure coming down to 116/75 February 09: I discontinued Norvasc 5 mg daily and increase losartan to 50 mg daily. Blood pressure today with the new losartan is 120/68, 126/72, 123/93. February 10: No changes. Blood pressure stable. February 11: 127/68, 121/76. No edema. No changes in meds. Blood pressure went up that night to 171/99. February 12: 140/84, 124/84. Today 153/99, 124/81. She seems to have a high blood pressure in the morning, and normal by the afternoon. Currently on a beta-juan, ARB, and diuretic. Congestive heart failure is stable. No crackles, no edema, no hypoxia. Patient is ambulating in the hallways. Eating well. I will not be adding Aldactone at this time. If she continues to have a systolic greater than 130, I will increase her losartan. Chronic or resolved Medical Problems addressed during her stay (3) Atrial fibrillation with RVR,. new diagnosis Assessment/Plan: February 06 she cleared enough to be cooperative with p.o. medications. As such I stopped her IV metoprolol and added metoprolol p.o. to her amiodarone p.o. February 07 she had occasional bursts of tachycardia as she ambulated in the room. But by afternoon her heart rate is 84. She has stayed in the 70s and 80s since then. Goes in and out of afib. Does go into sinus sometimes. Sinus right now. So rate is controlled with amiodarone po and metoprolol po. Anticoagulated with Eliquis. When she is discharged to assisted facility I will verify which DOAC is covered by her insurance company. No change for today (4) Methamphetamine abuse Assessment/Plan: building service worker is on the case (5) COVID Assessment/Plan: Received supportive treatment. Hypoxia from admission resolved. She is off contact precautions. (6) Hypertension Qualifiers: Hypertension type: unspecified Qualified Code(s): I10 - Essential (primary) hypertension Assessment/Plan: Initially we allowed permissive hypertension for 72 hours, then her home antihypertensive medications have been resumed. Blood pressure was getting lower with the addition of losartan. Because I needed to increase her ARB and possibly add Aldactone, I stopped her Norvasc 02/09. (7) Leukocytosis on admit. resolved 02/02/24. Assessment/Plan: Resolved, has completed 4 days of ceftriaxone treatment course but she pulled out the IV today for the 5th dose. I will not give more abx unless she spikes a temp or has worse WBC. (8) VICKI (acute kidney injury) Assessment/Plan: Improved, creatinine back to baseline, (9) Withdrawal complaint Assessment/Plan: Close monitoring (10) Hypoglycemia Assessment/Plan: No further hypoglycemia events Encourage oral intake Hypoglycemia protocol I stopped checking her sugars on February 08.
--- NOTE | 2024-02-15 13:08 | PROVIDER PROGRESS NOTE ---
Assessment/Plan - Problem List (1) CVA (cerebral vascular accident) Assessment/Plan: --Detailed synopsis from Dr. Medina's note: She presented to the emergency room as shortness of breath and was positive for COVID. She had increasing symptoms for 7 days. Final evaluation in the ER showed her to be in A-fib with RVR. Troponins were 307 and a repeat was 279. By January 30 her ventricular rate was controlled, and her COVID cough had improved. But on the she developed slurred speech and continued to worsen over the next couple of days and developed right body weakness on the . H er first CT of head was negative. But a second CT on February 02 confirmed a stroke. CTs of the head showed subtle hypoattenuation of the left parietal region. But acute infarct could not be excluded and MRI was recommended. This patient is too impulsive for us to try and get an MRI on. neurologist Consulted over the phone. Her Eliquis was held for a couple of days and then resumed. Permissive hypertension was allowed and then BP meds resumed. On my initial exam 02/04, she had significant neglect on the right side. Expressive aphasia was severe and continues to slowly improve.Speech therapy has seen her and she doesn't have dysphagia. Eliquis resumed. I added a statin with lipitor 40 mg daily. I reviewed her Echo done January 27 which showed moderate left ventricular enlargement, mild concentric left ventricular hypertrophy. Severely impaired ejection fraction of 25 to 30%. Severe right ventricular enlargement. Right ventricular systolic function moderately impaired. Mild to moderate mitral regurg. Mildly abnormal right heart pressures with an RVSP at rest of 49 mmHg. She does have a new diagnosis of atrial fibrillation in the context of methamphetamine abuse. She may have had a small microembolic stroke since she was not anticoagulated before admission and had only been on eliquis for afib 01/27-01/31. Over the course of this week that have been on, 9 days, she has steadily improved on a daily basis. She went from sleeping all the time and not getting out of bed and needing significant help from PT and OT and the nurses. To now walking in the hallways with a walker. No assist for mobility. Expressive aphasia has improved. Receptive aphasia still evident but less so than her expressive aphasia. She cannot actually speak. When I first met her she was mute. She has ataxia with 20 feet or so. Still has some right body neglect. --Patient medically stable since 02/06. --She is currently on Eliquis, pending transfer to a SNF. --Her disposition is complex due to her history of meth use and improvements in mobility putting into question whether she would benefit from SNF. Family of her ex kirill may be willing to take her back if she is independent. But for that to happen she needs to be able to take care of herself in a trailer. While they are willing to give her housing, they are not willing to take care of her on a day-to-day basis. 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 --Currently on losartan and metoprolol succinate. Can consider spironolactone and an SGLT2 inhibitor to optimize GDMT. --TTE showing LVEF 25-30%. (3) VICKI (acute kidney injury) Assessment/Plan: --Resolved. (4) Atrial fibrillation with RVR Assessment/Plan: --Continue metoprolol and Eliquis. She is also on Amiodarone. (5) COVID Assessment/Plan: --Hypoxia on admission has resolved. (6) Hypertension Qualifiers: Hypertension type: unspecified Qualified Code(s): I10 - Essential (primary) hypertension Assessment/Plan: --Will consider adding aldactone and SGLT inhibitor this week as BP allows. C urrently on Metoprolol and losartan. - Current Meds Current Meds: Current Medications Generic Name Dose Route Start Last Admin Trade Name Freq PRN Reason Stop Dose Admin Albuterol 2 puffs 01/29/24 02:26 01/30/24 07:01 Albuterol 1 Puff INH 2 puffs Q4H PRN Administration Shortness of Air/Wheezing Albuterol/Ipratropium 3 ml 01/29/24 21:44 01/30/24 22:50 Ipratropium/Albuterol 3 Ml Neb INH 3 ml Q4HR PRN Administration Wheezing Amiodarone HCl 200 mg 02/02/24 09:00 02/15/24 08:26 Amiodarone 200 Mg Tablet PO 200 mg DAILY TOI Administration Apixaban 5 mg 02/05/24 21:00 02/15/24 08:26 Apixaban 5 Mg Tablet PO 5 mg BID TOI Administration Atorvastatin Calcium 40 mg 02/10/24 21:00 02/14/24 20:08 Atorvastatin 40 Mg Tablet PO 40 mg QPM TOI Administration Benzonatate 100 mg 01/29/24 21:46 01/30/24 21:42 Benzonatate 100 Mg Capsule PO 100 mg TID PRN Administration Cough Cholecalciferol 50 mcg 02/06/24 17:00 02/15/24 08:26 Cholecalciferol 25 Mcg Tablet PO 50 mcg DAILY TOI Administration Clonidine HCl 1 patch 02/03/24 08:00 02/10/24 09:33 Clonidine 0.1 Mg Patch TOP 1 patch Q7D TOI Administration Furosemide 20 mg 02/07/24 09:00 02/15/24 08:26 Furosemide 20 Mg Tablet PO 20 mg DAILY TOI Administration Guaifenesin 600 mg 01/29/24 19:29 02/06/24 14:08 Guaifenesin 600 Mg Tablet PO 600 mg BID PRN Administration Cough Losartan Potassium 50 mg 02/11/24 09:00 02/15/24 08:26 Losartan 50 Mg Tablet PO 50 mg DAILY TOI Administration Metoprolol Succinate 25 mg 02/07/24 13:00 02/15/24 08:26 Metoprolol Succinate 25 Mg Tablet PO 25 mg DAILY TOI Administration Polyethylene Glycol 17 gm 02/08/24 09:00 02/15/24 08:26 Polyethylene Glycol 3350 17 Gm Packet PO 17 gm DAILY TOI Administration Potassium Chloride 20 meq 02/04/24 08:37 02/15/24 08:26 Potassium Chloride 20 Meq Tablet PO 20 meq DAILY TOI Administration Multivit/Folic Acid/Iron 1 tab 01/29/24 09:00 02/15/24 08:26 Vitamin Tablet PO 1 tab DAILY TOI Administration Thiamine HCl 100 mg 01/29/24 09:00 02/15/24 08:26 Thiamine 100 Mg Tablet PO 100 mg DAILY TOI Administration Throat Lozenges 1 lozenge 01/28/24 22:45 01/28/24 23:42 Benzocaine/Menthol Lozenge MM 1 lozenge Q2HR PRN Administration Throat pain - Lab Result Fish Bone Diagrams: 02/10/24 05:06 02/10/24 05:06 Subjective - Subjective Patient Reports: Resting Comfortably Objective Vital Signs: Vital Signs - 24 hr 02/14/24 02/14/24 02/15/24 15:24 23:28 08:05 Temperature 36.7 C 36.7 C 36.6 C Heart Rate [ 63 63 78 Brachial] Respiratory 18 18 16 Rate Blood Pressure 140/90 H [Left Brachial artery] Blood Pressure 124/81 H 117/74 [Right Brachial artery] O2 Saturation 99 97 96 Oxygen O2 Source Room air I&O (Last 24 Hrs): Intake and Output Totals x24h 02/13/24 02/14/24 02/15/24 23:59 23:59 23:59 Intake Total 1260 960 490 Balance 1260 960 490 General: Alert Neuro: Alert Cardiovascular: Regular rate, Normal S1, Normal S2 - Results Results: Laboratory Results WBC 5.1 x10^3/uL (4.8-10.8) 02/10/24 05:06 RBC 6.43 10^6/uL (4.20-5.40) H 02/10/24 05:06 Hgb 16.6 g/dL (12.0-16.0) H 02/10/24 05:06 Hct 53.8 % (37.0-47.0) H 02/10/24 05:06 MCV 83.7 fL (81.0-99.0) 02/10/24 05:06 MCH 25.8 pg (27.0-31.0) L 02/10/24 05:06 MCHC 30.9 g/dL (32.0-36.0) L 02/10/24 05:06 RDW 16.4 % (12.0-15.0) H 02/10/24 05:06 Plt Count 203 10^3/uL (130-450) 02/10/24 05:06 MPV 11.3 fL (7.9-10.8) H 02/10/24 05:06 Neut # (Auto) 2.4 10^3/uL (1.5-6.6) 02/10/24 05:06 Lymph # (Auto) 2.0 10^3/uL (1.5-3.5) 02/10/24 05:06 [place] # (Auto) 0.5 10^3/uL (0.0-1.0) 02/10/24 05:06 Eos # (Auto) 0.1 10^3/uL (0.0-0.7) 02/10/24 05:06 Baso # (Auto) 0.1 10^3/uL (0.0-0.1) 02/10/24 05:06 Absolute Nucleated RBC 0.00 x10^3/uL 02/10/24 05:06 Nucleated RBC % 0.0 /100WBC 02/10/24 05:06 VBG pH 7.341 (7.31-7.41) 01/30/24 05:46 Ionized Calcium 1.10 mmol/L (1.15-1.33) L 01/30/24 05:46 Sodium 137 mmol/L (135-145) 02/10/24 05:06 Potassium 4.2 mmol/L (3.5-4.5) 02/10/24 05:06 Chloride 105 mmol/L (101-111) 02/10/24 05:06 Carbon Dioxide 26 mmol/L (21-32) 02/10/24 05:06 Anion Gap 6.0 (6-13) 02/10/24 05:06 BUN 22 mg/dL (6-20) H 02/10/24 05:06 Creatinine 0.9 mg/dL (0.6-1.3) 02/10/24 05:06 Estimated GFR (MDRD) 77 (>89) L 02/10/24 05:06 Glucose 95 mg/dL (74-104) 02/10/24 05:06 POC Whole Bld Glucose 113 mg/dL (70 - 100) H 02/09/24 16:06 Estimat Average Glucose 140 mg/dL (70-100) H 01/31/24 08:55 Hemoglobin A1c % 6.5 % (4.27-6.07) H 01/31/24 08:55 Lactic Acid 2.5 mmol/L (0.5-2.2) H 01/28/24 11:48 Calcium 9.7 mg/dL (8.5-10.3) 02/10/24 05:06 Phosphorus 4.3 mg/dL (2.5-5.0) 01/30/24 05:46 Magnesium 2.0 mg/dL (1.7-2.3) 01/31/24 05:20 Total Bilirubin 1.4 mg/dL (0.2-1.0) H 02/02/24 10:58 AST 41 IU/L (10-42) 02/02/24 10:58 ALT 40 IU/L (10-60) 02/02/24 10:58 Alkaline Phosphatase 124 IU/L (42-121) H 02/02/24 10:58 Troponin I High Sens 253.6 ng/L (2.3-14.8) H* 01/29/24 05:24 C-Reactive Protein 1.9 mg/dL (<0.5) H 02/02/24 10:58 B-Natriuretic Peptide 1036 pg/mL (5-100) H 02/02/24 10:58 Total Protein 6.6 g/dL (6.4-8.9) 02/02/24 10:58 Albumin 3.1 g/dL (3.2-5.5) L 02/02/24 10:58 Globulin 3.5 g/dL (2.1-4.2) 02/02/24 10:58 Albumin/Globulin Ratio 0.9 (1.0-2.2) L 02/02/24 10:58 Lipase 20 U/L (11-82) 01/28/24 11:00 Urine Color YELLOW 01/28/24 22:00 Urine Clarity HAZY (CLEAR) 01/28/24 22:00 Urine pH 6.0 PH (5.0-7.5) 01/28/24 22:00 Ur Specific [place] 1.015 (1.002-1.030) 01/28/24 22:00 Urine Protein 100 mg/dL (NEGATIVE) H 01/28/24 22:00 Urine Glucose (UA) NEGATIVE mg/dL (NEGATIVE) 01/28/24 22:00 Urine Ketones NEGATIVE mg/dL (NEGATIVE) 01/28/24 22:00 Urine Occult Blood TRACE-LYSE (NEGATIVE) 01/28/24 22:00 Urine Nitrite POSITIVE (NEGATIVE) H 01/28/24 22:00 Urine Bilirubin NEGATIVE (NEGATIVE) 01/28/24 22:00 Urine Urobilinogen 1 (NORMAL) E.U./dL (NORMAL) 01/28/24 22:00 Ur Leukocyte Esterase NEGATIVE (NEGATIVE) 01/28/24 22:00 Urine RBC 0-5 /HPF (0-5) 01/28/24 22:00 Urine WBC 4-5 /HPF (0-5) 01/28/24 22:00 Ur Squamous Epith Cells FEW Squamous (<= Few) 01/28/24 22:00 Urine Bacteria Many /HPF (None Seen) H 01/28/24 22:00 Urine Casts 3-5 Hyaline Casts /LPF 01/28/24 22:00 Ur Microscopic Review INDICATED 01/28/24 22:00 Urine Culture Comments INDICATED 01/28/24 22:00 Nasal Screen MRSA (PCR) NEGATIVE (NEGATIVE) 01/28/24 21:00 Urine Opiates Screen NEGATIVE (NEGATIVE) 01/28/24 22:00 Ur Buprenorphine Scrn NEGATIVE (NEGATIVE) 01/28/24 22:00 Ur Oxycodone Screen NEGATIVE (NEGATIVE) 01/28/24 22:00 Urine Methadone Screen NEGATIVE (NEGATIVE) 01/28/24 22:00 Ur Barbiturates Screen NEGATIVE (NEGATIVE) 01/28/24 22:00 Ur Tricyclics Screen NEGATIVE (NEGATIVE) 01/28/24 22:00 Ur Phencyclidine Scrn NEGATIVE (NEGATIVE) 01/28/24 22:00 Ur Amphetamine Screen POSITIVE (NEGATIVE) H 01/28/24 22:00 U Methamphetamines Scrn NEGATIVE (NEGATIVE) 01/28/24 22:00 U Benzodiazepines Scrn NEGATIVE (NEGATIVE) 01/28/24 22:00 Urine Cocaine Screen NEGATIVE (NEGATIVE) 01/28/24 22:00 U Cannabinoids Screen NEGATIVE (NEGATIVE) 01/28/24 22:00 Ur Drug Screen Comment CUTOFF CONC BELOW: 01/28/24 22:00 SARS-CoV-2 (PCR) NOT DETECTED 01/29/24 09:30 - Procedures Procedures: Procedures EXCISION OF PERITONEUM, OPEN APPROACH, DIAGNOSTIC (05/24/18) SUPPLEMENT ABDOMINAL WALL WITH SYNTH SUB, OPEN APPROACH (05/24/18) Sepsis Event Note (H) - Evaluation Current Stage of Sepsis: Ruled out
--- NOTE | 2024-02-16 10:31 | Discharge Plan ---
Discharge Plan Problem Reviewed?: Yes Disposition: Home, Self Care Condition: Fair Diet: Cardiac Activity Restrictions: Activity as Tolerated No Smoking: If you smoke, Please STOP! Call for help.
[2024-02-16] MEDS ORDERED: LORazepam 1 MG TABLET PO PRN ×2 (10:47→10:55)
--- NOTE | 2024-02-16 13:27 | PROVIDER PROGRESS NOTE ---
Assessment/Plan - Problem List (1) CVA (cerebral vascular accident) Assessment/Plan: (1) CVA (cerebral vascular accident) Assessment/Plan: --Detailed synopsis from Dr. Medina's note: She presented to the emergency room as shortness of breath and was positive for COVID. She had increasing symptoms for 7 days. Final evaluation in the ER showed her to be in A-fib with RVR. Troponins were 307 and a repeat was 279. By January 30 her ventricular rate was controlled, and her COVID cough had improved. But on the she developed slurred speech and continued to worsen over the next couple of days and developed right body weakness on the . Her first CT of head was negative. But a second CT on February 02 confirmed a stroke. CTs of the head showed subtle hypoattenuation of the left parietal region. But acute infarct could not be excluded and MRI was recommended. This patient is too impulsive for us to try and get an MRI on. neurologist Consulted over the phone. Her Eliquis was held for a couple of days and then resumed. Permissive hypertension was allowed and then BP meds resumed. On my initial exam 02/04, she had significant neglect on the right side. Expressive aphasia was severe and continues to slowly improve.Speech therapy has seen her and she doesn't have dysphagia. Eliquis resumed. I added a statin with lipitor 40 mg daily. I reviewed her Echo done January 27 which showed moderate left ventricular enlargement, mild concentric left ventricular hypertrophy. Severely impaired ejection fraction of 25 to 30%. Severe right ventricular enlargement. Right ventricular systolic function moderately impaired. Mild to moderate mitral regurg. Mildly abnormal right heart pressures with an RVSP at rest of 49 mmHg. She does have a new diagnosis of atrial fibrillation in the context of methamphetamine abuse. She may have had a small microembolic stroke since she was not anticoagulated before admission and had only been on eliquis for afib 01/27-01/31. Over the course of this week that have been on, 9 days, she has steadily improved on a daily basis. She went from sleeping all the time and not getting out of bed and needing significant help from PT and OT and the nurses. To now walking in the hallways with a walker. No assist for mobility. Expressive aphasia has improved. Receptive aphasia still evident but less so than her e xpressive aphasia. She cannot actually speak. When I first met her she was mute. She has ataxia with 20 feet or so. Still has some right body neglect. --Patient medically stable since 02/06. --She is currently on Eliquis, pending transfer to a SNF. --Her disposition is complex due to her history of meth use and improvements in mobility putting into question whether she would benefit from SNF. Family of her ex kirill may be willing to take her back if she is independent. But for that to happen she needs to be able to take care of herself in a trailer. While they are willing to give her housing, they are not willing to take care of her on a day-to-day basis. 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 --Currently on losartan and metoprolol succinate. Can consider spironolactone and an SGLT2 inhibitor to optimize GDMT. --TTE showing LVEF 25-30%. (3) VICKI (acute kidney injury) Assessment/Plan: --Resolved. (4) Atrial fibrillation with RVR Assessment/Plan: --Continue metoprolol and Eliquis. She is also on Amiodarone. (5) COVID Assessment/Plan: --Hypoxia on admission has resolved. (6) Hypertension Qualifiers: Hypertension type: unspecified Qualified Code(s): I10 - Essential (primary) hypertension Assessment/Plan: --Will consider adding aldactone and SGLT inhibitor this week as BP allows. Currently on Metoprolol and losartan. (2) CHF (congestive heart failure) Qualifiers: Heart failure type: unspecified Heart failure chronicity: acute on chronic Qualified Code(s): I50.9 - Heart failure, unspecified (6) Hypertension Qualifiers: Hypertension type: unspecified Qualified Code(s): I10 - Essential (primary) hypertension - Current Meds Current Meds: Current Medications Generic Name Dose Route Start Last Admin Trade Name Freq PRN Reason Stop Dose Admin Albuterol 2 puffs 01/29/24 02:26 01/30/24 07:01 Albuterol 1 Puff INH 2 puffs Q4H PRN Administration Shortness of Air/Wheezing Albuterol/Ipratropium 3 ml 01/29/24 21:44 01/30/24 22:50 Ipratropium/Albuterol 3 Ml Neb INH 3 ml Q4HR PRN Administration Wheezing Amiodarone HCl 200 mg 02/02/24 09:00 02/16/24 08:58 Amiodarone 200 Mg Tablet PO 200 mg DAILY TOI Administration Apixaban 5 mg 02/05/24 21:00 02/16/24 08:58 Apixaban 5 Mg Tablet PO 5 mg BID TOI Administration Atorvastatin Calcium 40 mg 02/10/24 21:00 02/15/24 20:34 Atorvastatin 40 Mg Tablet PO 40 mg QPM TOI Administration Benzonatate 100 mg 01/29/24 21:46 01/30/24 21:42 Benzonatate 100 Mg Capsule PO 100 mg TID PRN Administration Cough Cholecalciferol 50 mcg 02/06/24 17:00 02/16/24 08:58 Cholecalciferol 25 Mcg Tablet PO 50 mcg DAILY TOI Administration Clonidine HCl 1 patch 02/03/24 08:00 02/10/24 09:33 Clonidine 0.1 Mg Patch TOP 1 patch Q7D TOI Administration Furosemide 20 mg 02/07/24 09:00 02/16/24 08:58 Furosemide 20 Mg Tablet PO 20 mg DAILY TOI Administration Guaifenesin 600 mg 01/29/24 19:29 02/06/24 14:08 Guaifenesin 600 Mg Tablet PO 600 mg BID PRN Administration Cough Losartan Potassium 50 mg 02/11/24 09:00 02/16/24 08:58 Losartan 50 Mg Tablet PO 50 mg DAILY TOI Administration Metoprolol Succinate 25 mg 02/07/24 13:00 02/16/24 08:58 Metoprolol Succinate 25 Mg Tablet PO 25 mg DAILY TOI Administration Polyethylene Glycol 17 gm 02/08/24 09:00 02/16/24 08:58 Polyethylene Glycol 3350 17 Gm Packet PO Not Given DAILY TOI Potassium Chloride 20 meq 02/04/24 08:37 02/16/24 08:58 Potassium Chloride 20 Meq Tablet PO 20 meq DAILY TOI Administration Multivit/Folic Acid/Iron 1 tab 01/29/24 09:00 02/16/24 08:58 Vitamin Tablet PO 1 tab DAILY TOI Administration Thiamine HCl 100 mg 01/29/24 09:00 02/16/24 08:58 Thiamine 100 Mg Tablet PO 100 mg DAILY TOI Administration Throat Lozenges 1 lozenge 01/28/24 22:45 01/28/24 23:42 Benzocaine/Menthol Lozenge MM 1 lozenge Q2HR PRN Administration Throat pain - Lab Result Fish Bone Diagrams: 02/10/24 05:06 02/10/24 05:06 - Additional Planning My Orders: My Active Orders 02/16/24 10:07 Discharge [RC] .ONCE Initiate Discharge Checklist [RC] .ONCE 02/16/24 10:55 LORazepam [Ativan] 1 mg PO Q6H PRN Subjective - Subjective Patient Reports: Resting Comfortably, No Complaints Objective Vital Signs: Vital Signs - 24 hr 02/15/24 02/16/24 02/16/24 16:25 00:57 08:56 Temperature 36.6 C 36.6 C 36.4 C L Heart Rate [ 63 66 77 Brachial] Respiratory 18 18 16 Rate Blood Pressure 116/72 [Left Brachial artery] Blood Pressure 151/95 H [Right Brachial artery] Blood Pressure 146/99 H [Right Radial artery] O2 Saturation 97 95 93 Oxygen O2 Source Room air I&O (Last 24 Hrs): Intake and Output Totals x24h 02/14/24 02/15/24 02/16/24 23:59 23:59 23:59 Intake Total 960 730 240 Balance 960 730 240 General: Alert Cardiovascular: Regular rate, Normal S1, Normal S2 Respiratory: Breath sounds nml - Results Results: Laboratory Results WBC 5.1 x10^3/uL (4.8-10.8) 02/10/24 05:06 RBC 6.43 10^6/uL (4.20-5.40) H 02/10/24 05:06 Hgb 16.6 g/dL (12.0-16.0) H 02/10/24 05:06 Hct 53.8 % (37.0-47.0) H 02/10/24 05:06 MCV 83.7 fL (81.0-99.0) 02/10/24 05:06 MCH 25.8 pg (27.0-31.0) L 02/10/24 05:06 MCHC 30.9 g/dL (32.0-36.0) L 02/10/24 05:06 RDW 16.4 % (12.0-15.0) H 02/10/24 05:06 Plt Count 203 10^3/uL (130-450) 02/10/24 05:06 MPV 11.3 fL (7.9-10.8) H 02/10/24 05:06 Neut # (Auto) 2.4 10^3/uL (1.5-6.6) 02/10/24 05:06 Lymph # (Auto) 2.0 10^3/uL (1.5-3.5) 02/10/24 05:06 [place] # (Auto) 0.5 10^3/uL (0.0-1.0) 02/10/24 05:06 Eos # (Auto) 0.1 10^3/uL (0.0-0.7) 02/10/24 05:06 Baso # (Auto) 0.1 10^3/uL (0.0-0.1) 02/10/24 05:06 Absolute Nucleated RBC 0.00 x10^3/uL 02/10/24 05:06 Nucleated RBC % 0.0 /100WBC 02/10/24 05:06 VBG pH 7.341 (7.31-7.41) 01/30/24 05:46 Ionized Calcium 1.10 mmol/L (1.15-1.33) L 01/30/24 05:46 Sodium 137 mmol/L (135-145) 02/10/24 05:06 Potassium 4.2 mmol/L (3.5-4.5) 02/10/24 05:06 Chloride 105 mmol/L (101-111) 02/10/24 05:06 Carbon Dioxide 26 mmol/L (21-32) 02/10/24 05:06 Anion Gap 6.0 (6-13) 02/10/24 05:06 BUN 22 mg/dL (6-20) H 02/10/24 05:06 Creatinine 0.9 mg/dL (0.6-1.3) 02/10/24 05:06 Estimated GFR (MDRD) 77 (>89) L 02/10/24 05:06 Glucose 95 mg/dL (74-104) 02/10/24 05:06 POC Whole Bld Glucose 113 mg/dL (70 - 100) H 02/09/24 16:06 Estimat Average Glucose 140 mg/dL (70-100) H 01/31/24 08:55 Hemoglobin A1c % 6.5 % (4.27-6.07) H 01/31/24 08:55 Lactic Acid 2.5 mmol/L (0.5-2.2) H 01/28/24 11:48 Calcium 9.7 mg/dL (8.5-10.3) 02/10/24 05:06 Phosphorus 4.3 mg/dL (2.5-5.0) 01/30/24 05:46 Magnesium 2.0 mg/dL (1.7-2.3) 01/31/24 05:20 Total Bilirubin 1.4 mg/dL (0.2-1.0) H 02/02/24 10:58 AST 41 IU/L (10-42) 02/02/24 10:58 ALT 40 IU/L (10-60) 02/02/24 10:58 Alkaline Phosphatase 124 IU/L (42-121) H 02/02/24 10:58 Troponin I High Sens 253.6 ng/L (2.3-14.8) H* 01/29/24 05:24 C-Reactive Protein 1.9 mg/dL (<0.5) H 02/02/24 10:58 B-Natriuretic Peptide 1036 pg/mL (5-100) H 02/02/24 10:58 Total Protein 6.6 g/dL (6.4-8.9) 02/02/24 10:58 Albumin 3.1 g/dL (3.2-5.5) L 02/02/24 10:58 Globulin 3.5 g/dL (2.1-4.2) 02/02/24 10:58 Albumin/Globulin Ratio 0.9 (1.0-2.2) L 02/02/24 10:58 Lipase 20 U/L (11-82) 01/28/24 11:00 Urine Color YELLOW 01/28/24 22:00 Urine Clarity HAZY (CLEAR) 01/28/24 22:00 Urine pH 6.0 PH (5.0-7.5) 01/28/24 22:00 Ur Specific [place] 1.015 (1.002-1.030) 01/28/24 22:00 Urine Protein 100 mg/dL (NEGATIVE) H 01/28/24 22:00 Urine Glucose (UA) NEGATIVE mg/dL (NEGATIVE) 01/28/24 22:00 Urine Ketones NEGATIVE mg/dL (NEGATIVE) 01/28/24 22:00 Urine Occult Blood TRACE-LYSE (NEGATIVE) 01/28/24 22:00 Urine Nitrite POSITIVE (NEGATIVE) H 01/28/24 22:00 Urine Bilirubin NEGATIVE (NEGATIVE) 01/28/24 22:00 Urine Urobilinogen 1 (NORMAL) E.U./dL (NORMAL) 01/28/24 22:00 Ur Leukocyte Esterase NEGATIVE (NEGATIVE) 01/28/24 22:00 Urine RBC 0-5 /HPF (0-5) 01/28/24 22:00 Urine WBC 4-5 /HPF (0-5) 01/28/24 22:00 Ur Squamous Epith Cells FEW Squamous (<= Few) 01/28/24 22:00 Urine Bacteria Many /HPF (None Seen) H 01/28/24 22:00 Urine Casts 3-5 Hyaline Casts /LPF 01/28/24 22:00 Ur Microscopic Review INDICATED 01/28/24 22:00 Urine Culture Comments INDICATED 01/28/24 22:00 Nasal Screen MRSA (PCR) NEGATIVE (NEGATIVE) 01/28/24 21:00 Urine Opiates Screen NEGATIVE (NEGATIVE) 01/28/24 22:00 Ur Buprenorphine Scrn NEGATIVE (NEGATIVE) 01/28/24 22:00 Ur Oxycodone Screen NEGATIVE (NEGATIVE) 01/28/24 22:00 Urine Methadone Screen NEGATIVE (NEGATIVE) 01/28/24 22:00 Ur Barbiturates Screen NEGATIVE (NEGATIVE) 01/28/24 22:00 Ur Tricyclics Screen NEGATIVE (NEGATIVE) 01/28/24 22:00 Ur Phencyclidine Scrn NEGATIVE (NEGATIVE) 01/28/24 22:00 Ur Amphetamine Screen POSITIVE (NEGATIVE) H 01/28/24 22:00 U Methamphetamines Scrn NEGATIVE (NEGATIVE) 01/28/24 22:00 U Benzodiazepines Scrn NEGATIVE (NEGATIVE) 01/28/24 22:00 Urine Cocaine Screen NEGATIVE (NEGATIVE) 01/28/24 22:00 U Cannabinoids Screen NEGATIVE (NEGATIVE) 01/28/24 22:00 Ur Drug Screen Comment CUTOFF CONC BELOW: 01/28/24 22:00 SARS-CoV-2 (PCR) NOT DETECTED 01/29/24 09:30 - Procedures Procedures: Procedures EXCISION OF PERITONEUM, OPEN APPROACH, DIAGNOSTIC (05/24/18) SUPPLEMENT ABDOMINAL WALL WITH SYNTH SUB, OPEN APPROACH (05/24/18) Sepsis Event Note (H) - Evaluation Current Stage of Sepsis: Ruled out
--- NOTE | 2024-02-17 08:42 | PROVIDER PROGRESS NOTE ---
Assessment/Plan - Problem List (1) CVA (cerebral vascular accident) Assessment/Plan: (1) CVA (cerebral vascular accident) Assessment/Plan: --Detailed synopsis from Dr. Medina's note: She presented to the emergency room as shortness of breath and was positive for COVID. She had increasing symptoms for 7 days. Final evaluation in the ER showed her to be in A-fib with RVR. Troponins were 307 and a repeat was 279. By January 30 her ventricular rate was controlled, and her COVID cough had improved. But on the she developed slurred speech and continued to worsen over the next couple of days and developed right body weakness on the . Her first CT of head was negative. But a second CT on February 02 confirmed a stroke. CTs of the head showed subtle hypoattenuation of the left parietal region. But acute infarct could not be excluded and MRI was recommended. This patient is too impulsive for us to try and get an MRI on. neurologist Consulted over the phone. Her Eliquis was held for a couple of days and then resumed. Permissive hypertension was allowed and then BP meds resumed. On my initial exam 02/04, she had significant neglect on the right side. Expressive aphasia was severe and continues to slowly improve.Speech therapy has seen her and she doesn't have dysphagia. Eliquis resumed. I added a statin with lipitor 40 mg daily. I reviewed her Echo done January 27 which showed moderate left ventricular enlargement, mild concentric left ventricular hypertrophy. Severely impaired ejection fraction of 25 to 30%. Severe right ventricular enlargement. Right ventricular systolic function moderately impaired. Mild to moderate mitral regurg. Mildly abnormal right heart pressures with an RVSP at rest of 49 mmHg. She does have a new diagnosis of atrial fibrillation in the context of methamphetamine abuse. She may have had a small microembolic stroke since she was not anticoagulated before admission and had only been on eliquis for afib 01/27-01/31. Over the course of this week that have been on, 9 days, she has steadily improved on a daily basis. She went from sleeping all the time and not getting out of bed and needing significant help from PT and OT and the nurses. To now walking in the hallways with a walker. No assist for mobility. Expressive aphasia has improved. Receptive aphasia still evident but less so than her e xpressive aphasia. She cannot actually speak. When I first met her she was mute. She has ataxia with 20 feet or so. Still has some right body neglect. --Patient medically stable since 02/06. --She is currently on Eliquis, pending transfer to a SNF. --Her disposition is complex due to her history of meth use and improvements in mobility putting into question whether she would benefit from SNF. Family of her ex kirill may be willing to take her back if she is independent. But for that to happen she needs to be able to take care of herself in a trailer. While they are willing to give her housing, they are not willing to take care of her on a day-to-day basis. 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 --Currently on losartan and metoprolol succinate. Can consider spironolactone and an SGLT2 inhibitor to optimize GDMT. --TTE showing LVEF 25-30%. (3) VICKI (acute kidney injury) Assessment/Plan: --Resolved. (4) Atrial fibrillation with RVR Assessment/Plan: --Continue metoprolol and Eliquis. She is also on Amiodarone. (5) COVID Assessment/Plan: --Hypoxia on admission has resolved. (6) Hypertension Qualifiers: Hypertension type: unspecified Qualified Code(s): I10 - Essential (primary) hypertension Assessment/Plan: --Will consider adding aldactone and SGLT inhibitor this week as BP allows. Currently on Metoprolol and losartan. Dispo: Will discharge to [facility] on Monday at 1100. (2) CHF (congestive heart failure) Qualifiers: Heart failure type: unspecified Heart failure chronicity: acute on chronic Qualified Code(s): I50.9 - Heart failure, unspecified (6) Hypertension Qualifiers: Hypertension type: unspecified Qualified Code(s): I10 - Essential (primary) hypertension - Current Meds Current Meds: Current Medications Generic Name Dose Route Start Last Admin Trade Name Freq PRN Reason Stop Dose Admin Albuterol 2 puffs 01/29/24 02:26 01/30/24 07:01 Albuterol 1 Puff INH 2 puffs Q4H PRN Administration Shortness of Air/Wheezing Albuterol/Ipratropium 3 ml 01/29/24 21:44 01/30/24 22:50 Ipratropium/Albuterol 3 Ml Neb INH 3 ml Q4HR PRN Administration Wheezing Amiodarone HCl 200 mg 02/02/24 09:00 02/16/24 08:58 Amiodarone 200 Mg Tablet PO 200 mg DAILY TOI Administration Apixaban 5 mg 02/05/24 21:00 02/16/24 20:46 Apixaban 5 Mg Tablet PO 5 mg BID TOI Administration Atorvastatin Calcium 40 mg 02/10/24 21:00 02/16/24 20:46 Atorvastatin 40 Mg Tablet PO 40 mg QPM TOI Administration Benzonatate 100 mg 01/29/24 21:46 01/30/24 21:42 Benzonatate 100 Mg Capsule PO 100 mg TID PRN Administration Cough Cholecalciferol 50 mcg 02/06/24 17:00 02/16/24 08:58 Cholecalciferol 25 Mcg Tablet PO 50 mcg DAILY TOI Administration Clonidine HCl 1 patch 02/03/24 08:00 02/10/24 09:33 Clonidine 0.1 Mg Patch TOP 1 patch Q7D TOI Administration Furosemide 20 mg 02/07/24 09:00 02/16/24 08:58 Furosemide 20 Mg Tablet PO 20 mg DAILY TOI Administration Guaifenesin 600 mg 01/29/24 19:29 02/06/24 14:08 Guaifenesin 600 Mg Tablet PO 600 mg BID PRN Administration Cough Losartan Potassium 50 mg 02/11/24 09:00 02/16/24 08:58 Losartan 50 Mg Tablet PO 50 mg DAILY TOI Administration Metoprolol Succinate 25 mg 02/07/24 13:00 02/16/24 08:58 Metoprolol Succinate 25 Mg Tablet PO 25 mg DAILY TOI Administration Polyethylene Glycol 17 gm 02/08/24 09:00 02/16/24 08:58 Polyethylene Glycol 3350 17 Gm Packet PO Not Given DAILY [facility] Potassium Chloride 20 meq 02/04/24 08:37 02/16/24 08:58 Potassium Chloride 20 Meq Tablet PO 20 meq DAILY TOI Administration Multivit/Folic Acid/Iron 1 tab 01/29/24 09:00 02/16/24 08:58 Vitamin Tablet PO 1 tab DAILY TOI Administration Thiamine HCl 100 mg 01/29/24 09:00 02/16/24 08:58 Thiamine 100 Mg Tablet PO 100 mg DAILY TOI Administration Throat Lozenges 1 lozenge 01/28/24 22:45 01/28/24 23:42 Benzocaine/Menthol Lozenge MM 1 lozenge Q2HR PRN Administration Throat pain - Lab Result Fish Bone Diagrams: 02/10/24 05:06 02/10/24 05:06 - Additional Planning My Orders: My Active Orders 02/16/24 10:07 Discharge [RC] .ONCE Initiate Discharge Checklist [RC] .ONCE 02/16/24 10:55 LORazepam [Ativan] 1 mg PO Q6H PRN Subjective - Subjective Patient Reports: Resting Comfortably Objective Vital Signs: Vital Signs - 24 hr 02/16/24 02/16/24 02/16/24 08:56 16:02 23:42 Temperature 36.4 C L 36.5 C 36.6 C Heart Rate [ 77 63 62 Brachial] Respiratory 16 16 18 Rate Blood Pressure 116/72 135/80 H [Left Brachial artery] Blood Pressure [Right Radial artery] O2 Saturation 93 95 98 02/16/24 02/17/24 23:55 07:53 Temperature 36.6 C 36.6 C Heart Rate [ 62 73 Brachial] Respiratory 18 20 Rate Blood Pressure [Left Brachial artery] Blood Pressure 143/87 H 138/93 H [Right Radial artery] O2 Saturation 98 94 Oxygen O2 Source Room air I&O (Last 24 Hrs): Intake and Output Totals x24h 02/15/24 02/16/24 02/17/24 23:59 23:59 23:59 Intake Total 730 360 120 Balance 730 360 120 General: Alert, Cooperative, No acute distress Neuro: Speech Slurred Cardiovascular: Regular rate, Normal S1, Normal S2 Respiratory: Breath sounds nml Abdomen: Soft - Results Results: Laboratory Results WBC 5.1 x10^3/uL (4.8-10.8) 02/10/24 05:06 RBC 6.43 10^6/uL (4.20-5.40) H 02/10/24 05:06 Hgb 16.6 g/dL (12.0-16.0) H 02/10/24 05:06 Hct 53.8 % (37.0-47.0) H 02/10/24 05:06 MCV 83.7 fL (81.0-99.0) 02/10/24 05:06 MCH 25.8 pg (27.0-31.0) L 02/10/24 05:06 MCHC 30.9 g/dL (32.0-36.0) L 02/10/24 05:06 RDW 16.4 % (12.0-15.0) H 02/10/24 05:06 Plt Count 203 10^3/uL (130-450) 02/10/24 05:06 MPV 11.3 fL (7.9-10.8) H 02/10/24 05:06 Neut # (Auto) 2.4 10^3/uL (1.5-6.6) 02/10/24 05:06 Lymph # (Auto) 2.0 10^3/uL (1.5-3.5) 02/10/24 05:06 [place] # (Auto) 0.5 10^3/uL (0.0-1.0) 02/10/24 05:06 Eos # (Auto) 0.1 10^3/uL (0.0-0.7) 02/10/24 05:06 Baso # (Auto) 0.1 10^3/uL (0.0-0.1) 02/10/24 05:06 Absolute Nucleated RBC 0.00 x10^3/uL 02/10/24 05:06 Nucleated RBC % 0.0 /100WBC 02/10/24 05:06 VBG pH 7.341 (7.31-7.41) 01/30/24 05:46 Ionized Calcium 1.10 mmol/L (1.15-1.33) L 01/30/24 05:46 Sodium 137 mmol/L (135-145) 02/10/24 05:06 Potassium 4.2 mmol/L (3.5-4.5) 02/10/24 05:06 Chloride 105 mmol/L (101-111) 02/10/24 05:06 Carbon Dioxide 26 mmol/L (21-32) 02/10/24 05:06 Anion Gap 6.0 (6-13) 02/10/24 05:06 BUN 22 mg/dL (6-20) H 02/10/24 05:06 Creatinine 0.9 mg/dL (0.6-1.3) 02/10/24 05:06 Estimated GFR (MDRD) 77 (>89) L 02/10/24 05:06 Glucose 95 mg/dL (74-104) 02/10/24 05:06 POC Whole Bld Glucose 113 mg/dL (70 - 100) H 02/09/24 16:06 Estimat Average Glucose 140 mg/dL (70-100) H 01/31/24 08:55 Hemoglobin A1c % 6.5 % (4.27-6.07) H 01/31/24 08:55 Lactic Acid 2.5 mmol/L (0.5-2.2) H 01/28/24 11:48 Calcium 9.7 mg/dL (8.5-10.3) 02/10/24 05:06 Phosphorus 4.3 mg/dL (2.5-5.0) 01/30/24 05:46 Magnesium 2.0 mg/dL (1.7-2.3) 01/31/24 05:20 Total Bilirubin 1.4 mg/dL (0.2-1.0) H 02/02/24 10:58 AST 41 IU/L (10-42) 02/02/24 10:58 ALT 40 IU/L (10-60) 02/02/24 10:58 Alkaline Phosphatase 124 IU/L (42-121) H 02/02/24 10:58 Troponin I High Sens 253.6 ng/L (2.3-14.8) H* 01/29/24 05:24 C-Reactive Protein 1.9 mg/dL (<0.5) H 02/02/24 10:58 B-Natriuretic Peptide 1036 pg/mL (5-100) H 02/02/24 10:58 Total Protein 6.6 g/dL (6.4-8.9) 02/02/24 10:58 Albumin 3.1 g/dL (3.2-5.5) L 02/02/24 10:58 Globulin 3.5 g/dL (2.1-4.2) 02/02/24 10:58 Albumin/Globulin Ratio 0.9 (1.0-2.2) L 02/02/24 10:58 Lipase 20 U/L (11-82) 01/28/24 11:00 Urine Color YELLOW 01/28/24 22:00 Urine Clarity HAZY (CLEAR) 01/28/24 22:00 Urine pH 6.0 PH (5.0-7.5) 01/28/24 22:00 Ur Specific [place] 1.015 (1.002-1.030) 01/28/24 22:00 Urine Protein 100 mg/dL (NEGATIVE) H 01/28/24 22:00 Urine Glucose (UA) NEGATIVE mg/dL (NEGATIVE) 01/28/24 22:00 Urine Ketones NEGATIVE mg/dL (NEGATIVE) 01/28/24 22:00 Urine Occult Blood TRACE-LYSE (NEGATIVE) 01/28/24 22:00 Urine Nitrite POSITIVE (NEGATIVE) H 01/28/24 22:00 Urine Bilirubin NEGATIVE (NEGATIVE) 01/28/24 22:00 Urine Urobilinogen 1 (NORMAL) E.U./dL (NORMAL) 01/28/24 22:00 Ur Leukocyte Esterase NEGATIVE (NEGATIVE) 01/28/24 22:00 Urine RBC 0-5 /HPF (0-5) 01/28/24 22:00 Urine WBC 4-5 /HPF (0-5) 01/28/24 22:00 Ur Squamous Epith Cells FEW Squamous (<= Few) 01/28/24 22:00 Urine Bacteria Many /HPF (None Seen) H 01/28/24 22:00 Urine Casts 3-5 Hyaline Casts /LPF 01/28/24 22:00 Ur Microscopic Review INDICATED 01/28/24 22:00 Urine Culture Comments INDICATED 01/28/24 22:00 Nasal Screen MRSA (PCR) NEGATIVE (NEGATIVE) 01/28/24 21:00 Urine Opiates Screen NEGATIVE (NEGATIVE) 01/28/24 22:00 Ur Buprenorphine Scrn NEGATIVE (NEGATIVE) 01/28/24 22:00 Ur Oxycodone Screen NEGATIVE (NEGATIVE) 01/28/24 22:00 Urine Methadone Screen NEGATIVE (NEGATIVE) 01/28/24 22:00 Ur Barbiturates Screen NEGATIVE (NEGATIVE) 01/28/24 22:00 Ur Tricyclics Screen NEGATIVE (NEGATIVE) 01/28/24 22:00 Ur Phencyclidine Scrn NEGATIVE (NEGATIVE) 01/28/24 22:00 Ur Amphetamine Screen POSITIVE (NEGATIVE) H 01/28/24 22:00 U Methamphetamines Scrn NEGATIVE (NEGATIVE) 01/28/24 22:00 U Benzodiazepines Scrn NEGATIVE (NEGATIVE) 01/28/24 22:00 Urine Cocaine Screen NEGATIVE (NEGATIVE) 01/28/24 22:00 U Cannabinoids Screen NEGATIVE (NEGATIVE) 01/28/24 22:00 Ur Drug Screen Comment CUTOFF CONC BELOW: 01/28/24 22:00 SARS-CoV-2 (PCR) NOT DETECTED 01/29/24 09:30 - Procedures Procedures: Procedures EXCISION OF PERITONEUM, OPEN APPROACH, DIAGNOSTIC (05/24/18) SUPPLEMENT ABDOMINAL WALL WITH SYNTH SUB, OPEN APPROACH (05/24/18) Sepsis Event Note (H) - Evaluation Current Stage of Sepsis: Ruled out
--- NOTE | 2024-02-18 07:57 | PROVIDER PROGRESS NOTE ---
Assessment/Plan - Problem List (1) CVA (cerebral vascular accident) Assessment/Plan: (1) CVA (cerebral vascular accident) Assessment/Plan: --Detailed synopsis from Dr. Medina's note: She presented to the emergency room as shortness of breath and was positive for COVID. She had increasing symptoms for 7 days. Final evaluation in the ER showed her to be in A-fib with RVR. Troponins were 307 and a repeat was 279. By January 30 her ventricular rate was controlled, and her COVID cough had improved. But on the she developed slurred speech and continued to worsen over the next couple of days and developed right body weakness on the . Her first CT of head was negative. But a second CT on February 02 confirmed a stroke. CTs of the head showed subtle hypoattenuation of the left parietal region. But acute infarct could not be excluded and MRI was recommended. This patient is too impulsive for us to try and get an MRI on. neurologist Consulted over the phone. Her Eliquis was held for a couple of days and then resumed. Permissive hypertension was allowed and then BP meds resumed. On my initial exam 02/04, she had significant neglect on the right side. Expressive aphasia was severe and continues to slowly improve.Speech therapy has seen her and she doesn't have dysphagia. Eliquis resumed. I added a statin with lipitor 40 mg daily. I reviewed her Echo done January 27 which showed moderate left ventricular enlargement, mild concentric left ventricular hypertrophy. Severely impaired ejection fraction of 25 to 30%. Severe right ventricular enlargement. Right ventricular systolic function moderately impaired. Mild to moderate mitral regurg. Mildly abnormal right heart pressures with an RVSP at rest of 49 mmHg. She does have a new diagnosis of atrial fibrillation in the context of methamphetamine abuse. She may have had a small microembolic stroke since she was not anticoagulated before admission and had only been on eliquis for afib 01/27-01/31. Over the course of this week that have been on, 9 days, she has steadily improved on a daily basis. She went from sleeping all the time and not getting out of bed and needing significant help from PT and OT and the nurses. To now walking in the hallways with a walker. No assist for mobility. Expressive aphasia has improved. Receptive aphasia still evident but less so than her e xpressive aphasia. She cannot actually speak. When I first met her she was mute. She has ataxia with 20 feet or so. Still has some right body neglect. --Patient medically stable since 02/06. --She is currently on Eliquis, pending transfer to a SNF. --Her disposition is complex due to her history of meth use and improvements in mobility putting into question whether she would benefit from SNF. Family of her ex kirill may be willing to take her back if she is independent. But for that to happen she needs to be able to take care of herself in a trailer. While they are willing to give her housing, they are not willing to take care of her on a day-to-day basis. 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 --Currently on losartan and metoprolol succinate. Can consider spironolactone and an SGLT2 inhibitor to optimize GDMT. --TTE showing LVEF 25-30%. (3) VICKI (acute kidney injury) Assessment/Plan: --Resolved. (4) Atrial fibrillation with RVR Assessment/Plan: --Continue metoprolol and Eliquis. She is also on Amiodarone. (5) COVID Assessment/Plan: --Hypoxia on admission has resolved. (6) Hypertension Qualifiers: Hypertension type: unspecified Qualified Code(s): I10 - Essential (primary) hypertension Assessment/Plan: --Will consider adding aldactone and SGLT inhibitor this week as BP allows. Currently on Metoprolol and losartan. Dispo: Will discharge to [facility] on Monday at 1100. (2) CHF (congestive heart failure) Qualifiers: Heart failure type: unspecified Heart failure chronicity: acute on chronic Qualified Code(s): I50.9 - Heart failure, unspecified (6) Hypertension Qualifiers: Hypertension type: unspecified Qualified Code(s): I10 - Essential (primary) hypertension - Current Meds Current Meds: Current Medications Generic Name Dose Route Start Last Admin Trade Name Freq PRN Reason Stop Dose Admin Albuterol 2 puffs 01/29/24 02:26 01/30/24 07:01 Albuterol 1 Puff INH 2 puffs Q4H PRN Administration Shortness of Air/Wheezing Albuterol/Ipratropium 3 ml 01/29/24 21:44 01/30/24 22:50 Ipratropium/Albuterol 3 Ml Neb INH 3 ml Q4HR PRN Administration Wheezing Amiodarone HCl 200 mg 02/02/24 09:00 02/17/24 08:39 Amiodarone 200 Mg Tablet PO 200 mg DAILY TOI Administration Apixaban 5 mg 02/05/24 21:00 02/17/24 20:39 Apixaban 5 Mg Tablet PO 5 mg BID TOI Administration Atorvastatin Calcium 40 mg 02/10/24 21:00 02/17/24 20:39 Atorvastatin 40 Mg Tablet PO 40 mg QPM TOI Administration Benzonatate 100 mg 01/29/24 21:46 01/30/24 21:42 Benzonatate 100 Mg Capsule PO 100 mg TID PRN Administration Cough Cholecalciferol 50 mcg 02/06/24 17:00 02/17/24 08:39 Cholecalciferol 25 Mcg Tablet PO 50 mcg DAILY TOI Administration Clonidine HCl 1 patch 02/03/24 08:00 02/17/24 08:38 Clonidine 0.1 Mg Patch TOP 1 patch Q7D TOI Administration Furosemide 20 mg 02/07/24 09:00 02/17/24 08:39 Furosemide 20 Mg Tablet PO 20 mg DAILY TOI Administration Guaifenesin 600 mg 01/29/24 19:29 02/06/24 14:08 Guaifenesin 600 Mg Tablet PO 600 mg BID PRN Administration Cough Losartan Potassium 50 mg 02/11/24 09:00 02/17/24 08:38 Losartan 50 Mg Tablet PO 50 mg DAILY TOI Administration Metoprolol Succinate 25 mg 02/07/24 13:00 02/17/24 08:39 Metoprolol Succinate 25 Mg Tablet PO 25 mg DAILY TOI Administration Polyethylene Glycol 17 gm 02/08/24 09:00 02/17/24 08:44 Polyethylene Glycol 3350 17 Gm Packet PO Not Given DAILY TOI Multivit/Folic Acid/Iron 1 tab 01/29/24 09:00 02/17/24 08:39 Vitamin Tablet PO 1 tab DAILY TOI Administration Thiamine HCl 100 mg 01/29/24 09:00 02/17/24 08:38 Thiamine 100 Mg Tablet PO 100 mg DAILY TOI Administration Throat Lozenges 1 lozenge 01/28/24 22:45 01/28/24 23:42 Benzocaine/Menthol Lozenge MM 1 lozenge Q2HR PRN Administration Throat pain - Lab Result Fish Bone Diagrams: 02/10/24 05:06 02/10/24 05:06 Subjective - Subjective Patient Reports: Feeling Better, Resting Comfortably, No Complaints Nursing Reports: No Complaints Objective Vital Signs: Vital Signs - 24 hr 02/17/24 02/17/24 02/18/24 16:06 23:46 07:22 Temperature 36.5 C 36.5 C 36.5 C Heart Rate [ 65 71 69 Brachial] Respiratory 16 18 20 Rate Blood Pressure 146/95 H [Right Brachial artery] Blood Pressure 146/88 H [Right Radial artery] O2 Saturation 94 94 100 Oxygen O2 Source Room air I&O (Last 24 Hrs): Intake and Output Totals x24h 02/16/24 02/17/24 02/18/24 23:59 23:59 23:59 Intake Total 360 460 Balance 360 460 General: Alert, Oriented x3, Cooperative, No acute distress Cardiovascular: Regular rate, Normal S1, Normal S2, No murmurs Respiratory: Chest non-tender, No respiratory distress, Breath sounds nml - Results Results: Laboratory Results WBC 5.1 x10^3/uL (4.8-10.8) 02/10/24 05:06 RBC 6.43 10^6/uL (4.20-5.40) H 02/10/24 05:06 Hgb 16.6 g/dL (12.0-16.0) H 02/10/24 05:06 Hct 53.8 % (37.0-47.0) H 02/10/24 05:06 MCV 83.7 fL (81.0-99.0) 02/10/24 05:06 MCH 25.8 pg (27.0-31.0) L 02/10/24 05:06 MCHC 30.9 g/dL (32.0-36.0) L 02/10/24 05:06 RDW 16.4 % (12.0-15.0) H 02/10/24 05:06 Plt Count 203 10^3/uL (130-450) 02/10/24 05:06 MPV 11.3 fL (7.9-10.8) H 02/10/24 05:06 Neut # (Auto) 2.4 10^3/uL (1.5-6.6) 02/10/24 05:06 Lymph # (Auto) 2.0 10^3/uL (1.5-3.5) 02/10/24 05:06 [place] # (Auto) 0.5 10^3/uL (0.0-1.0) 02/10/24 05:06 Eos # (Auto) 0.1 10^3/uL (0.0-0.7) 02/10/24 05:06 Baso # (Auto) 0.1 10^3/uL (0.0-0.1) 02/10/24 05:06 Absolute Nucleated RBC 0.00 x10^3/uL 02/10/24 05:06 Nucleated RBC % 0.0 /100WBC 02/10/24 05:06 VBG pH 7.341 (7.31-7.41) 01/30/24 05:46 Ionized Calcium 1.10 mmol/L (1.15-1.33) L 01/30/24 05:46 Sodium 137 mmol/L (135-145) 02/10/24 05:06 Potassium 4.2 mmol/L (3.5-4.5) 02/10/24 05:06 Chloride 105 mmol/L (101-111) 02/10/24 05:06 Carbon Dioxide 26 mmol/L (21-32) 02/10/24 05:06 Anion Gap 6.0 (6-13) 02/10/24 05:06 BUN 22 mg/dL (6-20) H 02/10/24 05:06 Creatinine 0.9 mg/dL (0.6-1.3) 02/10/24 05:06 Estimated GFR (MDRD) 77 (>89) L 02/10/24 05:06 Glucose 95 mg/dL (74-104) 02/10/24 05:06 POC Whole Bld Glucose 113 mg/dL (70 - 100) H 02/09/24 16:06 Estimat Average Glucose 140 mg/dL (70-100) H 01/31/24 08:55 Hemoglobin A1c % 6.5 % (4.27-6.07) H 01/31/24 08:55 Lactic Acid 2.5 mmol/L (0.5-2.2) H 01/28/24 11:48 Calcium 9.7 mg/dL (8.5-10.3) 02/10/24 05:06 Phosphorus 4.3 mg/dL (2.5-5.0) 01/30/24 05:46 Magnesium 2.0 mg/dL (1.7-2.3) 01/31/24 05:20 Total Bilirubin 1.4 mg/dL (0.2-1.0) H 02/02/24 10:58 AST 41 IU/L (10-42) 02/02/24 10:58 ALT 40 IU/L (10-60) 02/02/24 10:58 Alkaline Phosphatase 124 IU/L (42-121) H 02/02/24 10:58 Troponin I High Sens 253.6 ng/L (2.3-14.8) H* 01/29/24 05:24 C-Reactive Protein 1.9 mg/dL (<0.5) H 02/02/24 10:58 B-Natriuretic Peptide 1036 pg/mL (5-100) H 02/02/24 10:58 Total Protein 6.6 g/dL (6.4-8.9) 02/02/24 10:58 Albumin 3.1 g/dL (3.2-5.5) L 02/02/24 10:58 Globulin 3.5 g/dL (2.1-4.2) 02/02/24 10:58 Albumin/Globulin Ratio 0.9 (1.0-2.2) L 02/02/24 10:58 Lipase 20 U/L (11-82) 01/28/24 11:00 Urine Color YELLOW 01/28/24 22:00 Urine Clarity HAZY (CLEAR) 01/28/24 22:00 Urine pH 6.0 PH (5.0-7.5) 01/28/24 22:00 Ur Specific [place] 1.015 (1.002-1.030) 01/28/24 22:00 Urine Protein 100 mg/dL (NEGATIVE) H 01/28/24 22:00 Urine Glucose (UA) NEGATIVE mg/dL (NEGATIVE) 01/28/24 22:00 Urine Ketones NEGATIVE mg/dL (NEGATIVE) 03/03/24 22:00 Urine Occult Blood TRACE-LYSE (NEGATIVE) 01/28/24 22:00 Urine Nitrite POSITIVE (NEGATIVE) H 01/28/24 22:00 Urine Bilirubin NEGATIVE (NEGATIVE) 01/28/24 22:00 Urine Urobilinogen 1 (NORMAL) E.U./dL (NORMAL) 01/28/24 22:00 Ur Leukocyte Esterase NEGATIVE (NEGATIVE) 01/28/24 22:00 Urine RBC 0-5 /HPF (0-5) 01/28/24 22:00 Urine WBC 4-5 /HPF (0-5) 01/28/24 22:00 Ur Squamous Epith Cells FEW Squamous (<= Few) 01/28/24 22:00 Urine Bacteria Many /HPF (None Seen) H 01/28/24 22:00 Urine Casts 3-5 Hyaline Casts /LPF 01/28/24 22:00 Ur Microscopic Review INDICATED 01/28/24 22:00 Urine Culture Comments INDICATED 01/28/24 22:00 Nasal Screen MRSA (PCR) NEGATIVE (NEGATIVE) 01/28/24 21:00 Urine Opiates Screen NEGATIVE (NEGATIVE) 01/28/24 22:00 Ur Buprenorphine Scrn NEGATIVE (NEGATIVE) 01/28/24 22:00 Ur Oxycodone Screen NEGATIVE (NEGATIVE) 01/28/24 22:00 Urine Methadone Screen NEGATIVE (NEGATIVE) 01/28/24 22:00 Ur Barbiturates Screen NEGATIVE (NEGATIVE) 01/28/24 22:00 Ur Tricyclics Screen NEGATIVE (NEGATIVE) 01/28/24 22:00 Ur Phencyclidine Scrn NEGATIVE (NEGATIVE) 01/28/24 22:00 Ur Amphetamine Screen POSITIVE (NEGATIVE) H 01/28/24 22:00 U Methamphetamines Scrn NEGATIVE (NEGATIVE) 01/28/24 22:00 U Benzodiazepines Scrn NEGATIVE (NEGATIVE) 01/28/24 22:00 Urine Cocaine Screen NEGATIVE (NEGATIVE) 01/28/24 22:00 U Cannabinoids Screen NEGATIVE (NEGATIVE) 01/28/24 22:00 Ur Drug Screen Comment CUTOFF CONC BELOW: 01/28/24 22:00 SARS-CoV-2 (PCR) NOT DETECTED 01/29/24 09:30 - Procedures Procedures: Procedures EXCISION OF PERITONEUM, OPEN APPROACH, DIAGNOSTIC (05/24/18) SUPPLEMENT ABDOMINAL WALL WITH SYNTH SUB, OPEN APPROACH (05/24/18) Sepsis Event Note (H) - Evaluation Current Stage of Sepsis: Ruled out
[2024-02-19 07:45] VITALS: O2SAT 96
--- NOTE | 2024-02-19 07:50 | Discharge Plan ---
"Discharge Plan for SNF / [facility] - Discharge Plan And Transition Orders Problem Reviewed?: Yes Disposition: SNF DC/Xfer Condition: Fair Allergies and Adverse Reactions: Allergies Allergy/AdvReac Type Severity Reaction Status Date / Time No Known Drug Allergies Allergy Verified 01/28/24 10:39 - SNF / [facility] Transition Orders Admit to (Facility): [facility] Medicare Certification Statement: I certify that [facility] intermediate care is medically necessary on a continuing basis for any of the conditions for which she/he is receiving care during hospitalization. Notify PCP of admission and forward orders to primary provider for signature. Weight on admission and: Daily Call PCP immediately if weight increases by: 5 kg Other Notification Orders: Call PCP immediately if patient develops dyspnea, chest pain/tightness or edema. House Bowel Program: Yes Additional Bowel Program Orders: If no BM after 2 days, nurse may give M.O.M. 30ml PO PRN and/or ducolax Supp 1 ME and/or DYLAN 250mg P.O., and/or senna 1-2 tabs PO. On day 3 nurse may give repeat above order until residents constipation is resolved. Annual Influenza Vaccine (between Jul 28 and February 24): Yes Two-step PPD per [facility] [phone] or approved exception documents: Yes Medication Orders: PLEASE REFER TO THE DISCHARGE MEDICATION LIST. Insulin Orders?: No - Medications New Prescriptions: Losartan [Cozaar] 50 mg PO DAILY #30 tab Apixaban [Eliquis] 5 mg PO BID #60 tab Furosemide [Lasix] 20 mg PO DAILY #30 tab Atorvastatin [Lipitor] 40 mg PO QPM #30 tab Mdi: Albuterol 2 puffs INH Q4H PRN #1 each PRN Reason: Shortness Of Air/Wheezing amLODIPine [Norvasc] 10 mg PO DAILY #30 tablet Amiodarone [Pacerone] 200 mg PO DAILY #30 tab Metoprolol Succinate [Toprol Xl] 25 mg PO DAILY #30 tab Cholecalciferol [Vitamin D3] 50 mcg PO DAILY #30 tab - Diet Type: Geriatric Texture: Regular Liquids: Thin May have monthly special meal: Yes - Therapies | Activity Therapy: Evaluation | Treat if indicated: Speech, PT, OT, Swallowing / ST Rehabilitation Potential: Maximize functional status Activity: No Restrictions Weight Bearing: Full Weight Follow Up: Patient will need to establish care with a PCP. Will need a referral to Cardiology for her newly diagnosed HFrEF and Afib."
--- NOTE | 2024-02-19 10:39 | Discharge Plan ---
"Discharge Plan for SNF / [facility] - Discharge Plan And Transition Orders Problem Reviewed?: Yes Disposition: SNF DC/Xfer Condition: Fair Allergies and Adverse Reactions: Allergies Allergy/AdvReac Type Severity Reaction Status Date / Time No Known Drug Allergies Allergy Verified 01/28/24 10:39 - SNF / [facility] Transition Orders Medicare Certification Statement: I certify that [facility] care is medically necessary on a continuing basis for any of the conditions for which she/he is receiving care during hospitalization. Notify PCP of admission and forward orders to primary provider for signature. Other Notification Orders: Call PCP immediately if patient develops dyspnea, chest pain/tightness or edema. Additional Bowel Program Orders: If no BM after 2 days, nurse may give M.O.M. 30ml PO PRN and/or ducolax Supp 1 [place] and/or DYLAN 250mg P.O., and/or senna 1-2 tabs PO. On day 3 nurse may give repeat above order until residents constipation is resolved. Treatments & Other Orders: Please follow up with a BMP in 1 week. Daily BP checks for 1 week. Lab Tests or X-ray Orders: BMP in 1 week. Medication Orders: PLEASE REFER TO THE DISCHARGE MEDICATION LIST. - Medications New Prescriptions: Spironolactone [Aldactone] 25 mg PO DAILY #30 tablet Losartan [Cozaar] 50 mg PO DAILY #30 tab Dapagliflozin Propanediol [Dapagliflozin] 10 mg PO DAILY #30 tab Apixaban [Eliquis] 5 mg PO BID #60 tab Furosemide [Lasix] 20 mg PO DAILY #30 tab Atorvastatin [Lipitor] 40 mg PO QPM #30 tab Mdi: Albuterol 2 puffs INH Q4H PRN #1 each PRN Reason: Shortness Of Air/Wheezing Amiodarone [Pacerone] 200 mg PO DAILY #30 tab Metoprolol Succinate [Toprol Xl] 25 mg PO DAILY #30 tab Cholecalciferol [Vitamin D3] 50 mcg PO DAILY #30 tab - Diet Type: Geriatric - Therapies | Activity Therapy: Evaluation | Treat if indicated: Speech, PT, OT Rehabilitation Potential: Maximize functional status, Return to independent living Activity: Activity as Tolerated Follow Up: Will need to establish care with a PCP. Will need a referral to cardiology for her newly diagnosed HFrEF and AFib."
--- NOTE | 2024-02-19 10:49 | DISCHARGE SUMMARY ---
Discharge Summary Admit Date: 01/28/24 Discharge Date: 02/19/24 Discharging Provider: Yulissa Kovacs Primary Care Provider: No PCP Code Status: Attempt Resuscitation Condition at Discharge: Good Discharge Disposition: DC/Xfer - DIAGNOSES Discharge Diagnoses with Status of Each Condition: (1) CVA (cerebral vascular accident) Assessment/Plan: --Detailed synopsis from Dr. Medina's note: She presented to the emergency room as shortness of breath and was positive for COVID. She had increasing symptoms for 7 days. Final evaluation in the ER showed her to be in A-fib with RVR. Troponins were 307 and a repeat was 279. By January 30 her ventricular rate was controlled, and her COVID cough had improve d. But on the she developed slurred speech and continued to worsen over the next couple of days and developed right body weakness on the . Her first CT of head was negative. But a second CT on February 02 confirmed a stroke. CTs of the head showed subtle hypoattenuation of the left parietal region. But acute infarct could not be excluded and MRI was recommended. This patient is too impu lsive for us to try and get an MRI on. neurologist Consulted over the phone. Her Eliquis was held for a couple of days and then resumed. Permissive hypertension was allowed and then BP meds resumed. On my initial exam 02/04, she had significant neglect on the right side. Expressive aphasia was severe and continues to slowly improve.Speech therapy has seen her and she doesn't have dysphagia. Eliquis resumed. I added a statin with lipitor 40 mg daily. I reviewed her Echo done January 27 which showed moderate left ventricular enlargement, mild concentric left ventricular hypertrophy. Severely impaired ejection fraction of 25 to 30%. Severe right ventricular enlargement. Right ventricular systolic function moderately impaired. Mild to moderate mitral regurg. Mildly abnormal right heart pressures with an RVSP at rest of 49 mmHg. She does have a new diagnosis of atrial fibrillation in the context of methamphetamine abuse. She may have had a small microembolic stroke since she was not anticoagulated before admission and had only been on eliquis for afib 01/27-01/31. Over the course of this week that have been on, 9 days, she has steadily improved on a daily basis. She went from sleeping all the time and not getting out of bed and needing significant help from PT and OT and the nurses. To now walking in the hallways with a walker. No assist for mobility. Expressive aphasia has improved. Receptive aphasia still evident but less so than her expressive aphasia. She cannot actually speak. When I first met her she was mute. She has ataxia with 20 feet or so. Still has some right body neglect. --Patient medically stable since 02/06. --She is currently on Eliquis, pending transfer to a SNF. 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 --Currently on losartan and metoprolol succinate. I discontinued her clonidine patch and started her on spironolcatone 50 mg and dapagliflozin 10 mg. Can be adjusted to her BP. (3) VICKI (acute kidney injury) Assessment/Plan: --Resolved. (4) Atrial fibrillation with RVR Assessment/Plan: --Continue metoprolol and Eliquis. She is also on Amiodarone. (5) COVID Assessment/Plan: --Hypoxia on admission has resolved. (6) Hypertension Qualifiers: Hypertension type: unspecified Qualified Code(s): I10 - Essential (primary) hypertension Assessment/Plan: --Currently on Metoprolol, aldactone, dapagloflozin and losartan. Kindly repeat BMP in 7 days. - HPI History of Present Illness: Tiffanie Wilson is a 63-year-old woman who presented to the emergency room complaining of shortness of breath. She reports these because she is positive for COVID. She states she has complained of increasing dyspnea over the last 7 days. She reports she has not been to a physician in years. Her several years ago and she has been using his medications. In the emergency room patient was in atrial fibrillation with rapid ventricular rate. Laboratory studies are significant for a high sensitive troponin of 307 and repeat of 279.Initial lactate is 2.5. - HOSPITAL COURSE Hospital Course: Patient is a 63-year-old female who presented to the ED due to complaints of shortness of breath due to a positive COVID-19 infection. Patient was noted to be in atrial fibrillation with rapid ventricular rate. She was initially admitted to the ICU and started on diltiazem drip however she did not respond and was transition to IV amiodarone. Her urine drug screen was positive for methamphetamines. Patient responded well to amiodarone and she was transition to oral amiodarone and started on anticoagulation with Eliquis 5 mg twice daily. I TTE was performed which revealed an LVEF of 25 to 30% with severe right ventricular enlargement. Patient developed slurred speech during hospitalization and underwent a CT head on February 02 which was suspicious for a stroke in the parietal region. Unfortunately, due to patient's behaviors MRI could not be obtained. The case was discussed with neurology at who recommended holding Eliquis for a few days and then resuming. Her condition slowly improved over the next several weeks. She went from sleeping all the time to participating in PT and OT and walking in the hallways with a walker without assistance. Her expressive aphasia has also improved. She does have some ataxia and right body neglect. Patient was discharged to SNF at [facility] in [place]. Prior to discharge I did start her on goal-directed medical therapy with metoprolol, spironolactone, dapagliflozin, and losartan. She will need outpatient follow-up with cardiology for her new onset A-fib and heart failure with reduced ejection fraction. She is tolerating Eliquis with no signs of bleeding. Her heart rate and rhythm are controlled with metoprolol and amiodarone. She will need continued therapies. - ALLERGIES Allergies/Adverse Reactions: Allergies Allergy/AdvReac Type Severity Reaction Status Date / Time No Known Drug Allergies Allergy Verified 01/28/24 10:39 - MEDICATIONS Home Medications: Ambulatory Orders Medication Instructions Recorded Confirmed Amiodarone [Pacerone] 200 mg PO DAILY #30 tab 02/16/24 Apixaban [Eliquis] 5 mg PO BID #60 tab 02/16/24 Atorvastatin [Lipitor] 40 mg PO QPM #30 tab 02/16/24 Cholecalciferol [Vitamin D3] 50 mcg PO DAILY #30 tab 02/16/24 Furosemide [Lasix] 20 mg PO DAILY #30 tab 02/16/24 Losartan [Cozaar] 50 mg PO DAILY #30 tab 02/16/24 Mdi: Albuterol 2 puffs INH Q4H PRN #1 each 02/16/24 Metoprolol Succinate [Toprol Xl] 25 mg PO DAILY #30 tab 02/16/24 amLODIPine [Norvasc] 10 mg PO DAILY #30 tablet 02/16/24 - PHYSICAL EXAM AT DISCHARGE General Appearance: positive: No acute distress, Alert Eyes Bilateral: positive: PERRL, EOMI Respiratory: positive: Chest non-tender, Breath sounds nml. negative: Wheezes Cardiovascular: positive: Regular rate & rhythm, No murmur, No gallop Abdomen: positive: Non-tender, No distention Skin: positive: Color nml, No rash, Warm, Dry Extremities: positive: Non-tender, Full ROM, No pedal edema Neurologic/Psychiatric: positive: Oriented x3, Weakness, Slurred/abnml speech - LABS Result Diagrams: 02/10/24 05:06 02/10/24 05:06 - DIAGNOSTIC IMAGING Diagnostic Imaging Results: Final report reviewed - SEPSIS Current Stage of Sepsis: Ruled out - FOLLOW UP Follow Up: Will need following follow ups: Establish care with a PCP Cardiology referral for Afib and HFrEF BMP in 7 days BP checks daily for 7 days. - TIME SPENT Time Spent in Discharge (Minutes): 35
[2024-02-19 12:35] VITALS: BP 163/91
== END 2024-02-19 13:15 | DRG 308 ==
LOC: ED 10:29 → MS2 17:23 → ICU 19:25 → MS2 01-30 15:15
PROVIDERS: ADMIT Internal Medicine; ATTEND Family Medicine
PROC: 8E0ZXY6 Isolation (ICD-10-PCS; principal; 2024-01-28)
DX: I48.91 Unspecified atrial fibrillation (principal); I50.23 Acute on chronic systolic (congestive) heart failure; U07.1 COVID-19; I63.40 Cerebral infarction due to embolism of unspecified cerebral artery; N17.9 Acute kidney failure, unspecified; R47.01 Aphasia; R27.0 Ataxia, unspecified; I11.0 Hypertensive heart disease with heart failure; R09.02 Hypoxemia; D72.829 Elevated white blood cell count, unspecified; R00.0 Tachycardia, unspecified; R82.71 Bacteriuria; R29.818 Other symptoms and signs involving the nervous system; R47.81 Slurred speech; E16.2 Hypoglycemia, unspecified; I34.0 Nonrheumatic mitral (valve) insufficiency; E83.39 Other disorders of phosphorus metabolism; F15.10 Other stimulant abuse, uncomplicated; Z75.1 Person awaiting admission to adequate facility elsewhere; Z86.16 Personal history of COVID-19; Z28.310 Unvaccinated for COVID-19; Z91.148 Patient's other noncompliance with medication regimen for other reason; Z59.12 Inadequate housing utilities
CPT/HCPCS: 36415; 70450; 70496; 70498; 71045; 74018; 80048; 80053; 80306; 81001; 82330; 83036; 83605; 83690; 83735; 83880; 84100; 84484; 85025; 85027; 86140; 87077; 87086; 87150; 87181; 87635; 92522; 93005; 93307; 94640; 96374; 96375; 97110; 97116; 97162; 97166; 97530; 99285; A9270; J0282; J1650; J2060; Q9967; 81003

== ENCOUNTER 2024-11-11 14:46 | Observation (INO) ==
--- NOTE | 2024-11-11 16:28 | XRAY Report ---
PROCEDURE: XR Foot 3+V LT INDICATIONS: Trauma TECHNIQUE: 3 views of the foot were acquired. COMPARISON: None. FINDINGS: Bones: No fractures or dislocations. No suspicious bony lesions. Prominent hallux valgus and bunio n. First MTP degenerative change. Soft tissues: No tibiotalar joint effusion. Achilles tendon appears normal. Soft tissue swelling. IMPRESSION: Prominent hallux valgus and bunion, first MTP degenerative change. No acute bony abnormality. Soft tissue swelling. Reviewed by: Best Gil MD on 11/11/2024 4:27 PM PST Approved by: Best Gil MD on 11/11/2024 4:27 PM PST Station ID: [id number]
[2024-11-11 18:06] LABS: BASOPHILS # (AUTO) 0.1 10^3/uL (0.0-0.1); BASOPHILS % (AUTO) 0.3 %; EOSINOPHILS # (AUTO) 0.1 10^3/uL (0.0-0.7); EOSINOPHILS % (AUTO) 0.7 %; HCT - HEMATOCRIT 50.3 % (37.0-47.0); HGB - HEMOGLOBIN 16.7 g/dL (12.0-16.0); LYMPHOCYTES # (AUTO) 1.8 10^3/uL (1.5-3.5); LYMPHOCYTES % (AUTO) 9.7 %; MEAN CORPUSCULAR HEMOGLOBIN 27.7 pg (27.0-31.0); MEAN CORPUSCULAR HGB CONC 33.2 g/dL (32.0-36.0); MEAN CORPUSCULAR VOLUME 83.4 fL (81.0-99.0); MEAN PLATELET VOLUME 10.9 fL (7.9-10.8); MONOCYTES # (AUTO) 0.9 10^3/uL (0.0-1.0); NEUTROPHILS # (AUTO) 15.7 10^3/uL (1.5-6.6); NEUTROPHILS % (AUTO) 83.9 %; PLT - PLATELET COUNT 239 10^3/uL (130-450); RED BLOOD COUNT 6.03 10^6/uL (4.20-5.40); RED CELL DISTRIBUTION WIDTH 15.9 % (12.0-15.0); WHITE BLOOD COUNT 18.8 x10^3/uL (4.8-10.8)
[2024-11-11] MEDS: MORPHINE 2 MG/ML CARPUJECT IVP STA (18:06)
--- NOTE | 2024-11-11 18:08 | ED Physician Documentation ---
History of Present Illness Stated complaint Stated Complaint: L FOOT PX Chief complaint Chief Complaint: Ext Problem History obtained from History obtained from: Patient History of Present Illness Timing: Prior to arrival Additonal information Additional information: Patient is a 64-year-old female presenting to the emergency department with left leg pain. Patient has previous history of stroke has difficulty with word finding and expressing symptoms. Patient was brought in by her [id number]. He notes she lives on his property but they do not interact much and she may only keeps to herself and can drive give herself her own medications and take care of herself. She lives in one of the houses on their property. 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 Patient has history of stroke multiple years ago which has left her with difficulty speaking. On arrival patient moaning in pain. Difficulty obtaining history. Apparently patient has family history of diabetes her mother had previous history of amputations of bilateral legs patient is today complaining of left leg pain. Patient does appear to be on a blood thinner on review of her medication history she is unable to answer at this time if there is any sort of history of clots in her legs or in her lungs. Meds/Allgy Home Medications Ambulatory Orders Medication Instructions Recorded Confirmed albuterol sulfate 90 mcg/actuation 2 puff inhalation Q4H PRN 02/16/24 aerosol inhaler (Ventolin HFA) Shortness Of Air/Wheezing #1 ea amiodarone 200 mg tablet 200 mg PO DAILY #30 tabs 02/16/24 apixaban 5 mg tablet (Eliquis) 5 mg PO BID #60 tabs 02/16/24 atorvastatin 40 mg tablet 40 mg PO QPM #30 tabs 02/16/24 cholecalciferol (vitamin D3) 25 50 mcg (2 x 25 mcg (1,000 unit)) 02/16/24 mcg (1,000 unit) tablet PO DAILY #30 tabs furosemide 20 mg tablet 20 mg PO DAILY #30 tabs 02/16/24 losartan 50 mg tablet 50 mg PO DAILY #30 tabs 02/16/24 metoprolol succinate 25 mg 25 mg PO DAILY #30 tabs 02/16/24 tablet,extended release 24 hr Dapagliflozin Propanediol 10 mg PO DAILY #30 tabs 02/19/24 [Dapagliflozin] spironolactone 25 mg tablet 25 mg PO DAILY #30 tabs 02/19/24 Allergies Allergies Allergy/AdvReac Type Severity Reaction Status Date / Time No Known Drug Allergies Allergy Verified 11/11/24 14:52 PFS Social History Social History Smoking Status: Never smoker Do you dip or chew tobacco?: No Do you vape?: No Initiate information on smoking cessation: No Living arrangement: At home Relationship: Level: Independent Do you feel safe in your home environment?: Yes Suffered physical, verbal, emotional, or financial abuse?: No History of Abuse: No Frequency: Occasional Substance Use: denies use Are you sexually active?: No POLST Patient has POLST: No POLST Status: Full Code Exam Constitutional normal general appearance HENMT normocephalic and head/scalp atraumatic Neck/C-Spine visual inspection normal Lymph no lymphadenopathy noted Chest inspection of chest normal Respiratory breath sounds equal bilaterally, normal respiratory effort and clear to auscultation bilaterally Cardiovascular normal heart rate noted, regular rhythm noted and no gallop Extremities Significant swelling to bilateral lower legs. Doppler pulses on exam. No pitting edema. Erythema to bilateral legs. Generalizable tenderess. Skin Swelling and redness to bilateral legs but tenderness to right leg there appears to be wound approximately 2 cm in size to left MTP joint. No discharge or swelling Results Vitals Vitals: Vital Signs - 24 hr 11/11/24 14:52 11/11/24 18:06 11/11/24 18:35 Temperature 36.8 C 36.5 C Temperature Source Tympanic Temporal Artery Scan Pulse Rate 88 62 Respiratory Rate 20 18 Blood Pressure 150/90 H 115/76 O2 Saturation 98 96 O2 Source Room air Room air Pain Intensity 8 10 8 11/11/24 18:42 11/11/24 19:32 11/11/24 20:02 Temperature Temperature Source Pulse Rate Respiratory Rate Blood Pressure O2 Saturation O2 Source Pain Intensity 8 8 10 11/11/24 20:03 Temperature 36.8 C Temperature Source Temporal Artery Scan Pulse Rate 63 Respiratory Rate 18 Blood Pressure 136/75 H O2 Saturation 96 O2 Source Room air Pain Intensity 10 Oxygen O2 Source Room air Labs Labs: Laboratory Tests 11/11/24 11/11/24 17:54 19:59 WBC 18.8 H RBC 6.03 H Hgb 16.7 H Hct 50.3 H MCV 83.4 MCH 27.7 MCHC 33.2 RDW 15.9 H Plt Count 239 MPV 10.9 H Neut # (Auto) 15.7 H Lymph # (Auto) 1.8 [place] # (Auto) 0.9 Eos # (Auto) 0.1 Baso # (Auto) 0.1 Absolute Nucleated RBC 0.00 Nucleated RBC % 0.0 PT 16.0 H INR 1.5 H Sodium 138 Potassium 4.1 Chloride 100 L Carbon Dioxide 30 Anion Gap 8.0 BUN 24 H Creatinine 1.0 Estimated GFR (MDRD) 68 L Glucose 100 Calcium 9.0 Total Bilirubin 1.9 H AST 58 H ALT 29 Alkaline Phosphatase 137 H Total Protein 6.7 Albumin 2.7 L Globulin 4.0 Albumin/Globulin Ratio 0.7 L Rads (name of study) left foot x-ray: Relevant Findings:: EMP independent interpretation of test PD Medical Decision Making ED course Complexity details: reviewed old records ED course: Patient is a 64-year-old female brought in by [id number] for left leg pain he does not know much of her history and patient is difficult to obtain history from due to limited conversation mainly only answering yes or no questions. She is moaning in pain on arrival. Her vitals are stable she is reporting pain redness swelling and warmth to her feet. Unsure of when symptoms started. She points to the back of her leg and to her foot. She is tender throughout her leg and foot with light touch. It does appear warm red and swollen on examination does appear to have previous wound to left posterior leg. Left leg additionally appears red and warm to touch and slightly swollen but not as tender on exam.She does appear to have a wound to first MTP joint and a few wounds to posterior left calf on examination no obvious drainage they do appear slightly n ecrotic in nature. Patient slightly tachycardic on arrival but normotensive saturating well on room air clear breath sounds on auscultation of the lungs. Leukocytosis of 18 on arrival Ultrasound shows no signs of DVT x-ray shows no signs of osteomyelitis or fracture. Given concerning findings on i examination patient will be admitted for diabetic foot wound. Hospitalist ordered antibiotics after discussion of starting Zosyn and Vanco she does have some diminished kidney function but no significant VICKI here today. Patient was updated and agreeable with this plan. Patient's friend was updated that she is being admitted as well. Discharge Plan Discharge Patient Disposition: 68 [facility] DC/Xfer Interventions: ED Admission Assessment Last Done: 11/11/24 22:07
[2024-11-11 18:16] LABS: ALBUMIN 2.7 g/dL (3.2-5.5); ALBUMIN/GLOBULIN RATIO 0.7 (1.0-2.2); BILIRUBIN,TOTAL 1.9 mg/dL (0.2-1.0); POTASSIUM 4.1 mmol/L (3.5-4.5); TOTAL PROTEIN 6.7 g/dL (6.4-8.9)
--- NOTE | 2024-11-11 19:19 | Ultrasound Report ---
PROCEDURE: US Venous Duplex LT INDICATIONS: left leg swelling and redness TECHNIQUE: Real-time imaging, as well as color and pulse Doppler interrogation, were performed of the lower extr emity deep veins from the inguinal ligament to the popliteal fossa. Attempted visualization of the ca lf veins was performed. COMPARISON: None. FINDINGS: Subtle that evaluation of the calf veins was limited due to patient discomfort and altered mental sta tus. The deep veins are normally compressible, and free of intraluminal thrombus. Color and pulse Doppler demonstrate normal phasic intraluminal flow. There is normal augmentation response to distal compre ssion maneuver. Incidentally noted is a 4.7 x 1.5 cm Vargas's cyst in the left popliteal fossa. IMPRESSION: No deep venous thrombosis of the visualized lower extremity where visualized. Reviewed by: Daron Mark MD on 11/11/2024 7:18 PM PST Approved by: Daron Mark MD on 11/11/2024 7:18 PM PST Station ID: [id number]
[2024-11-11] MEDS: MORPHINE 10 MG/ML VIAL IVP STA (19:32)
[2024-11-11 20:22] LABS: INR 1.5 (0.8-1.2)
--- NOTE | 2024-11-11 20:55 | HISTORY & PHYSICAL EXAMINATION ---
Chief Complaint Chief Complaint Chief Complaint: Foot pain History of Present Illness Admitted From Admitted From:: Home History Obtained From Records Reviewed: Yes History obtained from: ED physician, Family-friend Exam Limitations: Patient poor historian, speech deficit, Telemedicine History of Present Illness HPI Comment/Other: Mrs. Wilson is a 64yoF with a history of Diabetes, Atrial fibrillation, stroke with residual speech deficits. She was brought in by friend for evaluation of leg pain and swelling.History is limited due to patient's speech deficits and friend not knowing the extent of the patient's history. Per the ED physician, she has not been on most of her medications for a long time. The duration of the pain is unknown. She was found to have bilateral swelling of her lower extremities, L >R. She had associated left calf pain and pain in her left foot. She had a 2cm wound along the medial aspect of her 1st MTP, with reported eschar and minimal drainage. Pulses were intact, sensation and ROM was intact. Xray demonstrated degenerative changes,but did not mention osteomylitic changes. I have agreed to admit for further management due to worsening pain and suspected infection. Review of Systems Status of ROS: unobtainable due to medical condition PFSH Social History Social History Smoking Status: Never smoker Do you dip or chew tobacco?: No Do you vape?: No Living arrangement: At home Relationship: Level: Independent Do you feel safe in your home environment?: Yes Suffered physical, verbal, emotional, or financial abuse?: No History of Abuse: No Frequency: Occasional Are you sexually active?: No POLST Patient has POLST: No POLST Status: Full Code Meds/Allgy Home Medications Ambulatory Orders Medication Instructions Recorded Confirmed albuterol sulfate 90 mcg/actuation 2 puff inhalation Q4H PRN 02/16/24 aerosol inhaler (Ventolin HFA) Shortness Of Air/Wheezing #1 ea amiodarone 200 mg tablet 200 mg PO DAILY #30 tabs 02/16/24 apixaban 5 mg tablet (Eliquis) 5 mg PO BID #60 tabs 02/16/24 atorvastatin 40 mg tablet 40 mg PO QPM #30 tabs 02/16/24 cholecalciferol (vitamin D3) 25 50 mcg (2 x 25 mcg (1,000 unit)) 02/16/24 mcg (1,000 unit) tablet PO DAILY #30 tabs furosemide 20 mg tablet 20 mg PO DAILY #30 tabs 02/16/24 losartan 50 mg tablet 50 mg PO DAILY #30 tabs 02/16/24 metoprolol succinate 25 mg 25 mg PO DAILY #30 tabs 02/16/24 tablet,extended release 24 hr Dapagliflozin Propanediol 10 mg PO DAILY #30 tabs 02/19/24 [Dapagliflozin] spironolactone 25 mg tablet 25 mg PO DAILY #30 tabs 02/19/24 Allergies Allergies Allergy/AdvReac Type Severity Reaction Status Date / Time No Known Drug Allergies Allergy Verified 11/11/24 14:52 Exam Constitutional normal general appearance, distress noted, limitations noted and alert Eyes PERRL and EOMs intact bilaterally Respiratory breath sounds equal bilaterally and normal respiratory effort Cardiovascular normal heart rate noted and regular rhythm noted Extremities tenderness noted and full ROM bilateral swelling, 2cm wound on the 1st MTP of the left foot. L calf tenderness. Neurology clinical biochemical geneticist II-XII intact, no movement abnormality noted, no focal motor deficit noted, speech abnormality noted and GCS 15 Psychiatry cooperative Conclusion/Plan Problem List (1) Cellulitis of left leg: Plan: secondary to extension from foot infection and suspected peripheral vascular disease, Will continue to manage as follows: - imaging reviewed: Xray noted subcutaneous inflammation, no abscess or bone malformation. ultrasound- no evidence of DVT, workman's cyst in L.popliteal fossa -elevation of extremity as tolerated -continue with neurovascular monitoring as appropriate - empiric antibiotics (2) Diabetic foot ulcer: Plan: Involving left foot, undetermined timeframe, will continue to mange as follows: - Xray reviewed as noted above - blood cultures pending, I will initiate empiric antibiotic coverage with vancomycin and zosyn for broad spectrum coverage including MRSA and pseudomonas -will monitor drug levels: vancomycin troughs, and adjust regimen per pharmacy recommendations to avoid toxicity -wound care per protocol, further evaluation by general surgery may be warranted for management, if not improved with conservative treatment -will monitor inflammatory markers: lactic acid, crp and esr (3) Diabetes: Plan: per history , DM on oral medications, but lost to followup. Will continue to manage as follows: - will order a HbA1c level -will monitor glucose levels with serial accuchecks, will cover with sliding scale insulin -will initiate hypoglycemia protocol (4) Atrial fibrillation: Plan: per records, out of medications, lost to follow up, will continue to manage as follows: -home medications reviewed. 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
[2024-11-11] MEDS: PIPERACILLIN/TAZOBACTAM 3.375 GM in SODIUM CHLORIDE 0.9% MINIBAG 100 ML IV STA (21:17)
[2024-11-11] MEDS ORDERED: ONDANSETRON ODT 4 MG TABLET TL PRN (22:12)
[2024-11-11] MEDS ORDERED: SODIUM CHLORIDE FLUSH 0.9% 10 ML SYRINGE IVP PRN (22:12)
[2024-11-11] MEDS ORDERED: ONDANSETRON 4 MG/2 ML VIAL IVP PRN (22:12)
[2024-11-11] MEDS: SODIUM CHLORIDE 0.9% 1,000 ML IV SCH (22:25)
[2024-11-11] MEDS: MORPHINE 2 MG/ML CARPUJECT IVP PRN (22:25)
[2024-11-11] MEDS: INSULIN REGULAR, HUMAN 300 UNIT/3 ML PEN SUBQ SCH (22:35)
[2024-11-11] MEDS: ATORVASTATIN 40 MG TABLET PO SCH (22:37)
[2024-11-12] MEDS: SODIUM CHLORIDE FLUSH 0.9% 10 ML SYRINGE IVP SCH (02:22)
[2024-11-12] MEDS: METOPROLOL 5 MG/5 ML VIAL IVP PRN (03:02)
[2024-11-12] MEDS: ACETAMINOPHEN 325 MG TABLET PO PRN (03:58)
[2024-11-12 05:35] LABS: BASOPHILS # (AUTO) 0.1 10^3/uL (0.0-0.1); BASOPHILS % (AUTO) 0.5 %; EOSINOPHILS # (AUTO) 0.2 10^3/uL (0.0-0.7); EOSINOPHILS % (AUTO) 1.2 %; HGB - HEMOGLOBIN 15.9 g/dL (12.0-16.0); LYMPHOCYTES # (AUTO) 2.4 10^3/uL (1.5-3.5); LYMPHOCYTES % (AUTO) 15.9 %; MEAN CORPUSCULAR HEMOGLOBIN 27.1 pg (27.0-31.0); MEAN CORPUSCULAR HGB CONC 32.4 g/dL (32.0-36.0); MEAN CORPUSCULAR VOLUME 83.6 fL (81.0-99.0); MEAN PLATELET VOLUME 11.6 fL (7.9-10.8); MONOCYTES % (AUTO) 6.6 %; NEUTROPHILS # (AUTO) 11.3 10^3/uL (1.5-6.6); NEUTROPHILS % (AUTO) 75.5 %; PLT - PLATELET COUNT 240 10^3/uL (130-450); RED BLOOD COUNT 5.86 10^6/uL (4.20-5.40); RED CELL DISTRIBUTION WIDTH 15.1 % (12.0-15.0)
[2024-11-12] MEDS: HYDROcod/ACETAM 5/325 MG TABLET PO PRN (05:44)
[2024-11-12 05:54] LABS: POTASSIUM 4.1 mmol/L (3.5-4.5)
[2024-11-12] MEDS ORDERED: iohexoL-300 100 ML VIAL ONE (08:08)
--- NOTE | 2024-11-12 08:13 | PROVIDER PROGRESS NOTE ---
Subjective Subjective Subjective: Patient is a 64 year old female with a history of methamphetamine use, CVA in 01/2024 with resultant severe expressive aphasia, atrial fibrillation on Eliquis, heart failure with reduced ejection fraction of 25-30% who presents due to left lower leg pain. Due to her expressive aphasia, patient is a poor historian. She is okay with me calling her next of kin. In her chart, appears to be her [id number]. She does state that she has pain in her left lower leg. She states that is bigger than normal. She does not recall the last time she saw physician or wound care doctor in regards to her diabetic ulcers. She denies any fevers or chills. Current Medications Current Medications Current Medications: Current Medications Generic Name Dose Route Start Last Admin Trade Name Freq PRN Reason Stop Dose Admin Acetaminophen 650 mg 11/11/24 22:12 11/12/24 03:58 Acetaminophen 325 Mg Tablet PO 650 mg Q4HR PRN Administration Pain 1 to 4, or Fever Hydrocodone Bitart/Acetaminophen 1 tab 11/11/24 22:12 11/12/24 05:44 Hydrocod/Acetam 5/325 Mg Tablet PO 1 tab Q4HR PRN Administration Pain 5 to 7 Amiodarone HCl 200 mg 11/12/24 09:00 Amiodarone 200 Mg Tablet PO DAILY TOI Atorvastatin Calcium 40 mg 11/11/24 22:12 11/11/24 22:37 Atorvastatin 40 Mg Tablet PO 40 mg QPM TOI Administration Furosemide 20 mg 11/12/24 09:00 Furosemide 20 Mg Tablet PO DAILY TOI Sodium Chloride 1,000 mls @ 75 mls/hr 11/11/24 22:12 11/11/24 22:25 Normal Saline 0.9% IV 75 mls/hr .[id number] TOI Administration Insulin Human Regular 1 - 9 unit 11/11/24 22:12 11/11/24 22:35 Insulin Regular, Human 300 Unit/3 Ml Pen SUBQ Not Given ACHS [facility] Protocol Losartan Potassium 50 mg 11/12/24 09:00 Losartan 50 Mg Tablet PO DAILY TOI Metoprolol Tartrate 5 mg 11/12/24 02:48 11/12/24 03:02 Metoprolol 5 Mg/5 Ml Vial IVP 5 mg Q6H PRN Administration Tachycardia Morphine Sulfate 2 mg 11/11/24 22:12 11/11/24 22:25 Morphine 2 Mg/Ml Carpuject IVP 2 mg Q4H PRN Administration Pain 8 to 10 Ondansetron HCl 4 mg 11/11/24 22:12 Ondansetron 4 Mg/2 Ml Vial IVP Q6HR PRN Nausea / Vomiting Ondansetron HCl 4 mg 11/11/24 22:12 Ondansetron Odt 4 Mg Tablet TL Q6HR PRN Nausea / Vomiting Sodium Chloride 10 ml 11/11/24 22:12 Sodium Chloride Flush 0.9% 10 Ml Syringe IVP PRN PRN NEEDED PER PROVIDER ORDERS Sodium Chloride 10 ml 11/12/24 01:00 11/12/24 02:22 Sodium Chloride Flush 0.9% 10 Ml Syringe IVP Not Given 0100,0900,1700 [facility] Objective Vital Signs/Intake & Output Reviewed Vital Signs: Yes Vital Signs: Vital Signs x48h Temp Pulse Pulse Resp BP BP Pulse Ox 11/12/24 04:18 97.7 F 89 18 120/86 98 11/12/24 04:03 98.1 F 91 H 18 92/63 98 11/12/24 03:54 91 H 108/84 11/12/24 03:45 97.5 F L 91 H 18 108/84 98 11/12/24 03:26 97.2 F L 85 20 131/76 H 97 11/12/24 03:20 97.5 F L 88 20 121/74 97 11/12/24 03:12 97.2 F L 79 20 131/73 H 97 11/12/24 03:02 136 H 149/81 H Intake & Output: Intake & Output 11/09/24 11/10/24 11/11/24 11/12/24 23:59 23:59 23:59 23:59 Intake Total 100 / 100 Output Total 600 / 600 Balance 100 / 100 -600 / -600 Weight (kg) 86 kg Objective General Appearance: positive No acute distress, Alert and Anxious Eyes Bilateral: positive Normal inspection, PERRL and Other Eyes: OS: Abnormal EOM (Left lazy eye; chronic, per patient) ENT: positive Pharynx nml and No signs of dehydration Neck: positive Nml inspection, Thyroid nml and No JVD Respiratory: positive Chest non-tender, No respiratory distress and Breath sounds nml; negative Wheezes, Rales or Rhonchi Cardiovascular: positive No murmur and Irregularly irregular; negative Tachycardia Peripheral Pulses: 2+: Dorsalis pedis (R), 2+: Dorsalis pedis (L), 2+: Posterior tibialis (R) and 2+: Posterior tibialis (L) Abdomen: positive Non-tender and No organomegaly; negative Tenderness, Rebound, Hepatomegaly or Splenomegaly Back: positive Nml inspection; negative CVA tenderness (R) or CVA tenderness (L) Skin: positive Color nml, No rash, Warm and Dry Extremities: positive Full ROM and Other (Severe tenderness to palpation of LLE from dorsum of foot to mid-calf; erythema noted with some possible streaking up leg; two diabetic ulcers noted on L foot with no active purulence, some fluctuence noted ) Neurologic/Psychiatric: positive Disoriented to place, Disoriented to time and Slurred/abnml speech (Expressive aphasia) Lab Results 11/12/24 04:56 11/12/24 04:56 Other Labs: Lab Results x24hrs 11/12/24 11/12/24 11/11/24 Range/Units 06:51 04:56 22:33 WBC 15.0 H (4.8-10.8) x10^3/uL RBC 5.86 H (4.20-5.40) 10^6/uL Hgb 15.9 (12.0-16.0) g/dL Hct 49.0 H (37.0-47.0) % MCV 83.6 (81.0-99.0) fL MCH 27.1 (27.0-31.0) pg MCHC 32.4 (32.0-36.0) g/dL RDW 15.1 H (12.0-15.0) % Plt Count 240 (130-450) 10^3/uL MPV 11.6 H (7.9-10.8) fL Neut # (Auto) 11.3 H (1.5-6.6) 10^3/uL Lymph # (Auto) 2.4 (1.5-3.5) 10^3/uL [place] # (Auto) 1.0 (0.0-1.0) 10^3/uL Eos # (Auto) 0.2 (0.0-0.7) 10^3/uL Baso # (Auto) 0.1 (0.0-0.1) 10^3/uL Absolute Nucleated RBC 0.00 x10^3/uL Nucleated RBC % 0.0 /100WBC ESR (0-30) mm/Hr PT (9.9-12.6) secs INR (0.8-1.2) Sodium 139 (135-145) mmol/L Potassium 4.1 (3.5-4.5) mmol/L Chloride 102 (101-111) mmol/L Carbon Dioxide 29 (21-32) mmol/L Anion Gap 8.0 (6-13) BUN 23 H (6-20) mg/dL Creatinine 1.0 (0.6-1.3) mg/dL Estimated GFR (MDRD) 68 L (>89) Glucose 99 (74-104) mg/dL POC Whole Bld Glucose 177 165 (70-100) mg/dL Lactic Acid (0.5-2.2) mmol/L Calcium 9.0 (8.5-10.3) mg/dL Total Bilirubin (0.2-1.0) mg/dL AST (10-42) IU/L ALT (10-60) IU/L Alkaline Phosphatase (42-121) IU/L C-Reactive Protein (<0.5) mg/dL Total Protein (6.4-8.9) g/dL Albumin (3.2-5.5) g/dL Globulin (2.1-4.2) g/dL Albumin/Globulin Ratio (1.0-2.2) 11/11/24 11/11/24 11/11/24 Range/Units 20:46 19:59 17:54 WBC 18.8 H (4.8-10.8) x10^3/uL RBC 6.03 H (4.20-5.40) 10^6/uL Hgb 16.7 H (12.0-16.0) g/dL Hct 50.3 H (37.0-47.0) % MCV 83.4 (81.0-99.0) fL MCH 27.7 (27.0-31.0) pg MCHC 33.2 (32.0-36.0) g/dL RDW 15.9 H (12.0-15.0) % Plt Count 239 (130-450) 10^3/uL MPV 10.9 H (7.9-10.8) fL Neut # (Auto) 15.7 H (1.5-6.6) 10^3/uL Lymph # (Auto) 1.8 (1.5-3.5) 10^3/uL [place] # (Auto) 0.9 (0.0-1.0) 10^3/uL Eos # (Auto) 0.1 (0.0-0.7) 10^3/uL Baso # (Auto) 0.1 (0.0-0.1) 10^3/uL Absolute Nucleated RBC 0.00 x10^3/uL Nucleated RBC % 0.0 /100WBC ESR 1 (0-30) mm/Hr PT 16.0 H (9.9-12.6) secs INR 1.5 H (0.8-1.2) Sodium 138 (135-145) mmol/L Potassium 4.1 (3.5-4.5) mmol/L Chloride 100 L (101-111) mmol/L Carbon Dioxide 30 (21-32) mmol/L Anion Gap 8.0 (6-13) BUN 24 H (6-20) mg/dL Creatinine 1.0 (0.6-1.3) mg/dL Estimated GFR (MDRD) 68 L (>89) Glucose 100 (74-104) mg/dL POC Whole Bld Glucose (70-100) mg/dL Lactic Acid 2.0 (0.5-2.2) mmol/L Calcium 9.0 (8.5-10.3) mg/dL Total Bilirubin 1.9 H (0.2-1.0) mg/dL AST 58 H (10-42) IU/L ALT 29 (10-60) IU/L Alkaline Phosphatase 137 H (42-121) IU/L C-Reactive Protein 17.0 H (<0.5) mg/dL Total Protein 6.7 (6.4-8.9) g/dL Albumin 2.7 L (3.2-5.5) g/dL Globulin 4.0 (2.1-4.2) g/dL Albumin/Globulin Ratio 0.7 L (1.0-2.2) Diagnostic Imaging Diagnostic Imaging Results: positive Final report reviewed Sepsis Event Note (H) Evaluation Current Stage of Sepsis: Sepsis Possible source of Sepsis: positive Skin/soft tissue Sepsis Criteria Sepsis Criteria: Recorded Heart Rate greater than 90 bpm and WBC count greater than 12,000 or less than 4000 Assessment/Plan Problem List (1) Cellulitis of left leg: Impression: Patient complaining of left lower extremity swelling and pain. Foot x-ray shows soft tissue swelling, no acute bony abnormality. Duplex ultrasound of left lower extremity shows no DVT. Lab work notable for leukocytosis of 15, downtrending from [address] of left lower leg ordered to rule out abscess with some fluctuance noted, exquisite tenderness to palpation, as well as some streaking up the leg. Continue vancomycin and Zosyn for broad coverage in setting of diabetic ulcers. Received adequate IV fluid resuscitation. Resume Lasix today. Depending on results of CT scan, may need surgery to perform I&D. (2) Diabetic foot ulcer: Impression: Patient with history of diabetes mellitus, last A1c of 6.5 in 02/17. Home medications include dapagliflozin only, which she likely takes for heart failure. History of multiple diabetic foot ulcers; appears to have two right now. CT ordered to assess infection. Qualifiers: Diabetic foot ulcer location: toe Diabetes mellitus type: type 2 L aterality: left Non-pressure ulcer stage: limited to breakdown of skin Q ualified Code(s): E11.621 - Type 2 diabetes mellitus with foot ulcer; L97.521 - Non-pressure chronic ulcer of other part of left foot limited to breakdown of skin (3) Diabetes: Impression: Patient with last A1c of 6.5 in 02/17. Continue low dose sliding scale inpatient. Qualifiers: Diabetes mellitus type: type 2 Diabetes mellitus nursing home insulin use: without nursing home use Diabetes mellitus complication status: with skin complications Diabetes mellitus complication detail: with foot ulcer Qualified Code(s): E11.621 - Type 2 diabetes mellitus with foot ulcer; L97.509 - Non- pressure chronic ulcer of other part of unspecified foot with unspecified severity (4) Atrial fibrillation: Impression: Continue metoprolol, amiodarone, Eliquis. Rate controlled at this time. 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 At the time speech therapist was consulted, approved a full diet. Remains with expressive aphasia at this time. (6) HFrEF (heart failure with reduced ejection fraction): Impression: Last ECHO done 02/15 for showed EF of 25 to 30%. Continue oral Lasix. Continue losartan, dapagliflozin, metoprolol, spironolactone.
[2024-11-12] MEDS: SPIRONOLACTONE 25 MG TABLET PO SCH (08:56)
[2024-11-12] MEDS: PIPERACILLIN/TAZOBACTAM 4.5 GM in SODIUM CHLORIDE 0.9% MINIBAG 100 ML IV SCH ×2 (08:56→11:59)
[2024-11-12] MEDS: APIXABAN 5 MG TABLET PO SCH (08:56)
[2024-11-12] MEDS: FUROSEMIDE 20 MG TABLET PO SCH (08:56)
[2024-11-12] MEDS: METOPROLOL SUCCINATE 25 MG TABLET PO SCH (08:56)
[2024-11-12] MEDS: AMIODARONE 200 MG TABLET PO SCH (08:56)
[2024-11-12] MEDS: LOSARTAN 50 MG TABLET PO SCH (08:56)
[2024-11-12] MEDS: DAPAGLIFLOZIN 10 MG PO SCH (08:57)
[2024-11-12] MEDS: VANCOMYCIN INJ 2 GM in SODIUM CHLORIDE 0.9% 500 ML IV ONE (09:47)
[2024-11-12] MEDS: iohexoL-300 100 ML VIAL IVP ONE (11:16)
--- NOTE | 2024-11-12 11:21 | PHARMACY PROGRESS NOTE ---
Vancomycin Therapy Monitoring Vancomycin Therapy Goals Treatment Indication: CELLULITIS Vancomycin Target Range: Vancomycin AUC Target Range 400-600 mcg*h/ml Plan: Vancomycin Loading Dose (GM, if applicable): 2g x1 11/12@1000 New Regimen (Enter new dose and interval): 1g q12h starting 11/12 at 2100, anticipated AUC 482 Vancomycin Level Recommendation: Vancomycin Level Recommendation (after 5 doses if continuing therapy)
[2024-11-12] MEDS: INSULIN LISPRO 300 UNIT/3 ML PEN SUBQ SCH (11:53)
[2024-11-12 12:25] LABS: ESTIMATED AVERAGE GLUCOSE 143 mg/dL (70-100); HEMOGLOBIN A1c% 6.6 % (4.27-6.07)
--- NOTE | 2024-11-12 14:45 | PHARMACY PROGRESS NOTE ---
Best Possible Medication History Admit Date and Time: 11/11/242039 Home Medications Medication Instructions Recorded Confirmed Type albuterol sulfate 90 mcg/actuation 2 puff inhalation Q4H PRN 02/16/24 Rx aerosol inhaler (Ventolin HFA) Shortness Of Air/Wheezing #1 ea amiodarone 200 mg tablet 200 mg PO DAILY #30 tabs 02/16/24 Rx atorvastatin 40 mg tablet 40 mg PO QPM #30 tabs 02/16/24 Rx cholecalciferol (vitamin D3) 25 50 mcg (2 x 25 mcg (1,000 unit)) 02/16/24 Rx mcg (1,000 unit) tablet PO DAILY #30 tabs furosemide 20 mg tablet 20 mg PO DAILY #30 tabs 02/16/24 Rx losartan 50 mg tablet 50 mg PO DAILY #30 tabs 02/16/24 Rx metoprolol succinate 25 mg 25 mg PO DAILY #30 tabs 02/16/24 Rx tablet,extended release 24 hr Dapagliflozin Propanediol 10 mg PO DAILY #30 tabs 02/19/24 Rx [Dapagliflozin] spironolactone 25 mg tablet 25 mg PO DAILY #30 tabs 02/19/24 Rx amlodipine 10 mg tablet (Norvasc) 10 mg PO DAILY 11/12/24 History apixaban 5 mg tablet (Eliquis) 5 mg PO BIDWM 11/12/24 History Processed by: Pharmacy (Medication reconciliation completed by x ray electronics wiring technician Nico. Nazario called [facility], and pt's friend Clarisse. ) Medications reviewed in ED?: No Medication History completed: Yes Patient Interview: Pt unable to participate Secondary Source(s): Prescription bottles and Insurance records [facility] Statement: LAST WE CAN TELL: medications do not look to have been filled since February of this year per most current bottles. Unable to confirm any medications as current. As the person ultimately responsible for medication therapy, providers are able to order a medication from an existing home medication list in [facility] via the "Reconcile Routine" prior to Confirmation of that medication by home support worker. Such practice is discouraged except when the physician, in their clinical judgment, deems that a medical need exists for a medication without regard to previous use.
--- NOTE | 2024-11-12 16:12 | OT Plan of Care ---
OT Inpatient POC Diagnosis DIAGNOSIS Diagnosis: L LE cellulitis; sepsis Diagnosis: CVA Chief Complaint: B LE pain/swelling Onset of Chief Complaint: CHIEF CLINICAL DIETITIAN Assessment and Goals ASSESSMENT Assessment: Pt is a 64 y/o F with a history of Diabetes, Atrial fibrillation, stroke with residual speech deficits brought into to ED by a friend for c/o bilateral lower extremity swelling and pain (L more than R) 2/2 diabetic ulcer. Foot x-ray shows soft tissue swelling, no acute bony abnormality. Duplex ultrasound of left lower extremity shows no DVT. CT L LE ordered. Adm for management of Sepsis. Met supine in bed, A&O to self, place, and situation with choices Significant speech deficits in expressive/receptive language impairing command following however pt able to perform simple mobility/tasks with increased time and cues. 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 Despite language deficits, pt able to clearly express wants and needs with increased time. Currently MIN A ADLs (donning/doffing socks/shoes prior to mobility assessment). Face washing seated EOB CGA with set up and cues. Overall presenting with decreased endurance, activity tolerance, and ADL status. Will benefit from cont OT services during acute stay. Rec d/c to SNF vs home with services pending progress with therapy. -Activities of Daily Living Improve Upper Extremity Dressing to:: Modified Independent Improve Lower Extremity Dressing to:: Modified Independent Improve Grooming/Hygiene to:: Modified Independent Improve Bathing to:: Modified Independent Improve Toileting to:: Modified Independent OT Inpatient Plan PLAN Treatment Frequency: 1x/day Duration: Until discharge -Discharge Recommendations Discharge Location: Nursing Home Facility Support/Services Needed: With assist Recommended Equipment: Raised Toilet Seat, Commode, Grab bars, Shower/bath chair, Adaptive Self Care Devices and Other Transport Needs at Discharge: Isha
--- NOTE | 2024-11-12 16:22 | PT Plan of Care ---
PT Inpatient Plan of Care DIAGNOSIS Diagnosis: L LE cellulitis; sepsis Diagnosis: CVA Referring Provider: Malik Villatoro Patient Status: Observation CHIEF COMPLAINT Chief Complaint: B LE pain/swelling Onset of Chief Complaint: DELICATESSEN MANAGER BALANCE/FUNCTIONAL RESULTS Sitting Balance: Good Standing Balance: Fair ASSESSMENT Assessment: Pt is a 64yo F referred for PT eval d/t limited mobility. Pt has history of CVA and is known to this PT as she was treated in this facility s/p CVA in January 2024. Pt was dc'd to SNF after that admit then dc'd home. Lives in mobile home on [facility] property. Baseline mobility unclear but apparently indep to [place] at home prior to this admit. Upon PT eval, pt presents with expressive aphasia but able to make needs known. Supine to sit with CGA, transfers to standing with handheld assist, unable to progress gait assessment d/t poor slade ding balance. Pt follows 2-3 step multimodal cueing and is agreeable to partcipate throughout session. Pt will benefit from skilled PT in acute setting to progress activity, ambulation, and indep. When medically clear, PT rec dc to SNF as pt is below presumed baseline. GOALS Improve supine to sit to:: Modified Independent Improve sit to stand to:: Modified Independent Improve sit to supine to:: Modified Independent Improve gait ability to:: CGA Advance Assistive Device to:: None and Front Wheeled Walker Increase distance walked to (in feet):: 100 Reduce verbal cues to:: 0 Reduce physical cues to:: 0 Improve Sitting Balance to:: Good PLAN Frequency: 1-2x/day Duration: Until goals are met DISCHARGE RECOMMENDATIONS Discharge Location: Long-Term Facility DC Equipment Recommended: Front wheeled walker Transport Needs at Discharge: B.L.S Other: BLS d/t confusion, unable to stand
--- NOTE | 2024-11-12 17:22 | CT Report ---
PROCEDURE: CT Lower Extremity LT W INDICATIONS: ?abscess TECHNIQUE: After administration of contrast 3 mm axial sections acquired of the left ankle, with coronal and sag ittal reformats. For radiation dose reduction, the following was used: automated exposure control, adjustment of mA and/or kV according to patient size. CONTRAST: iohex 100ml COMPARISON: None. FINDINGS: Image quality: Excellent. Bones: Metatarsal adductus. Moderate hallux valgus. Lateral subluxation at the second metatarsophala ngeal joint. No acute fracture or dislocation. Mild degenerative change of the midfoot. Small plantar calcaneus enthesophyte. No focal periosteal thickening or erosion to suggest osteomyelitis. Soft tissues: Diffuse subcutaneous edema of the ankle, extending to the dorsal foot. No drainable fl uid collection. The flexors, extensors, peroneal tendons are unremarkable. Mild tendinosis of distal Achilles tendon, without full-thickness rupture. IMPRESSION: 1.Diffuse subcutaneous edema of the ankle and dorsal foot. No drainable fluid collection. 2.No CT finding to suggest osteomyelitis. Reviewed by: Denise Salvador MD on 11/12/2024 5:21 PM PST Approved by: Denise Salvador MD on 11/12/2024 5:21 PM PST Station ID: [email or web address]
[2024-11-12] MEDS: VANCOMYCIN INJ 1 GM in SODIUM CHLORIDE 0.9% 250 ML IV SCH (21:21)
[2024-11-13 05:31] LABS: HCT - HEMATOCRIT 48.5 % (37.0-47.0); HGB - HEMOGLOBIN 15.9 g/dL (12.0-16.0); MEAN CORPUSCULAR HEMOGLOBIN 27.4 pg (27.0-31.0); MEAN CORPUSCULAR HGB CONC 32.8 g/dL (32.0-36.0); MEAN CORPUSCULAR VOLUME 83.5 fL (81.0-99.0); MEAN PLATELET VOLUME 10.8 fL (7.9-10.8); RED BLOOD COUNT 5.81 10^6/uL (4.20-5.40); RED CELL DISTRIBUTION WIDTH 15.9 % (12.0-15.0); WHITE BLOOD COUNT 12.3 x10^3/uL (4.8-10.8)
[2024-11-13 05:52] LABS: CALCIUM 8.9 mg/dL (8.5-10.3); CREATININE 1.1 mg/dL (0.6-1.3); MAGNESIUM 1.5 mg/dL (1.7-2.3); POTASSIUM 3.7 mmol/L (3.5-4.5)
--- NOTE | 2024-11-13 07:44 | PROVIDER PROGRESS NOTE ---
Subjective Subjective Subjective: Patient is a 64 year old female with a history of methamphetamine use, CVA in 01/2024 with resultant severe expressive aphasia, atrial fibrillation on Eliquis, heart failure with reduced ejection fraction of 25-30% who presents due to left lower leg pain. Due to her expressive aphasia, patient is a poor historian. When patient was seen this morning, she was crying. She states that she is not in any pain. In fact, her leg feels better. She states she's hungry. She appears to be frustrated at still being here. Current Medications Current Medications Current Medications: Current Medications Generic Name Dose Route Start Last Admin Trade Name Freq PRN Reason Stop Dose Admin Acetaminophen 650 mg 11/11/24 22:12 11/12/24 03:58 Acetaminophen 325 Mg Tablet PO 650 mg Q4HR PRN Administration Pain 1 to 4, or Fever Hydrocodone Bitart/Acetaminophen 1 tab 11/11/24 22:12 11/12/24 21:26 Hydrocod/Acetam 5/325 Mg Tablet PO 1 tab Q4HR PRN Administration Pain 5 to 7 Amiodarone HCl 200 mg 11/12/24 09:00 11/12/24 08:56 Amiodarone 200 Mg Tablet PO 200 mg DAILY TOI Administration Apixaban 5 mg 11/12/24 09:00 11/12/24 21:22 Apixaban 5 Mg Tablet PO 5 mg BID TOI Administration Atorvastatin Calcium 40 mg 11/11/24 22:12 11/12/24 21:22 Atorvastatin 40 Mg Tablet PO 40 mg QPM TOI Administration Furosemide 20 mg 11/12/24 09:00 11/12/24 08:56 Furosemide 20 Mg Tablet PO 20 mg DAILY TOI Administration Piperacillin Sod/Tazobactam 100 mls @ 25 mls/hr 11/12/24 12:00 11/13/24 04:19 Sod 4.5 gm/ Sodium Chloride IV 25 mls/hr Q8H TOI Administration Vancomycin HCl 1 gm/ Sodium 250 mls @ 167 mls/hr 11/12/24 21:00 11/12/24 23:28 Chloride IV Infused Q12H TOI Infusion Insulin Human Lispro 1 - 5 unit 11/12/24 12:00 11/12/24 21:24 Insulin Lispro 300 Unit/3 Ml Pen SUBQ Not Given 0800,1200,1700,2100 [facility] Protocol Losartan Potassium 50 mg 11/12/24 09:00 11/12/24 08:56 Losartan 50 Mg Tablet PO 50 mg DAILY TOI Administration Metoprolol Succinate 25 mg 11/12/24 09:00 11/12/24 08:56 Metoprolol Succinate 25 Mg Tablet PO 25 mg DAILY TOI Administration Metoprolol Tartrate 5 mg 11/12/24 02:48 11/12/24 03:02 Metoprolol 5 Mg/5 Ml Vial IVP 5 mg Q6H PRN Administration Tachycardia Morphine Sulfate 2 mg 11/11/24 22:12 11/11/24 22:25 Morphine 2 Mg/Ml Carpuject IVP 2 mg Q4H PRN Administration Pain 8 to 10 Ondansetron HCl 4 mg 11/11/24 22:12 Ondansetron 4 Mg/2 Ml Vial IVP Q6HR PRN Nausea / Vomiting Ondansetron HCl 4 mg 11/11/24 22:12 Ondansetron Odt 4 Mg Tablet TL Q6HR PRN Nausea / Vomiting Patient Own Med ([ 1 each 11/12/24 09:00 11/12/24 08:57 Dapagliflozin] 10 Mg PO Not Given Tablet) DAILY TOI Sodium Chloride 10 ml 11/11/24 22:12 Sodium Chloride Flush 0.9% 10 Ml Syringe IVP PRN PRN NEEDED PER PROVIDER ORDERS Sodium Chloride 10 ml 11/12/24 01:00 11/12/24 23:51 Sodium Chloride Flush 0.9% 10 Ml Syringe IVP 10 ml 0100,0900,1700 TOI Administration Spironolactone 25 mg 11/12/24 09:00 11/12/24 08:56 Spironolactone 25 Mg Tablet PO 25 mg DAILY TOI Administration Objective Vital Signs/Intake & Output Reviewed Vital Signs: Yes Vital Signs: Vital Signs x48h Temp Pulse Resp BP Pulse Ox 11/12/24 23:48 97.3 F L 87 22 134/91 H 94 Intake & Output: Intake & Output 11/10/24 11/11/24 11/12/24 11/13/24 23:59 23:59 23:59 23:59 Intake Total 100 / 100 2863 / 2863 100 / 100 Output Total 600 / 600 Balance 100 / 100 2263 / 2263 100 / 100 Weight (kg) 86 kg Objective General Appearance: positive No acute distress, Alert and Anxious Eyes Bilateral: positive Normal inspection, PERRL and Other Eyes: OS: Abnormal EOM (Left lazy eye; chronic, per patient) ENT: positive Pharynx nml and No signs of dehydration Neck: positive Nml inspection, Thyroid nml and No JVD Respiratory: positive Chest non-tender, No respiratory distress and Breath sounds nml; negative Wheezes, Rales or Rhonchi Cardiovascular: positive No murmur and Irregularly irregular; negative Tachycardia Peripheral Pulses: 2+: Dorsalis pedis (R), 2+: Dorsalis pedis (L), 2+: Posterior tibialis (R) and 2+: Posterior tibialis (L) Abdomen: positive Non-tender and No organomegaly; negative Tenderness, Rebound, Hepatomegaly or Splenomegaly Back: positive Nml inspection; negative CVA tenderness (R) or CVA tenderness (L) Skin: positive Color nml, No rash, Warm and Dry Extremities: positive Full ROM and Other (Improved tenderness to palpation of LLE from dorsum of foot to mid-calf; erythema improved, two diabetic ulcers noted on L foot with no active purulence) Neurologic/Psychiatric: positive Disoriented to place, Disoriented to time and Slurred/abnml speech (Expressive aphasia) Lab Results 11/13/24 04:52 11/13/24 04:52 Other Labs: Lab Results x24hrs 11/13/24 11/13/24 11/12/24 Range/Units 07:32 04:52 20:28 WBC 12.3 H (4.8-10.8) x10^3/uL RBC 5.81 H (4.20-5.40) 10^6/uL Hgb 15.9 (12.0-16.0) g/dL Hct 48.5 H (37.0-47.0) % MCV 83.5 (81.0-99.0) fL MCH 27.4 (27.0-31.0) pg MCHC 32.8 (32.0-36.0) g/dL RDW 15.9 H (12.0-15.0) % Plt Count 235 (130-450) 10^3/uL MPV 10.8 (7.9-10.8) fL Sodium 138 (135-145) mmol/L Potassium 3.7 (3.5-4.5) mmol/L Chloride 103 (101-111) mmol/L Carbon Dioxide 28 (21-32) mmol/L Anion Gap 7.0 (6-13) BUN 24 H (6-20) mg/dL Creatinine 1.1 (0.6-1.3) mg/dL Estimated GFR (MDRD) 61 L (>89) Glucose 90 (74-104) mg/dL POC Whole Bld Glucose 92 132 (70-100) mg/dL Estimat Average Glucose (70-100) mg/dL Hemoglobin A1c % (4.27-6.07) % Calcium 8.9 (8.5-10.3) mg/dL Magnesium 1.5 L (1.7-2.3) mg/dL 11/12/24 11/12/24 11/12/24 Range/Units 16:32 11:43 08:05 WBC (4.8-10.8) x10^3/uL RBC (4.20-5.40) 10^6/uL Hgb (12.0-16.0) g/dL Hct (37.0-47.0) % MCV (81.0-99.0) fL MCH (27.0-31.0) pg MCHC (32.0-36.0) g/dL RDW (12.0-15.0) % Plt Count (130-450) 10^3/uL MPV (7.9-10.8) fL Sodium (135-145) mmol/L Potassium (3.5-4.5) mmol/L Chloride (101-111) mmol/L Carbon Dioxide (21-32) mmol/L Anion Gap (6-13) BUN (6-20) mg/dL Creatinine (0.6-1.3) mg/dL Estimated GFR (MDRD) (>89) Glucose (74-104) mg/dL POC Whole Bld Glucose 162 123 125 (70-100) mg/dL Estimat Average Glucose (70-100) mg/dL Hemoglobin A1c % (4.27-6.07) % Calcium (8.5-10.3) mg/dL Magnesium (1.7-2.3) mg/dL 11/12/24 Range/Units 04:56 WBC (4.8-10.8) x10^3/uL RBC (4.20-5.40) 10^6/uL Hgb (12.0-16.0) g/dL Hct (37.0-47.0) % MCV (81.0-99.0) fL MCH (27.0-31.0) pg MCHC (32.0-36.0) g/dL RDW (12.0-15.0) % Plt Count (130-450) 10^3/uL MPV (7.9-10.8) fL Sodium (135-145) mmol/L Potassium (3.5-4.5) mmol/L Chloride (101-111) mmol/L Carbon Dioxide (21-32) mmol/L Anion Gap (6-13) BUN (6-20) mg/dL Creatinine (0.6-1.3) mg/dL Estimated GFR (MDRD) (>89) Glucose (74-104) mg/dL POC Whole Bld Glucose (70-100) mg/dL Estimat Average Glucose 143 H (70-100) mg/dL Hemoglobin A1c % 6.6 H (4.27-6.07) % Calcium (8.5-10.3) mg/dL Magnesium (1.7-2.3) mg/dL Diagnostic Imaging Diagnostic Imaging Results: positive Final report reviewed Sepsis Event Note (H) Evaluation Current Stage of Sepsis: Sepsis Possible source of Sepsis: positive Skin/soft tissue Sepsis Criteria Sepsis Criteria: Recorded Heart Rate greater than 90 bpm and WBC count greater than 12,000 or less than 4000 Assessment/Plan Problem List (1) Cellulitis of left leg: Impression: Patient complaining of left lower extremity swelling and pain. Foot x-ray shows soft tissue swelling, no acute bony abnormality. Duplex ultrasound of left lower extremity shows no DVT. Lab work notable for leukocytosis of 15, downtrending from [address] of left lower leg ordered, no abscess noted. Continue vancomycin and Zosyn for broad coverage in setting of diabetic ulcers. Received adequate IV fluid resuscitation. Continue Lasix. Leukocytosis improving; continue one more day of IV antibiotics, will transition to oral tomorrow. Plan is for SNF placement on discharge. (2) Diabetic foot ulcer: Impression: Patient with history of diabetes mellitus, last A1c of 6.5 in 02/17. Home medications include dapagliflozin only, which she likely takes for heart failure. History of multiple diabetic foot ulcers; appears to have two right now. Qualifiers: Diabetes mellitus type: type 2 Diabetic foot ulcer location: toe L aterality: left Non-pressure ulcer stage: limited to breakdown of skin Q ualified Code(s): E11.621 - Type 2 diabetes mellitus with foot ulcer; L97.521 - Non-pressure chronic ulcer of other part of left foot limited to breakdown of skin (3) Diabetes: Impression: Patient with last A1c of 6.5 in 02/17. Continue low dose sliding scale inpatient. Qualifiers: Diabetes mellitus complication detail: with foot ulcer Diabetes mellitus complication status: with skin complications Diabetes mellitus long term care administrator insulin use: without mcfp use Diabetes mellitus type: type 2 Q ualified Code(s): E11.621 - Type 2 diabetes mellitus with foot ulcer; L97.509 - Non-pressure chronic ulcer of other part of unspecified foot with unspecified severity (4) Atrial fibrillation: Impression: Continue metoprolol, amiodarone, Eliquis. Rate controlled at this time. 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 At the time speech therapist was consulted, approved a full diet. Remains with expressive aphasia at this time. (6) HFrEF (heart failure with reduced ejection fraction): Impression: Last ECHO done 02/15 for showed EF of 25 to 30%. Continue oral Lasix. Continue losartan, dapagliflozin, metoprolol, spironolactone.
[2024-11-13] MEDS: METOPROLOL TARTRATE 25 MG TABLET PO STA (14:53)
[2024-11-13 15:48] LABS: AMPHETAMINE SCREEN,URINE POSITIVE (NEGATIVE); BARBITURATE SCREEN,UR NEGATIVE (NEGATIVE); BENZODIAZEPINES SCREEN, URINE NEGATIVE (NEGATIVE); BUPRENORPHINE SCREEN, URINE NEGATIVE (NEGATIVE); COCAINE SCREEN URINE NEGATIVE (NEGATIVE); METHADONE SCREEN, URINE NEGATIVE (NEGATIVE); METHAMPHETAMINES SCREEN, URINE POSITIVE (NEGATIVE); OPIATE SCREEN, URINE POSITIVE (NEGATIVE); OXYCODONE SCREEN, URINE NEGATIVE (NEGATIVE); THC CANNABINOID SCREEN, URINE NEGATIVE (NEGATIVE); TRICYCLIC ANTIDEPRESSANT,URINE NEGATIVE (NEGATIVE)
[2024-11-13] MEDS: PIPERACILLIN/TAZOBACTAM 4.5 GM in SODIUM CHLORIDE 0.9% MINIBAG 100 ML IV SCH (23:42)
[2024-11-14 06:07] LABS: HCT - HEMATOCRIT 46.9 % (37.0-47.0); HGB - HEMOGLOBIN 15.5 g/dL (12.0-16.0); MEAN CORPUSCULAR HEMOGLOBIN 27.2 pg (27.0-31.0); MEAN CORPUSCULAR VOLUME 82.3 fL (81.0-99.0); MEAN PLATELET VOLUME 11.2 fL (7.9-10.8); RED BLOOD COUNT 5.7 10^6/uL (4.20-5.40); WHITE BLOOD COUNT 9.9 x10^3/uL (4.8-10.8)
[2024-11-14 06:22] LABS: CREATININE 0.9 mg/dL (0.6-1.3); POTASSIUM 3.6 mmol/L (3.5-4.5)
[2024-11-14] MEDS: SULFAMETH/TRIMETH DS 800/160 MG TABLET PO SCH (08:07)
[2024-11-14] MEDS: AMOX/CLAV 875 MG/125 MG TABLET PO SCH (08:08)
--- NOTE | 2024-11-14 08:40 | PROVIDER PROGRESS NOTE ---
Subjective Subjective Subjective: Patient is a 64 year old female with a history of methamphetamine use, CVA in 01/2024 with resultant severe expressive aphasia, atrial fibrillation on Eliquis, heart failure with reduced ejection fraction of 25-30% who presents due to left lower leg pain. Due to her expressive aphasia, patient is a poor historian. Overnight, patient was agitated, pulling at her IV lines, telemetry leads etc. RUDS was ordered; positive for amphetamines + methamphetamines. Current Medications Current Medications Current Medications: Current Medications Generic Name Dose Route Start Last Admin Trade Name Freq PRN Reason Stop Dose Admin Acetaminophen 650 mg 11/11/24 22:12 11/12/24 03:58 Acetaminophen 325 Mg Tablet PO 650 mg Q4HR PRN Administration Pain 1 to 4, or Fever Hydrocodone Bitart/Acetaminophen 1 tab 11/11/24 22:12 11/13/24 08:33 Hydrocod/Acetam 5/325 Mg Tablet PO 1 tab Q4HR PRN Administration Pain 5 to 7 Amiodarone HCl 200 mg 11/12/24 09:00 11/14/24 08:07 Amiodarone 200 Mg Tablet PO 200 mg DAILY TOI Administration Amoxicillin/Clavulanate Potassium 1 tab 11/14/24 09:00 11/14/24 08:08 Amox/Clav 875 Mg/125 Mg Tablet PO 1 tab BID TOI Administration Apixaban 5 mg 11/12/24 09:00 11/14/24 08:07 Apixaban 5 Mg Tablet PO 5 mg BID TOI Administration Atorvastatin Calcium 40 mg 11/11/24 22:12 11/13/24 21:31 Atorvastatin 40 Mg Tablet PO 40 mg QPM TOI Administration Furosemide 20 mg 11/12/24 09:00 11/14/24 08:07 Furosemide 20 Mg Tablet PO 20 mg DAILY TOI Administration Insulin Human Lispro 1 - 5 unit 11/12/24 12:00 11/14/24 08:08 Insulin Lispro 300 Unit/3 Ml Pen SUBQ Not Given 0800,1200,1700,2100 TOI Protocol Lorazepam 2 mg 11/14/24 07:13 Lorazepam 2 Mg/Ml Vial IVP Q4H PRN Agitation Losartan Potassium 50 mg 11/12/24 09:00 11/14/24 08:08 Losartan 50 Mg Tablet PO 50 mg DAILY TOI Administration Metoprolol Succinate 25 mg 11/12/24 09:00 11/14/24 08:08 Metoprolol Succinate 25 Mg Tablet PO 25 mg DAILY TOI Administration Metoprolol Tartrate 5 mg 11/12/24 02:48 11/13/24 13:42 Metoprolol 5 Mg/5 Ml Vial IVP 5 mg Q6H PRN Administration Tachycardia Ondansetron HCl 4 mg 11/11/24 22:12 Ondansetron 4 Mg/2 Ml Vial IVP Q6HR PRN Nausea / Vomiting Ondansetron HCl 4 mg 11/11/24 22:12 Ondansetron Odt 4 Mg Tablet TL Q6HR PRN Nausea / Vomiting Patient Own Med ([ 1 each 11/12/24 09:00 11/14/24 08:08 Dapagliflozin] 10 Mg PO Not Given Tablet) DAILY TOI Sodium Chloride 10 ml 11/11/24 22:12 Sodium Chloride Flush 0.9% 10 Ml Syringe IVP PRN PRN NEEDED PER PROVIDER ORDERS Sodium Chloride 10 ml 11/12/24 01:00 11/14/24 08:08 Sodium Chloride Flush 0.9% 10 Ml Syringe IVP 10 ml 0100,0900,1700 TOI Administration Spironolactone 25 mg 11/12/24 09:00 11/14/24 08:08 Spironolactone 25 Mg Tablet PO 25 mg DAILY TOI Administration Trimethoprim/Sulfamethoxazole 2 tab 11/14/24 09:00 11/14/24 08:07 Sulfameth/Trimeth Ds 800/160 Mg Tablet PO 2 tab BID TOI Administration Objective Vital Signs/Intake & Output Reviewed Vital Signs: Yes Vital Signs: Vital Signs x48h Temp Pulse Resp BP BP Pulse Ox 11/14/24 07:38 97.3 F L 88 20 160/103 H 100 11/14/24 04:23 97.3 F L 90 24 153/102 H 98 Intake & Output: Intake & Output 11/11/24 11/12/24 11/13/24 11/14/24 23:59 23:59 23:59 23:59 Intake Total 100 / 100 2863 / 2863 1560 / 1560 460 / 460 Output Total 600 / 600 500 / 500 400 / 400 Balance 100 / 100 2263 / 2263 1060 / 1060 60 / 60 Weight (kg) 86 kg Objective General Appearance: positive No acute distress, Alert and Anxious Eyes Bilateral: positive Normal inspection, PERRL and Other Eyes: OS: Abnormal EOM (Left lazy eye; chronic, per patient) ENT: positive Pharynx nml and No signs of dehydration Neck: positive Nml inspection, Thyroid nml and No JVD Respiratory: positive Chest non-tender, No respiratory distress and Breath sounds nml; negative Wheezes, Rales or Rhonchi Cardiovascular: positive No murmur and Irregularly irregular; negative Tachycardia Peripheral Pulses: 2+: Dorsalis pedis (R), 2+: Dorsalis pedis (L), 2+: Posterior tibialis (R) and 2+: Posterior tibialis (L) Abdomen: positive Non-tender and No organomegaly; negative Tenderness, Rebound, Hepatomegaly or Splenomegaly Back: positive Nml inspection; negative CVA tenderness (R) or CVA tenderness (L) Skin: positive Color nml, No rash, Warm and Dry Extremities: positive Full ROM and Other (Improved tenderness to palpation of LLE from dorsum of foot to mid-calf; erythema improved, two diabetic ulcers noted on L foot with no active purulence) Neurologic/Psychiatric: positive Disoriented to place, Disoriented to time and Slurred/abnml speech (Expressive aphasia) Lab Results 11/14/24 05:50 11/14/24 05:50 Other Labs: Lab Results x24hrs 11/14/24 11/14/24 11/13/24 Range/Units 07:31 05:50 20:46 WBC 9.9 (4.8-10.8) x10^3/uL RBC 5.70 H (4.20-5.40) 10^6/uL Hgb 15.5 (12.0-16.0) g/dL Hct 46.9 (37.0-47.0) % MCV 82.3 (81.0-99.0) fL MCH 27.2 (27.0-31.0) pg MCHC 33.0 (32.0-36.0) g/dL RDW 15.0 (12.0-15.0) % Plt Count 282 (130-450) 10^3/uL MPV 11.2 H (7.9-10.8) fL Sodium 138 (135-145) mmol/L Potassium 3.6 (3.5-4.5) mmol/L Chloride 106 (101-111) mmol/L Carbon Dioxide 27 (21-32) mmol/L Anion Gap 5.0 L (6-13) BUN 20 (6-20) mg/dL Creatinine 0.9 (0.6-1.3) mg/dL Estimated GFR (MDRD) 77 L (>89) Glucose 98 (74-104) mg/dL POC Whole Bld Glucose 113 124 (70-100) mg/dL Calcium 9.0 (8.5-10.3) mg/dL Urine Opiates Screen (NEGATIVE) Ur Buprenorphine Scrn (NEGATIVE) Ur Oxycodone Screen (NEGATIVE) Urine Methadone Screen (NEGATIVE) Ur Barbiturates Screen (NEGATIVE) Ur Tricyclics Screen (NEGATIVE) Ur Phencyclidine Scrn (NEGATIVE) Ur Amphetamine Screen (NEGATIVE) U Methamphetamines Scrn (NEGATIVE) U Benzodiazepines Scrn (NEGATIVE) Urine Cocaine Screen (NEGATIVE) U Cannabinoids Screen (NEGATIVE) Ur Drug Screen Comment 11/13/24 11/13/24 11/13/24 Range/Units 16:49 14:06 11:37 WBC (4.8-10.8) x10^3/uL RBC (4.20-5.40) 10^6/uL Hgb (12.0-16.0) g/dL Hct (37.0-47.0) % MCV (81.0-99.0) fL MCH (27.0-31.0) pg MCHC (32.0-36.0) g/dL RDW (12.0-15.0) % Plt Count (130-450) 10^3/uL MPV (7.9-10.8) fL Sodium (135-145) mmol/L Potassium (3.5-4.5) mmol/L Chloride (101-111) mmol/L Carbon Dioxide (21-32) mmol/L Anion Gap (6-13) BUN (6-20) mg/dL Creatinine (0.6-1.3) mg/dL Estimated GFR (MDRD) (>89) Glucose (74-104) mg/dL POC Whole Bld Glucose 138 145 (70-100) mg/dL Calcium (8.5-10.3) mg/dL Urine Opiates Screen POSITIVE H (NEGATIVE) Ur Buprenorphine Scrn NEGATIVE (NEGATIVE) Ur Oxycodone Screen NEGATIVE (NEGATIVE) Urine Methadone Screen NEGATIVE (NEGATIVE) Ur Barbiturates Screen NEGATIVE (NEGATIVE) Ur Tricyclics Screen NEGATIVE (NEGATIVE) Ur Phencyclidine Scrn NEGATIVE (NEGATIVE) Ur Amphetamine Screen POSITIVE H (NEGATIVE) U Methamphetamines Scrn POSITIVE H (NEGATIVE) U Benzodiazepines Scrn NEGATIVE (NEGATIVE) Urine Cocaine Screen NEGATIVE (NEGATIVE) U Cannabinoids Screen NEGATIVE (NEGATIVE) Ur Drug Screen Comment CUTOFF CONC BELOW: Diagnostic Imaging Diagnostic Imaging Results: positive Final report reviewed Sepsis Event Note (H) Evaluation Current Stage of Sepsis: Sepsis Possible source of Sepsis: positive Skin/soft tissue Sepsis Criteria Sepsis Criteria: Recorded Heart Rate greater than 90 bpm and WBC count greater than 12,000 or less than 4000 Assessment/Plan Problem List (1) Cellulitis of left leg: Impression: Patient complaining of left lower extremity swelling and pain. Foot x-ray shows soft tissue swelling, no acute bony abnormality. Duplex ultrasound of left lower extremity shows no DVT. Lab work notable for leukocytosis of 18; now resolved. CT of left lower leg ordered, no abscess noted. Vancomycin and Zosyn receieved for 3 days; switched to Bactrim and Augmentin, will complete 7 day course. Received adequate IV fluid resuscitation. Continue Lasix. Plan is for SNF placement on discharge vs. [facility]. (2) Methamphetamine abuse: Impression: RUDS positive for methamphetamines, amphetamines. Agitated overnight, may be in acute withdrawal. Continue Ativan as needed. (3) Diabetic foot ulcer: Impression: Patient with history of diabetes mellitus, last A1c of 6.5 in 02/17. Home medications include dapagliflozin only, which she likely takes for heart failure. History of multiple diabetic foot ulcers; appears to have two right now. Qualifiers: Diabetes mellitus type: type 2 Diabetic foot ulcer location: toe L aterality: left Non-pressure ulcer stage: limited to breakdown of skin Q ualified Code(s): E11.621 - Type 2 diabetes mellitus with foot ulcer; L97.521 - Non-pressure chronic ulcer of other part of left foot limited to breakdown of skin (4) Diabetes: Impression: Patient with last A1c of 6.5 in 02/17. Continue low dose sliding scale inpatient. Qualifiers: Diabetes mellitus complication detail: with foot ulcer Diabetes mellitus complication status: with skin complications Diabetes mellitus surgical corsetier insulin use: without penitentiary use Diabetes mellitus type: type 2 Q ualified Code(s): E11.621 - Type 2 diabetes mellitus with foot ulcer; L97.509 - Non-pressure chronic ulcer of other part of unspecified foot with unspecified severity (5) Atrial fibrillation: Impression: Continue metoprolol, amiodarone, Eliquis. Rate controlled at this time. 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 At the time speech therapist was consulted, approved a full diet. Remains with expressive aphasia at this time. (7) HFrEF (heart failure with reduced ejection fraction): Impression: Last ECHO done 02/15 for showed EF of 25 to 30%. Continue oral Lasix. Continue losartan, dapagliflozin, metoprolol, spironolactone.
[2024-11-14] MEDS: CHOLECALCIFEROL 25 MCG TABLET PO SCH (10:14)
[2024-11-14] MEDS: PRENATAL VITAMIN TABLET PO SCH (10:15)
[2024-11-14] MEDS: MAGNESIUM OXIDE 400 MG TABLET PO ONE (14:35)
[2024-11-14] MEDS: LORazepam 2 MG/ML VIAL IVP PRN (18:48)
[2024-11-15 06:31] LABS: HCT - HEMATOCRIT 47.4 % (37.0-47.0); HGB - HEMOGLOBIN 15.2 g/dL (12.0-16.0); MEAN CORPUSCULAR HEMOGLOBIN 27.1 pg (27.0-31.0); MEAN CORPUSCULAR HGB CONC 32.1 g/dL (32.0-36.0); MEAN CORPUSCULAR VOLUME 84.6 fL (81.0-99.0); MEAN PLATELET VOLUME 10.4 fL (7.9-10.8); RED BLOOD COUNT 5.6 10^6/uL (4.20-5.40); RED CELL DISTRIBUTION WIDTH 15.2 % (12.0-15.0); WHITE BLOOD COUNT 8.3 x10^3/uL (4.8-10.8)
[2024-11-15 06:55] LABS: CALCIUM 8.9 mg/dL (8.5-10.3); CREATININE 1.1 mg/dL (0.6-1.3); POTASSIUM 4.2 mmol/L (3.5-4.5)
--- NOTE | 2024-11-15 08:52 | Discharge Summary ---
"Discharge Summary Admit Date: 11/11/24 Discharge Date: 11/15/24 Discharging Provider: Dr. Malik Villatoro Code Status: Attempt Resuscitation DIAGNOSES Admission Diagnoses: Cellulitis of left leg Diabetic foot ulcer Diabetes Atrial fibrillation Speech-language deficit due to old stroke Discharge Diagnoses with Status of Each Condition: Cellulitis of left legreceived vancomycin and Zosyn for 3 days, switched to Bactrim and Augmentin yesterday. Will require 3 more days of oral antibiotics on discharge. Leukocytosis is also resolved. Will need follow-up with wound care in the outpatient setting. PCP appointment already set up. Methamphetamine useRUDS positive for methamphetamines, amphetamines. Received some Ativan as needed, has not required any recently. Advised extensively to abstain from use. Diabetic foot ulcerfollow-up with wound care outpatient. Diabetes cgbmolmhS2r of 6.5. Continue dapagliflozin which she takes for heart failure. Patient's friend, Clarisse, spoken with. She will turkey picker medications from [employer] for her. Will give 3-month supply. Atrial fibrillationcontinue metoprolol, amiodarone, Eliquis. Speech and language deficit due to old strokecontinue full diet. Will need speech therapy in the outpatient setting. Heart failure with reduced ejection fractionlast echo done 02/15 showed EF of 25 to 30%. Continue oral Lasix daily. Continue losartan, dapagliflozin, metoprolol, spironolactone. HPI History of Present Illness: Per Dr. Busby: Mrs. Wilson is a 64yoF with a history of Diabetes, Atrial fibrillation, stroke with residual speech deficits. She was brought in by friend for evaluation of leg pain and swelling.History is limited due to patient's speech deficits and friend not knowing the extent of the patient's history. Per the ED physician, she has not been on most of her medications for a long time. The duration of the pain is unknown. She was found to have bilateral swelling of her lower extremities, L >R. She had associated left calf pain and pain in her left foot. She had a 2cm wound along the medial aspect of her 1st MTP, with reported eschar and minimal drainage. Pulses were intact, sensation and ROM was intact. Xray demonstrated degenerative changes,but did not mention osteomylitic changes. I have agreed to admit for further management due to worsening pain and suspected infection. CONSULTS | PROCEDURES Consultations: PT, OT, CATHI Procedures: Foot x-ray, venous duplex, CT lower extremity HOSPITAL COURSE Hospital Course: Patient is a 64-year-old female with a history of CVA with resultant expressive aphasia, methamphetamine use who presented with left lower swelling and pain. She has some diabetic ulcers here that appeared infected as well. X-ray showed no osteomyelitis. Duplex ultrasound showed no DVT. CT showed no obvious abscess. She was initially treated with vancomycin and Zosyn for 3 days. Her white count resolved. Her pain, erythema, swelling also improved. She was transition to Augmentin and Bactrim; will complete a 7-day course of antibiotics on discharge. While she was here, her drug screen was positive for methamphetamines, amphetamines. She did go into withdrawal, and required some Ativan for agitation. This is now resolved. PT/OT did work with the patient, and recommended SNF. However, due to her recent drug use, she was not excepted anywhere. She was also not excepted for home health care. Patient's close friend Clarisse, was spoken with. Tiffanie used to work with Clarisse in the past prior to her stroke. Clarisse is okay with picking her up and dropping her home. She is also okay with picking up her medications. As such, patient was medically cleared. She was discharged home with a 3-month supply of medication. She was advised extensively to follow-up with primary care doctor, which social work helped set up. ALLERGIES Allergies Allergy/AdvReac Type Severity Reaction Status Date / Time No Known Drug Allergies Allergy Verified 11/11/24 14:52 MEDICATIONS Ambulatory Orders Medication Instructions Recorded Confirmed albuterol sulfate 90 mcg/actuation 2 puff inhalation Q4H PRN 02/16/24 aerosol inhaler (Ventolin HFA) Shortness Of Air/Wheezing #1 ea Dapagliflozin Propanediol 10 mg PO DAILY #30 tabs 02/19/24 [Dapagliflozin] amiodarone 200 mg tablet 200 mg PO DAILY #90 tabs 11/15/24 amoxicillin 875 mg-potassium 1 tab PO BID 3 days #6 tabs 11/15/24 clavulanate 125 mg tablet apixaban 5 mg tablet (Eliquis) 5 mg PO BIDWM 90 days #180 tabs 11/15/24 atorvastatin 40 mg tablet 40 mg PO QPM #90 tabs 11/15/24 cholecalciferol (vitamin D3) 25 50 mcg (2 x 25 mcg (1,000 unit)) 11/15/24 mcg (1,000 unit) tablet PO DAILY #90 tabs furosemide 20 mg tablet 20 mg PO DAILY #90 tabs 11/15/24 losartan 50 mg tablet 50 mg PO DAILY #90 tabs 11/15/24 metoprolol succinate 25 mg 25 mg PO DAILY #90 tabs 11/15/24 tablet,extended release 24 hr spironolactone 25 mg tablet 25 mg PO DAILY #90 tabs 11/15/24 sulfamethoxazole 800 2 tab PO BID 3 days #12 tabs 11/15/24 mg-trimethoprim 160 mg tablet PHYSICAL EXAM AT DISCHARGE General Appearance: positive No acute distress and Alert; negative Anxious Eyes Bilateral: positive Normal inspection, PERRL and EOMI ENT: positive ENT inspection nml, Pharynx nml and No signs of dehydration Neck: positive Nml inspection, Thyroid nml and No JVD Respiratory: positive Chest non-tender, No respiratory distress and Breath sounds nml; negative Wheezes, Rales or Rhonchi Cardiovascular: positive Regular rate & rhythm, No murmur and No gallop Peripheral Pulses: positive 2+ Abdomen: positive Non-tender, No organomegaly, Nml bowel sounds and No distention Back: positive Nml inspection; negative CVA tenderness (R) or CVA tenderness (L) Skin: positive Skin rash (Improved tenderness to palpation of LLE from dorsum of foot to mid-calf; erythema improved, two diabetic ulcers noted on L foot with no active purulence)) Extremities: positive Non-tender and Pedal edema (trace); negative Full ROM Neurologic/Psychiatric: positive Disoriented to place, Disoriented to time and Slurred/abnml speech LABS 11/15/24 06:24 11/15/24 06:24 SEPSIS Current Stage of Sepsis: Resolved Possible source of Sepsis: Skin/soft tissue Sepsis Criteria: Recorded Heart Rate greater than 90 bpm and WBC count greater than 12,000 or less than 4000 QUALITY (Female Hip Fx Only) Was patient sent home on osteoporosis medication?: No FOLLOW UP Follow Up: Follow up with primary care doctor. Follow up with wound care doctor. TIME SPENT Time Spent in Discharge (Minutes): 35 Discharge Plan Discharge Patient Disposition: Home, Self Care Prescriptions: New amoxicillin-pot clavulanate 875-125 mg Tablet 1 tab PO BID 3 Days Qty: 6 0RF sulfamethoxazole-trimethoprim 800-160 mg Tablet 2 tab PO BID 3 Days Qty: 12 0RF Continued albuterol sulfate [Ventolin HFA] 1 PUFFS HFA aerosol inhaler 2 puff inhalation Q4H PRN (Reason: Shortness Of Air/Wheezing) Qty: 1 0RF Dapagliflozin Propanediol [Dapagliflozin] 10 MG Tablet 10 mg PO DAILY Qty: 30 0RF losartan 50 MG tablet 50 mg PO DAILY Qty: 90 0RF atorvastatin 40 MG tablet 40 mg PO QPM Qty: 90 0RF amiodarone 200 MG tablet 200 mg PO DAILY Qty: 90 0RF spironolactone 25 MG tablet 25 mg PO DAILY Qty: 90 0RF furosemide 20 MG tablet 20 mg PO DAILY Qty: 90 0RF metoprolol succinate 25 MG tablet extended release 24 hr 25 mg PO DAILY Qty: 90 0RF cholecalciferol (vitamin D3) 25 MCG tablet 50 mcg PO DAILY Qty: 90 0RF Changed Eliquis 5 MG tablet 5 mg PO BIDWM 90 Days Qty: 180 0RF Rx Instructions: with Breakfast and Dinner Discontinued amlodipine [Norvasc] 10 mg tablet 10 mg PO DAILY Diet: Cardiac Health Concerns: You came in because you are having some pain and swelling in your left leg. You are found to have a skin infection. We started you on some IV antibiotics for that, and it improved. You will need to complete 3 more days of oral antibiotics. While you are here, you did also going to some withdrawals due to your meth use. We talked about the importance of stopping this upon discharge. We also talked about your heart failure, your atrial fibrillation, and how important it is for you to continue taking your medications as prescribed. As such I have sent a 3-month supply to your pharmacy, which required will help turkey picker. Our social psychologist help to set up a primary care doctor appointment for you as well. It will be important for you to continue to follow-upwith your primary care doctor, we will also likely send you to wound care doctor for diabetic ulcers. It is also important for you to take your medications. Thank you for allowing us to take care of you; we are glad you are feeling better. Care Plan Goals: 1. Finish your antibiotic course; 3 more days of Augmentin and Bactrim. 2. Follow-up with a primary care doctor. 3. Follow-up with the wound care doctor. 4. Continue to take your medications as prescribed. Plan of Treatment: 1. Finish your antibiotic course; 3 more days of Augmentin and Bactrim. 2. Follow-up with a primary care doctor. 3. Follow-up with the wound care doctor. 4. Continue to take your medications as prescribed. Print Language: French Patient Instructions: Diabetes Keep Feet Healthy, Diabetic Foot Ulcer Dc Stand Alone Forms: PCP List"
[2024-11-15 14:14] VITALS: BP 139/106; TEMP 97.2; O2SAT 93
== END 2024-11-15 14:45 | disposition home or self-care (01) ==
LOC: ED 14:46 → MS2 14:46
PROVIDERS: ADMIT Hospitalist; ATTEND Hospitalist

== ENCOUNTER 2024-12-04 17:23 | Inpatient (IN) ==
--- NOTE | 2024-12-04 17:39 | ED Physician Documentation ---
History of Present Illness Stated complaint Stated Complaint: ALOC/GLF Chief complaint Chief Complaint: Neuro History obtained from History obtained from: EMS Additonal information Additional information: This is a 64-year-old woman who reportedly lives alone in a trailer per EMS. Poor conditions. She has a history of stroke. Someone who lives on the property called. Patient is unable to give any history because she is altered. She does seem to motion to say that her feet hurt. She has a history of alcohol and methamphetamine use. Also A-fib and has been on a DOAC but medication compliance is questionable. Duran Coma Scale Assess Eye opening: Spontaneous Verbal response: Incomprehensible Motor response: Obeys Commands Total score: 12 Meds/Allgy Home Medications Ambulatory Orders Medication Instructions Recorded Confirmed albuterol sulfate 90 mcg/actuation 2 puff inhalation Q4H PRN 02/16/24 aerosol inhaler (Ventolin HFA) Shortness Of Air/Wheezing #1 ea Dapagliflozin Propanediol 10 mg PO DAILY #30 tabs 02/19/24 [Dapagliflozin] amiodarone 200 mg tablet 200 mg PO DAILY #90 tabs 11/15/24 amiodarone 200 mg tablet 200 mg PO DAILY #90 tabs 11/15/24 amoxicillin 875 mg-potassium 1 tab PO BID 3 days #6 tabs 11/15/24 clavulanate 125 mg tablet amoxicillin 875 mg-potassium 1 tab PO BID 3 days #6 tabs 11/15/24 clavulanate 125 mg tablet apixaban 5 mg tablet (Eliquis) 5 mg PO BID #180 tabs 11/15/24 apixaban 5 mg tablet (Eliquis) 5 mg PO BIDWM 90 days #180 tabs 11/15/24 atorvastatin 40 mg tablet 40 mg PO QPM #90 tabs 11/15/24 cholecalciferol (vitamin D3) 25 50 mcg (2 x 25 mcg (1,000 unit)) 11/15/24 mcg (1,000 unit) tablet PO DAILY #90 tabs dapagliflozin propanediol 10 mg 10 mg PO DAILY #90 tabs 11/15/24 tablet furosemide 20 mg tablet 20 mg PO DAILY #90 tabs 11/15/24 furosemide 20 mg tablet (Lasix) 20 mg PO DAILY #90 tabs 11/15/24 losartan 50 mg tablet 50 mg PO DAILY #90 tabs 11/15/24 losartan 50 mg tablet 50 mg PO DAILY #90 tabs 11/15/24 metoprolol succinate 25 mg 25 mg PO DAILY #90 tabs 11/15/24 tablet,extended release 24 hr metoprolol succinate 25 mg 25 mg PO DAILY #90 tabs 11/15/24 tablet,extended release 24 hr spironolactone 25 mg tablet 25 mg PO DAILY #90 tabs 11/15/24 spironolactone 25 mg tablet 25 mg PO DAILY #90 tabs 11/15/24 sulfamethoxazole 800 2 tab PO BID 3 days #12 tabs 11/15/24 mg-trimethoprim 160 mg tablet sulfamethoxazole 800 2 tab PO BID 3 days #12 tabs 11/15/24 mg-trimethoprim 160 mg tablet (Bactrim DS) Allergies Allergies Allergy/AdvReac Type Severity Reaction Status Date / Time No Known Drug Allergies Allergy Verified 11/30/24 20:13 [facility] Social History Social History Smoking Status: Never smoker Do you dip or chew tobacco?: No Do you vape?: No Initiate information on smoking cessation: No Living arrangement: At home Relationship: Level: Independent History of Abuse: No Frequency: Occasional Substance Use: denies use Are you sexually active?: No POLST Patient has POLST: No POLST Status: Full Code Exam Constitutional She is moaning in pain and crying. She is able to follow very simple commands but unable to give any verbal history. She is disheveled. HENMT Poor dentition, almost edentulous on top. Respiratory breath sounds equal bilaterally, normal respiratory effort and clear to auscultation bilaterally Cardiovascular normal heart rate noted, regular rhythm noted and no murmur Gastrointestinal abdomen soft to palpation and nontender to palpation Extremities She has acute on chronic changes of both feet. It looks like she has pretty significant bunions, but then there are blisters and several wounds and also cellulitis of the right leg. Neurology GCS calculation - Eye opening: Spontaneous Verbal response: Incomprehensible Motor response: Obeys Commands Duran Coma Scale total score: 12 Results Vitals Vitals: Vital Signs - 24 hr 12/04/24 17:25 12/04/24 17:55 12/04/24 18:22 Temperature 36.9 C Temperature Source Temporal Artery Scan Pulse Rate 92 93 Respiratory Rate 24 Blood Pressure 156/129 H 183/106 H O2 Saturation 95 98 O2 Source Room air Nasal cannula If not protocol: Oxygen Flow, liters/minute 2 Pain Intensity 10 8 12/04/24 18:30 12/04/24 19:00 12/04/24 19:30 Temperature Temperature Source Pulse Rate 93 97 96 Respiratory Rate 15 18 18 Blood Pressure 183/106 H 173/113 H 168/113 H O2 Saturation 98 97 99 O2 Source Nasal cannula Nasal cannula Nasal cannula If not protocol: Oxygen Flow, liters/minute 2 2 2 Pain Intensity 0 Oxygen O2 Source Nasal cannula EKG (time done) 1753: EKG releavant findings:: EKG personally interpreted by author of this note. Relevant findings are: Normal sinus rhythm with rate of 92. Single PAC on the rhythm strip. LVH and nonspecific changes without overt ischemic findings such as ST elevation. Labs Labs: Laboratory Tests 12/04/24 17:54 WBC 10.3 RBC 5.84 H Hgb 15.8 Hct 48.5 H MCV 83.0 MCH 27.1 MCHC 32.6 RDW 15.6 H Plt Count 303 MPV 11.0 H Neut # (Auto) 8.0 H Lymph # (Auto) 1.7 [place] # (Auto) 0.5 Eos # (Auto) 0.1 Baso # (Auto) 0.1 Absolute Nucleated RBC 0.00 Nucleated RBC % 0.0 VBG pH 7.418 H VBG pCO2 38.7 L VBG pO2 38.6 VBG HCO3 24.4 VBG Total CO2 25.6 VBG O2 Saturation 68.0 VBG Base Excess 0.2 Sodium 136 Potassium 3.8 Chloride 99 L Carbon Dioxide 26 Anion Gap 11.0 BUN 21 H Creatinine 1.1 Estimated GFR (MDRD) 61 L Glucose 86 Lactic Acid 3.0 H* Calcium 10.3 Magnesium 1.4 L Total Bilirubin 0.9 AST 32 ALT 29 Alkaline Phosphatase 235 H Total Protein 8.6 Albumin 3.5 Globulin 5.1 H Albumin/Globulin Ratio 0.7 L Lipase 22 Ethyl Alcohol 100.7 Rads (name of study) CT head: Left posterior MCA infarct, likely chronic: Relevant Findings:: Final report received and EMP independent inte rpretation of test Single view chest x-ray showing low lung volumes without acute disease.: Relevant Findings:: Final report received and EMP independent int erpretation of test PD Medical Decision Making ED course ED course: This is a 64-year-old woman with polysubstance abuse, history of stroke who has a recurrent cellulitis of the leg. She was admitted recently for left leg cellulitis. Today it looks more that she has a right leg cellulitis. She was recently seen put on antibiotics so she has failed treatment and she is delirious as well. She has a white count of 10, lactate of 3, magnesium 1.4, unremarkable CMP. She was administered IV Ancef after blood cultures. After some pain medication she was more calm but still quite delirious. She was more delirious and could not obtain a history even despite her aphasia. CT imaging of the head and chest were negative. Foot x-ray pending on admission, I do see cellulitis in the right foot but no signs of NSTI. Spoke with LUCILA Sam for admission at 7:55 PM. 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 use: without fdc use Diabetes mellitus complication status: with skin complications Diabetes mellitus complication detail: with foot ulcer Qualified Code(s): E11.621 - Type 2 diabetes mellitus with foot ulcer Prescriptions: No Action albuterol sulfate [Ventolin HFA] 1 PUFFS HFA aerosol inhaler 2 puff inhalation Q4H PRN (Reason: Shortness Of Air/Wheezing) Qty: 1 0RF Dapagliflozin Propanediol [Dapagliflozin] 10 MG Tablet 10 mg PO DAILY Qty: 30 0RF amoxicillin-pot clavulanate 875-125 mg Tablet 1 tab PO BID 3 Days Qty: 6 0RF sulfamethoxazole-trimethoprim 800-160 mg Tablet 2 tab PO BID 3 Days Qty: 12 0RF losartan 50 MG tablet 50 mg PO DAILY Qty: 90 0RF atorvastatin 40 MG tablet 40 mg PO QPM Qty: 90 0RF amiodarone 200 MG tablet 200 mg PO DAILY Qty: 90 0RF spironolactone 25 MG tablet 25 mg PO DAILY Qty: 90 0RF furosemide 20 MG tablet 20 mg PO DAILY Qty: 90 0RF metoprolol succinate 25 MG tablet extended release 24 hr 25 mg PO DAILY Qty: 90 0RF cholecalciferol (vitamin D3) 25 MCG tablet 50 mcg PO DAILY Qty: 90 0RF Eliquis 5 MG tablet 5 mg PO BIDWM 90 Days Qty: 180 0RF Rx Instructions: with Breakfast and Dinner amoxicillin-pot clavulanate 875-125 mg tablet 1 tab PO BID 3 Days Qty: 6 0RF sulfamethoxazole-trimethoprim [Bactrim DS] 800-160 mg tablet 2 tab PO BID 3 Days Qty: 12 0RF amiodarone 200 mg tablet 200 mg PO DAILY Qty: 90 0RF dapagliflozin propanediol 10 mg tablet 10 mg PO DAILY Qty: 90 0RF furosemide [Lasix] 20 mg tablet 20 mg PO DAILY Qty: 90 0RF losartan 50 mg tablet 50 mg PO DAILY Qty: 90 0RF metoprolol succinate 25 mg tablet extended release 24 hr 25 mg PO DAILY Qty: 90 0RF spironolactone 25 mg tablet 25 mg PO DAILY Qty: 90 0RF Eliquis 5 mg tablet 5 mg PO BID Qty: 180 0RF Print Language: Lao
[2024-12-04] MEDS: HYDROmorphone 1 MG/ML CARPUJECT IVP STA (17:55)
[2024-12-04] MEDS: SODIUM CHLORIDE 0.9% 1,000 ML IV STA (17:55)
[2024-12-04 18:14] LABS: BASOPHILS # (AUTO) 0.1 10^3/uL (0.0-0.1); BASOPHILS % (AUTO) 0.6 %; EOSINOPHILS # (AUTO) 0.1 10^3/uL (0.0-0.7); EOSINOPHILS % (AUTO) 0.5 %; HCT - HEMATOCRIT 48.5 % (37.0-47.0); HGB - HEMOGLOBIN 15.8 g/dL (12.0-16.0); LYMPHOCYTES # (AUTO) 1.7 10^3/uL (1.5-3.5); LYMPHOCYTES % (AUTO) 16.1 %; MEAN CORPUSCULAR HEMOGLOBIN 27.1 pg (27.0-31.0); MEAN CORPUSCULAR HGB CONC 32.6 g/dL (32.0-36.0); MONOCYTES # (AUTO) 0.5 10^3/uL (0.0-1.0); MONOCYTES % (AUTO) 5.2 %; NEUTROPHILS % (AUTO) 77.2 %; PLT - PLATELET COUNT 303 10^3/uL (130-450); RED BLOOD COUNT 5.84 10^6/uL (4.20-5.40); RED CELL DISTRIBUTION WIDTH 15.6 % (12.0-15.0); WHITE BLOOD COUNT 10.3 x10^3/uL (4.8-10.8)
[2024-12-04 18:21] LABS: VBG BASE EXCESS 0.2 mmol/L (-2 - +2); VBG HCO3 24.4 mmol/L (23-28); VBG PCO2 38.7 mmHg (41-51); VBG PH 7.418 (7.31-7.41); VBG PO2 38.6 mmHg (25-47); VBG TOTAL CO2 25.6 mmol/L (24-29)
[2024-12-04 18:30] LABS: MAGNESIUM 1.4 mg/dL (1.7-2.3)
[2024-12-04 18:36] LABS: ALBUMIN 3.5 g/dL (3.2-5.5); ALBUMIN/GLOBULIN RATIO 0.7 (1.0-2.2); BILIRUBIN,TOTAL 0.9 mg/dL (0.2-1.0); CALCIUM 10.3 mg/dL (8.5-10.3); CREATININE 1.1 mg/dL (0.6-1.3); ETOH - ETHANOL 100.7 mg/dL; POTASSIUM 3.8 mmol/L (3.5-4.5); TOTAL PROTEIN 8.6 g/dL (6.4-8.9)
--- NOTE | 2024-12-04 19:27 | CT Report ---
PROCEDURE: CT Head WO INDICATIONS: ams TECHNIQUE: Noncontrast 4.5 mm thick angled axial sections acquired from the foramen magnum to the vertex. For r adiation dose reduction, the following was used: automated exposure control, adjustment of mA and/or kV according to patient size. COMPARISON: 01/31/2024, 02/03/2024 FINDINGS: Image quality: Diagnostic CSF spaces: Basal cisterns are patent. Lateral ventricles are symmetric. Volume: Vascular calcifications. Periventricular white matter disease is commonly seen with chronic m icroangiopathy. Volume loss is present. These findings are mild to moderate. Brain: Left cerebral encephalomalacia, especially in the parietal lobe. No acute hemorrhage. Craniofacial structures: Unremarkable craniofacial structures were partially visualized. IMPRESSION: Left sided posterior MCA territory encephalomalacia likely from prior infarct. No acute hemorrhage. I f there is high concern for parenchymal pathology, consider further evaluation with MRI. Reviewed by: Ty Roy MD on 12/04/2024 7:26 PM PST Approved by: Ty Roy MD on 12/04/2024 7:26 PM PST Station ID: [id number]
--- NOTE | 2024-12-04 19:28 | XRAY Report ---
PROCEDURE: XR Chest 1V INDICATIONS: ams TECHNIQUE: One view of the chest was acquired. COMPARISON: 01/28/2024 FINDINGS: Surgical changes and devices: None. Lungs and pleura: Very low lung volumes. No dense airspace disease or pleural effusions. Mediastinum: Cardiolite Bones and chest wall: Degenerative changes IMPRESSION: Very low lung volumes. No dense airspace disease or pleural effusions on this single view study. Reviewed by: Ty Roy MD on 12/04/2024 7:26 PM PST Approved by: Ty Roy MD on 12/04/2024 7:26 PM PST Station ID: [id number]
[2024-12-04] MEDS: ceFAZolin 1 GM VIAL IVP STA (19:29)
[2024-12-04 19:56] LABS: BILIRUBIN,URINE NEGATIVE (NEGATIVE); GLUCOSE, URINE (UA) >=1000 mg/dL (NEGATIVE); KETONES,URINE (UA) NEGATIVE (NEGATIVE); LEUKOCYTE ESTERASE, URINE NEGATIVE (NEGATIVE); NITRITE,URINE NEGATIVE (NEGATIVE); OCCULT BLOOD,URINE NEGATIVE (NEGATIVE); PROTEIN,URINE 30 mg/dL (NEGATIVE); UROBILINOGEN,URINE 1 (NORMAL) E.U./dL (NORMAL)
[2024-12-04 20:14] LABS: CLARITY,URINE CLEAR (CLEAR)
[2024-12-04 20:15] LABS: AMPHETAMINE SCREEN,URINE POSITIVE (NEGATIVE); BACTERIA,URINE Few /HPF (None Seen); COCAINE SCREEN URINE NEGATIVE (NEGATIVE); METHAMPHETAMINES SCREEN, URINE POSITIVE (NEGATIVE); OPIATE SCREEN, URINE POSITIVE (NEGATIVE); RBC,URINE None Seen /HPF (0-5); SQUAMOUS EPITHELIAL CELL,UR MOD Squamous (<= Few); THC CANNABINOID SCREEN, URINE NEGATIVE (NEGATIVE); WBC,URINE 0-3 /HPF (0-5)
[2024-12-04 20:16] LABS: BARBITURATE SCREEN,UR NEGATIVE (NEGATIVE); BENZODIAZEPINES SCREEN, URINE NEGATIVE (NEGATIVE); BUPRENORPHINE SCREEN, URINE NEGATIVE (NEGATIVE); METHADONE SCREEN, URINE NEGATIVE (NEGATIVE); OXYCODONE SCREEN, URINE NEGATIVE (NEGATIVE); TRICYCLIC ANTIDEPRESSANT,URINE NEGATIVE (NEGATIVE)
--- NOTE | 2024-12-04 20:16 | XRAY Report ---
PROCEDURE: XR Foot 3+V BL INDICATIONS: feet infections TECHNIQUE: 3 views of the foot were acquired. COMPARISON: 11/30/2024 Findings and impression: Left foot: Hallux valgus. Probable pes planus. Moderate background degenerative changes. No definite osseous erosions. Plantar calcaneal enthesopathy. Diffuse soft tissue swelling. Prominent dorsal osmin r osteophyte. Right foot: Hallux valgus alignment. Probable pes planus. Lateral view not well assessed due to obliq uity. Mild to moderate scattered degenerative changes. No definite osseous erosions. Diffuse soft tis kalen swelling. If there is high concern for further derangement, consider MRI evaluation. Reviewed by: Ty Roy MD on 12/04/2024 8:14 PM PST Approved by: Ty Roy MD on 12/04/2024 8:14 PM PST Station ID: [id number]
--- NOTE | 2024-12-04 20:20 | HISTORY & PHYSICAL EXAMINATION ---
Chief Complaint Chief Complaint Chief Complaint: altered mental status History of Present Illness Admitted From Admitted From:: Home, EMS History Obtained From Records Reviewed: previous visits History obtained from: Patient and records review. Exam Limitations: aphasia History of Present Illness HPI Comment/Other: She is presents to the emergency department with altered mental status this evening. Neighbors called EMS for patients with altered level of consciousness. Alcohol on the scene and very poor living condition. She was admitted to this facility from the to 15 November and treated for a lower extremity cellulitis on the left lower extremity. At that time she was discharged with a 3-month supply of medications. It is unknown whether she is taking these medications or has even filled medications. In any event presents this evening with altered mental status. She initially was quite agitated in the emergency department but is calm down considerably. Her urine drug screen is pending at this time but she did have an alcohol level of approximately 100. When asked her name she can tell me her name but she is not either oriented to place nor time. When I asked her why she is here she says something about getting this right and I believe she is referring to her legs. Otherwise history and review of systems is quite limited due to the fact that patient cannot appropriately answer questions. When I asked her if she wants CPR she stated that she does. I do not have a surrogate decision maker listed in her chart. There is a friend named Clarisse who is often mentioned in the chart. Meds/Allgy Home Medications Ambulatory Orders Medication Instructions Recorded Confirmed albuterol sulfate 90 mcg/actuation 2 puff inhalation Q4H PRN 02/16/24 aerosol inhaler (Ventolin HFA) Shortness Of Air/Wheezing #1 ea Dapagliflozin Propanediol 10 mg PO DAILY #30 tabs 02/19/24 [Dapagliflozin] amiodarone 200 mg tablet 200 mg PO DAILY #90 tabs 11/15/24 amiodarone 200 mg tablet 200 mg PO DAILY #90 tabs 11/15/24 amoxicillin 875 mg-potassium 1 tab PO BID 3 days #6 tabs 11/15/24 clavulanate 125 mg tablet amoxicillin 875 mg-potassium 1 tab PO BID 3 days #6 tabs 11/15/24 clavulanate 125 mg tablet apixaban 5 mg tablet (Eliquis) 5 mg PO BID #180 tabs 11/15/24 apixaban 5 mg tablet (Eliquis) 5 mg PO BIDWM 90 days #180 tabs 11/15/24 atorvastatin 40 mg tablet 40 mg PO QPM #90 tabs 11/15/24 cholecalciferol (vitamin D3) 25 50 mcg (2 x 25 mcg (1,000 unit)) 11/15/24 mcg (1,000 unit) tablet PO DAILY #90 tabs dapagliflozin propanediol 10 mg 10 mg PO DAILY #90 tabs 11/15/24 tablet furosemide 20 mg tablet 20 mg PO DAILY #90 tabs 11/15/24 furosemide 20 mg tablet (Lasix) 20 mg PO DAILY #90 tabs 11/15/24 losartan 50 mg tablet 50 mg PO DAILY #90 tabs 11/15/24 losartan 50 mg tablet 50 mg PO DAILY #90 tabs 11/15/24 metoprolol succinate 25 mg 25 mg PO DAILY #90 tabs 11/15/24 tablet,extended release 24 hr metoprolol succinate 25 mg 25 mg PO DAILY #90 tabs 11/15/24 tablet,extended release 24 hr spironolactone 25 mg tablet 25 mg PO DAILY #90 tabs 11/15/24 spironolactone 25 mg tablet 25 mg PO DAILY #90 tabs 11/15/24 sulfamethoxazole 800 2 tab PO BID 3 days #12 tabs 11/15/24 mg-trimethoprim 160 mg tablet sulfamethoxazole 800 2 tab PO BID 3 days #12 tabs 11/15/24 mg-trimethoprim 160 mg tablet (Bactrim DS) Allergies Allergies Allergy/AdvReac Type Severity Reaction Status Date / Time No Known Drug Allergies Allergy Verified 12/04/24 20:25 [facility] Social History Social History (Updated 12/04/24 @ 20:00 by Kacie Stack RN) Smoking Status: Unknown if ever smoked Do you dip or chew tobacco?: No Do you vape?: No Initiate information on smoking cessation: No Living arrangement: At home Relationship: Level: Independent History of Abuse: No Frequency: Occasional Substance Use: denies use Are you sexually active?: No POLST Patient has POLST: No POLST Status: Full Code Review of Systems Status of ROS: unobtainable due to mental status Prior Level of Functionality: reportedly lives alone. When I asked her she says that she lives w her mother and grandmother. Exam Constitutional disheveled. HENMT normocephalic and external ears normal very poor dentition Eyes conjunctivae normal Neck/C-Spine visual inspection normal and trachea midline Lymph no lymphadenopathy noted Chest inspection of chest normal and palpation of chest normal Respiratory breath sounds equal bilaterally, normal respiratory effort and clear to auscultation bilaterally Cardiovascular normal heart rate noted HR 90's to low 100's Gastrointestinal abdomen normal to inspection and abdomen soft to palpation Extremities deformity noted pedal edema, erythema to mid thigh on the right. bunions with severe deformity bilaterally with skin breakdown at pressure points of 1st MTP joints. These are acute on chronic changes. bilateral edema, right >left. intact pedal pulses that are weak. deformity of toes secondary to bunion deformities. hands with thickened MCP joints and ulnar deviation at MCP joints. Neurology no movement abnormality noted and no focal motor deficit noted aphasia. Psychiatry mental status abnormal and orientation abnormal oriented to self only. does not demonstrate insight into her condition. Skin lesion(s) noted bilateral sores at feet on MTPjoints. poor hygiene is evident. Conclusion/Plan Problem List (1) Cellulitis of leg, right: Plan: Unclear if she finished her course of antibiotics on discharge. She was seen in our emergency department several days ago for bilateral lower extremity edema. At that time she was treated for tachycardia. Had a positive drug screen for methamphetamine. And was not discharged with antibiotics. This evening she presents with obvious cellulitis of the right lower extremity. Likely secondary to wounds which are secondary to bunion deformities. In addition to her diabetes. We will admit and treat for right lower extremity cellulitis. I have ordered vancomycin and Zosyn. As for sepsis criteria she has a white count which is on the high end of normal, however she does have elevated lactic acid at 3.0. I have ordered repeat of this. She is very mildly tachycardic. And this could be secondary to substance use. She has a history of atrial fibrillation her EKG shows sinus rhythm this evening Patient was discussed with Dr. Camarillo in the emergency department this evening. Decision was made to admit for lower extremity cellulitis in the setting of upper limits of normal white count and elevated lactic acid. This is in conjunction also with altered mental status although the etiology of her altered mental status is unclear. I am admitting her to inpatient status as I believe she will require a stay of 2-3 midnights in order to adequately treat her infection. Blood cultures have been ordered by the emergency department.. (2) Polysubstance abuse: Plan: Urine drug screen is positive for opiates. I do not believe these have been prescribed. She is also positive for methamphetamine. Her ethanol level is 100.7 on admission this evening. She demonstrates an inability to care for self, however, she has not been accepted to multiple retirement facility secondary to her substance use. I have ordered Ativan for any agitation withdrawal symptoms overnight. Will continue to assess. I have ordered social work consult. (3) Diabetes: Plan: Last hemoglobin A1c 6.5%. She is on dapagliflozin for her heart failure. This was continue to assist with diabetes management upon discharge last time we will place her on diabetic diet and low coverage for sliding scale insulin. Will escalate as needed. Goal blood sugar less than 180 in the setting of diabetic lower extremity cellulitis Qualifiers: Diabetes mellitus complication detail: with foot ulcer Diabetes mellitus complication status: with skin complications Diabetes mellitus custodial insulin use: without custodial use Diabetes mellitus type: type 2 Q ualified Code(s): E11.621 - Type 2 diabetes mellitus with foot ulcer; L97.509 - Non-pressure chronic ulcer of other part of unspecified foot with unspecified severity (4) Atrial fibrillation: Plan: History of atrial fibrillation on amiodarone, metoprolol and Eliquis. Unclear if she has been taking these medications in the outpatient environment. I have resumed these medications upon admission. She is in sinus rhythm this evening and her rate is under 100. Qualifiers: Atrial fibrillation type: unspecified Qualified Code(s): I48.91 - Unspecified atrial fibrillation (5) Failure of outpatient treatment: Plan: Patient admitted for treatment of left lower extremity cellulitis from November 11 through . Unclear if she finished her course of antibiotics as an outpatient. She has diabetes and congestive heart failure. She also has atrial fibrillation. I am unclear if she has been taking her medications at home. 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 This makes it difficult to communicate with her. Plan I have spent 78 minutes in the care of this patient today. This includes time [id number], review and ordering of diagnostic imaging and laboratory studies and consultation with other providers.. Monitoring the patient's signs symptoms, evaluation of medication effectiveness and patient's response to treatment. Lab Results 12/04/24 17:54 12/04/24 17:54
[2024-12-04] MEDS ORDERED: SODIUM CHLORIDE FLUSH 0.9% 10 ML SYRINGE IVP PRN (21:34)
[2024-12-04] MEDS ORDERED: ACETAMINOPHEN 325 MG TABLET PO PRN (21:34)
[2024-12-04] MEDS ORDERED: ONDANSETRON ODT 4 MG TABLET TL PRN (21:34)
[2024-12-04] MEDS ORDERED: ALBUTEROL NEB 2.5 MG/3 ML INH PRN (21:39)
[2024-12-04] MEDS: ATORVASTATIN 40 MG TABLET PO SCH (21:46)
[2024-12-04] MEDS: PIPERACILLIN/TAZOBACTAM 3.375 GM in SODIUM CHLORIDE 0.9% MINIBAG 100 ML IV SCH (21:48)
[2024-12-05] MEDS: LORazepam 1 MG TABLET PO PRN (00:34)
[2024-12-05] MEDS: oxyCODONE 5 MG TABLET PO PRN (00:34)
[2024-12-05] MEDS: SODIUM CHLORIDE FLUSH 0.9% 10 ML SYRINGE IVP SCH (01:17)
[2024-12-05] MEDS: VANCOMYCIN INJ 1.5 GM in SODIUM CHLORIDE 0.9% 500 ML IV ONE (01:34)
[2024-12-05 07:15] LABS: BASOPHILS % (AUTO) 0.7 %; EOSINOPHILS # (AUTO) 0.1 10^3/uL (0.0-0.7); HCT - HEMATOCRIT 47.2 % (37.0-47.0); HGB - HEMOGLOBIN 15.2 g/dL (12.0-16.0); LYMPHOCYTES # (AUTO) 1.5 10^3/uL (1.5-3.5); LYMPHOCYTES % (AUTO) 25.1 %; MEAN CORPUSCULAR HGB CONC 32.2 g/dL (32.0-36.0); MEAN CORPUSCULAR VOLUME 83.7 fL (81.0-99.0); MEAN PLATELET VOLUME 11.6 fL (7.9-10.8); MONOCYTES # (AUTO) 0.3 10^3/uL (0.0-1.0); MONOCYTES % (AUTO) 4.2 %; NEUTROPHILS % (AUTO) 67.8 %; PLT - PLATELET COUNT 250 10^3/uL (130-450); RED BLOOD COUNT 5.64 10^6/uL (4.20-5.40); RED CELL DISTRIBUTION WIDTH 15.4 % (12.0-15.0); WHITE BLOOD COUNT 5.9 x10^3/uL (4.8-10.8)
[2024-12-05 07:22] LABS: CALCIUM 8.9 mg/dL (8.5-10.3)
[2024-12-05] MEDS: APIXABAN 5 MG TABLET PO SCH (07:44)
[2024-12-05] MEDS: INSULIN LISPRO 300 UNIT/3 ML PEN SUBQ SCH (07:46)
[2024-12-05] MEDS: LOSARTAN 50 MG TABLET PO SCH (08:06)
[2024-12-05] MEDS: AMIODARONE 200 MG TABLET PO SCH (08:06)
[2024-12-05] MEDS: CHOLECALCIFEROL 25 MCG TABLET PO SCH (08:06)
[2024-12-05] MEDS: SPIRONOLACTONE 25 MG TABLET PO SCH (08:06)
[2024-12-05] MEDS: METOPROLOL SUCCINATE 25 MG TABLET PO SCH (08:07)
[2024-12-05] MEDS: FUROSEMIDE 20 MG TABLET PO SCH (08:07)
[2024-12-05] MEDS: FARXIGA 10 MG PO SCH (09:18)
[2024-12-05] MEDS: THIAMINE 100 MG TABLET PO SCH (10:14)
[2024-12-05] MEDS: PRENATAL VITAMIN TABLET PO SCH (10:14)
[2024-12-05] MEDS: VANCOMYCIN INJ 1.5 GM in SODIUM CHLORIDE 0.9% 500 ML IV STA (11:32)
--- NOTE | 2024-12-05 13:23 | PHARMACY PROGRESS NOTE ---
Best Possible Medication History Admit Date and Time: 12/04/242016 Home Medications Medication Instructions Recorded Confirmed Type albuterol sulfate 90 mcg/actuation 2 puff inhalation Q4H PRN 02/16/24 Rx aerosol inhaler (Ventolin HFA) Shortness Of Air/Wheezing #1 ea amiodarone 200 mg tablet 200 mg PO DAILY #90 tabs 11/15/24 12/05/24 Rx apixaban 5 mg tablet (Eliquis) 5 mg PO BIDWM 90 days #180 tabs 11/15/24 12/05/24 Rx atorvastatin 40 mg tablet 40 mg PO QPM #90 tabs 11/15/24 12/05/24 Rx cholecalciferol (vitamin D3) 25 50 mcg (2 x 25 mcg (1,000 unit)) 11/15/24 Rx mcg (1,000 unit) tablet PO DAILY #90 tabs dapagliflozin propanediol 10 mg 10 mg PO DAILY #90 tabs 11/15/24 12/05/24 Rx tablet furosemide 20 mg tablet 20 mg PO DAILY #90 tabs 11/15/24 12/05/24 Rx losartan 50 mg tablet 50 mg PO DAILY #90 tabs 11/15/24 12/05/24 Rx metoprolol succinate 25 mg 25 mg PO DAILY #90 tabs 11/15/24 12/05/24 Rx tablet,extended release 24 hr spironolactone 25 mg tablet 25 mg PO DAILY #90 tabs 11/15/24 12/05/24 Rx Processed by: Pharmacy Medications reviewed in ED?: No Medication History completed: Yes Patient Interview: Pt unable to participate Secondary Source(s): Pharmacy records (called and spoke with [facility] pharmacy, 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 patient did not berry picker machine operator atorvastatin or spironolactone) and Insurance records [facility] Statement: As the person ultimately responsible for medication therapy, providers are able to order a medication from an existing home medication list in [facility] via the "Reconcile Routine" prior to Confirmation of that medication by patient support assistant. Such practice is discouraged except when the physician, in their clinical judgment, deems that a medical need exists for a medication without regard to previous use.
--- NOTE | 2024-12-05 15:23 | PROVIDER PROGRESS NOTE ---
Subjective Prog Note Date Prog Note Date: 12/05/24 Prog Note Time: 14:00 Subjective Subjective: She is sleeping this afternoon. She wakes up and laughs at me when I suggest a shower to her. Current Medications Current Medications Current Medications: Current Medications Generic Name Dose Route Start Last Admin Trade Name Freq PRN Reason Stop Dose Admin Acetaminophen 650 mg 12/04/24 21:34 Acetaminophen 325 Mg Tablet PO Q4HR PRN Pain 1 to 4, or Fever Albuterol 2.5 mg 12/04/24 21:39 Albuterol Neb 2.5 Mg/3 Ml INH RTQ4H PRN Shortness Of Air/Wheezing Amiodarone HCl 200 mg 12/05/24 09:00 12/05/24 08:06 Amiodarone 200 Mg Tablet PO 200 mg DAILY TOI Administration Apixaban 5 mg 12/05/24 08:00 12/05/24 07:44 Apixaban 5 Mg Tablet PO 5 mg BIDWM TOI Administration Atorvastatin Calcium 40 mg 12/04/24 21:00 12/04/24 21:46 Atorvastatin 40 Mg Tablet PO 40 mg QPM TOI Administration Cholecalciferol 50 mcg 12/05/24 09:00 12/05/24 08:06 Cholecalciferol 25 Mcg Tablet PO 50 mcg DAILY TOI Administration Furosemide 20 mg 12/05/24 09:00 12/05/24 08:07 Furosemide 20 Mg Tablet PO 20 mg DAILY TOI Administration Piperacillin Sod/Tazobactam 100 mls @ 25 mls/hr 12/04/24 22:00 12/05/24 13:40 Sod 3.375 gm/ Sodium Chloride IV 25 mls/hr Q8H TOI Administration Vancomycin HCl 1 gm/ Sodium 250 mls @ 167 mls/hr 12/05/24 22:00 Chloride IV Q24H TOI Insulin Human Lispro 1 - 5 unit 12/05/24 08:00 12/05/24 11:35 Insulin Lispro 300 Unit/3 Ml Pen SUBQ Not Given 0800,1200,1700,2100 TOI Protocol Lorazepam 1 mg 12/04/24 20:17 12/05/24 07:44 Lorazepam 1 Mg Tablet PO 1 mg Q4H PRN Administration Agitation Losartan Potassium 50 mg 12/05/24 09:00 12/05/24 08:06 Losartan 50 Mg Tablet PO 50 mg DAILY TOI Administration Magnesium Oxide 400 mg 12/05/24 16:00 Magnesium Oxide 400 Mg Tablet PO DAILYWM TOI Metoprolol Succinate 25 mg 12/05/24 09:00 12/05/24 08:07 Metoprolol Succinate 25 Mg Tablet PO 25 mg DAILY TOI Administration Ondansetron HCl 4 mg 12/04/24 21:34 Ondansetron Odt 4 Mg Tablet TL Q6HR PRN Nausea / Vomiting Oxycodone HCl 5 mg 12/04/24 21:34 12/05/24 00:34 Oxycodone 5 Mg Tablet PO 5 mg Q4HR PRN Administration Pain 5 to 7 Patient Own Med ( 1 each 12/05/24 09:00 12/05/24 09:18 Farxiga 10 Mg Tablet PO Not Given ) DAILY [facility] Multivit/Folic Acid/Iron 1 tab 12/05/24 10:00 12/05/24 10:14 Vitamin Tablet PO 1 tab DAILYWM TOI Administration Sodium Chloride 10 ml 12/04/24 21:34 Sodium Chloride Flush 0.9% 10 Ml Syringe IVP PRN PRN NEEDED PER PROVIDER ORDERS Sodium Chloride 10 ml 12/05/24 01:00 12/05/24 08:07 Sodium Chloride Flush 0.9% 10 Ml Syringe IVP 10 ml 0100,0900,1700 TOI Administration Spironolactone 25 mg 12/05/24 09:00 12/05/24 08:06 Spironolactone 25 Mg Tablet PO 25 mg DAILY TOI Administration Thiamine HCl 100 mg 12/05/24 10:00 12/05/24 10:14 Thiamine 100 Mg Tablet PO 100 mg DAILY TOI Administration Objective Vital Signs/Intake & Output Reviewed Vital Signs: Yes Vital Signs: Vital Signs x48h Temp Pulse Resp BP Pulse Ox O2 Flow Rate 12/05/24 13:00 36.8 C 74 20 155/91 H 98 0 12/05/24 08:08 36.7 C 94 20 155/103 H 94 0 Intake & Output: Intake & Output 12/02/24 12/03/24 12/04/24 12/05/24 23:59 23:59 23:59 23:59 Intake Total 1100 / 1100 1220 / 1220 Balance 1100 / 1100 1220 / 1220 Weight (kg) 74 kg 74 kg Objective General Appearance: positive No acute distress Eyes Bilateral: positive Normal inspection ENT: positive ENT inspection nml Respiratory: positive No respiratory distress and Breath sounds nml Cardiovascular: positive Regular rate & rhythm Extremities: positive Other (Edema bilaterally is decreased. The erythema to the mid thigh on the right is also decreased. She remains with severe bunion deformities and skin breakdown as before. There is no purulent drainage. There is no fluctuance. She also has resultant changes in her toes related to her bunion deformit) Neurologic/Psychiatric: positive Other (Aphasic. Oriented to self. No insight into her condition or evidence of understanding regarding her life circumstances.) Lab Results 12/05/24 06:19 12/05/24 06:19 Other Labs: Lab Results x24hrs 12/05/24 12/05/24 12/05/24 Range/Units 11:34 07:44 06:19 WBC 5.9 (4.8-10.8) x10^3/uL RBC 5.64 H (4.20-5.40) 10^6/uL Hgb 15.2 (12.0-16.0) g/dL Hct 47.2 H (37.0-47.0) % MCV 83.7 (81.0-99.0) fL MCH 27.0 (27.0-31.0) pg MCHC 32.2 (32.0-36.0) g/dL RDW 15.4 H (12.0-15.0) % Plt Count 250 (130-450) 10^3/uL MPV 11.6 H (7.9-10.8) fL Neut # (Auto) 4.0 (1.5-6.6) 10^3/uL Lymph # (Auto) 1.5 (1.5-3.5) 10^3/uL Calvert # (Auto) 0.3 (0.0-1.0) 10^3/uL Eos # (Auto) 0.1 (0.0-0.7) 10^3/uL Baso # (Auto) 0.0 (0.0-0.1) 10^3/uL Absolute Nucleated RBC 0.00 x10^3/uL Nucleated RBC % 0.0 /100WBC VBG pH (7.31-7.41) VBG pCO2 (41-51) mmHg VBG pO2 (25-47) mmHg VBG HCO3 (23-28) mmol/L VBG Total CO2 (24-29) mmol/L VBG O2 Saturation (60-80) % VBG Base Excess (-2 - +2) mmol/L Sodium 137 (135-145) mmol/L Potassium 4.0 (3.5-4.5) mmol/L Chloride 104 (101-111) mmol/L Carbon Dioxide 25 (21-32) mmol/L Anion Gap 8.0 (6-13) BUN 16 (6-20) mg/dL Creatinine 1.0 (0.6-1.3) mg/dL Estimated GFR (MDRD) 68 L (>89) Glucose 88 (74-104) mg/dL POC Whole Bld Glucose 115 79 (70-100) mg/dL Lactic Acid (0.5-2.2) mmol/L Calcium 8.9 (8.5-10.3) mg/dL Magnesium (1.7-2.3) mg/dL Total Bilirubin (0.2-1.0) mg/dL AST (10-42) IU/L ALT (10-60) IU/L Alkaline Phosphatase (42-121) IU/L Total Protein (6.4-8.9) g/dL Albumin (3.2-5.5) g/dL Globulin (2.1-4.2) g/dL Albumin/Globulin Ratio (1.0-2.2) Lipase (11-82) U/L Urine Color Urine Clarity (CLEAR) Urine pH (5.0-7.5) PH Ur Specific Ferriday (1.002-1.030) Urine Protein (NEGATIVE) mg/dL Urine Glucose (UA) (NEGATIVE) mg/dL Urine Ketones (NEGATIVE) mg/dL Urine Occult Blood (NEGATIVE) Urine Nitrite (NEGATIVE) Urine Bilirubin (NEGATIVE) Urine Urobilinogen (NORMAL) E.U./dL Ur Leukocyte Esterase (NEGATIVE) Urine RBC (0-5) /HPF Urine WBC (0-5) /HPF Ur Squamous Epith Cells (<= Few) Urine Bacteria (None Seen) /HPF Ur Microscopic Review Urine Culture Comments Urine Opiates Screen (NEGATIVE) Ur Buprenorphine Scrn (NEGATIVE) Ur Oxycodone Screen (NEGATIVE) Urine Methadone Screen (NEGATIVE) Ur Barbiturates Screen (NEGATIVE) Ur Tricyclics Screen (NEGATIVE) Ur Phencyclidine Scrn (NEGATIVE) Ur Amphetamine Screen (NEGATIVE) U Methamphetamines Scrn (NEGATIVE) U Benzodiazepines Scrn (NEGATIVE) Urine Cocaine Screen (NEGATIVE) U Cannabinoids Screen (NEGATIVE) Ur Drug Screen Comment Ethyl Alcohol mg/dL 12/04/24 12/04/24 12/04/24 Range/Units 21:44 19:25 17:54 WBC 10.3 (4.8-10.8) x10^3/uL RBC 5.84 H (4.20-5.40) 10^6/uL Hgb 15.8 (12.0-16.0) g/dL Hct 48.5 H (37.0-47.0) % MCV 83.0 (81.0-99.0) fL MCH 27.1 (27.0-31.0) pg MCHC 32.6 (32.0-36.0) g/dL RDW 15.6 H (12.0-15.0) % Plt Count 303 (130-450) 10^3/uL MPV 11.0 H (7.9-10.8) fL Neut # (Auto) 8.0 H (1.5-6.6) 10^3/uL Lymph # (Auto) 1.7 (1.5-3.5) 10^3/uL Calvert # (Auto) 0.5 (0.0-1.0) 10^3/uL Eos # (Auto) 0.1 (0.0-0.7) 10^3/uL Baso # (Auto) 0.1 (0.0-0.1) 10^3/uL Absolute Nucleated RBC 0.00 x10^3/uL Nucleated RBC % 0.0 /100WBC VBG pH 7.418 H (7.31-7.41) VBG pCO2 38.7 L (41-51) mmHg VBG pO2 38.6 (25-47) mmHg VBG HCO3 24.4 (23-28) mmol/L VBG Total CO2 25.6 (24-29) mmol/L VBG O2 Saturation 68.0 (60-80) % VBG Base Excess 0.2 (-2 - +2) mmol/L Sodium 136 (135-145) mmol/L Potassium 3.8 (3.5-4.5) mmol/L Chloride 99 L (101-111) mmol/L Carbon Dioxide 26 (21-32) mmol/L Anion Gap 11.0 (6-13) BUN 21 H (6-20) mg/dL Creatinine 1.1 (0.6-1.3) mg/dL Estimated GFR (MDRD) 61 L (>89) Glucose 86 (74-104) mg/dL POC Whole Bld Glucose (70-100) mg/dL Lactic Acid 2.1 3.0 H* (0.5-2.2) mmol/L Calcium 10.3 (8.5-10.3) mg/dL Magnesium 1.4 L (1.7-2.3) mg/dL Total Bilirubin 0.9 (0.2-1.0) mg/dL AST 32 (10-42) IU/L ALT 29 (10-60) IU/L Alkaline Phosphatase 235 H (42-121) IU/L Total Protein 8.6 (6.4-8.9) g/dL Albumin 3.5 (3.2-5.5) g/dL Globulin 5.1 H (2.1-4.2) g/dL Albumin/Globulin Ratio 0.7 L (1.0-2.2) Lipase 22 (11-82) U/L Urine Color YELLOW Urine Clarity CLEAR (CLEAR) Urine pH 7.0 (5.0-7.5) PH Ur Specific Ferriday 1.020 (1.002-1.030) Urine Protein 30 H (NEGATIVE) mg/dL Urine Glucose (UA) >=1000 H (NEGATIVE) mg/dL Urine Ketones NEGATIVE (NEGATIVE) mg/dL Urine Occult Blood NEGATIVE (NEGATIVE) Urine Nitrite NEGATIVE (NEGATIVE) Urine Bilirubin NEGATIVE (NEGATIVE) Urine Urobilinogen 1 (NORMAL) (NORMAL) E.U./dL Ur Leukocyte Esterase NEGATIVE (NEGATIVE) Urine RBC None Seen (0-5) /HPF Urine WBC 0-3 (0-5) /HPF Ur Squamous Epith Cells MOD Squamous H (<= Few) Urine Bacteria Few (None Seen) /HPF Ur Microscopic Review INDICATED Urine Culture Comments NOT INDICATED Urine Opiates Screen POSITIVE H (NEGATIVE) Ur Buprenorphine Scrn NEGATIVE (NEGATIVE) Ur Oxycodone Screen NEGATIVE (NEGATIVE) Urine Methadone Screen NEGATIVE (NEGATIVE) Ur Barbiturates Screen NEGATIVE (NEGATIVE) Ur Tricyclics Screen NEGATIVE (NEGATIVE) Ur Phencyclidine Scrn NEGATIVE (NEGATIVE) Ur Amphetamine Screen POSITIVE H (NEGATIVE) U Methamphetamines Scrn POSITIVE H (NEGATIVE) U Benzodiazepines Scrn NEGATIVE (NEGATIVE) Urine Cocaine Screen NEGATIVE (NEGATIVE) U Cannabinoids Screen NEGATIVE (NEGATIVE) Ur Drug Screen Comment CUTOFF CONC BELOW: Ethyl Alcohol 100.7 mg/dL Assessment/Plan Problem List (1) Cellulitis of leg, right: Impression: 12/05: Decreased edema in the lower extremities with elevation. She is sleepy today likely due to coming down from methamphetamine. She does awaken and interact with me. Her cellulitis is decreasing. I do not see any increasing drainage from her wounds. I will continue with vancomycin and Zosyn. White blood cell count has normalized. Lactate has normalized. Blood cultures drawn on the fourth are negative for any growth x 2 days. 12/04:Unclear if she finished her course of antibiotics on discharge. She was seen in our emergency department several days ago for bilateral lower extremity edema. At that time she was treated for tachycardia. Had a positive drug screen for methamphetamine. And was not discharged with antibiotics. This evening she presents with obvious cellulitis of the right lower extremity. Likely secondary to wounds which are secondary to bunion deformities. In addition to her diabetes. We will admit and treat for right lower extremity cellulitis. I have ordered vancomycin and Zosyn. As for sepsis criteria she has a white count which is on the high end of normal, however she does have elevated lactic acid at 3.0. I have ordered repeat of this. She is very mildly tachycardic. And this could be secondary to substance use. She has a history of atrial fibrillation her EKG shows sinus rhythm this evening Patient was discussed with Dr. Camarillo in the emergency department this evening. Decision was made to admit for lower extremity cellulitis in the setting of upper limits of normal white count and elevated lactic acid. This is in conjunction also with altered mental status although the etiology of her altered mental status is unclear. I am admitting her to inpatient status as I believe she will require a stay of 2-3 midnights in order to adequately treat her infection. Blood cultures have been ordered by the emergency department.. (2) Polysubstance abuse: Impression: Urine drug screen is positive for opiates. I do not believe these have been prescribed. She is also positive for methamphetamine. Her ethanol level is 100.7 on admission this evening. She demonstrates an inability to care for self, however, she has not been accepted to multiple intermediate facility secondary to her substance use. I have ordered Ativan for any agitation withdrawal symptoms overnight. She recieved 2 doses in the 24 hours since admission. (3) Diabetes: Impression: Last hemoglobin A1c 6.5%. She is on dapagliflozin for her heart failure. This was continue to assist with diabetes management upon discharge last time we will place her on diabetic diet and low coverage for sliding scale insulin. Will escalate as needed. Goal blood sugar less than 180 in the setting of diabetic lower extremity cellulitis She has not been eating much since admission, as she has been sleeping. her blood sugars have been WNL. Laboratory Tests 12/05/24 12/05/24 07:44 11:34 POC Whole Bld Glucose 79 115 Qualifiers: Diabetes mellitus complication detail: with foot ulcer Diabetes mellitus complication status: with skin complications Diabetes mellitus moth exterminator insulin use: without moth exterminator use Diabetes mellitus type: type 2 Q ualified Code(s): E11.621 - Type 2 diabetes mellitus with foot ulcer; L97.509 - Non-pressure chronic ulcer of other part of unspecified foot with unspecified severity (4) Atrial fibrillation: Impression: History of atrial fibrillation on amiodarone, metoprolol and Eliquis. Unclear if she has been taking these medications in the outpatient environment. I have resumed these medications upon admission. She is in sinus rhythm this evening and her rate is under 100. Qualifiers: Atrial fibrillation type: unspecified Qualified Code(s): I48.91 - Unspecified atrial fibrillation (5) Failure of outpatient treatment: Impression: Patient admitted for treatment of left lower extremity cellulitis from November 11 through . Unclear if she finished her course of antibiotics as an outpatient. She has diabetes and congestive heart failure. She also has atrial fibrillation. Her cellulitis is responding well to treatment here with IV abx, and lower extremity elevation. 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 This makes it difficult to communicate with her. I question her ability to care for herself. Past encounters with her have made it clear that she does not have a reliable caregiver in her home environment. I have spent 38 minutes in the care of this patient today. This includes time [id number], review and ordering of diagnostic imaging and laboratory studies..
[2024-12-05] MEDS: MAGNESIUM OXIDE 400 MG TABLET PO SCH (17:23)
[2024-12-05] MEDS: VANCOMYCIN INJ 1 GM in SODIUM CHLORIDE 0.9% 250 ML IV SCH (21:56)
[2024-12-05] MEDS ORDERED: VANCOMYCIN INJ 1 GM in SODIUM CHLORIDE 0.9% 250 ML IV SCH (22:00)
[2024-12-06 05:51] LABS: BASOPHILS # (AUTO) 0.1 10^3/uL (0.0-0.1); BASOPHILS % (AUTO) 0.9 %; EOSINOPHILS # (AUTO) 0.1 10^3/uL (0.0-0.7); EOSINOPHILS % (AUTO) 2.1 %; HCT - HEMATOCRIT 44.9 % (37.0-47.0); HGB - HEMOGLOBIN 14.5 g/dL (12.0-16.0); LYMPHOCYTES # (AUTO) 1.9 10^3/uL (1.5-3.5); LYMPHOCYTES % (AUTO) 29.1 %; MEAN CORPUSCULAR HEMOGLOBIN 26.9 pg (27.0-31.0); MEAN CORPUSCULAR HGB CONC 32.3 g/dL (32.0-36.0); MEAN CORPUSCULAR VOLUME 83.3 fL (81.0-99.0); MONOCYTES # (AUTO) 0.6 10^3/uL (0.0-1.0); MONOCYTES % (AUTO) 9.5 %; NEUTROPHILS # (AUTO) 3.8 10^3/uL (1.5-6.6); NEUTROPHILS % (AUTO) 58.1 %; PLT - PLATELET COUNT 246 10^3/uL (130-450); RED BLOOD COUNT 5.39 10^6/uL (4.20-5.40); RED CELL DISTRIBUTION WIDTH 15.4 % (12.0-15.0); WHITE BLOOD COUNT 6.6 x10^3/uL (4.8-10.8)
[2024-12-06 06:11] LABS: CREATININE 1.1 mg/dL (0.6-1.3); POTASSIUM 4.1 mmol/L (3.5-4.5)
--- NOTE | 2024-12-06 16:56 | PROVIDER PROGRESS NOTE ---
Subjective Prog Note Date Prog Note Date: 12/06/24 Prog Note Time: 16:48 Subjective Pt reports feeling: No change Subjective: She remains largely aphasic. She seems uncomfortable. She gestures to make her needs known (ie- wants to get up to the bathroom after lunch). She seems to understand most of what I tell her. Current Medications Current Medications Current Medications: Current Medications Generic Name Dose Route Start Last Admin Trade Name Freq PRN Reason Stop Dose Admin Acetaminophen 650 mg 12/04/24 21:34 Acetaminophen 325 Mg Tablet PO Q4HR PRN Pain 1 to 4, or Fever Albuterol 2.5 mg 12/04/24 21:39 Albuterol Neb 2.5 Mg/3 Ml INH RTQ4H PRN Shortness Of Air/Wheezing Amiodarone HCl 200 mg 12/05/24 09:00 12/06/24 08:29 Amiodarone 200 Mg Tablet PO 200 mg DAILY TOI Administration Apixaban 5 mg 12/05/24 08:00 12/06/24 08:30 Apixaban 5 Mg Tablet PO 5 mg BIDWM TOI Administration Atorvastatin Calcium 40 mg 12/04/24 21:00 12/05/24 21:54 Atorvastatin 40 Mg Tablet PO 40 mg QPM TOI Administration Cholecalciferol 50 mcg 12/05/24 09:00 12/06/24 08:29 Cholecalciferol 25 Mcg Tablet PO 50 mcg DAILY TOI Administration Furosemide 20 mg 12/05/24 09:00 12/06/24 08:29 Furosemide 20 Mg Tablet PO 20 mg DAILY TOI Administration Piperacillin Sod/Tazobactam 100 mls @ 25 mls/hr 12/04/24 22:00 12/06/24 13:49 Sod 3.375 gm/ Sodium Chloride IV 25 mls/hr Q8H TOI Administration Vancomycin HCl 1 gm/ Sodium 250 mls @ 167 mls/hr 12/05/24 22:00 12/05/24 23:59 Chloride IV Infused Q24H TOI Infusion Insulin Human Lispro 1 - 5 unit 12/05/24 08:00 12/06/24 12:57 Insulin Lispro 300 Unit/3 Ml Pen SUBQ Not Given 0800,1200,1700,2100 TOI Protocol Lorazepam 1 mg 12/04/24 20:17 12/06/24 00:19 Lorazepam 1 Mg Tablet PO 1 mg Q4H PRN Administration Agitation Losartan Potassium 50 mg 12/05/24 09:00 12/06/24 08:29 Losartan 50 Mg Tablet PO 50 mg DAILY TOI Administration Magnesium Oxide 400 mg 12/05/24 16:00 12/06/24 08:29 Magnesium Oxide 400 Mg Tablet PO 400 mg DAILYWM TOI Administration Metoprolol Succinate 25 mg 12/05/24 09:00 12/06/24 08:30 Metoprolol Succinate 25 Mg Tablet PO 25 mg DAILY TOI Administration Ondansetron HCl 4 mg 12/04/24 21:34 Ondansetron Odt 4 Mg Tablet TL Q6HR PRN Nausea / Vomiting Oxycodone HCl 5 mg 12/04/24 21:34 12/06/24 00:38 Oxycodone 5 Mg Tablet PO 5 mg Q4HR PRN Administration Pain 5 to 7 Patient Own Med ( 1 each 12/05/24 09:00 12/06/24 08:30 Farxiga 10 Mg Tablet PO Not Given ) DAILY TOI Multivit/Folic Acid/Iron 1 tab 12/05/24 10:00 12/06/24 08:29 Vitamin Tablet PO 1 tab DAILYWM TOI Administration Sodium Chloride 10 ml 12/04/24 21:34 Sodium Chloride Flush 0.9% 10 Ml Syringe IVP PRN PRN NEEDED PER PROVIDER ORDERS Sodium Chloride 10 ml 12/05/24 01:00 12/06/24 08:30 Sodium Chloride Flush 0.9% 10 Ml Syringe IVP 10 ml 0100,0900,1700 TOI Administration Spironolactone 25 mg 12/05/24 09:00 12/06/24 08:29 Spironolactone 25 Mg Tablet PO 25 mg DAILY TOI Administration Thiamine HCl 100 mg 12/05/24 10:00 12/06/24 08:29 Thiamine 100 Mg Tablet PO 100 mg DAILY TOI Administration Objective Vital Signs/Intake & Output Reviewed Vital Signs: Yes Vital Signs: Vital Signs x48h Temp Pulse Resp BP Pulse Ox 12/06/24 16:24 36.4 C L 84 18 156/115 H 96 Intake & Output: Intake & Output 12/03/24 12/04/24 12/05/24 12/06/24 23:59 23:59 23:59 23:59 Intake Total 1100 / 1100 1790 / 1790 820 / 820 Balance 1100 / 1100 1790 / 1790 820 / 820 Weight (kg) 74 kg 74 kg 74.5 kg Objective General Appearance: positive No acute distress Eyes Bilateral: positive Normal inspection ENT: positive ENT inspection nml Respiratory: positive No respiratory distress and Breath sounds nml Cardiovascular: positive Regular rate & rhythm Skin: positive Other (the erythema and edema of her right leg are improved. ) Extremities: positive Other (Edema bilaterally is decreased. The erythema to the mid thigh on the right is also decreased. She remains with severe bunion deformities and skin breakdown as before. There is no purulent drainage. There is no fluctuance. She also has resultant changes in her toes related to her bunion deformit) Neurologic/Psychiatric: positive Other (Aphasic. Oriented to self. No insight into her condition or evidence of understanding regarding her life circumstances.) Lab Results 12/06/24 05:32 12/06/24 05:32 Other Labs: Lab Results x24hrs 12/06/24 12/06/24 12/06/24 Range/Units 11:32 07:45 05:32 WBC 6.6 (4.8-10.8) x10^3/uL RBC 5.39 (4.20-5.40) 10^6/uL Hgb 14.5 (12.0-16.0) g/dL Hct 44.9 (37.0-47.0) % MCV 83.3 (81.0-99.0) fL MCH 26.9 L (27.0-31.0) pg MCHC 32.3 (32.0-36.0) g/dL RDW 15.4 H (12.0-15.0) % Plt Count 246 (130-450) 10^3/uL MPV 11.0 H (7.9-10.8) fL Neut # (Auto) 3.8 (1.5-6.6) 10^3/uL Lymph # (Auto) 1.9 (1.5-3.5) 10^3/uL Bland # (Auto) 0.6 (0.0-1.0) 10^3/uL Eos # (Auto) 0.1 (0.0-0.7) 10^3/uL Baso # (Auto) 0.1 (0.0-0.1) 10^3/uL Absolute Nucleated RBC 0.00 x10^3/uL Nucleated RBC % 0.0 /100WBC Sodium 136 (135-145) mmol/L Potassium 4.1 (3.5-4.5) mmol/L Chloride 103 (101-111) mmol/L Carbon Dioxide 26 (21-32) mmol/L Anion Gap 7.0 (6-13) BUN 16 (6-20) mg/dL Creatinine 1.1 (0.6-1.3) mg/dL Estimated GFR (MDRD) 61 L (>89) Glucose 103 (74-104) mg/dL POC Whole Bld Glucose 138 99 (70-100) mg/dL Calcium 9.0 (8.5-10.3) mg/dL 12/05/24 Range/Units 20:50 WBC (4.8-10.8) x10^3/uL RBC (4.20-5.40) 10^6/uL Hgb (12.0-16.0) g/dL Hct (37.0-47.0) % MCV (81.0-99.0) fL MCH (27.0-31.0) pg MCHC (32.0-36.0) g/dL RDW (12.0-15.0) % Plt Count (130-450) 10^3/uL MPV (7.9-10.8) fL Neut # (Auto) (1.5-6.6) 10^3/uL Lymph # (Auto) (1.5-3.5) 10^3/uL Bland # (Auto) (0.0-1.0) 10^3/uL Eos # (Auto) (0.0-0.7) 10^3/uL Baso # (Auto) (0.0-0.1) 10^3/uL Absolute Nucleated RBC x10^3/uL Nucleated RBC % /100WBC Sodium (135-145) mmol/L Potassium (3.5-4.5) mmol/L Chloride (101-111) mmol/L Carbon Dioxide (21-32) mmol/L Anion Gap (6-13) BUN (6-20) mg/dL Creatinine (0.6-1.3) mg/dL Estimated GFR (MDRD) (>89) Glucose (74-104) mg/dL POC Whole Bld Glucose 110 (70-100) mg/dL Calcium (8.5-10.3) mg/dL Assessment/Plan Problem List (1) Cellulitis of leg, right: Impression: 12/06:Edema and erythema of the right leg is much decreased. She remains sleepy. She is making her needs known through gestures. Minimal verbal answers. Her blood cultures remain negative. Her white blood cell count remains normal and her lactate elevation has resolved. We will discharge her to home tomorrow. We will attempt again home health services 12/05: Decreased edema in the lower extremities with elevation. She is sleepy today likely due to coming down from methamphetamine. She does awaken and interact with me. Her cellulitis is decreasing. I do not see any increasing drainage from her wounds. I will continue with vancomycin and Zosyn. White blood cell count has normalized. Lactate has normalized. Blood cultures drawn on the fourth are negative for any growth x 2 days. 12/04:Unclear if she finished her course of antibiotics on discharge. She was seen in our emergency department several days ago for bilateral lower extremity edema. At that time she was treated for tachycardia. Had a positive drug screen for methamphetamine. And was not discharged with antibiotics. This evening she presents with obvious cellulitis of the right lower extremity. Likely secondary to wounds which are secondary to bunion deformities. In addition to her diabetes. We will admit and treat for right lower extremity cellulitis. I have ordered vancomycin and Zosyn. As for sepsis criteria she has a white count which is on the high end of normal, however she does have elevated lactic acid at 3.0. I have ordered repeat of this. She is very mildly tachycardic. And this could be secondary to substance use. She has a history of atrial fibrillation her EKG shows sinus rhythm this evening Patient was discussed with Dr. Camarillo in the emergency department this evening. Decision was made to admit for lower extremity cellulitis in the setting of upper limits of normal white count and elevated lactic acid. This is in conjunction also with altered mental status although the etiology of her altered mental status is unclear. I am admitting her to inpatient status as I believe she will require a stay of 2-3 midnights in order to adequately treat her infection. Blood cultures have been ordered by the emergency department.. (2) Polysubstance abuse: Impression: Urine drug screen is positive for opiates. I do not believe these have been prescribed. She is also positive for methamphetamine. Her ethanol level is 100.7 on admission this evening. She demonstrates an inability to care for self, however, she has not been accepted to multiple half-way facility secondary to her substance use. She has not shown any signs or symptoms of alcohol withdrawal. She received 1 dose of Ativan overnight (3) Diabetes: Impression: Last hemoglobin A1c 6.5%. She is on dapagliflozin for her heart failure. This was continue to assist with diabetes management upon discharge last time we will place her on diabetic diet and low coverage for sliding scale insulin. Will escalate as needed. Goal blood sugar less than 180 in the setting of diabetic lower extremity cellulitis She has not been eating much since admission, as she has been sleeping. her blood sugars have been WNL. Laboratory Tests 12/05/24 12/06/24 12/06/24 20:50 07:45 11:32 POC Whole Bld Glucose 110 99 138 12/06/24 16:49 POC Whole Bld Glucose 90 Qualifiers: Diabetes mellitus complication detail: with foot ulcer Diabetes mellitus complication status: with skin complications Diabetes mellitus care home insulin use: without care home use Diabetes mellitus type: type 2 Q ualified Code(s): E11.621 - Type 2 diabetes mellitus with foot ulcer; L97.509 - Non-pressure chronic ulcer of other part of unspecified foot with unspecified severity (4) Atrial fibrillation: Impression: History of atrial fibrillation on amiodarone, metoprolol and Eliquis. Unclear if she has been taking these medications in the outpatient environment. I have resumed these medications upon admission. She is in sinus rhythm this evening and her rate is under 100. telemetry strips reviewed Qualifiers: Atrial fibrillation type: unspecified Qualified Code(s): I48.91 - Unspecified atrial fibrillation (5) Failure of outpatient treatment: Impression: Patient admitted for treatment of left lower extremity cellulitis from November 11 through . Unclear if she finished her course of antibiotics as an outpatient. She has diabetes and congestive heart failure. She also has atrial fibrillation. Her cellulitis is responding well to treatment here with IV abx, and lower extremity elevation. 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 This makes it difficult to communicate with her. I question her ability to care for herself. Past encounters with her have made it clear that she does not have a reliable caregiver in her home environment. I have spent 30 minutes in the care of this patient today. This includes time [id number], review and ordering of diagnostic imaging and laboratory studies..
[2024-12-07 06:15] LABS: BASOPHILS # (AUTO) 0.1 10^3/uL (0.0-0.1); BASOPHILS % (AUTO) 0.8 %; EOSINOPHILS # (AUTO) 0.2 10^3/uL (0.0-0.7); EOSINOPHILS % (AUTO) 2.2 %; HCT - HEMATOCRIT 46.1 % (37.0-47.0); HGB - HEMOGLOBIN 14.8 g/dL (12.0-16.0); LYMPHOCYTES # (AUTO) 2.2 10^3/uL (1.5-3.5); LYMPHOCYTES % (AUTO) 31.1 %; MEAN CORPUSCULAR HEMOGLOBIN 26.8 pg (27.0-31.0); MEAN CORPUSCULAR HGB CONC 32.1 g/dL (32.0-36.0); MEAN CORPUSCULAR VOLUME 83.5 fL (81.0-99.0); MEAN PLATELET VOLUME 11.3 fL (7.9-10.8); MONOCYTES # (AUTO) 0.8 10^3/uL (0.0-1.0); MONOCYTES % (AUTO) 10.7 %; NEUTROPHILS # (AUTO) 3.9 10^3/uL (1.5-6.6); NEUTROPHILS % (AUTO) 54.9 %; PLT - PLATELET COUNT 232 10^3/uL (130-450); RED BLOOD COUNT 5.52 10^6/uL (4.20-5.40); WHITE BLOOD COUNT 7.1 x10^3/uL (4.8-10.8)
[2024-12-07 06:28] LABS: CALCIUM 9.2 mg/dL (8.5-10.3); CREATININE 1.2 mg/dL (0.6-1.3); POTASSIUM 4.2 mmol/L (3.5-4.5)
[2024-12-07 07:55] VITALS: BP 154/96; TEMP 97.7; O2SAT 94
--- NOTE | 2024-12-07 11:54 | Discharge Summary ---
"Discharge Summary Admit Date: 12/04/24 Discharge Date: 12/07/24 Discharging Provider: Melisa Sam PA-C Primary Care Provider: Elizabeth Jaimes MD Code Status: Attempt Resuscitation DIAGNOSES Discharge Diagnoses with Status of Each Condition: Right lower extremity cellulitis, resolving. Severe bunion deformities bilateral lower extremities wounds bilateral lower extremities Polysubstance abuse Diabetes mellitus, last hemoglobin A1c 6.5% Atrial fibrillation on metoprolol and Eliquis Speech and language deficit due to old stroke. HPI History of Present Illness: Mrs. Wilson is a 64yoF with a history of Diabetes, Atrial fibrillation, stroke with residual speech deficits. She was brought in by friend for evaluation of leg pain and swelling.History is limited due to patient's speech deficits and friend not knowing the extent of the patient's history. Per the ED physician, she has not been on most of her medications for a long time. The duration of the pain is unknown. She was found to have bilateral swelling of her lower extremities, L >R. She had associated left calf pain and pain in her left foot. She had a 2cm wound along the medial aspect of her 1st MTP, with reported eschar and minimal drainage. Pulses were intact, sensation and ROM was intact. Xray demonstrated degenerative changes,but did not mention osteomylitic changes. I have agreed to admit for further management due to worsening pain and suspected infection. CONSULTS | PROCEDURES Procedures: Bilateral foot XR:Left foot: Hallux valgus. Probable pes planus. Moderate background degenerative changes. No definite osseous erosions. Plantar calcaneal enthesopathy. Diffuse soft tissue swelling. Prominent dorsal talar osteophyte. Right foot: Hallux valgus alignment. Probable pes planus. Lateral view not well assessed due to obliquity. Mild to moderate scattered degenerative changes. No definite osseous erosions. Diffuse soft tissue swelling. Chest x-ray: Low lung volumes no dense airspace disease or pleural effusions Head CT: Left-sided posterior MCA territory encephalomalacia likely from prior infarct. No acute hemorrhage. HOSPITAL COURSE Hospital Course: (1) Cellulitis of leg, right: :Edema and erythema of the right leg is much decreased. She remains sleepy. She is making her needs known through gestures. Minimal verbal answers. Her blood cultures remain negative. Her white blood cell count remains normal and her lactate elevation has resolved. We have attempted to set up home health. there is no agency on the [place] that works with her insurance. 12/05: Decreased edema in the lower extremities with elevation. She is sleepy today likely due to coming down from methamphetamine. She does awaken and interact with me. Her cellulitis is decreasing. I do not see any increasing drainage from her wounds. I will continue with vancomycin and Zosyn. White blood cell count has normalized. Lactate has normalized. Blood cultures drawn on the fourth are negative for any growth x 2 days. 12/04:Unclear if she finished her course of antibiotics on discharge. She was seen in our emergency department several days ago for bilateral lower extremity edema. At that time she was treated for tachycardia. Had a positive drug screen for methamphetamine. And was not discharged with antibiotics. This evening she presents with obvious cellulitis of the right lower extremity. Likely secondary to wounds which are secondary to bunion deformities. In addition to her diabetes. We will admit and treat for right lower extremity cellulitis. I have ordered vancomycin and Zosyn. As for sepsis criteria she has a white count which is on the high end of normal, however she does have elevated lactic acid at 3.0. I have ordered repeat of this. She is very mildly tachycardic. And this could be secondary to substance use. She has a history of atrial fibrillation her EKG shows sinus rhythm this evening Patient was discussed with Dr. Camarillo in the emergency department this evening. Decision was made to admit for lower extremity cellulitis in the setting of upper limits of normal white count and elevated lactic acid. This is in conjunction also with altered mental status although the etiology of her altered mental status is unclear. I am admitting her to inpatient status as I believe she will require a stay of 2-3 midnights in order to adequately treat her infection. Blood cultures have been ordered by the emergency department.. (2) Polysubstance abuse: Urine drug screen is positive for opiates. I do not believe these have been prescribed. She is also positive for methamphetamine. Her ethanol level is 100.7 on admission this evening. She demonstrates an inability to care for self, however, she has not been accepted to multiple assisted facility secondary to her substance use. She has not shown any signs or symptoms of alcohol withdrawal. (3) Diabetes: Last hemoglobin A1c 6.5%. She is on dapagliflozin for her heart failure. This was continued to assist with diabetes management upon discharge last time. wShe was given a diabetic diet and low coverage for sliding scale insulin. . Goal blood sugar less than 180 in the setting of diabetic lower extremity cellulitis Laboratory Tests 12/05/24 12/05/24 12/05/24 07:44 11:34 20:50 POC Whole Bld Glucose 79 115 110 12/06/24 12/06/24 12/06/24 07:45 11:32 16:49 POC Whole Bld Glucose 99 138 90 12/06/24 12/07/24 12/07/24 21:05 07:42 11:06 POC Whole Bld Glucose 106 119 157 (4) Atrial fibrillation: History of atrial fibrillation on amiodarone, metoprolol and Eliquis. Unclear if she has been taking these medications in the outpatient environment. I have resumed these medications upon admission. (5) Failure of outpatient treatment: Impression: Patient admitted for treatment of left lower extremity cellulitis from November 11 through . Unclear if she finished her course of antibiotics as an outpatient. She has diabetes and congestive heart failure. She also has atrial fibrillation. Her cellulitis is responding well to treatment here with IV abx, and lower extremity elevation. 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 This makes it difficult to communicate with her. I question her ability to care for herself. Past encounters with her have made it clear that she does not have a reliable caregiver in her home environment. She has poor living conditions and has not been able to access service due to a combination of her polysubstance abuse and her health [place] ALLERGIES Allergies Allergy/AdvReac Type Severity Reaction Status Date / Time No Known Drug Allergies Allergy Verified 12/04/24 20:25 MEDICATIONS Ambulatory Orders Medication Instructions Recorded Confirmed albuterol sulfate 90 mcg/actuation 2 puff inhalation Q4H PRN 02/16/24 aerosol inhaler (Ventolin HFA) Shortness Of Air/Wheezing #1 ea amiodarone 200 mg tablet 200 mg PO DAILY #90 tabs 11/15/24 12/05/24 apixaban 5 mg tablet (Eliquis) 5 mg PO BIDWM 90 days #180 tabs 11/15/24 12/05/24 atorvastatin 40 mg tablet 40 mg PO QPM #90 tabs 11/15/24 12/05/24 cholecalciferol (vitamin D3) 25 50 mcg (2 x 25 mcg (1,000 unit)) 11/15/24 mcg (1,000 unit) tablet PO DAILY #90 tabs dapagliflozin propanediol 10 mg 10 mg PO DAILY #90 tabs 11/15/24 12/05/24 tablet furosemide 20 mg tablet 20 mg PO DAILY #90 tabs 11/15/24 12/05/24 losartan 50 mg tablet 50 mg PO DAILY #90 tabs 11/15/24 12/05/24 metoprolol succinate 25 mg 25 mg PO DAILY #90 tabs 11/15/24 12/05/24 tablet,extended release 24 hr spironolactone 25 mg tablet 25 mg PO DAILY #90 tabs 11/15/24 12/05/24 amoxicillin 875 mg-potassium 1 tab PO BID #14 tabs 12/07/24 clavulanate 125 mg tablet magnesium oxide 400 mg (241.3 mg 400 mg PO DAILYWM #30 tabs 12/07/24 magnesium) tablet vit,calcium 27-ferrous 1 tab PO DAILYWM #30 tabs 12/07/24 fum 60 mg iron-folic acid 1 mg tablet (Trinatal Rx 1) thiamine mononitrate (vit B1) 100 100 mg PO DAILY #30 tabs 12/07/24 mg tablet PHYSICAL EXAM AT DISCHARGE Physical Exam Other/Comments: General Appearance: positive No acute distress Eyes Bilateral: positive Normal inspection ENT: positive ENT inspection nml Respiratory: positive No respiratory distress and Breath sounds nml Cardiovascular: positive Regular rate & rhythm Skin: positive Other (the erythema and edema of her right leg are improved. ) Extremities: positive Other (Edema bilaterally is decreased. The erythema to the mid thigh on the right is also decreased. She remains with severe bunion deformities and skin breakdown as before. There is no purulent drainage. There is no fluctuance. She also has resultant changes in her toes related to her bunion deformit) Neurologic/Psychiatric: positive Other (Aphasic. Oriented to self. No insight into her condition or evidence of understanding regarding her life circumstances.) LABS 12/07/24 05:51 12/07/24 05:51 SEPSIS Current Stage of Sepsis: Ruled out FOLLOW UP Follow Up: Elizabeth Jaimes TIME SPENT Time Spent in Discharge (Minutes): 35 Discharge Plan Discharge Patient Disposition: Home, Self Care Condition: Serious Prescriptions: New magnesium oxide 400 mg (241.3 mg magnesium) Tablet 400 mg PO DAILYWM Qty: 30 0RF Trinatal Rx 1 60 mg iron-1 mg Tablet 1 tab PO DAILYWM Qty: 30 0RF thiamine mononitrate (vit B1) 100 mg Tablet 100 mg PO DAILY Qty: 30 0RF amoxicillin-pot clavulanate 875-125 mg tablet 1 tab PO BID Qty: 14 0RF Continued albuterol sulfate [Ventolin HFA] 1 PUFFS HFA aerosol inhaler 2 puff inhalation Q4H PRN (Reason: Shortness Of Air/Wheezing) Qty: 1 0RF losartan 50 MG tablet 50 mg PO DAILY Qty: 90 0RF atorvastatin 40 MG tablet 40 mg PO QPM Qty: 90 0RF amiodarone 200 MG tablet 200 mg PO DAILY Qty: 90 0RF spironolactone 25 MG tablet 25 mg PO DAILY Qty: 90 0RF furosemide 20 MG tablet 20 mg PO DAILY Qty: 90 0RF metoprolol succinate 25 MG tablet extended release 24 hr 25 mg PO DAILY Qty: 90 0RF cholecalciferol (vitamin D3) 25 MCG tablet 50 mcg PO DAILY Qty: 90 0RF Eliquis 5 MG tablet 5 mg PO BIDWM 90 Days Qty: 180 0RF Rx Instructions: with Breakfast and Dinner dapagliflozin propanediol 10 mg tablet 10 mg PO DAILY Qty: 90 0RF Activity Restrictions: Activity as Tolerated Diet: Diabetic Health Concerns: You came into the hospital with altered mental status and pain in your feet and legs. At the time that you came into the hospital you had both alcohol and your blood and methamphetamine in your urine. This is indicative to us that you are still using alcohol and meth. You were recently discharged from the hospital on November 15. At that time you are discharged home with 3 months of medication. At this time I am not changing your home medications. I am however adding 1 week of antibiotics. I have sent this to [facility] in [place]. I need you to pick them up and take them twice a day for 7 days. You do have an assigned primary care provider, Elizabeth Jaimes at the [facility] in [place]. I need you to call the clinic and make an appointment. The contact information for Dr. Jaimes is located below. I think you are going to continue to get infections in your legs until you are able to have something done about the severe bunion deformities in your feet. You need to see a director of curriculum and instruction, and the best way to see a director of curriculum and instruction is through referral from your primary care doctor. With the kind of insurance you have it can be difficult to find a director of curriculum and instruction that can help. But you need to try. The issue is [place] doctor. You need to continue to take your medications for your diabetes and your heart. I have tried to get you home health services, however [place] I suggest that you take a shower every day when you are at home. It will be helpful to keep the bacteria washed away from your skin. If you begin to have increasing pain in your legs I suggest that you come to the hospital. I suggest that you not drink alcohol or take methamphetamine as these things can be bad for your health. They are bad for your diabetes and they are bad for your heart problems. Print Language: Guinean Patient Instructions: Cellulitis Dc Follow-up Care: Elizabeth Jaimes MD [Provider Admit Priv/Credential] -"
== END 2024-12-07 13:35 | disposition home or self-care (01) | DRG 603 ==
LOC: ED 17:23 → MS2 20:17
PROVIDERS: ADMIT Physician Assistant Medical; ATTEND Physician Assistant Medical